=== PATIENT | female | born 1990 | race Caucasian/White ===

== ENCOUNTER → 2019-06-01 13:25 | Outpatient (BNVA) | payer MEDICAID, SELFPAY | PROVIDERS: Family Provider Internal Medicine; PCP Internal Medicine; Referring Provider Social Worker; Visit Provider Social Worker | DX: F20.9 Schizophrenia, unspecified (principal); F63.81 Intermittent explosive disorder; R41.83 Borderline intellectual functioning | CPT/HCPCS: 90791 ==

== ENCOUNTER → 2019-07-27 12:44 | Outpatient (BNVA) | payer MEDICAID, SELFPAY | PROVIDERS: Family Provider Internal Medicine; PCP Internal Medicine; Visit Provider Social Worker | DX: F20.9 Schizophrenia, unspecified (principal); F63.81 Intermittent explosive disorder; R41.83 Borderline intellectual functioning | CPT/HCPCS: 90834 ==

== ENCOUNTER → 2019-08-24 13:29 | Outpatient (BNVA) | payer MEDICAID, SELFPAY | PROVIDERS: Family Provider Internal Medicine; PCP Internal Medicine; Visit Provider Social Worker | DX: F20.9 Schizophrenia, unspecified (principal); F63.81 Intermittent explosive disorder; R41.83 Borderline intellectual functioning | CPT/HCPCS: 90832 ==

== ENCOUNTER → 2019-09-12 08:27 | Outpatient (BNVA) | payer MEDICAID, SELFPAY | PROVIDERS: Family Provider Internal Medicine; PCP Internal Medicine; Visit Provider Social Worker | DX: F20.9 Schizophrenia, unspecified (principal); F63.81 Intermittent explosive disorder; R41.83 Borderline intellectual functioning | CPT/HCPCS: 90832 ==

== ENCOUNTER → 2020-06-20 08:47 | Outpatient (BNVA) | payer MEDICAID, SELFPAY | PROVIDERS: Family Provider Internal Medicine; PCP Internal Medicine; Visit Provider Counselor Professional | DX: F79 Unspecified intellectual disabilities (principal); Z71.9 Counseling, unspecified | CPT/HCPCS: 90834 ==

== ENCOUNTER → 2020-07-04 07:48 | Outpatient (BNVA) | payer MEDICAID, SELFPAY | PROVIDERS: Family Provider Internal Medicine; PCP Internal Medicine; Visit Provider Counselor Professional | DX: F79 Unspecified intellectual disabilities (principal); Z71.9 Counseling, unspecified | CPT/HCPCS: 90832 ==

== ENCOUNTER → 2020-07-18 07:45 | Outpatient (BNVA) | payer MEDICAID, SELFPAY | PROVIDERS: Family Provider Internal Medicine; PCP Internal Medicine; Visit Provider Counselor Professional | DX: F79 Unspecified intellectual disabilities (principal); Z71.9 Counseling, unspecified | CPT/HCPCS: 90834 ==

== ENCOUNTER 2020-12-03 18:09 | Emergency (ER) | payer MEDICAID, SELFPAY ==
[2020-12-03 19:09] VITALS: BP 106/78; PULSE 100; RESP 20; TEMP 36.6; O2SAT 98
--- NOTE | 2020-12-03 19:30 | ED_ITS ---
HPI - Weakness General: Chief complaint: Weakness Stated complaint: body aches Time Seen by Provider: 12/03/20 19:29 History of Present Illness: HPI Narrative: 30-year-old female that is a resident at a independent living center comes in today for feeling of malaise and chills for the last 2 to 3 days. Patient is alert and oriented. Patient appears no acute distress. Associated symptoms: Reports chills Review of Systems General: Reports: 10 or more systems reviewed and unremarkable except in HPI and below Const: Reports: chills, body aches and malaise PFS ED PFSH: Medical History (Updated 12/03/20 @ 20:22 by EVELYN Egan) ADHD Bipolar disorder Borderline personality disorder Callus of foot Cephalgia GERD (gastroesophageal reflux disease) Hammer toe of left foot Obsessive-compulsive behavior Schizophrenia Family History Denies family history of Diabetes CAD (coronary artery disease) Clotting disorder Dementia Hyperlipidemia Psychiatric illness Chronic kidney disease (CKD) Suicide Anesthesia complication Bleeding disorder Family history of premature coronary artery disease Lung disease Cancer Hypertension Stroke Social History Smoking and tobacco status: never smoked Alcohol intake: never Current gender identity: Female Physical Exam Const: COMMON NORMALS: no acute distress and patient oriented x3 GENERAL APPEARANCE: cooperative HENMT: COMMON NORMALS: normocephalic, TM's normal bilaterally and Normal external nose present HEAD & SCALP: normal to inspection and normocephalic NOSE: Normal external nose present TYMPANIC MEMBRANE: TM's normal bilaterally MOUTH: Normal oral and palatal mucosa present THROAT: posterior oropharynx normal Eye: GENERAL EYE: appearance normal, both eyes and all related structures Neck/C-Spine: COMMON NORMALS: full ROM Lymph: LYMPHATIC: no lymphadenopathy noted Chest: COMMONS NORMALS: normal inspection of the chest Resp: COMMON NORMALS: normal respiratory effort EFFORT & INSPECTION: Yes able to speak in complete sentences Cardio: COMMON NORMALS: regular rate and regular rhythm RATE: regular rate RHYTHM: regular rhythm GI: COMMON NORMALS: non-tender : COMMON NORMALS: Yes no CVA tenderness BLADDER/KIDNEY EXAM: Yes no CVA tenderness Back/Pelvis: COMMON NORMALS: no CVA tenderness and thoracic and lumbar spine normal to inspection Extremity: COMMON NORMALS: normal to inspection Neuro: COMMON NORMALS: patient oriented x3 and moves all extremities Psych: COMMON NORMALS: mental status grossly normal and cooperative Skin: COMMON NORMALS: no rashes or lesions noted GENERAL SKIN EXAM: no rashes or lesions noted Course Vital Signs: Vital signs: Vital Signs Temperature 97.8 F 12/03/20 19:09 Pulse Rate 100 12/03/20 19:09 Respiratory Rate 20 H 12/03/20 19:09 Blood Pressure 106/78 12/03/20 19:09 Pulse Oximetry 98 12/03/20 19:09 MDM - Weakness MDM Narrative: Medical decision making narrative: Patient comes in today for complaints of chills, malaise, and body aches. On exam respirations are even lungs are clear to auscultation. Skin is warm and dry. Abdomen soft nontender. Differential diagnosis includes upper respiratory infection, viral syndrome, COVID-19. COVID-19 test was positive. Patient was instructed for supportive care. This was reviewed with her caregiver. With recommendations for follow-up or return to the ER. Lab Data: Labs: Lab Results 12/03/20 Range/Units 19:38 SARS-CoV-2 Ag (Rap id) Positive H (Negative) Discharge Plan Discharge Patient Disposition: Home Clinical Impression: COVID-19 Condition: Stable Prescriptions: No Action loratadine 10 mg capsule 10 mg PO DAILY RF: 0 fluticasone furoate 50 mcg/actuation blister with device INHALATION RF: 0 montelukast [Singulair] 10 mg tablet 10 mg PO DAILY RF: 0 [id number]-pramoxine TOPICAL RF: 0 acetaminophen [Tylenol Extra Strength] 500 mg tablet 500 mg PO QID PRNRF: 0 calcium carbonate 500 mg calcium (1,250 mg) tablet,chewable 500 mg PO DAILY RF: 0 clindamycin-benzoyl peroxide [Benzaclin] 1-5 % gel 1 applic TOPICAL DAILY RF: 0 Protonix [address] for susp in packet 40 mg PO DAILY RF: 0 medroxyprogesterone [Depo-Provera] 150 mg/mL syringe IM RF: 0 divalproex [Depakote] 500 mg tablet,delayed release (DR/EC) 500 mg PO BID RF: 0 risperidone [Risperdal] 4 mg tablet 4 mg PO BID RF: 0 carbamide peroxide [Debrox] 6.5 % drops 5 drop EAR-BOTH DAILY RF: 0 polyethylene glycol 3350 [Miralax] 17 gram/dose powder 17 gm PO DAILY RF: 0 benztropine 1 mg tablet 1 mg PO BID RF: 0 trazodone 100 mg tablet 100 mg PO .hs RF: 0 lithium carbonate 300 mg capsule 300 mg PO TID RF: 0 propranolol 10 mg tablet 10 mg PO BID RF: 0 ondansetron 4 mg tablet,disintegrating 4 mg PO Q8H RF: 0 paliperidone palmitate IM RF: 0 triamcinolone acetonide 0.1 % cream 1 applic topical DAILY Qty: 80 RF: 0 fluorouracil 5 % cream See Rx Instructions .ROUTE .COMPLEX Qty: 40 RF: 1 Discharge Orders: Discharge ED (Routine); Ordered 12/03/20 Ordered By: Richard Rios Referrals: Robert Collins DO [Primary Care Provider] - Discharge Diet: Usual diet Discharge Activity: Increase activity as tolerated Patient Instructions: Viral Syndrome (ED), Opioid Safety Activity Restrictions/Additional Instructions: Encourage plenty of fluids. Use acetaminophen or ibuprofen as needed for pain and fever. Activity as tolerated. Patient should wear a mask around other individuals. Patient should be isolated to avoid spreading the infection. Follow-up with primary care for further instruction. Return to the emergency department for new concerns. Coding Level of Care Code ED Licensed Physical Therapist Assistant for Julito Whitmore
[2020-12-03 20:13] LABS: SARS Covid-2 Antigen Positive (Negative)
[2020-12-03 20:41] VITALS: BP 124/80; PULSE 89; RESP 20; TEMP 36.6; O2SAT 98
== END 2020-12-03 20:42 | disposition home or self-care (01) ==
PROVIDERS: Emergency Provider Nurse Practitioner Family; Family Provider Internal Medicine; PCP Internal Medicine
DX: U07.1 COVID-19 (principal); E11.22 Type 2 diabetes mellitus with diabetic chronic kidney disease; I25.10 Atherosclerotic heart disease of native coronary artery without angina pectoris; F03.90 Unspecified dementia, unspecified severity, without behavioral disturbance, psychotic disturbance, mood disturbance, and anxiety; E78.5 Hyperlipidemia, unspecified; I12.9 Hypertensive chronic kidney disease with stage 1 through stage 4 chronic kidney disease, or unspecified chronic kidney disease; N18.9 Chronic kidney disease, unspecified; Z86.73 Personal history of transient ischemic attack (TIA), and cerebral infarction without residual deficits
CPT/HCPCS: 87426; 99282

== ENCOUNTER 2021-05-28 11:58 | Emergency (ER) | payer MEDICAID, SELFPAY ==
[2021-05-28 13:05] VITALS: BP 103/71; PULSE 85; RESP 24; TEMP 36.3; O2SAT 94; BMI 26.9
--- NOTE | 2021-05-28 13:12 | XRR_ITS ---
PROCEDURE INFORMATION: Exam: XR Chest Exam date and time: 05/28/2021 1:12 PM Age: 30 years old Clinical indication: Shortness of breath; Additional info: SOB TECHNIQUE: Imaging protocol: XR of the chest. Views: 1 view. COMPARISON: CR Chest 1 view [id number] 09/19/2018 1:44 PM FINDINGS: Lungs: There is increased lung markings and hazy bilateral airspace opacities, involving mainly the left lower lung. Pleural spaces: Unremarkable. No pleural effusion. No pneumothorax. Heart/Mediastinum: Stable cardiomediastinal silhouette. Bones/joints: Unremarkable. XR/XR chest 1V portable [id number] IMPRESSION: Imaging findings of multifocal pneumonia.
[2021-05-28 15:07] VITALS: BP 117/73; PULSE 99; RESP 24; TEMP 36.9; O2SAT 90
[2021-05-28 15:11] LABS: Adenovirus Not Detected (NOT DETECT); Chlamydia Pneumoniae Not Detected (NOT DETECT); Coronavirus 229E,HKU1,NL63,OC4 Not Detected (NOT DETECT); Human Metapneumovirus Detected (NOT DETECT); Human Rhinovirus/Enterovirus Not Detected (NOT DETECT); Influenza A Not Detected (NOT DETECT); Influenza A H1 Not Detected (NOT DETECT); Influenza A H1-2009 Not Detected (NOT DETECT); Influenza A H3 Not Detected (NOT DETECT); Influenza B Not Detected (NOT DETECT); Mycoplasma Pneumoniae Not Detected (NOT DETECT); Parainfluenza Virus Type 1 Not Detected (NOT DETECT); Parainfluenza Virus Type 2 Not Detected (NOT DETECT); Parainfluenza Virus Type 3 Not Detected (NOT DETECT); Parainfluenza Virus Type 4 Not Detected (NOT DETECT); Respiratory Syncytial Virus A Not Detected (NOT DETECT); Respiratory Syncytial Virus B Not Detected (NOT DETECT); SARS-COV-2 Detected (NOT DETECT)
[2021-05-28 15:13] LABS: Human Metapneumovirus Detected (NOT DETECT); Human Rhinovirus/Enterovirus Not Detected (NOT DETECT); Results from Genmark
[2021-05-28 15:26] LABS: Basophils % 0.2 %; Hematocrit 38.2 % (37.0-47.0); Lymphocytes # 1.4 10^3/uL (0.8-4.8); Mean Corpuscular HGB Conc 31.4 g/dL (30.0-36.0); Mean Corpuscular Hemoglobin 27.6 pg (28.0-34.0); Mean Corpuscular Volume 87.8 fl (81-99); Mean Platelet Volume 8.8 fL (7.4-10.4); Monocytes # 0.6 10^3/uL (0.2-0.9); Monocytes % 5.5 %; Neutrophils # 9.17 10^3/uL (1.8-7.7); Neutrophils % 81.7 %; Nucleated Red Blood Cells % 0 %; Platelet Count 229 10^3/cmm (130-400); Red Blood Count 4.35 10^6/uL (4.1-5.3); Red Cell Distribution Width 12.7 % (12.1-15.1); White Blood Count 11.2 10^3/uL (4.0-10.0)
--- NOTE | 2021-05-28 15:30 | W.ED.COVID ---
Documented by User: EVELYN Guardado 05/28/21 15:57 HPI - COVID General: Chief Complaint: COVID symptoms Stated Complaint: COVID COUGHING N/V Time Seen by Provider: 05/28/21 15:23 Triage information: Has fever, cough or shortness of breath. No known COVID + exposure last 14 days History of Present Illness: HPI Narrative: Patient is an unvaccinated individual who presents from [facility] with COVID symptoms. They said sats were 87% there and sent here for evaluation. Patient's been sick since Wednesday with COVID symptoms this would be her second round with this. Patient has cough, shortness of breath with exertion, chills and has had fever. MD complaint: has COVID symptoms Prior covid testing: yes, results known Prior testing date: 11/28/20 COVID 19 common symptoms: positive fever(s), chills, cough, dyspnea, fatigue, body aches, nasal congestion and nausea; negative headache(s) or vomiting COVID 19 other sytmptoms: negative chest pain Severity: moderate Treatment prior to arrival: none COVID Results: SARS-CoV-2 Antigen (Rapid) Positive (Negative) H 12/03/20 19:38 12/03/20 SARS-CoV-2 (PCR) Detected (NOT DETECT) A 05/28/21 13:12 05/28/21 Coronavirus Type 229E (PCR) Not detected (NOT DETECT) 05/28/21 13:12 05/28/21 Review of Systems Narrative: Mother is the guardian, patient is here with her caregiver. Const: Reports: fever(s), chills, body aches and fatigue Eyes: Denies: change in vision or blurry vision ENMT: Reports: nasal congestion Card: Denies: chest pain or dyspnea on exertion Resp: Reports: dyspnea GI: Reports: nausea; Denies: abdominal pain or vomiting Musc: Denies: extremity pain Skin/Breast: Denies: rash Neuro: Denies: headache(s) Psych: Denies: anxiety or depression Parish/Lymph: Denies: easy bruising PFS ED PFSH: Medical History (Updated 05/28/21 @ 15:49 by EVELYN Guardado) ADHD Bipolar disorder Borderline personality disorder Callus of foot Cephalgia GERD (gastroesophageal reflux disease) Hammer toe of left foot Obsessive-compulsive behavior Schizophrenia Family History Denies family history of Diabetes CAD (coronary artery disease) Clotting disorder Dementia Hyperlipidemia Psychiatric illness Chronic kidney disease (CKD) Suicide Anesthesia complication Bleeding disorder Family history of premature coronary artery disease Lung disease Cancer Hypertension Stroke Social History Smoking and tobacco status: never smoked Alcohol intake: never Current gender identity: Female Physical Exam Const: COMMON NORMALS: no acute distress, average body habitus and patient oriented x3 HENMT: COMMON NORMALS: normocephalic HEAD & SCALP: normal to inspection and normocephalic FACE & SINUS: normal facial exam Eye: COMMON NORMALS: conjunctivae normal GENERAL EYE: appearance normal, both eyes and all related structures CONJUNCTIVA: Yes conjunctivae normal Neck/C-Spine: COMMON NORMALS: no JVD Chest: COMMONS NORMALS: normal inspection of the chest Resp: EFFORT & INSPECTION: Yes able to speak in complete sentences, Yes symmetric chest movement, Yes tachypneic, No respiratory distress and Yes Actively coughing Cardio: COMMON NORMALS: no JVD, regular rate and regular rhythm RATE: regular rate RHYTHM: regular rhythm GI: INSPECTION: Yes normal to inspection Extremity: COMMON NORMALS: normal to inspection and full ROM Neuro: COMMON NORMALS: patient oriented x3 Psych: COMMON NORMALS: mental status grossly normal Course Vital Signs: Vital signs: Vital Signs Temperature 98.4 F 05/28/21 15:07 Pulse Rate 102 H 05/28/21 17:37 Respiratory Rate 20 H 05/28/21 17:37 Blood Pressure 110/81 05/28/21 17:37 Pulse Oximetry 94 05/28/21 17:37 MDM - COVID MDM Narrative: Medical decision making narrative: After home O2 evaluation patient was brought back to the ER to be evaluated further. Report was given to Dr. Adams Lab Data: Labs: Lab Results 05/28/21 05/28/21 05/28/21 13:12 15:10 15:12 WBC 11.2 10^3/uL H 10 ^3/uL (4.0-10.0) RBC 4.35 10^6/uL 10^6 /uL (4.1-5.3) Hgb 12.0 g/dL g/dL (11.5-15.3) Hct 38.2 % % (37.0-47.0) MCV 87.8 fl fl (81-99) MCH 27.6 pg L pg (28.0-34.0) MCHC 31.4 g/dL g/dL (30.0-36.0) RDW 12.7 % % (12.1-15.1) Plt Count 229 10^3/cmm 10^3 /cmm (130-400) MPV 8.8 fL fL (7.4-10.4) Neut % (Auto) 81.7 % % Lymph % (Auto) 12.0 % % [place] % (Auto) 5.5 % % Eos % (Auto) 0.0 % % Baso % (Auto) 0.2 % % Neut # (Auto) 9.17 10^3/uL H 10 ^3/uL (1.8-7.7) Lymph # (Auto) 1.4 10^3/uL 10^3/ uL (0.8-4.8) [place] # (Auto) 0.6 10^3/uL 10^3/ uL (0.2-0.9) Eos # (Auto) 0.0 10^3/uL 10^3/ uL (0.0-0.8) Baso # (Auto) 0.0 10^3/uL 10^3/ uL (0.0-0.1) Nucleated RBC % (a uto) 0 % % Nucleated RBCs # 0.0 /100WBC /100W BC Coronavirus 229E ( PCR) Not detected (NOT DETECT) Human Metapneumovi r PCR Detected A (NOT DETECT) Entero/Rhino (PCR) Not detected (NOT DETECT) SARS-CoV-2 (PCR) Detected A (NOT DETECT) COVID Results: SARS-CoV-2 Antigen (Rapid) Positive (Negative) H 12/03/20 19:38 12/03/20 SARS-CoV-2 (PCR) Detected (NOT DETECT) A 05/28/21 13:12 05/28/21 Coronavirus Type 229E (PCR) Not detected (NOT DETECT) 05/28/21 13:12 05/28/21 Discharge Plan Discharge Patient Disposition: Home Clinical Impression: COVID-19 Condition: Stable Prescriptions: No Action loratadine 10 mg capsule 10 mg PO DAILY RF: 0 fluticasone furoate 50 mcg/actuation blister with device INHALATION RF: 0 montelukast [Singulair] 10 mg tablet 10 mg PO DAILY RF: 0 [id number]-pramoxine TOPICAL RF: 0 acetaminophen [Tylenol Extra Strength] 500 mg tablet 500 mg PO QID PRNRF: 0 calcium carbonate 500 mg calcium (1,250 mg) tablet,chewable 500 mg PO DAILY RF: 0 clindamycin-benzoyl peroxide [Benzaclin] 1-5 % gel 1 applic TOPICAL DAILY RF: 0 Protonix [address] for susp in packet 40 mg PO DAILY RF: 0 medroxyprogesterone [Depo-Provera] 150 mg/mL syringe IM RF: 0 divalproex [Depakote] 500 mg tablet,delayed release (DR/EC) 500 mg PO BID RF: 0 risperidone [Risperdal] 4 mg tablet 4 mg PO BID RF: 0 carbamide peroxide [Debrox] 6.5 % drops 5 drop EAR-BOTH DAILY RF: 0 polyethylene glycol 3350 [Miralax] 17 gram/dose powder 17 gm PO DAILY RF: 0 benztropine 1 mg tablet 1 mg PO BID RF: 0 trazodone 100 mg tablet 100 mg PO .hs RF: 0 lithium carbonate 300 mg capsule 300 mg PO TID RF: 0 propranolol 10 mg tablet 10 mg PO BID RF: 0 ondansetron 4 mg tablet,disintegrating 4 mg PO Q8H RF: 0 paliperidone palmitate IM RF: 0 triamcinolone acetonide 0.1 % cream See Rx Instructions .ROUTE .COMPLEX Qty: 80 RF: 3 fluorouracil 5 % cream See Rx Instructions .ROUTE .COMPLEX Qty: 40 RF: 1 Discharge Orders: Discharge ED (Routine); Ordered 05/28/21 Ordered By: Pelon Adams Other Ambulatory Orders: DME: Oxygen (Order) Location: None Selected Ordered By: Pelon Adams Referrals: Robert Collins DO [Primary Care Provider] - Discharge Diet: Usual diet Discharge Activity: Limit activity as instructed Activity Restrictions/Additional Instructions: Continue home oxygen set up a follow-up with Ally Franklin tomorrow via telehealth. If you have any worsening or change symptoms return to the emergency room. Sign Out Sign Out Data: Patient Sign Out occurred on 05/28/21 at 16:04. Patient's care was discussed, and care was transferred from to Pelon Adams DO. Coding Level of Care Code ED Assistant Center Director for Chg Fwd Exam Comprehensive Documented by User: Pelon Adams DO 05/31/21 17:16 HPI - COVID General: Chief Complaint: COVID symptoms Stated Complaint: COVID COUGHING N/V Time Seen by Provider: 05/28/21 15:23 COVID Results: SARS-CoV-2 Antigen (Rapid) Positive (Negative) H 12/03/20 19:38 12/03/20 SARS-CoV-2 (PCR) Detected (NOT DETECT) A 05/28/21 13:12 05/28/21 Coronavirus Type 229E (PCR) Not detected (NOT DETECT) 05/28/21 13:12 05/28/21 [facility] ED PFSH: Medical History (Updated 05/28/21 @ 15:49 by EVELYN Guardado) ADHD Bipolar disorder Borderline personality disorder Callus of foot Cephalgia GERD (gastroesophageal reflux disease) Hammer toe of left foot Obsessive-compulsive behavior Schizophrenia Family History Denies family history of Diabetes CAD (coronary artery disease) Clotting disorder Dementia Hyperlipidemia Psychiatric illness Chronic kidney disease (CKD) Suicide Anesthesia complication Bleeding disorder Family history of premature coronary artery disease Lung disease Cancer Hypertension Stroke Social History Smoking and tobacco status: never smoked Alcohol intake: never Current gender identity: Female Course Vital Signs: Vital signs: Vital Signs Temperature 98.4 F 05/28/21 15:07 Pulse Rate 102 H 05/28/21 17:37 Respiratory Rate 20 H 05/28/21 17:37 Blood Pressure 110/81 05/28/21 17:37 Pulse Oximetry 94 05/28/21 17:37 MDM - COVID MDM Narrative: Medical decision making narrative: Patient has recurrent COVID. She tested positive in November and she is now testing positive on a PCR test here. She is otherwise stable all of her other labs vitals are reviewed she can be discharged home. Patient was tested for home oxygen and did meet requirements. On 2 L she is 94%. Follow-up with Allyev Franklin tomorrow via telehealth. Lab Data: Labs: Lab Results 05/28/21 05/28/21 05/28/21 13:12 15:10 15:12 WBC 11.2 10^3/uL H 10 ^3/uL (4.0-10.0) RBC 4.35 10^6/uL 10^6 /uL (4.1-5.3) Hgb 12.0 g/dL g/dL (11.5-15.3) Hct 38.2 % % (37.0-47.0) MCV 87.8 fl fl (81-99) MCH 27.6 pg L pg (28.0-34.0) MCHC 31.4 g/dL g/dL (30.0-36.0) RDW 12.7 % % (12.1-15.1) Plt Count 229 10^3/cmm 10^3 /cmm (130-400) MPV 8.8 fL fL (7.4-10.4) Neut % (Auto) 81.7 % % Lymph % (Auto) 12.0 % % [place] % (Auto) 5.5 % % Eos % (Auto) 0.0 % % Baso % (Auto) 0.2 % % Neut # (Auto) 9.17 10^3/uL H 10 ^3/uL (1.8-7.7) Lymph # (Auto) 1.4 10^3/uL 10^3/ uL (0.8-4.8) [place] # (Auto) 0.6 10^3/uL 10^3/ uL (0.2-0.9) Eos # (Auto) 0.0 10^3/uL 10^3/ uL (0.0-0.8) Baso # (Auto) 0.0 10^3/uL 10^3/ uL (0.0-0.1) Nucleated RBC % (a uto) 0 % % Nucleated RBCs # 0.0 /100WBC /100W BC Coronavirus 229E ( PCR) Not detected (NOT DETECT) Human Metapneumovi r PCR Detected A (NOT DETECT) Entero/Rhino (PCR) Not detected (NOT DETECT) SARS-CoV-2 (PCR) Detected A (NOT DETECT) COVID Results: SARS-CoV-2 Antigen (Rapid) Positive (Negative) H 12/03/20 19:38 12/03/20 SARS-CoV-2 (PCR) Detected (NOT DETECT) A 05/28/21 13:12 05/28/21 Coronavirus Type 229E (PCR) Not detected (NOT DETECT) 05/28/21 13:12 05/28/21 Discharge Plan Discharge Patient Disposition: Home Clinical Impression: COVID-19 Condition: Stable Prescriptions: No Action loratadine 10 mg capsule 10 mg PO DAILY RF: 0 fluticasone furoate 50 mcg/actuation blister with device INHALATION RF: 0 montelukast [Singulair] 10 mg tablet 10 mg PO DAILY RF: 0 [id number]-[id number]-qgjafog-pramoxine TOPICAL RF: 0 acetaminophen [Tylenol Extra Strength] 500 mg tablet 500 mg PO QID PRNRF: 0 calcium carbonate 500 mg calcium (1,250 mg) tablet,chewable 500 mg PO DAILY RF: 0 clindamycin-benzoyl peroxide [Benzaclin] 1-5 % gel 1 applic TOPICAL DAILY RF: 0 Protonix [address] for susp in packet 40 mg PO DAILY RF: 0 medroxyprogesterone [Depo-Provera] 150 mg/mL syringe IM RF: 0 divalproex [Depakote] 500 mg tablet,delayed release (DR/EC) 500 mg PO BID RF: 0 risperidone [Risperdal] 4 mg tablet 4 mg PO BID RF: 0 carbamide peroxide [Debrox] 6.5 % drops 5 drop EAR-BOTH DAILY RF: 0 polyethylene glycol 3350 [Miralax] 17 gram/dose powder 17 gm PO DAILY RF: 0 benztropine 1 mg tablet 1 mg PO BID RF: 0 trazodone 100 mg tablet 100 mg PO .hs RF: 0 lithium carbonate 300 mg capsule 300 mg PO TID RF: 0 propranolol 10 mg tablet 10 mg PO BID RF: 0 ondansetron 4 mg tablet,disintegrating 4 mg PO Q8H RF: 0 paliperidone palmitate IM RF: 0 triamcinolone acetonide 0.1 % cream See Rx Instructions .ROUTE .COMPLEX Qty: 80 RF: 3 fluorouracil 5 % cream See Rx Instructions .ROUTE .COMPLEX Qty: 40 RF: 1 Discharge Orders: Discharge ED (Routine); Ordered 05/28/21 Ordered By: Pelon Adams Other Ambulatory Orders: DME: Oxygen (Order) Location: None Selected Ordered By: Pelon Adams Referrals: Robert Collins DO [Primary Care Provider] - Discharge Diet: Usual diet Discharge Activity: Limit activity as instructed Activity Restrictions/Additional Instructions: Continue home oxygen set up a follow-up with Ally Franklin tomorrow via telehealth. If you have any worsening or change symptoms return to the emergency room. Sign Out Sign Out Data: Patient Sign Out occurred on 05/28/21 at 16:04. Patient's care was discussed, and care was transferred from to Pelon Adams DO. Coding Level of Care Code ED Assistant Center Director for Julito Fwd Exam Comprehensive
[2021-05-28 15:55] VITALS: O2SAT 87; O2SAT 90; O2SAT 92
[2021-05-28] MEDS: acetaminophen 500 mg Tablet 1000 MG PO (16:31)
[2021-05-28 16:55] VITALS: O2SAT 97
[2021-05-28 16:57] VITALS: PULSE 107; RESP 19; O2SAT 93
[2021-05-28 17:37] VITALS: BP 110/81; PULSE 102; RESP 20; O2SAT 94
--- NOTE | 2021-05-29 12:29 | PC.NURSE ---
Pt notified of COVID (+) results
== END 2021-05-28 17:39 | disposition home or self-care (01) ==
PROVIDERS: Nurse Practitioner Family; Emergency Provider Family Medicine; PCP Internal Medicine
DX: U07.1 COVID-19 (principal)
CPT/HCPCS: 71045; 85025; 87635; 87801; 99283

== ENCOUNTER → 2021-11-13 15:20 | Outpatient (BNVA) | payer MEDICAID, SELFPAY | PROVIDERS: PCP Internal Medicine; Visit Provider Podiatrist Foot & Ankle Surgery | DX: L84 Corns and callosities (principal); M20.42 Other hammer toe(s) (acquired), left foot; B07.0 Plantar wart; L30.9 Dermatitis, unspecified | CPT/HCPCS: 17110 ==

== ENCOUNTER 2021-11-16 21:34 | Inpatient (IN) | payer MEDICAID, SELFPAY ==
[2021-11-16 21:38] VITALS: PULSE 72; RESP 16; TEMP 36.3; O2SAT 96
[2021-11-16 21:41] VITALS: BP 104/66
--- NOTE | 2021-11-16 21:52 | ED.C_ITS ---
HPI - Psych General: Chief Complaint: Psychiatric Symptoms Stated Complaint: SI Time Seen by Provider: 11/16/21 21:39 Source: patient Mode of arrival: ambulatory Limitations: no limitations History of Present Illness: 30-year-old female who is here from [facility]. She states she got angry with her roommate sara and she has been having increased depression as well. She states that sara she had made comments to the worker that she is having thoughts of harming herself. She does tell me that she has had increased depression and scared if she is by herself in her room that she may attempt to harm herself. She has no specific plans and has not tried any attempts she has been admitted to a psych pfeiffer in the past its been years ago she states. She denies any worsening improving factors at this time. Associated symptoms: Reports depression Review of Systems Const: Denies: fever(s), chills, body aches or change in appetite Eyes: Denies: blurry vision or eye discomfort ENMT: Denies: throat pain or dental pain Card: Denies: chest pain Resp: Denies: dyspnea GI: Denies: abdominal pain, nausea, vomiting or diarrhea : Denies: dysuria Musc: Denies: neck pain or back pain Skin/Breast: Denies: rash Neuro: Denies: headache(s) Psych: Reports: depression Parish/Lymph: Denies: easy bruising All/Imm: Denies: urticaria PFSH ED PFSH: Medical History ADHD Bipolar disorder Borderline personality disorder Callus of foot Cephalgia GERD (gastroesophageal reflux disease) Hammer toe of left foot Obsessive-compulsive behavior Schizophrenia Family History Denies family history of Diabetes CAD (coronary artery disease) Clotting disorder Dementia Hyperlipidemia Psychiatric illness Chronic kidney disease (CKD) Suicide Anesthesia complication Bleeding disorder Family history of premature coronary artery disease Lung disease Cancer Hypertension Stroke Social History Smoking and tobacco status: never smoked Alcohol intake: never Current gender identity: Female Physical Exam Const: COMMON NORMALS: no acute distress, patient oriented x3 and healthy appearing HENMT: COMMON NORMALS: normocephalic and atraumatic HEAD & SCALP: normocephalic and atraumatic Eye: COMMON NORMALS: Equal, round and reactive pupils present and EOMs intact bilaterally PUPIL: Yes Equal, round and reactive pupils present Neck/C-Spine: COMMON NORMALS: full ROM and supple Chest: COMMONS NORMALS: normal inspection of the chest and normal palpation of entire chest wall Resp: COMMON NORMALS: normal respiratory effort, No retractions, No use of acc essory muscles and clear to auscultation bilaterally AUSCULTATION: clear to auscultation bilaterally Cardio: COMMON NORMALS: regular rate, regular rhythm and No murmurs present (Cardio) RATE: regular rate RHYTHM: regular rhythm GI: COMMON NORMALS: Normal to inspection, nondistended, normoactive bowel sounds present, Soft to palpation, non-tender and no masses PALPATION: Yes Soft to palpation Extremity: COMMON NORMALS: normal to inspection and full ROM Neuro: COMMON NORMALS: patient oriented x3, moves all extremities and no focal motor deficits Psych: COMMON NORMALS: mental status grossly normal and cooperative MOOD & AFFECT: Yes depressed mood THOUGHT CONTENT: Yes Suicidality present Skin: COMMON NORMALS: no rashes or lesions noted and no wounds GENERAL SKIN EXAM: no rashes or lesions noted Course Vital Signs: Vital signs: Vital Signs Temperature 97.4 F L 11/16/21 21:38 Pulse Rate 72 11/16/21 21:38 Respiratory Rate 16 11/16/21 21:38 Blood Pressure 104/66 11/16/21 21:41 Pulse Oximetry 96 11/16/21 21:38 [facility] - Psych Medical Decision Making Patient presents here with suicidal ideation patient is voluntary she is medically cleared I did speak to psychiatrist and will admit at this time. She has been stable and cooperative while in the ER. Lab Data : 11/16/21 22:04 11/16/21 22:04 Laboratory Results WBC 8.8 10^3/uL (4.0-10.0) 11/16/21 22:04 RBC 4.25 10^6/uL (4.1-5.3) 11/16/21 22:04 Hgb 11.8 g/dL (11.5-15.3) 11/16/21 22:04 Hct 35.6 % (37.0-47.0) L 11/16/21 22:04 MCV 83.8 fl (81-99) 11/16/21 22:04 MCH 27.8 pg (28.0-34.0) L 11/16/21 22:04 MCHC 33.1 g/dL (30.0-36.0) 11/16/21 22:04 RDW 12.8 % (12.1-15.1) 11/16/21 22:04 Plt Count 260 10^3/cmm (130-400) 11/16/21 22:04 MPV 8.5 fL (7.4-10.4) 11/16/21 22:04 Neut % (Auto) 77.5 % 11/16/21 22:04 Lymph % (Auto) 13.1 % 11/16/21 22:04 [place] % (Auto) 8.8 % 11/16/21 22:04 Eos % (Auto) 0.0 % 11/16/21 22:04 Baso % (Auto) 0.1 % 11/16/21 22:04 Neut # (Auto) 6.84 10^3/uL (1.8-7.7) 11/16/21 22:04 Lymph # (Auto) 1.2 10^3/uL (0.8-4.8) 11/16/21 22:04 [place] # (Auto) 0.8 10^3/uL (0.2-0.9) 11/16/21 22:04 Eos # (Auto) 0.0 10^3/uL (0.0-0.8) 11/16/21 22:04 Baso # (Auto) 0.0 10^3/uL (0.0-0.1) 11/16/21 22:04 Nucleated RBC % (auto) 0 % 11/16/21 22: Nucleated RBCs # 0.0 /100WBC 11/16/21 22:04 Sodium 140 mmol/L (136-145) 11/16/21 22:04 Potassium 3.7 mmol/L (3.5-5.1) 11/16/21 22:04 Chloride 105 mmol/L (98-107) 11/16/21 22:04 Carbon Dioxide 25 mmol/L (22-29) 11/16/21 22:04 Anion Gap 13.7 (5-19) 11/16/21 22:04 BUN 11 mg/dL (6-20) 11/16/21 22:04 Creatinine 0.9 mg/dL (0.5-0.9) 11/16/21 22:04 GFR Calculation 73.5 mL/min (90-130) L 11/16/21 22:04 Glucose 92 mg/dL (65-115) 11/16/21 22:04 Calculated Osmolality 289 mOsm/kg (285-295) 11/16/21 22:04 Calcium 10.1 mg/dL (8.5-10.5) 11/16/21 22:04 Total Bilirubin 0.3 mg/dL (0.15-1.2) 11/16/21 22:04 AST 15 U/L (0-32) 11/16/21 22:04 ALT 13 U/L (0-33) 11/16/21 22:04 Alkaline Phosphatase 92 IU/L (35-105) 11/16/21 22:04 Total Protein 7.6 g/dL (6.6-8.7) 11/16/21 22:04 Albumin 4.7 g/dL (3.5-5.2) 11/16/21 22:04 Globulin 2.9 g/dL (1.3-4.6) 11/16/21 22:04 Salicylates < 0.3 mg/dL (3-10) L 11/16/21 22:04 Urine Opiates Screen Negative ng/mL (Negative) 11/16/21 22:09 Acetaminophen < 5.0 ug/mL (10-30) L 11/16/21 22:04 Ur Barbiturates Screen Negative ng/mL (Negative) 11/16/21 22:09 Ur Phencyclidine Scrn Negative ng/mL (Negative) 11/16/21 22:09 Ur Amphetamines Screen Negative ng/mL (Negative) 11/16/21 22:09 U Benzodiazepines Scrn Negative ng/mL (Negative) 11/16/21 22:09 Urine Cocaine Screen Negative ng/mL (Negative) 11/16/21 22:09 U Marijuana (THC) Screen Negative ng/mL (Negative) 11/16/21 22:09 Ethyl Alcohol < 10 mg/dL (0-10) 11/16/21 22:04 Discharge Plan Discharge Condition: Stable Prescriptions: No Action loratadine 10 mg capsule 10 mg PO DAILY 0RF fluticasone furoate 50 mcg/actuation blister with device INHALATION 0RF montelukast [Singulair] 10 mg tablet 10 mg PO DAILY 0RF npohq-qxxdk-afsvjap-pramoxine TOPICAL 0RF acetaminophen [Tylenol Extra Strength] 500 mg tablet 500 mg PO QID PRN0RF calcium carbonate 500 mg calcium (1,250 mg) tablet,chewable 500 mg PO DAILY 0RF clindamycin-benzoyl peroxide [Benzaclin] 1-5 % gel 1 applic TOPICAL DAILY 0RF Protonix [address] for susp in packet 40 mg PO DAILY 0RF medroxyprogesterone [Depo-Provera] 150 mg/mL syringe IM 0RF divalproex [Depakote] 500 mg tablet,delayed release (DR/EC) 500 mg PO BID 0RF risperidone [Risperdal] 4 mg tablet 4 mg PO BID 0RF carbamide peroxide [Debrox] 6.5 % drops 5 drop EAR-BOTH DAILY 0RF polyethylene glycol 3350 [Miralax] 17 gram/dose powder 17 gm PO DAILY 0RF benztropine 1 mg tablet 1 mg PO BID 0RF trazodone 100 mg tablet 100 mg PO .hs 0RF lithium carbonate 300 mg capsule 300 mg PO TID 0RF propranolol 10 mg tablet 10 mg PO BID 0RF ondansetron 4 mg tablet,disintegrating 4 mg PO Q8H 0RF paliperidone palmitate IM 0RF triamcinolone acetonide 0.1 % cream See Rx Instructions .ROUTE .COMPLEX Qty: 80 3RF Dose Instruction: USE ONE APPLICATION TOPICALLY DAILY Rx Instructions: USE ONE APPLICATION TOPICALLY DAILY fluorouracil 5 % cream See Rx Instructions .ROUTE .COMPLEX Qty: 40 1RF Dose Instruction: APPLY TWICE DAILY FOR CALLUS ON SECOND TOE; APPLY SUFFICIENT AMOUNT TO COVER ALL LESIONS Rx Instructions: APPLY TWICE DAILY FOR CALLUS ON SECOND TOE; APPLY SUFFICIENT AMOUNT TO COVER ALL LESIONS Referrals: Robert Collins DO [Primary Care Provider] - Coding Level of Care Code ED Senior Network Security Engineer for g Fwd Exam Comprehensive
[2021-11-16 22:09] LABS: Basophils % 0.1 %; Hematocrit 35.6 % (37.0-47.0); Hemoglobin 11.8 g/dL (11.5-15.3); Lymphocytes # 1.2 10^3/uL (0.8-4.8); Lymphocytes % 13.1 %; Mean Corpuscular HGB Conc 33.1 g/dL (30.0-36.0); Mean Corpuscular Hemoglobin 27.8 pg (28.0-34.0); Mean Corpuscular Volume 83.8 fl (81-99); Mean Platelet Volume 8.5 fL (7.4-10.4); Monocytes # 0.8 10^3/uL (0.2-0.9); Monocytes % 8.8 %; Neutrophils # 6.84 10^3/uL (1.8-7.7); Neutrophils % 77.5 %; Nucleated Red Blood Cells % 0 %; Platelet Count 260 10^3/cmm (130-400); Red Blood Count 4.25 10^6/uL (4.1-5.3); Red Cell Distribution Width 12.8 % (12.1-15.1); White Blood Count 8.8 10^3/uL (4.0-10.0)
[2021-11-16 22:30] LABS: Amphetamines Screen Urine Negative (Negative); Barbiturates Screen Urine Negative (Negative); Benzodiazepines Screen Urine Negative (Negative); Cocaine Screen Urine Negative (Negative); Opiate Screen Urine Negative (Negative); PCP Screen Urine Negative (Negative); THC Screen Urine Negative (Negative)
[2021-11-16 22:31] LABS: Alanine Aminotransferase 13 U/L (0-33); Albumin Level 4.7 g/dL (3.5-5.2); Alkaline Phosphatase 92 IU/L (35-105); Anion Gap 13.7 (5-19); Aspartate Amino Transferase 15 U/L (0-32); Blood Urea Nitrogen 11 mg/dL (6-20); Calcium 10.1 mg/dL (8.5-10.5); Carbon Dioxide 25 mmol/L (22-29); Chloride 105 mmol/L (98-107); Globulin 2.9 g/dL (1.3-4.6); Glomerular Filtration Rate 73.5 mL/min (90-130); Glucose 92 mg/dL (65-115); Osmolality Calculated 289 mOsm/kg (285-295); Potassium 3.7 mmol/L (3.5-5.1); Sodium 140 mmol/L (136-145); Total Bilirubin 0.3 mg/dL (0.15-1.2); Total Protein 7.6 g/dL (6.6-8.7)
[2021-11-16 22:35] LABS: Acetaminophen < 5.0 ug/mL (10-30); Alcohol Level < 10 mg/dL (0-10); Salicylate < 0.3 mg/dL (3-10)
[2021-11-16] MEDS: LORazepam 1 mg Tablet PO (22:57)
[2021-11-16 23:04] LABS: Lithium 1.8 mmol/L (0.6-1.2)
[2021-11-16 23:40] LABS: HCG Qualitative Urine. Negative (Negative)
[2021-11-17 00:55] VITALS: BP 101/68; PULSE 78; RESP 18; TEMP 36.4; O2SAT 95
[2021-11-17 00:59] VITALS: BP 101/68; PULSE 78; RESP 18; TEMP 36.4; O2SAT 95
[2021-11-17 06:00] VITALS: RESP 16
[2021-11-17] MEDS: acetaminophen 325 mg Tablet 650 MG PO (06:11)
[2021-11-17] MEDS: OLANZapine 5 mg ODT PO (09:35)
[2021-11-17] MEDS: hyDROXYzine 25 mg Capsule 50 MG PO (10:43)
--- NOTE | 2021-11-17 11:55 | PC.NURSE ---
PRN MEDS PT GIVEN 5MG ZYDIS AND 50MG VISTARIL, FOR VOICES & ANXIETY, WILL CONTINUE TO MONITOR.
--- NOTE | 2021-11-17 13:01 | PC.PHAR ---
[facility] Authorization obtained: [facility]# [id number] for 11/17/21 k[place]oe
--- NOTE | 2021-11-17 13:06 | PC.NURSE ---
NEW ORDERS RN SPOKE WITH [facility] AND RECEIVED CURRENT MED LIST. SPOKE WITH DR. CAMACHO AND HE GAVE VERBAL ORDERS TO START CLOZAPINE, RISPERIDOL, PROTONIX, COLACE, CETRIZINE, BUSPAR AND COGENTIN. ALL ORDERS PLACED IN [facility]. UPDATED PT WE WERE STARTING HOME MEDS.
[2021-11-17] MEDS: lithium carbonate 300 mg Capsule PO ×3 (13:29→20:57)
[2021-11-17] MEDS: cloZAPine 25 mg Tablet PO ×3 (13:30→20:57)
[2021-11-17 14:00] VITALS: BP 111/73; PULSE 87; RESP 18; TEMP 36.7; O2SAT 94
--- NOTE | 2021-11-17 14:55 | P.NPUHP_ITS ---
Providers/Chief Complaint Admitting Physician: Steve Moore MD Primary Care Provider: Robert Collins DO Chief Complaint: I got angry housemate at the [facility]. HPI NPU History of Present Illness Iza Ordonez is a 30 year old female with a history of mild cognitive impairment and impulse control disorder not otherwise specified who has been living in a adult living facility at the [facility] for several years. She reports that she was tired of doing all of the chores in her house that she shares with another man. She had endorsed wanting to cut herself with a knife. She had reported that she became very angry and had thoughts about hurting the other person in the living facility. Iza reports that she has been living in [facility] with her anger. She reports being upset and states that she does not wish to have to move to [facility] as she reports that she loves it there. Patient reports vague thoughts of wanting to hurt herself but reported that she could keep it under control. She reports not hearing voices currently. She reports that she has become stressed out having to do all the chores in the house. Inpatient history. Patient has a history of multiple inpatient hospitalizations and was hospitalized in 2020. She has received outpatient treatment under Dr. Dick THRASHER in [place] medications include lithium 300 mg 4 times a day BuSpar 5 mg 3 times a day Clozapine 50 mg 3 times a day Cogentin 1 mg 3 times a day pantoprazole 40 mg a day trazodone 225 mg a day Risperdal 4 mg twice a day medical history is significant for GERD and constipation. Allergies none Social hx: reported per patient social history patient is unmarried no children she was born [place] she reports having received a special diploma in school she had grown up living with her mother and stepfather she is the only product of mother and father but has multiple 1/2 siblings on each side of the family. She does not report any past history of sexual physical or emotional abuse. She has reported having been incarcerated for physical assault and battery 3 times in the past. She did report learning problems while she was growing up. She has reported residing at the [facility] for about 5 years. Her mother is the legal guardian. FAM hX: UNKNOWN, S Meds NPU Home Medications Medication Instructions Recorded Confirmed Last Taken Type acetaminophen 500 mg tablet 500 mg PO QID PRN 06/20/19 11/16/21 Unknown History (Tylenol Extra Strength) benztropine 1 mg tablet 1 mg PO BID 06/20/19 11/17/21 Unknown History calcium carbonate 500 mg calcium 500 mg PO DAILY PRN 06/20/19 11/17/21 Unknown History (1,250 mg) chewable tablet divalproex 500 mg tablet,delayed 500 mg PO BID 06/20/19 11/13/21 Unknown History release (Depakote) fluticasone furoate 50 INHALATION 06/20/19 11/13/21 Unknown History mcg/actuation blister powder for inhalation lithium carbonate 300 mg capsule 300 mg PO TID cap 06/20/19 11/13/21 Unknown History loratadine 10 mg capsule 10 mg PO DAILY 06/20/19 11/13/21 Unknown History medroxyprogesterone 150 mg/mL IM 06/20/19 11/13/21 Unknown History intramuscular syringe (Depo-Provera) montelukast 10 mg tablet 10 mg PO DAILY 06/20/19 11/13/21 Unknown History (Singulair) pgdng-sgktk-mtjscbc-pramoxine TOPICAL 06/20/19 11/13/21 Unknown History [Triple Antibiotic Plus] ondansetron 4 mg disintegrating 4 mg PO Q8H 06/20/19 11/13/21 Unknown History tablet paliperidone palmitate [Invega IM 06/20/19 11/13/21 Unknown History Sustenna] pantoprazole 40 mg granules 40 mg PO DAILY 06/20/19 11/13/21 Unknown History delayed-release for susp in packet (Protonix) polyethylene glycol 3350 17 17 gm PO DAILY 06/20/19 11/13/21 Unknown History gram/dose oral powder (Miralax) propranolol 10 mg tablet 10 mg PO BID 06/20/19 11/13/21 Unknown History risperidone 4 mg tablet (Risperdal) 4 mg PO BID 06/20/19 11/13/21 Unknown History trazodone 100 mg tablet 100 mg PO .hs tab 06/20/19 11/13/21 Unknown History triamcinolone acetonide 0.1 % See Rx Instructions .ROUTE 07/29/21 11/13/21 Unknown Rx topical cream .COMPLEX #80 g fluorouracil 5 % topical cream See Rx Instructions .ROUTE 08/26/21 11/13/21 Unknown Rx .COMPLEX #40 g Allergies Allergy/AdvReac Type Severity Reaction Status Date / Time No Known Allergies Allergy Verified 11/16/21 23:54 PFSH NPU PFSH: Medical History (Updated 11/17/21 @ 21:18 by Steve Moore MD) ADHD Bipolar disorder Borderline personality disorder Callus of foot Cephalgia GERD (gastroesophageal reflux disease) Hammer toe of left foot Obsessive-compulsive behavior Schizophrenia Family History Denies family history of Diabetes CAD (coronary artery disease) Clotting disorder Dementia Hyperlipidemia Psychiatric illness Chronic kidney disease (CKD) Suicide Anesthesia complication Bleeding disorder Family history of premature coronary artery disease Lung disease Cancer Hypertension Stroke Social History Smoking and tobacco status: never smoked Alcohol intake: never Current gender identity: Female Mental Status Exam MSE Comments: She is a casually dressed white female slightly overweight who appeared somewhat immature and appeared in some distress she was friendly on interview and endorsed having having thoughts of wanting to hurt the other person in the [facility]. She was alert and oriented to person place time. She reported being unable to read. Her gait was within normal limits her mood was described as down her affect was mood congruent and restricted in range her thought process linear but superficial. Her thought content showed evidence of homicidal ideation with no suicidal ideation. Her attention concentration appeared appear distracted her insight was limited her judgment was poor. Vitals/I&O/Wt Last Vital Signs Temp 98.1 F 11/17/21 14:00 Pulse 87 11/17/21 14:00 Resp 18 11/17/21 14:00 BP 111/73 11/17/21 14:00 Pulse Ox 94 11/17/21 14:00 Weight last 48 hrs Weight 70.76 kg Data NPU : 11/16/21 22:04 11/16/21 22:04 A&P Assessment and plan (1) Intermittent explosive disorder: Status: Acute (2) Depression, unspecified: Status: Acute (3) Mild intellectual disability: Status: Acute Plan The patient is a 30-year-old white female history of mild intellectual disability aggression irritability and poor impulse control depression currently on multiple occasions to require acute with possible reassessment of her multiple medications which include Clozaril Risperdal and lithium at this time. I will attempt to contact Dr. Jennings, the patient's psychiatrist tommorow as the patient has been seeing him for many years. Involuntary Hold Information 96 Hour Hold: 96 Hour Involuntary Admission: No Attestations NPU Medical Necessity Statement*: The patient will require acute inpatient hospitalization for at least 2 midnights with likely stay any 4 to 6 days. Coding Level of Care Code New Pt Acute News Library Director for Chg Fwd Patient Type New History Problem Focused Exam Problem Focused Medical Decision Making Straight Forward Diagnoses Intermittent explosive disorder F63.81 Depression, unspecified F32.A Mild intellectual disability F70
[2021-11-17] MEDS: BuSPIRONE 10 mg Tablet 5 MG PO ×2 (15:02→20:56)
[2021-11-17] MEDS: benztropine 1 mg Tablet PO ×2 (15:03→20:57)
[2021-11-17] MEDS: propranolol 20 mg Tablet PO (17:03)
[2021-11-17] MEDS: risperiDONE 2 mg Tablet PO (17:03)
[2021-11-17] MEDS: trazodone 100 mg Tablet PO (20:57)
[2021-11-17 22:00] VITALS: BP 98/64; PULSE 85; RESP 18; TEMP 36.7; O2SAT 94
[2021-11-18 06:00] VITALS: BP 92/58; PULSE 65; RESP 16; O2SAT 93
[2021-11-18] MEDS: propranolol 20 mg Tablet PO ×2 (08:32→16:50)
[2021-11-18] MEDS: cloZAPine 25 mg Tablet PO ×3 (08:32→20:16)
[2021-11-18] MEDS: cetirizine 10 mg Tablet PO (08:32)
[2021-11-18] MEDS: lithium carbonate 300 mg Capsule PO ×4 (08:32→20:16)
[2021-11-18] MEDS: benztropine 1 mg Tablet PO ×3 (08:32→20:17)
[2021-11-18] MEDS: risperiDONE 2 mg Tablet PO (08:33)
[2021-11-18] MEDS: pantoprazole DR 40 mg Tablet PO (08:33)
[2021-11-18] MEDS: BuSPIRONE 10 mg Tablet 5 MG PO ×3 (08:33→20:17)
[2021-11-18] MEDS: OLANZapine 5 mg ODT PO (08:33)
--- NOTE | 2021-11-18 08:52 | PC.NURSE ---
PT DENIES PAIN. DENIES HI AND VH. PT DOES ENDORSE INTERMITTEN SUICIDAL THOUGHTS AND AH TELLING HER TO HARM HERSELF. PT HAS SOME INTELLECTUAL DELAY AND MUMBLED SPEECH. PT IS EASY TO REDIRECT. MED NURSE NOTIFIED TO GIVE ANXIETY MEDICATIONS WITH AM MEDS. SUPPORT VOICED.
--- NOTE | 2021-11-18 11:20 | W.PM.NPUPNS ---
Subjective NPU Subjective: Iza is a 30-year-old single white female with mild cognitive impairment currently residing in the [facility] with another peer who was admitted after she had made homicidal threats towards him. She will be continued to report auditory hallucinations saying that she has auditory hallucinations all the time . She does report that these voices have a tendency to disappear but reports that even when her mood is not low she still hears voices. She endorses a history of depressed mood as well. She reports feeling more sad lately. She did not have any episodes of aggression on the unit and has been compliant with the mill you. We had contacted the [facility] and had further corroboration of her medications from her mother and legal guardian. The patient has been redirectable and was able to sleep. She reports being scared that she will lose her placement at the [facility] which she considers her home. Mental Status Exam MSE Comments: She is a casually dressed white female slightly overweight who appeared somewhat immature and appeared in some distress. She was friendly on interview and endorsed homicidal ideation toward her housemate. She was alert and oriented to person place time.? She reported being unable to read.? Her gait was within normal limits. Her mood was described depressed. Her affect was mood congruent and restricted in range. Her thought process was concrete and superficial.? Her thought content showed evidence of homicidal ideation with no suicidal ideation.? Her attention concentration appeared appear distracted. Her insight was limited. Her judgment was poor.? Vitals/I&O/Wt Last Vital Signs Temp 98 F 11/18/21 14:00 Pulse 100 11/18/21 14:00 Resp 17 11/18/21 14:00 BP 165/105 11/18/21 14:00 Pulse Ox 98 11/18/21 14:00 Weight last 48 hrs Weight 70.76 kg Data NPU : 11/16/21 22:04 11/16/21 22:04 A&P Assessment and plan (1) Mild intellectual disability: Status: Acute (2) Depression, unspecified: Status: Acute (3) Intermittent explosive disorder: Status: Acute Plan 1. attempted to contact Dr. Jennings regarding polypharmacy issues at this time. Risperidal was changed back to dose of 4mg twice a day, and clozaril at 25mg three times a day. I am holding buspirone at this time. She will continue lithium treatment as prescribed for aggression or mood instability. Involuntary Hold Information 96 Hour Hold: 96 Hour Involuntary Admission: No Attestations NPU Medical Necessity Statement*: The patient will require acute inpatient hospitalization for at least 2 midnights with likely stay any 4 to 6 days. Coding Level of Care Code Established Pt Acute Barytes Grinder for Julito Fwmatias Patient Type Established History Problem Focused Exam Problem Focused Medical Decision Making Straight Forward Diagnoses Mild intellectual disability F70 Depression, unspecified F32.A Intermittent explosive disorder F63.81
[2021-11-18 14:00] VITALS: BP 165/105; PULSE 100; RESP 17; TEMP 36.6; O2SAT 98
--- NOTE | 2021-11-18 14:01 | PC.NURSE ---
MEDICATIONS SPOKE WITH QI FROM [facility] REGARDING MEDICATION CLARIFICATION. VERIFIED THAT RISPERADOL IS ORDERED 2 MG 2 TABS BID. CLOZARIL IS 25 MG 1 TAB TID. QI CONFIRMED THAT CLOZARIL WAS AT 2 TABS BUT WAS RECENTLY DECREASED TO THE ONE TAB TID. WILL NOTIFY DR. CAMACHO WHEN AVAILABLE AND SEE IF RISPERADOL IS NEEDING CHANGED ABOVE.
--- NOTE | 2021-11-18 14:51 | PC.NURSE ---
NEW ORDERS DR. CAMACHO GAVE VERBAL ORDERS TO INCREASE RISPERADOL TO 4 MG PO BID. ORDERS PLACED IN [facility]. INFORMED PT.
[2021-11-18] MEDS: risperiDONE 2 mg Tablet 4 MG PO (16:50)
[2021-11-18 19:53] VITALS: BP 104/68; PULSE 86; RESP 16; TEMP 36.4; O2SAT 93
[2021-11-18] MEDS: docusate sodium 100 mg Capsule PO (20:16)
[2021-11-18] MEDS: trazodone 100 mg Tablet PO (20:16)
[2021-11-18] MEDS: acetaminophen 325 mg Tablet 650 MG PO (21:37)
[2021-11-19 06:00] VITALS: BP 102/66; PULSE 74; RESP 17; TEMP 36.4; O2SAT 93
[2021-11-19] MEDS: lithium carbonate 300 mg Capsule PO ×4 (08:26→20:15)
[2021-11-19] MEDS: risperiDONE 2 mg Tablet 4 MG PO ×2 (08:26→20:15)
[2021-11-19] MEDS: cetirizine 10 mg Tablet PO (08:26)
[2021-11-19] MEDS: cloZAPine 25 mg Tablet PO ×3 (08:26→20:15)
[2021-11-19] MEDS: pantoprazole DR 40 mg Tablet PO (08:26)
[2021-11-19] MEDS: BuSPIRONE 10 mg Tablet 5 MG PO ×2 (08:26→13:49)
[2021-11-19] MEDS: benztropine 1 mg Tablet PO ×3 (08:26→20:15)
[2021-11-19] MEDS: propranolol 20 mg Tablet PO ×2 (08:26→20:15)
[2021-11-19] MEDS: hyDROXYzine 25 mg Capsule 50 MG PO ×2 (09:01→22:46)
--- NOTE | 2021-11-19 09:02 | PC.NURSE ---
PRN VISTARIL 50 MG GIVEN PO PER PT C/O STATED ANXIETY
--- NOTE | 2021-11-19 12:50 | PC.NURSE ---
NEW ORDERS PTS DOCTOR THAT ORDERS CLOZARIL WAS CONTACTED TO SEE WHEN LAST CBC WAS COLLECTED. THE REPORTED THAT PTS LAST CBS WAS 10/20/21 AND SHE IS DUE FOR A CBC TO MONITOR THE CLOZARIL. NEW ORDERS RECEIVED TO COLLECT A CBC WITH DIFF. ORDERS PLACED IN [employer]. PT NOTIFIED.
[2021-11-19 13:22] LABS: Hematocrit 38.1 % (37.0-47.0); Hemoglobin 12.9 g/dL (11.5-15.3); Mean Corpuscular HGB Conc 33.9 g/dL (30.0-36.0); Mean Corpuscular Hemoglobin 28.2 pg (28.0-34.0); Mean Corpuscular Volume 83.2 fl (81-99); Mean Platelet Volume 8.5 fL (7.4-10.4); Platelet Count 261 10^3/cmm (130-400); Red Blood Count 4.58 10^6/uL (4.1-5.3); Red Cell Distribution Width 12.9 % (12.1-15.1); White Blood Count 7.8 10^3/uL (4.0-10.0)
[2021-11-19 14:00] VITALS: BP 119/78; PULSE 81; RESP 16; TEMP 36.4; O2SAT 99
[2021-11-19 14:11] LABS: Absolute Neutrophil 5.9 10^3/cmm (1.4-6.5); Absolute Segmented Neutrophil 5.9 10/cmm (1.6-7.1); Eosinophils 0 %; Lymphocytes 19 %; Lymphocytes Absolute 1.8 10^3/cmm (1.2-3.4); Monocytes Absolute 0.1 10^3/cmm (0.1-0.6); Platelet Estimate Normal (Normal); Segmented Neutrophils 76 %; Total Cells Counted 100 (0-100)
[2021-11-19] MEDS: acetaminophen 325 mg Tablet 650 MG PO (15:17)
[2021-11-19] MEDS: fixodent 39 gm Tube 1 APPLIC DENTAL (16:33)
--- NOTE | 2021-11-19 18:16 | P.NPUPN_ITS ---
Subjective NPU Subjective: Iza is a 30-year-old single white female with mild cognitive impairment hal shahid residing in the? [facility]house with another peer who was admitted after she had made homicidal threats towards him.? She will be continued to report auditory hallucinations and reports at times having thoughts of killing herself. Patient reports concern about not being able to return home. She does report that she does not want to return to the [facility] if that other worker is there. She has been compliant but has been at times verbally aggressive to staff. Mental Status Exam MSE Comments: She is a casually dressed overweight white female who appeared somewhat immature her gait was slow and steady. Her hygiene was appropriate there is no evidence of any abnormal involuntary motor movements or tics. She did have significant amount of sialorrhea, and complained of dry mouth. Her mood was described as okay her affect appeared somewhat flat and mood incongruent. Her thought process was concrete thought content showed evidence of homicidal thoughts but no evidence of active suicidal thoughts. She endorsed auditory hallucinations but did not appear to be responding to internal stimuli impulse control remained poor. Her insight was limited her judgment was poor. Vitals/I&O/Wt Last Vital Signs Temp 97.5 F L 11/19/21 14:00 Pulse 81 11/19/21 14:00 Resp 16 11/19/21 14:00 BP 119/78 11/19/21 14:00 Pulse Ox 99 11/19/21 14:00 Data NPU : 11/19/21 13:04 11/16/21 22:04 A&P Assessment and plan (1) Intermittent explosive disorder: Status: Acute (2) Depression, unspecified: Status: Acute (3) Mild intellectual disability: Status: Acute Plan Plan 1.? had unsuccessfully attempted to contact Dr. Jennings regarding polypharmacy?again. 2. Riisperidal at 4mg twice a day, and clozaril at 25mg three times a day.? Stop Buspar. 3. She will continue lithium treatment as prescribed for aggression or mood instability. Will check lithium level in 2 days. 4. Monitor for aggression and irritabillity. ? ? Involuntary Hold Information 96 Hour Hold: 96 Hour Involuntary Admission: No Attestations NPU Medical Necessity Statement*: Medical Necessity Statement* The patient will require acute inpatient hospitalization for at least 2 midnights with likely stay any 4 to 6 days. Coding Level of Care Code Established Pt Acute Hand Box Coverer for Chg Fwd Patient Type Established History Problem Focused Exam Problem Focused Medical Decision Making Straight Forward Diagnoses Intermittent explosive disorder F63.81 Depression, unspecified F32.A Mild intellectual disability F70
[2021-11-19 19:44] VITALS: BP 102/66; PULSE 80; RESP 18; TEMP 36.6; O2SAT 99
[2021-11-19] MEDS: trazodone 100 mg Tablet PO (20:15)
[2021-11-19 20:39] LABS: Add Urine Culture? No; Bacteria Urine TRACE /hpf; Bilirubin Urine Neg (Negative); Blood Urine Neg (Negative); Glucose Urine UA Norm (Normal); Ketones Urine Negative (Negative); Leukocyte Esterase Urine Negative (Negative); Nitrate Urine Negative (Negative); Protein Urine Neg (Negative); RBC Urine 0-4 /hpf (0-2); Specific Gravity, Urine 1.005 (1.005-1.030); Squamous Epithelial Cell Urine 0-4 /hpf (0-5); Urine Appearance Clear (CLEAR); Urine Color Yellow (Yellow); Urobilinogen Urine Norm (Negative); WBC Urine 0-4 /hpf (0-5); pH Urine 7 (5-7)
[2021-11-19] MEDS: magnesium hydroxide 30 mL UDC PO (21:09)
[2021-11-20 06:00] VITALS: BP 102/67; PULSE 70; RESP 18; TEMP 37.1; O2SAT 95
[2021-11-20] MEDS: benztropine 1 mg Tablet PO ×3 (08:18→20:28)
[2021-11-20] MEDS: lithium carbonate 300 mg Capsule PO ×4 (08:18→20:28)
[2021-11-20] MEDS: cloZAPine 25 mg Tablet PO ×3 (08:18→20:28)
[2021-11-20] MEDS: propranolol 20 mg Tablet PO ×2 (08:18→20:28)
[2021-11-20] MEDS: risperiDONE 2 mg Tablet 4 MG PO ×2 (08:18→20:28)
[2021-11-20] MEDS: pantoprazole DR 40 mg Tablet PO (08:19)
[2021-11-20] MEDS: cetirizine 10 mg Tablet PO (08:19)
--- NOTE | 2021-11-20 10:43 | W.PM.NPUPNS ---
Subjective NPU Subjective: Iza is a 30-year-old single white female with mild cognitive impairment currently residing in the? [facility]house with another peer who was admitted after she had made homicidal threats towards him.? She will be continued to report auditory hallucinations and reports at times having thoughts of killing herself.? Patient reported that she wished to return back to the [facility] but did not want the other person that was residing in that house to be there when she arrived there. She reports that she wishes to stay here. Patient was compliant on the milieu. She did complain of some pelvic pain and burning upon urination. The patient reported no side effects from her medication except for dry mouth. Mental Status Exam MSE Comments: The patient is an obese white female who appeared immature with intermittent eye contact normal gait no evidence of any cogwheel rigidity tics or tremors appreciated. Her mood was described as okay her affect appeared tearful upon learning that she may have to go back to her home and need with staff members and her roommate. Her attention appeared variable. her intelligence appeared commensurate with mild cognitive impairment. She was alert and oriented to person place and time along with situation. She endorsed hearing voices but did not appear to be responding to internal stimuli. her impulse control remained poor. her judgment appeared limited. Vitals/I&O/Wt Last Vital Signs Temp 98.6 F 11/20/21 14:00 Pulse 88 11/20/21 14:00 Resp 18 11/20/21 14:00 BP 106/76 11/20/21 14:00 Pulse Ox 94 11/20/21 14:00 Data NPU : 11/19/21 13:04 11/16/21 22:04 A&P Assessment and plan (1) Intermittent explosive disorder: Status: Acute (2) Depression, unspecified: Status: Acute (3) Mild intellectual disability: Status: Acute (4) COVID-19: Status: Acute (5) Dermatitis: Status: Acute (6) Plantar wart of left foot: Status: Acute (7) Hammertoe of second toe of left foot: Status: Acute Plan Plan 1.? Spoke to Dr. Jennings, clarified medications and discussed follow up as the patient moving toward stability. 2. Riisperidal at 4mg twice a day, and clozaril at 25mg three times a day.? 3.? She will continue lithium treatment as prescribed for aggression or mood instability.? Will check lithium level in 2 days.? 4.? Monitor for aggression and irritabillity.? ? ? Involuntary Hold Information 96 Hour Hold: 96 Hour Involuntary Admission: No Attestations NPU Medical Necessity Statement*: The patient will require acute inpatient hospitalization for at least 2 midnights with likely stay any 2-3 days. Coding Level of Care Code Established Pt Acute Technicians And Trades Workers for Chg Fwd Patient Type Established History Problem Focused Exam Problem Focused Medical Decision Making Straight Forward Diagnoses Intermittent explosive disorder F63.81 Depression, unspecified F32.A Mild intellectual disability F70 COVID-19 U07.1 Dermatitis L30.9 Plantar wart of left foot B07.0 Hammertoe of second toe of left foot M20.42
[2021-11-20 14:00] VITALS: BP 106/76; PULSE 88; RESP 18; TEMP 37; O2SAT 94
[2021-11-20 20:22] VITALS: BP 118/81; PULSE 108; RESP 22; TEMP 36.2; O2SAT 95
[2021-11-20] MEDS: hyDROXYzine 25 mg Capsule 50 MG PO (20:28)
[2021-11-20] MEDS: trazodone 100 mg Tablet PO (20:28)
[2021-11-20] MEDS: magnesium hydroxide 30 mL UDC PO (20:29)
[2021-11-20] MEDS: efferdent effervescent 1 EACH DENTAL (21:16)
[2021-11-20] MEDS: ibuprofen 600 mg Tablet PO (21:33)
[2021-11-20 21:36] VITALS: BP 118/81; PULSE 108; RESP 22; TEMP 36.2; O2SAT 95
--- NOTE | 2021-11-21 00:52 | PC.NURSE ---
PRN PT WAS GIVEN VISTERIL, MILK OF MAGNESIA, AND IBUPROFEN FOR A HEADACHE THIS EVENING. PT WAS UP TO NURSES STATION ON MULTIPLE OCCASIONS WITH MULTIPLE COMPLAINTS. PT IS CURRENTLY RESTING IN BED.
[2021-11-21 06:00] VITALS: BP 100/66; PULSE 74; RESP 17; TEMP 36.6; O2SAT 93
[2021-11-21] MEDS: risperiDONE 2 mg Tablet 4 MG PO ×2 (09:15→20:36)
[2021-11-21] MEDS: cloZAPine 25 mg Tablet PO ×3 (09:15→20:36)
[2021-11-21] MEDS: cetirizine 10 mg Tablet PO (09:15)
[2021-11-21] MEDS: lithium carbonate 300 mg Capsule PO ×4 (09:15→20:39)
[2021-11-21] MEDS: benztropine 1 mg Tablet PO ×3 (09:15→20:35)
[2021-11-21] MEDS: propranolol 20 mg Tablet PO ×2 (09:15→20:35)
[2021-11-21] MEDS: pantoprazole DR 40 mg Tablet PO (09:15)
[2021-11-21] MEDS: magnesium hydroxide 30 mL UDC PO (13:25)
[2021-11-21 13:27] VITALS: BP 101/71; PULSE 88; RESP 17; TEMP 36.6; O2SAT 93
--- NOTE | 2021-11-21 13:52 | P.NPUPN_ITS ---
Subjective NPU Subjective: Iza is a 30-year-old single white female with mild cognitive impairment [facility] after she had made homicidal threats towards him. The patient reported that she was excited about going back to the [facility] as she states that she may end up living at a different place. She reports that she had spoken to her mother. She reports that she is trying to do better. She had reported reported some burning on urination and reported no side effects from the antibiotics initiated. She reported that the voices were calmer and reported no thoughts of hurting herself at this time. Mental Status Exam MSE Comments: The patient is an obese white female who appeared immature with intermittent eye contact. She had normal gait. There was no evidence of any cogwheel rigidity tics or tremors appreciated.? Her mood was described as better. Her affect appeared brighter. ? Her attention appeared variable. Her intelligence appeared commensurate with? mild cognitive impairment.? S he has been advised that I I told I told thewas alert and oriented to person place and time along with situation.? She endorsed hearing voices but did not appear to be responding to internal stimuli. Vitals/I&O/Wt Last Vital Signs Temp 98 F 11/21/21 13:27 Pulse 88 11/21/21 13:27 Resp 17 11/21/21 13:27 BP 101/71 11/21/21 13:27 Pulse Ox 93 11/21/21 13:27 Data NPU : 11/19/21 13:04 11/16/21 22:04 A&P Assessment and plan (1) Intermittent explosive disorder: Status: Acute (2) Depression, unspecified: Status: Acute (3) Mild intellectual disability: Status: Acute (4) COVID-19: Status: Acute (5) Dermatitis: Status: Acute (6) Plantar wart of left foot: Status: Acute (7) Urinary tract infection: Status: Acute Plan 1.? Began tx of UTI today, 2. Risperidal at 4mg twice a day, and clozaril at 25mg three times a day.? 3.? She will continue lithium treatment as prescribed for aggression or mood instability.? Will check lithium level in 2 days.? 4.? Monitor for aggression and irritabillity.? 5. Plan for direct discharge tommorow. ? Involuntary Hold Information 96 Hour Hold: 96 Hour Involuntary Admission: No Attestations NPU Medical Necessity Statement*: The patient will require acute inpatient hospitalization for at least 2 midnights with likely stay any 1-2 days. 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
[2021-11-21] MEDS: sulfamethoxazole-trimeth DS 160-800 mg Tablet 1 TAB PO (18:03)
[2021-11-21 19:35] VITALS: BP 106/71; PULSE 100; RESP 22; TEMP 36.6; O2SAT 92
[2021-11-21] MEDS: hyDROXYzine 25 mg Capsule 50 MG PO (20:35)
[2021-11-21] MEDS: docusate sodium 100 mg Capsule PO (20:35)
[2021-11-21] MEDS: trazodone 100 mg Tablet PO (20:36)
[2021-11-22 05:58] VITALS: BP 92/58; PULSE 75; RESP 17; TEMP 36.6; O2SAT 92
[2021-11-22 07:24] LABS: Basophils % 0.1 %; Hematocrit 36.4 % (37.0-47.0); Lymphocytes # 1.1 10^3/uL (0.8-4.8); Mean Corpuscular Hemoglobin 27.8 pg (28.0-34.0); Mean Corpuscular Volume 84.3 fl (81-99); Mean Platelet Volume 8.3 fL (7.4-10.4); Monocytes # 0.7 10^3/uL (0.2-0.9); Neutrophils % 73.6 %; Nucleated Red Blood Cells % 0 %; Platelet Count 231 10^3/cmm (130-400); Red Blood Count 4.32 10^6/uL (4.1-5.3); Red Cell Distribution Width 12.6 % (12.1-15.1); White Blood Count 6.9 10^3/uL (4.0-10.0)
[2021-11-22 07:43] LABS: Anion Gap 14.1 (5-19); Blood Urea Nitrogen 12 mg/dL (6-20); Calcium 10.4 mg/dL (8.5-10.5); Carbon Dioxide 27 mmol/L (22-29); Chloride 101 mmol/L (98-107); Glomerular Filtration Rate 73.5 mL/min (90-130); Glucose 93 mg/dL (65-115); Osmolality Calculated 285 mOsm/kg (285-295); Potassium 4.1 mmol/L (3.5-5.1); Sodium 138 mmol/L (136-145)
[2021-11-22 07:53] LABS: Lithium 1.4 mmol/L (0.6-1.2)
[2021-11-22 08:02] VITALS: BP 92/58; PULSE 75; RESP 17; TEMP 36.6; O2SAT 92
[2021-11-22] MEDS: pantoprazole DR 40 mg Tablet PO (09:12)
[2021-11-22] MEDS: sulfamethoxazole-trimeth DS 160-800 mg Tablet 1 TAB PO ×2 (09:12→17:17)
[2021-11-22] MEDS: cetirizine 10 mg Tablet PO (09:12)
[2021-11-22] MEDS: benztropine 1 mg Tablet PO ×3 (09:12→21:31)
[2021-11-22] MEDS: propranolol 20 mg Tablet PO ×2 (09:12→21:32)
[2021-11-22] MEDS: risperiDONE 2 mg Tablet 4 MG PO ×2 (09:12→21:32)
[2021-11-22] MEDS: cloZAPine 25 mg Tablet PO ×3 (09:13→21:31)
[2021-11-22 09:57] LABS: Lithium 1.3 mmol/L (0.6-1.2)
--- NOTE | 2021-11-22 10:47 | PC.NURSE ---
LITHIUM PER ORDER , HOLDING LITHIUM 300MG DOSE AT 0900, 1300, 17OO, DUE TO HIGH LITHIUM LEVEL. 1.8 - 1.3, WILL CONTINUE TO MONITOR.
--- NOTE | 2021-11-22 11:04 | PC.NURSE ---
PT LITHIUM LEVEL HIGH, LITHIUM HELD PER DR CAMACHO ORDER, REDRAW FOR TROUGH 11/23/21 AT 9AM. PT WILL RECEIVE 2100 DOSE TONIGHT 11/22/21. PT WILL NOT D/C TODAY, PT AND DIAMOND CUTTER QI SKINNER AT [facility] AWARE, TRANSPORTATION WILL BE SET UP TOMORROW AT D/C.
--- NOTE | 2021-11-22 12:38 | P.NPUPN_ITS ---
Subjective NPU Subjective: Iza is a 30-year-old single white female with mild cognitive impairment currently residing in the? [facility] with another peer who was admitted to NPU after she had made homicidal threats towards him.? The patient was agreeable to return to [facility] today and had a Dieterich Level completed this morning at approximately 10 hours after last lithium and 12 hours after last lithium dose which were elevated at 1.4 (10hrs) and 1.3 (12 hours) time with some evidence of dizziness, headaches and excess fatigue reported by the patient. Discharge was postponed until tommorow and patient has been resting in her bedroom for much of the day. She reports feeling less angry and reports no thoughts or hurting herself or others. She reports intermittent auditory hallucinations that are about the same. She reports no thoughts of hurting herself at this time. Mental Status Exam MSE Comments: The patient is an obese white female who appeared immature with intermittent eye contact.? She had normal gait. There was? no evidence of any cogwheel rigidity but signficant billateral hand tremor appreciated with patient struggling to maintain her balance without leaning to ones side. Her mood was described as okay. ? Her affect appeared flat. ? ? Her attention appeared variable. Her intelligence appeared commensurate with? mild cognitive impairment.?? She endorsed hearing voices but did not appear to be responding to internal stimuli. ?Her impulse control appeared limited. Vitals/I&O/Wt Last Vital Signs Temp 98 F 11/22/21 13:41 Pulse 80 11/22/21 13:41 Resp 17 11/22/21 13:41 BP 93/60 11/22/21 13:41 Pulse Ox 92 11/22/21 13:41 Data NPU : 11/22/21 07:14 11/22/21 07:14 A&P Assessment and plan (1) Dieterich toxicity: 1.?Continue Bactrim DS for urinary tract infection 2. Risperidal at 4mg twice a day, and clozaril at 25mg three times a day.? 3.? She will continue lithium treatment with reduced dose due to toxicity. Switch lithium to 900mg day with plan to hold first 3 doses today. Will check lithium tommorow. 4.? Monitor for aggression and irritabillity.? 5.? Plan for direct discharge tommorow with staff to [facility] once stabilized. .? ? Status: Acute (2) Urinary tract infection: Status: Acute (3) Intermittent explosive disorder: Status: Acute (4) Depression, unspecified: Status: Acute (5) Mild intellectual disability: Status: Acute Involuntary Hold Information 96 Hour Hold: 96 Hour Involuntary Admission: No Attestations NPU Medical Necessity Statement*: The patient will require acute inpatient hospitalization with plan for discharge tommorow after lithium level back to adult living situation. Coding Level of Care Code Established Pt Acute Contracting Executive for Samg Fwd Patient Type Established History Problem Focused Exam Problem Focused Medical Decision Making Straight Forward Diagnoses Dieterich toxicity T56.891A Urinary tract infection N39.0 Intermittent explosive disorder F63.81 Depression, unspecified F32.A Mild intellectual disability F70
[2021-11-22] MEDS: acetaminophen 325 mg Tablet 650 MG PO ×2 (12:48→21:35)
[2021-11-22 12:57] LABS: Clozapine Result 284 mcg/L; Norclozapine Results 93 mcg/L (25-400)
[2021-11-22 13:41] VITALS: BP 93/60; PULSE 80; RESP 17; TEMP 36.6; O2SAT 92
[2021-11-22 19:59] VITALS: BP 116/79; PULSE 92; RESP 18; TEMP 36.6; O2SAT 96
[2021-11-22] MEDS: lithium carbonate 300 mg Capsule PO (21:31)
[2021-11-22] MEDS: trazodone 100 mg Tablet PO (21:32)
[2021-11-22] MEDS: docusate sodium 100 mg Capsule PO (21:32)
[2021-11-22] MEDS: hyDROXYzine 25 mg Capsule 50 MG PO (21:33)
--- NOTE | 2021-11-22 22:30 | PC.NURSE ---
Vistaril 50mg PO given for anxiety at 21:32 with good results. 100mg Docusate PO given for bowel regulation.
[2021-11-23 06:00] VITALS: BP 94/63; PULSE 72; RESP 18; TEMP 36.2; O2SAT 95
--- NOTE | 2021-11-23 08:33 | PC.NURSE ---
UP IN HALLWAY. CONTINUES ANTIBIOTIC THERAPY FOR UTI WITH NO ADVERSE DRUG REACTIONS. DENIES DYURIA AND FREQUENCY. REPORTS URINARY ISSUES ARE RESOLVING SINCE STARTING ANTIBIOTIC. PT ANTICIPATES DC TODAY. DENIES PAIN. DENIES SI/HI AND AVH AT THIS TIME. PT IS DISHEVELED AND APPEARANCE IS POOR. ENCOURAGED TO SHOWER AFTER BREAKFAST AND BEFORE DC TODAY. PT STATES SHE IS HAVING NO ANXIETY AND IS FEELING BETTER. LITHIUM HELD THIS AM SO LITHIUM LEVEL COULD BE REDRAWN DUE TO INCREASED LITHIUM LEVEL YESTERDAY. ALL QUESTIONS ANSWERED AND SUPPORT VOICED.
[2021-11-23] MEDS: benztropine 1 mg Tablet PO (09:07)
[2021-11-23] MEDS: pantoprazole DR 40 mg Tablet PO (09:08)
[2021-11-23] MEDS: risperiDONE 2 mg Tablet 4 MG PO (09:08)
[2021-11-23] MEDS: sulfamethoxazole-trimeth DS 160-800 mg Tablet 1 TAB PO (09:08)
[2021-11-23] MEDS: lithium carbonate 300 mg Capsule PO (09:08)
[2021-11-23] MEDS: propranolol 20 mg Tablet PO (09:08)
[2021-11-23] MEDS: cetirizine 10 mg Tablet PO (09:08)
[2021-11-23] MEDS: cloZAPine 25 mg Tablet PO (09:08)
--- NOTE | 2021-11-23 10:50 | PC.NURSE ---
DISCHARGE SUMMARY DISCHARGE SUMMARY FAXED TO [facility] REQUESTED WITH ALL ORDERS AND CBC WITH DIFF FOR PTS PSYCHIATRIST FOR CLOZARIL. THIS RN CALLED QI FROM [facility] AND REVIEWED ALL NEW ORDERS. ALL QUESTIONS WERE ANSWERED AND SUPPORT VOICED. [facility] IN [facility] PLACED PREFERRED PHARMACY SO CAN PLACE MEDICATIONS TO BE FILLED.
--- NOTE | 2021-11-23 12:12 | P.NPUDS_ITS ---
Diagnoses at Discharge Discharge Diagnosis (1) Intermittent explosive disorder: Status: Acute (2) Depression, unspecified: Status: Acute (3) Mild intellectual disability: Status: Acute Reason for Visit Reason for Visit: I got angry housemate at the [facility]. Brief History: Iza Ordonez is a 30 year old female with a history of mild cognitive impairment and impulse control disorder not otherwise specified who has been living in a adult living facility at the [facility] for several years.? She reports that she was tired of doing all of the chores in her house that she shares with another man.? She had endorsed wanting to cut herself with a knife.? She had reported that she became very angry and had thoughts about hurting the other person in the living facility.? Iza reports that she has been living in [facility] with her anger.? She reports being upset and states that she does not wish to have to move to [facility] as she reports that she loves it there.? Patient reports vague thoughts of wanting to hurt herself but reported that she could keep it under control.? She reports not hearing voices currently.? She reports that she has become stressed out having to do all the chores in the house.? Inpatient history.? Patient has a history of multiple inpatient hospitalizations and was hospitalized? in 2020.? She has received outpatient treatment under Dr. Dick THRASHER in [place] medications include lithium 300 mg 4 times a day BuSpar 5 mg 3 times a day Clozapine 50 mg 3 times a day Cogentin 1 mg 3 times a day pantoprazole 40 mg a day trazodone 225 mg a day Risperdal 4 mg twice a day medical history is significant for GERD and constipation.? Allergies none Social hx: reported per patient social history patient is unmarried no children she was born [place] she reports having received a special diploma in school she had grown up living with her mother and stepfather she is the only product of mother and father but has multiple 1/2? siblings on each side of the family.? She does not report any past history of sexual physical or emotional abuse.? She has reported having been incarcerated for physical assault and battery 3 times in the past.? She did report learning problems while she was growing up.? She has reported residing at the [facility] for about 5 years. Her mother is the legal guardian.? FAM hX: UNKNOWN, S Hospital Course Hospital Course During specialization patient had routine labs laboratory studies which were within normal limits except for a few outliers. She did have evidence of elevated lithium level of 1.4 on 11/21/2021 and [place] was held and reduced overall to 900mg/day instead of 1200mg per day to prevent toxicity. On discharge the lithium level was 1.0. He also developed urinary tract infection for which she received antibiotic that would be continued on discharge back to this with [facility]. Overall there was a general medical evaluation which was found to be within normal limits and revealed no other acute processes other than what was stated above. At the time of discharge lethality was denied and psychosis appeared to be resolving. Mood and anxiety were well managed. The patient endorsed a plan to avoid any drugs of abuse and follow-up with the aftercare recommendations of the treatment team. Patient was evaluated and deemed to be absent of credible lethality and had achieved a maximal benefit from an inpatient hospitalization. Thereby she was discharged. Involuntary Hold Information 96 Hour Hold: 96 Hour Involuntary Admission: No Mental Status Exam MSE Comments: The patient is an obese white female who appeared immature with poor eye contact.? She had normal gait. NO tremor noted. ? Her mood was described as bettter. ? ? Her affect appeared brighter ? ? Her attention appeared adequate. Her intelligence appeared commensurate with? mild cognitive impairment.?? She endorsed hearing voices but did not appear to be responding to internal stimuli. ?Her impulse control appeared improved. ? Discharge Data Studies Completed and Pending: Pending at discharge Category Date Time Status Clozapine Routine Lab 11/17/21 09:58 Received Laboratory Results WBC 8.8 10^3/uL (4.0- 10.0) 11/16/21 22:04 RBC 4.25 10^6/uL (4.1 -5.3) 11/16/21 22:04 Hgb 11.8 g/dL (11.5-1 5.3) 11/16/21 22:04 Hct 35.6 % (37.0-47.0 ) L 11/16/21 22:04 MCV 83.8 fl (81-99) 11/16/21 22: MCH 27.8 pg (28.0-34. 0) L 11/16/21 22:04 MCHC 33.1 g/dL (30.0-3 6.0) 11/16/21 22:04 RDW 12.8 % (12.1-15.1 ) 11/16/21 22:04 Plt Count 260 10^3/cmm (130 -400) 11/16/21 22:04 MPV 8.5 fL (7.4-10.4) 11/16/21 22:04 Neut % (Auto) 77.5 % 11/16/21 22:04 Lymph % (Auto) 13.1 % 11/16/21 22:04 Hayes % (Auto) 8.8 % 11/16/21 22:04 Eos % (Auto) 0.0 % 11/16/21 22:04 Baso % (Auto) 0.1 % 11/16/21 22:04 Neut # (Auto) 6.84 10^3/uL (1.8 -7.7) 11/16/21 22:04 Lymph # (Auto) 1.2 10^3/uL (0.8- 4.8) 11/16/21 22:04 Hayes # (Auto) 0.8 10^3/uL (0.2- 0.9) 11/16/21 22:04 Eos # (Auto) 0.0 10^3/uL (0.0- 0.8) 11/16/21 22:04 Baso # (Auto) 0.0 10^3/uL (0.0- 0.1) 11/16/21 22:04 Nucleated RBC % (a uto) 0 % 11/16/21 22: Nucleated RBCs # 0.0 /100WBC 11/16/21 22:04 Sodium 140 mmol/L (136-1 45) 11/16/21 22:04 Potassium 3.7 mmol/L (3.5-5 .1) 11/16/21 22:04 Chloride 105 mmol/L (98-10 7) 11/16/21 22:04 Carbon Dioxide 25 mmol/L (22-29) 11/16/21 22:04 Anion Gap 13.7 (5-19) 11/16/21 22:04 BUN 11 mg/dL (6-20) 11/16/21 22:04 Creatinine 0.9 mg/dL (0.5-0. 9) 11/16/21 22:04 GFR Calculation 73.5 mL/min (90-1 30) L 11/16/21 22:04 Glucose 92 mg/dL (65-115) 11/16/21 22:04 Calculated Osmolal ity 289 mOsm/kg (285- 295) 11/16/21 22:04 Calcium 10.1 mg/dL (8.5-1 0.5) 11/16/21 22:04 Total Bilirubin 0.3 mg/dL (0.15-1 .2) 11/16/21 22:04 AST 15 U/L (0-32) 11/16/21 22:04 ALT 13 U/L (0-33) 11/16/21 22:04 Alkaline Phosphata se 92 IU/L (35-105) 11/16/21 22:04 Total Protein 7.6 g/dL (6.6-8.7 ) 11/16/21 22:04 Albumin 4.7 g/dL (3.5-5.2 ) 11/16/21 22:04 Globulin 2.9 g/dL (1.3-4.6 ) 11/16/21 22:04 HCG, Qual Negative (Negati ve) 11/16/21 22:09 Salicylates < 0.3 mg/dL (3-10 ) L 11/16/21 22:04 Urine Opiates Scre en Negative ng/mL (N egative) 11/16/21 22:09 Acetaminophen < 5.0 ug/mL (10-3 0) L 11/16/21 22:04 Ur Barbiturates Sc reen Negative ng/mL (N egative) 11/16/21 22:09 Ur Phencyclidine S crn Negative ng/mL (N egative) 11/16/21 22:09 Ur Amphetamines Sc reen Negative ng/mL (N egative) 11/16/21 22:09 U Benzodiazepines Scrn Negative ng/mL (N egative) 11/16/21 22:09 [place] 1.8 mmol/L (0.6-1 .2) H 11/16/21 22:04 Urine Cocaine Scre en Negative ng/mL (N egative) 11/16/21 22:09 U Marijuana (THC) Screen Negative ng/mL (N egative) 11/16/21 22:09 Ethyl Alcohol < 10 mg/dL (0-10) 11/16/21 22:04 Vitals: Last Vital Signs Temp 98.0 F 11/17/21 22:00 Pulse 65 11/18/21 06:00 Resp 16 11/18/21 06:00 BP 92/58 11/18/21 06:00 Pulse Ox 93 11/18/21 06:00 Discharge Plan Discharge Patient Disposition: Home Condition: Stable Prescriptions: New benztropine 1 mg Tablet 1 mg PO TID Qty: 90 1RF clozapine 25 mg Tablet 25 mg PO TID Qty: 30 0RF sulfamethoxazole-trimethoprim 800-160 mg Tablet 1 tab PO BID 12 Days Qty: 24 0RF lithium carbonate 300 mg Capsule 300 mg PO TID 30 Days Qty: 90 0RF propranolol 20 mg Tablet 20 mg PO 0900,2100 Qty: 60 1RF Continued montelukast [Singulair] 10 mg tablet 10 mg PO DAILY 0RF esxpv-vrrve-nzzyulp-pramoxine TOPICAL 0RF acetaminophen [Tylenol Extra Strength] 500 mg tablet 500 mg PO TID PRN (Reason: Fever Or Pain) 0RF calcium carbonate 500 mg calcium (1,250 mg) tablet,chewable 750 mg PO BID PRN (Reason: Acid Reflux) 0RF polyethylene glycol 3350 [Miralax] 17 gram/dose powder 17 gm PO DAILY 0RF triamcinolone acetonide 0.1 % cream See Rx Instructions .ROUTE .COMPLEX Qty: 80 3RF Dose Instruction: USE ONE APPLICATION TOPICALLY DAILY Rx Instructions: USE ONE APPLICATION TOPICALLY DAILY Efudex 5 % cream 1 applic topical BID 0RF Rx Instructions: apply sufficient amount fluticasone furoate 27.5 mcg/actuation [place],Suspension 1 spray INTRANASAL DAILY 0RF Rx Instructions: into each nostril cetirizine 10 mg Tablet 10 mg PO DAILY 0RF loperamide 2 mg Tablet 2 mg PO QID PRN (Reason: Diarrhea) 0RF lidocaine-benzalkonium 2-0.13 % Cream 1 applic TOPICAL DAILY PRN (Reason: Skin Irritation) 0RF Protonix 40 mg Tablet,Delayed Release (Dr/Ec) 40 mg PO DAILY 0RF melatonin 3 mg Tablet 3 mg PO BEDTIME 0RF ibuprofen 400 mg Tablet 400 mg PO TID PRN (Reason: Pain) 0RF Colace 100 mg Capsule 100 mg PO DAILY 0RF dextromethorphan HBr 10 mg/5 mL Syrup 10 mg PO Q4H PRN (Reason: Cough) 0RF Risperdal 4 mg tablet 4 mg PO BID Qty: 30 1RF benztropine 1 mg tablet 1 mg PO TID 30 Days Qty: 90 1RF trazodone 100 mg tablet 150 mg PO .hs 30 Days Qty: 45 0RF Discontinued medroxyprogesterone [Depo-Provera] 150 mg/mL syringe See Rx Instructions .ROUTE .COMPLEX 0RF Rx Instructions: 150 mg intramuscularly every 90 days lithium carbonate 300 mg capsule 300 mg PO QID 0RF propranolol 10 mg tablet 10 mg PO BID 0RF ondansetron 4 mg tablet,disintegrating 4 mg PO Q8H PRN (Reason: Nausea And Vomiting) 0RF paliperidone palmitate IM 0RF clozapine [Clozaril] 50 mg Tablet 50 mg PO TID 0RF buspirone [BuSpar] 5 mg Tablet 5 mg PO TID 0RF Discharge Orders: Discharge Order (Routine); Ordered 11/21/21 Ordered By: Steve Moore [facility] Keny Jennings [Other] - 11/27/21 10:45 am Robert Collins DO [Primary Care Provider] - 11/24/21 4:15 pm (Appointment with Dimple Pantoja NP. ) Discharge Diet: Advance as tolerated Discharge Activity: Resume usual activity Patient Instructions: Sulfamethoxazole/Trimethoprim (By mouth) (Bactrim, Bactrim DS,..., [place] (By mouth) (Lith-Luz, Lithate, Lithobid), Clozapine (By mouth) (Clozaril, FazaClo, Versacloz), Benztropine Mesylate (By mouth), Risperidone (By mouth) (Risperdal, Risperdal M-Tab, Risperidon M-Tab), Urinary Tract Infection in Women (DC), Depression (DC), Opioid Safety Discharge Attestations NPU Time Spent in Discharge Care*: less than 30 min Coding Level of Care Code Established Pt Acute Chg FW DC note Patient Type Established History Problem Focused Exam Problem Focused Medical Decision Making Straight Forward Diagnoses Intermittent explosive disorder F63.81 Depression, unspecified F32.A Mild intellectual disability F70
== END 2021-11-23 13:12 | disposition home or self-care (01) | DRG 883 ==
LOC: ER 22:56 → NP 11-17 00:10
PROVIDERS: Admitting Provider Psychiatry & Neurology Psychiatry; Emergency Provider Emergency Medicine; PCP Internal Medicine; Visit Provider Psychiatry & Neurology Psychiatry
DX: F63.81 Intermittent explosive disorder (principal); R45.851 Suicidal ideations; N39.0 Urinary tract infection, site not specified; F25.1 Schizoaffective disorder, depressive type; R45.850 Homicidal ideations; F90.9 Attention-deficit hyperactivity disorder, unspecified type; F60.3 Borderline personality disorder; K21.9 Gastro-esophageal reflux disease without esophagitis; F42.9 Obsessive-compulsive disorder, unspecified; K59.00 Constipation, unspecified; F70 Mild intellectual disabilities; Z79.891 Long term (current) use of opiate analgesic; Z86.16 Personal history of COVID-19
CPT/HCPCS: 36415; 80048; 80053; 80159; 80178; 80306; 80307; 81001; 81025; 85007; 85025; 85027; 97150; 97165; 99285

== ENCOUNTER 2021-12-03 15:45 | Emergency (ER) | payer MEDICAID, SELFPAY ==
[2021-12-03 16:16] VITALS: BP 110/71; PULSE 91; RESP 16; TEMP 36.6; O2SAT 95; BMI 26.1
[2021-12-03 18:26] VITALS: O2SAT 100
[2021-12-03 18:27] LABS: Hematocrit 38.8 % (37.0-47.0); Hemoglobin 12.1 g/dL (11.5-15.3); Lymphocytes % 13.2 %; Mean Corpuscular HGB Conc 31.2 g/dL (30.0-36.0); Mean Corpuscular Hemoglobin 27.8 pg (28.0-34.0); Mean Platelet Volume 8.4 fL (7.4-10.4); Monocytes # 0.6 10^3/uL (0.2-0.9); Monocytes % 8.3 %; Neutrophils # 5.88 10^3/uL (1.8-7.7); Neutrophils % 78.2 %; Nucleated Red Blood Cells % 0 %; Platelet Count 240 10^3/cmm (130-400); Red Blood Count 4.36 10^6/uL (4.1-5.3); Red Cell Distribution Width 12.9 % (12.1-15.1); White Blood Count 7.5 10^3/uL (4.0-10.0)
[2021-12-03 19:12] LABS: HCG, Serum Qual Negative (Negative)
[2021-12-03 19:18] LABS: Alanine Aminotransferase 14 U/L (0-33); Alkaline Phosphatase 86 IU/L (35-105); Anion Gap 14.7 (5-19); Aspartate Amino Transferase 17 U/L (0-32); Blood Urea Nitrogen 12 mg/dL (6-20); Calcium 10.2 mg/dL (8.5-10.5); Carbon Dioxide 27 mmol/L (22-29); Chloride 100 mmol/L (98-107); Globulin 2.9 g/dL (1.3-4.6); Glucose 85 mg/dL (65-115); Lipase 31 U/L (13-60); Osmolality Calculated 285 mOsm/kg (285-295); Potassium 3.7 mmol/L (3.5-5.1); Sodium 138 mmol/L (136-145); Total Bilirubin 0.4 mg/dL (0.15-1.2); Total Protein 7.9 g/dL (6.6-8.7)
--- NOTE | 2021-12-03 20:21 | CTR_ITS ---
PROCEDURE INFORMATION: Exam: CT Abdomen And Pelvis With Contrast Exam date and time: 12/03/2021 8:42 PM Age: 31 years old Clinical indication: Abdominal pain; Generalized; Patient HX: C/O diffuse abd pain with constipation. TECHNIQUE: Imaging protocol: Computed tomography of the abdomen and pelvis with contrast. Radiation optimization: All CT scans at this facility use at least one of these dose optimization techniques: automated exposure control; mA and/or kV adjustment per patient size (includes targeted exams where dose is matched to clinical indication); or iterative reconstruction. Contrast material: OMNI 350; Contrast volume: 90 ml; Contrast route: INTRAVENOUS (IV); COMPARISON: CT Chest/Abdomen/Pelvis w IV* 10/28/2015 2:37 PM RADIATION DOSE METRICS: Total DLP (mGy-cm): 1040.83 FINDINGS: Lungs: Innumerable bilateral subcentimeter lung nodules are noted. Bibasilar atelectasis is also seen. Pleural spaces: Multiple small pleural based nodules are seen bilaterally. No pleural effusion. Liver: Numerous new subcentimeter hypodense lesions are present in the liver, which are too small to characterize. Gallbladder and bile ducts: Normal. No calcified stones. No ductal dilation. Pancreas: Normal. No ductal dilation. Spleen: Several new round hypodense lesions are seen in the spleen. The largest lesion measures approximately 2 cm. Adrenal glands: Normal. No mass. Kidneys and ureters: Normal. No hydronephrosis. Stomach and bowel: No intestinal obstruction. A large amount of stool is present in the colon. Appendix: No evidence of appendicitis. Intraperitoneal space: Unremarkable. No free air. No significant fluid collection. Vasculature: Unremarkable. No abdominal aortic aneurysm. Lymph nodes: Right hilar and subcarinal lymphadenopathy is appreciated. Urinary bladder: Unremarkable as visualized. Reproductive: Unremarkable as visualized. Bones/joints: A tiny 5 mm sclerotic lesion is present in the L3 vertebral body. No acute fracture. Soft tissues: Unremarkable. CT/CT abdomen pelvis w con* [id number] IMPRESSION: 1. No acute abnormality is seen in the abdomen or pelvis. Constipation. 2. Multiple new hypodense lesions in the liver and spleen, which may be metastases. 3. Innumerable bibasilar subcentimeter pulmonary nodules and bilateral pleural based nodules, which may be metastases. 4. Indeterminate small L3 sclerotic lesion. Nuclear medicine bone scan may allow further assessment. 5. Right hilar and subcarinal lymphadenopathy.
[2021-12-03] MEDS: iohexol 350 mg/mL 100 mL Btl IV (20:49)
--- NOTE | 2021-12-03 20:49 | ED_ITS ---
HPI - General Adult General: Chief complaint: Abdominal Pain Stated complaint: abdomen pain Time Seen by Provider: 12/03/21 20:20 History of Present Illness: Patient is a 31-year-old female with history of chronic constipation presenting to the emergency room with complaints of lower abdominal pain x1 week. Patient tells me that for the last 2 weeks, she only has been able to pass small amount of hard stool. Last time she stool was 3 days ago. Patient since this earlier this week has been having lower intermittent crampy abdominal pain. Patient denies any fever/chills, cough, runny nose sore throat, fever nausea/vomiting, diarrhea melena or hematochezia. Patient denies any complaints or new vaginal discharge. Onset:1 week ago of lower abd pain Duration:ongoing Location:home Severity:moderate Associated symptoms: Deny chest pain, dyspnea, nausea, rash, palpitations or vomiting Review of Systems Const: Denies: fever(s) or chills Eyes: Denies: change in vision ENMT: Denies: mouth pain Card: Denies: chest pain or palpitations Resp: Denies: dyspnea or non-productive cough GI: Reports: abdominal pain (+lower abd pain) and constipation; Denies: nausea, vomiting or diarrhea : Denies: dysuria Musc: Denies: extremity pain Skin/Breast: Denies: rash or new lesions Neuro: Denies: weakness in extremities Psych: Reports: other (Normal mood) Parish/Lymph: Denies: easy bruising PFS ED PFSH: Medical History (Updated 12/03/21 @ 21:42 by Lisbet Beaulieu MD) ADHD Bipolar disorder Borderline personality disorder Callus of foot Cephalgia Dermatitis GERD (gastroesophageal reflux disease) Hammer toe of left foot Hammertoe of second toe of left foot Obsessive-compulsive behavior Plantar wart of left foot Schizophrenia Family History Denies family history of Diabetes CAD (coronary artery disease) Clotting disorder Dementia Hyperlipidemia Psychiatric illness Chronic kidney disease (CKD) Suicide Anesthesia complication Bleeding disorder Family history of premature coronary artery disease Lung disease Cancer Hypertension Stroke Social History Smoking and tobacco status: never smoked Alcohol intake: never Current gender identity: Female Female Reproductive History: Date of last menstrual period: 10/19/21 Physical Exam Const: COMMON NORMALS: alert HENMT: COMMON NORMALS: atraumatic HEAD & SCALP: atraumatic MOUTH: moist mucous membranes not abnormal Eye: COMMON NORMALS: EOMs intact bilaterally and conjunctivae normal CONJUNCTIVA: Yes conjunctivae normal Neck/C-Spine: COMMON NORMALS: full ROM and supple Resp: COMMON NORMALS: normal respiratory effort and clear to auscultation bilaterally AUSCULTATION: clear to auscultation bilaterally Cardio: COMMON NORMALS: regular rate RATE: regular rate GI: COMMON NORMALS: Soft to palpation PALPATION: Yes Soft to palpation OTHER: + mild b/l lower abd TTP. NO guarding rebound, guarding, rigidity. No CVA tenderness to percussion. Neg Merrill/Neg McBurney's point tenderness, no suprab upic tenderness to palpation. Extremity: COMMON NORMALS: full ROM Neuro: SENSORIUM/ORIENTATION: Yes alert MOTOR EXAM: No Abnormal motor strength present and Other motor observations present (no focal motor deficits) Psych: COMMON NORMALS: speech normal SPEECH: Yes normal speech MOOD & AFFECT: Yes euthymic mood Course Vital Signs: Vital signs: Vital Signs Temperature 97.9 F 12/03/21 16:16 Pulse Rate 91 12/03/21 16:16 Respiratory Rate 16 12/03/21 16:16 Blood Pressure 110/71 12/03/21 16:16 Pulse Oximetry 95 12/03/21 16:16 MDM - General Adult Medical Decision Making 1-year-old female with a history of psychiatric issues presenting to the emergency room with concerns for constipation. Patient has had decreased st ooling and complaints of lower abdominal pain for the last week. On physical exam, patient has bilateral lower pelvis tenderness palpation. Patient is afebrile, hemodynamically stable. No guarding or rebound tenderness. White count 7.[address] abdomen showed constipation. Patient is found to have multiple pulmonary nodules, L3 sclerotic lesion, heterogeneous liver and spleen lesions. These are consistent with possible metastatic cancer. I discussed these findings extensively with patient and have included CT report on the discharge summary. I have given patient follow up with our rn field case manager to be seen by our outpatient Oncology. Patient aware of a call from our rn field case manager to schedule for appointment(s) and verbalizes understanding of the importance of following up. Rx: Tylenol as needed pain, MiraLAX/senna/docusate for constipation Disposition: Discharge. Patient counseled regarding diagnostic impression, treatment plan. Patient given ED strict return precautions to return for continuation, worsening, or development of new symptoms. Instructed to f/u w/ PCP regarding symptoms today. Patient verbalized understanding. Lab Data : 12/03/21 17:58 12/03/21 17:58 Radiology Impressions Abdomen/Pelvis CT 12/03/21 20:21 IMPRESSION: 1. No acute abnormality is seen in the abdomen or pelvis. Constipation. 2. Multiple new hypodense lesions in the liver and spleen, which may be metastases. 3. Innumerable bibasilar subcentimeter pulmonary nodules and bilateral pleural based nodules, which may be metastases. 4. Indeterminate small L3 sclerotic lesion. Nuclear medicine bone scan may allow further assessment. 5. Right hilar and subcarinal lymphadenopathy. Laboratory Results WBC 7.5 10^3/uL (4.0-10.0) 12/03/21 17:58 RBC 4.36 10^6/uL (4.1-5.3) 12/03/21 17:58 Hgb 12.1 g/dL (11.5-15.3) 12/03/21 17:58 Hct 38.8 % (37.0-47.0) 12/03/21 17:58 MCV 89.0 fl (81-99) 12/03/21 17:58 MCH 27.8 pg (28.0-34.0) L 12/03/21 17:58 MCHC 31.2 g/dL (30.0-36.0) 12/03/21 17:58 RDW 12.9 % (12.1-15.1) 12/03/21 17:58 Plt Count 240 10^3/cmm (130-400) 12/03/21 17:58 MPV 8.4 fL (7.4-10.4) 12/03/21 17:58 Neut % (Auto) 78.2 % 12/03/21 17:58 Lymph % (Auto) 13.2 % 12/03/21 17:58 [place] % (Auto) 8.3 % 12/03/21 17:58 Eos % (Auto) 0.0 % 12/03/21 17:58 Baso % (Auto) 0.0 % 12/03/21 17:58 Neut # (Auto) 5.88 10^3/uL (1.8-7.7) 12/03/21 17:58 Lymph # (Auto) 1.0 10^3/uL (0.8-4.8) 12/03/21 17:58 [place] # (Auto) 0.6 10^3/uL (0.2-0.9) 12/03/21 17:58 Eos # (Auto) 0.0 10^3/uL (0.0-0.8) 12/03/21 17:58 Baso # (Auto) 0.0 10^3/uL (0.0-0.1) 12/03/21 17:58 Nucleated RBC % (auto) 0 % 12/03/21 17:58 Nucleated RBCs # 0.0 /100WBC 12/03/21 17:58 Sodium 138 mmol/L (136-145) 12/03/21 17:58 Potassium 3.7 mmol/L (3.5-5.1) 12/03/21 17:58 Chloride 100 mmol/L (98-107) 12/03/21 17:58 Carbon Dioxide 27 mmol/L (22-29) 12/03/21 17:58 Anion Gap 14.7 (5-19) 12/03/21 17:58 BUN 12 mg/dL (6-20) 12/03/21 17:58 Creatinine 0.9 mg/dL (0.5-0.9) 12/03/21 17:58 GFR Calculation 73.0 mL/min (90-130) L 12/03/21 17:58 Glucose 85 mg/dL (65-115) 12/03/21 17:58 Calculated Osmolality 285 mOsm/kg (285-295) 12/03/21 17:58 Calcium 10.2 mg/dL (8.5-10.5) 12/03/21 17:58 Total Bilirubin 0.4 mg/dL (0.15-1.2) 12/03/21 17:58 AST 17 U/L (0-32) 12/03/21 17:58 ALT 14 U/L (0-33) 12/03/21 17:58 Alkaline Phosphatase 86 IU/L (35-105) 12/03/21 17:58 Total Protein 7.9 g/dL (6.6-8.7) 12/03/21 17:58 Albumin 5.0 g/dL (3.5-5.2) 12/03/21 17:58 Globulin 2.9 g/dL (1.3-4.6) 12/03/21 17:58 Lipase 31 U/L (13-60) 12/03/21 17:58 HCG, Qual Negative (Negative) 12/03/21 17:58 Urine Color Colorless (Yellow) 12/03/21 21:01 Urine Appearance Clear (CLEAR) 12/03/21 21:01 Urine pH 7 (5-7) 12/03/21 21:01 Ur Specific [place] 1.005 (1.005-1.030) 12/03/21 21:01 Urine Protein Neg (Negative) 12/03/21 21:01 Urine Glucose (UA) Norm (Normal) 12/03/21 21:01 Urine Ketones Negative (Negative) 12/03/21 21:01 Urine Blood Neg (Negative) 12/03/21 21:01 Urine Nitrate Negative (Negative) 12/03/21 21:01 Urine Bilirubin Neg (Negative) 12/03/21 21:01 Urine Urobilinogen Norm mg/dL (Negative) 12/03/21 21:01 Ur Leukocyte Esterase Trace (Negative) H 12/03/21 21:01 Urine RBC 0-4 /hpf (0-2) H 12/03/21 21:01 Urine WBC 0-4 /hpf (0-5) H 12/03/21 21:01 Ur Squamous Epith Cells 10-15 /hpf (0-5) H 12/03/21 21:01 Amorphous Sediment 1+ /hpf 12/03/21 21:01 Urine Bacteria 1+ /hpf (NONE) H 12/03/21 21:01 Imaging Data Other Imaging: Radiologist's impression: [address] [address] [address] Scan Report Signed Patient: Iza Ordonez Unit #: [id number] : 1990 Age/Sex: 31 / F ADM Date: 12/03/21 Loc: ER Room/Bed: Attending Dr: Ordering Provider/Ordering MD: Lisbet Beaulieu MD Date of Service: 12/03/21 Procedure(s): CT abdomen pelvis w con* [id number] Accession Number(s): [id number] Report Number: [id number] PROCEDURE INFORMATION: Exam: CT Abdomen And Pelvis With Contrast Exam date and time: 12/03/2021 8:42 PM Age: 31 years old Clinical indication: Abdominal pain; Generalized; Patient HX: C/O diffuse abd pain with constipation. TECHNIQUE: Imaging protocol: Computed tomography of the abdomen and pelvis with contrast. Radiation optimization: All CT scans at this facility use at least one of these dose optimization techniques: automated exposure control; mA and/or kV adjustment per patient size (includes targeted exams where dose is matched to clinical indication); or iterative reconstruction. Contrast material: OMNI 350; Contrast volume: 90 ml; Contrast route: INTRAVENOUS (IV);? COMPARISON: CT Chest/Abdomen/Pelvis w IV* 10/28/2015 2:37 PM RADIATION DOSE METRICS: Total DLP (mGy-cm): 1040.83 FINDINGS: Lungs: Innumerable bilateral subcentimeter lung nodules are noted. Bibasilar atelectasis is also seen. Pleural spaces: Multiple small pleural based nodules are seen bilaterally. No pleural effusion. Liver: Numerous new subcentimeter hypodense lesions are present in the liver, which are too small to characterize. Gallbladder and bile ducts: Normal. No calcified stones. No ductal dilation. Pancreas: Normal. No ductal dilation. Spleen: Several new round hypodense lesions are seen in the spleen. The largest lesion measures approximately 2 cm. Adrenal glands: Normal. No mass. Kidneys and ureters: Normal. No hydronephrosis. Stomach and bowel: No intestinal obstruction. A large amount of stool is present in the colon. Appendix: No evidence of appendicitis. Intraperitoneal space: Unremarkable. No free air. No significant fluid collection. Vasculature: Unremarkable. No abdominal aortic aneurysm. Lymph nodes: Right hilar and subcarinal lymphadenopathy is appreciated. Urinary bladder: Unremarkable as visualized. Reproductive: Unremarkable as visualized. Bones/joints: A tiny 5 mm sclerotic lesion is present in the L3 vertebral body. No acute fracture. Soft tissues: Unremarkable. CT/CT abdomen pelvis w con* [id number] IMPRESSION: 1. No acute abnormality is seen in the abdomen or pelvis. Constipation. 2. Multiple new hypodense lesions in the liver and spleen, which may be metastases. 3. Innumerable bibasilar subcentimeter pulmonary nodules and bilateral pleural based nodules, which may be metastases. 4. Indeterminate small L3 sclerotic lesion. Nuclear medicine bone scan may allow further assessment. 5. Right hilar and subcarinal lymphadenopathy. ? Dictated By: Roberto Cuevas MD Signed By: Roberto Cuevas MD Signed Date/Time: 12/03/212118 DD/ 41 Discharge Plan Discharge Patient Disposition: Home Clinical Impression: Constipation, Abdominal pain, Lesion of liver, Lesion of spleen, Bone lesion, Lung nodule Condition: Stable Prescriptions: New senna 8.6 mg capsule 8.6 mg PO DAILY PRN (Reason: constipation) 30 Days Qty: 30 0RF senna 8.6 mg capsule 8.6 mg PO DAILY PRN (Reason: constipation) Qty: 30 0RF docusate sodium 100 mg capsule 100 mg PO DAILY PRN (Reason: constipation) Qty: 30 0RF No Action acetaminophen [Tylenol Extra Strength] 500 mg tablet 500 mg PO TID PRN (Reason: Fever Or Pain) 0RF calcium carbonate 500 mg calcium (1,250 mg) tablet,chewable 750 mg PO BID PRN (Reason: Acid Reflux) 0RF polyethylene glycol 3350 [Miralax] 17 gram/dose powder 17 gm PO DAILY 0RF fluorouracil [Efudex] 5 % cream 1 applic topical BID 0RF Rx Instructions: apply sufficient amount cetirizine 10 mg Tablet 10 mg PO DAILY 0RF loperamide 2 mg Tablet 2 mg PO QID PRN (Reason: Diarrhea) 0RF pantoprazole [Protonix] 40 mg Tablet,Delayed Release (Dr/Ec) 40 mg PO DAILY 0RF melatonin 3 mg Tablet 3 mg PO BEDTIME 0RF ibuprofen 400 mg Tablet 400 mg PO TID PRN (Reason: Pain) 0RF docusate sodium [Colace] 100 mg Capsule 100 mg PO DAILY 0RF dextromethorphan HBr 10 mg/5 mL Syrup 10 mg PO Q4H PRN (Reason: Cough) 0RF clozapine 25 mg Tablet 25 mg PO TID Qty: 30 0RF lithium carbonate 300 mg Capsule 300 mg PO TID 30 Days Qty: 90 0RF risperidone [Risperdal] 4 mg tablet 4 mg PO BID Qty: 30 1RF benztropine 1 mg tablet 1 mg PO TID 30 Days Qty: 90 1RF propranolol 20 mg Tablet 20 mg PO 0900,2100 Qty: 60 1RF Flonase 50 mcg/actuation [place],Suspension 2 spray INTRANASAL DAILY 0RF Rx Instructions: administer into each nostril sulfamethoxazole-trimethoprim 800-160 mg tablet 1 tab PO BID 0RF trazodone 100 mg tablet 150 mg PO BEDTIME 0RF Discharge Orders: Discharge ED (Routine); Ordered 12/03/21 Ordered By: Lisbet Beaulieu Referrals: Robert Collins DO [Primary Care Provider] - Discharge Diet: Advance as tolerated Discharge Activity: Increase activity as tolerated Patient Instructions: Constipation (ED), Abdominal Pain (ED) Activity Restrictions/Additional Instructions: Please take your medication for constipation. Please consider the followin. Whole grains, such as whole wheat bread and pasta, oatmeal, and bran flake cereals 2. Legumes, such as lentils, black beans, kidney beans, soybeans, and chickpeas 3. Fruits, such as berries, apples with the skin on, oranges, and pears 4. Vegetables, such as carrots, broccoli, green peas, and ranjith greens 5. Nuts, such as almonds, peanuts, and pecans Please ensure that your child is drinking plenty of water. Please avoid: 1. Chips 2. Fast food 3. Meat 4. Prepared foods, such as some frozen meals and snack foods 5. Processed foods, such as hot dogs or some microwavable dinners Our rn field case manager will have you follow-up with Oncology (cancer doctor) in the next few days. You would be expected to have a phone call with our rn field case manager who will put you on the schedule. You can expect a call from us in the next 2-3 days. If you don't hear from us, call us back in the emergency room at [phone]. Here's a copy of your CT report: [facility] [address] [address] [address] Scan Report Signed Patient: Iza Ordonez Unit #: [id number] : 1990 Age/Sex: 31 / F ADM Date: 12/03/21 Loc: ER Room/Bed: Attending Dr: Ordering Provider/Ordering MD: Lisbet Beaulieu MD Date of Service: 12/03/21 Procedure(s): CT abdomen pelvis w con* [id number] Accession Number(s): [id number] Report Number: [id number] PROCEDURE INFORMATION: Exam: CT Abdomen And Pelvis With Contrast Exam date and time: 12/03/2021 8:42 PM Age: 31 years old Clinical indication: Abdominal pain; Generalized; Patient HX: C/O diffuse abd pain with constipation. TECHNIQUE: Imaging protocol: Computed tomography of the abdomen and pelvis with contrast. Radiation optimization: All CT scans at this facility use at least one of these dose optimization techniques: automated exposure control; mA and/or kV adjustment per patient size (includes targeted exams where dose is matched to clinical indication); or iterative reconstruction. Contrast material: OMNI 350; Contrast volume: 90 ml; Contrast route: INTRAVENOUS (IV);? COMPARISON: CT Chest/Abdomen/Pelvis w IV* 10/28/2015 2:37 PM RADIATION DOSE METRICS: Total DLP (mGy-cm): 1040.83 FINDINGS: Lungs: Innumerable bilateral subcentimeter lung nodules are noted. Bibasilar atelectasis is also seen. Pleural spaces: Multiple small pleural based nodules are seen bilaterally. No pleural effusion. Liver: Numerous new subcentimeter hypodense lesions are present in the liver, which are too small to characterize. Gallbladder and bile ducts: Normal. No calcified stones. No ductal dilation. Pancreas: Normal. No ductal dilation. Spleen: Several new round hypodense lesions are seen in the spleen. The largest lesion measures approximately 2 cm. Adrenal glands: Normal. No mass. Kidneys and ureters: Normal. No hydronephrosis. Stomach and bowel: No intestinal obstruction. A large amount of stool is present in the colon. Appendix: No evidence of appendicitis. Intraperitoneal space: Unremarkable. No free air. No significant fluid collection. Vasculature: Unremarkable. No abdominal aortic aneurysm. Lymph nodes: Right hilar and subcarinal lymphadenopathy is appreciated. Urinary bladder: Unremarkable as visualized. Reproductive: Unremarkable as visualized. Bones/joints: A tiny 5 mm sclerotic lesion is present in the L3 vertebral body. No acute fracture. Soft tissues: Unremarkable. CT/CT abdomen pelvis w con* [id number] IMPRESSION: 1. No acute abnormality is seen in the abdomen or pelvis. Constipation. 2. Multiple new hypodense lesions in the liver and spleen, which may be metastases. 3. Innumerable bibasilar subcentimeter pulmonary nodules and bilateral pleural based nodules, which may be metastases. 4. Indeterminate small L3 sclerotic lesion. Nuclear medicine bone scan may allow further assessment. 5. Right hilar and subcarinal lymphadenopathy. ? Dictated By: Roberto Cuevas MD Signed By: Roberto Cuevas MD Signed Date/Time: 12/03/212118 DD/ 41 Stand Alone Forms: Work/School Release Coding Level of Care Code ED Numerical [employer] Group Manager for Chg Fwd Exam Comprehensive
[2021-12-03 21:34] LABS: Add Urine Culture? No; Add Urine Microscopic? YES; Amorphous Sediment Urine 1+ /hpf; Bacteria Urine 1+ /hpf; Bilirubin Urine Neg (Negative); Blood Urine Neg (Negative); Glucose Urine UA Norm (Normal); Ketones Urine Negative (Negative); Leukocyte Esterase Urine Trace (Negative); Nitrate Urine Negative (Negative); Protein Urine Neg (Negative); RBC Urine 0-4 /hpf (0-2); Specific Gravity, Urine 1.005 (1.005-1.030); Urine Appearance Clear (CLEAR); Urine Color Colorless (Yellow); Urobilinogen Urine Norm (Negative); WBC Urine 0-4 /hpf (0-5); pH Urine 7 (5-7)
[2021-12-03 22:01] VITALS: BP 120/80; PULSE 70; RESP 18; TEMP 36.7; O2SAT 100
--- NOTE | 2021-12-04 08:33 | DCPLANNER ---
Addendum entered by Preeti Kamara 12/18/21 10:13: Patient had a follow up appointment scheduled with oncology - patient did attend appointment. Original Note: gift manager had message to refer patient to see Dr. Duenas in oncology. gift manager [facility] to the clinic. Patients information was printed and reviewed, appointment scheduled for Sunday December 05, 2021 at 9:[address] Duenas. Clinic will call patient with appointment information.
== END 2021-12-03 22:04 | disposition home or self-care (01) ==
PROVIDERS: Emergency Provider Emergency Medicine; PCP Internal Medicine
DX: K59.00 Constipation, unspecified (principal); R10.9 Unspecified abdominal pain; K76.9 Liver disease, unspecified; D73.9 Disease of spleen, unspecified; M89.9 Disorder of bone, unspecified; R91.1 Solitary pulmonary nodule
CPT/HCPCS: 74177; 80053; 81001; 83690; 84703; 85025; 99284; Q9967

== ENCOUNTER 2021-12-05 09:47 | Oncology outpatient (recurring) (ONCR) | payer MEDICAID, SELFPAY | END 2021-12-05 23:59 | disposition home or self-care (01) | PROVIDERS: PCP Internal Medicine; Visit Provider Internal Medicine Medical Oncology | DX: R91.8 Other nonspecific abnormal finding of lung field (principal) | CPT/HCPCS: 99204 ==

== ENCOUNTER 2021-12-17 20:48 | Emergency (ER) | payer MEDICAID, SELFPAY ==
[2021-12-17 21:04] VITALS: BMI 25.9
[2021-12-17 21:11] VITALS: BP 93/58; PULSE 83; RESP 15; TEMP 36.4; O2SAT 96
--- NOTE | 2021-12-17 21:20 | CTR_ITS ---
PROCEDURE INFORMATION: Exam: CT Head Without Contrast Exam date and time: 12/17/2021 10:29 PM Age: 31 years old Clinical indication: Injury or trauma; Fall; Blunt trauma (contusions or hematomas); Patient HX: Patient fell in the shower and hit head. C/O headache with nausea. ; Additional info: Fell hit head in shower-headache, nausea. Denies loc TECHNIQUE: Imaging protocol: Computed tomography of the head without contrast. Radiation optimization: All CT scans at this facility use at least one of these dose optimization techniques: automated exposure control; mA and/or kV adjustment per patient size (includes targeted exams where dose is matched to clinical indication); or iterative reconstruction. COMPARISON: CT head wo con* [id number] 10/28/2015 2:22 PM RADIATION DOSE METRICS: Total DLP (mGy-cm): 1034.68 FINDINGS: Brain: Normal. No hemorrhage. Unremarkable white matter. No mass effect. Cerebral ventricles: No ventriculomegaly. Paranasal sinuses: Visualized sinuses are unremarkable. No fluid levels. Mastoid air cells: Visualized mastoid air cells are well aerated. Bones/joints: Unremarkable. No acute fracture. Soft tissues: Unremarkable. CT/CT head wo con* [id number] IMPRESSION: Unremarkable
--- NOTE | 2021-12-17 21:22 | ED_ITS ---
HPI - Fall General: Chief Complaint: Fall Stated Complaint: Fall hit head Time Seen by Provider: 12/17/21 21:13 History of Present Illness: Patient is a 31-year-old female comes to the ED after a fall hitting her head. Past medical history of mild intellectual disability and lives in a alf. Patient's senior clinical research associate is present. Patient said that she was in the shower tonight and she was bending over washing her feet when she lost her balance and left side of her head hit the tub. She denies any loss of consciousness and was able to get up and for the shower. After fall she said she started developing a headache and some nausea. She has not taken anything for pain before coming to the ED but did take her nighttime medications of melatonin and blood pressure med. Freezer Operator says she appears to be at baseline but states that she was complaining of having a headache and nausea immediately after she got out of the shower. Associated symptoms-after fall: Reports headache(s); Denies abdominal pain, chest pain, hematuria or neck pain Review of Systems Const: Denies: fever(s), chills or fatigue Eyes: Denies: change in vision or eye discomfort ENMT: Denies: throat pain, odynophagia, nasal discharge or nasal congestion Card: Denies: chest pain, palpitations, edema, swelling of feet/ankles, dyspnea on exertion or orthopnea Resp: Denies: dyspnea, productive cough or non-productive cough GI: Reports: nausea; Denies: abdominal pain, vomiting, diarrhea, constipation or hematochezia : Denies: flank pain, dysuria or hematuria Musc: Denies: neck pain, back pain or extremity swelling Skin/Breast: Denies: rash or new lesions Neuro: Reports: headache(s); Denies: numbness in extremities or weakness in extremities PFSH ED PFSH: Medical History ADHD Allergic rhinitis Bipolar disorder Borderline personality disorder Callus of foot Cephalgia Dermatitis GERD (gastroesophageal reflux disease) Hammer toe of left foot Hammertoe of second toe of left foot History of 2018 novel coronavirus disease (COVID-19) History of COVID-19 virus infection in November 2020 and in May 2021 Obsessive-compulsive behavior Plantar wart of left foot Schizophrenia Family History Denies family history of Diabetes CAD (coronary artery disease) Clotting disorder Dementia Hyperlipidemia Psychiatric illness Chronic kidney disease (CKD) Suicide Anesthesia complication Bleeding disorder Family history of premature coronary artery disease Lung disease Cancer Hypertension Stroke Social History Smoking and tobacco status: never smoked Alcohol intake: never Current gender identity: Female Female Reproductive History: Date of last menstrual period: 10/19/21 Physical Exam Const: COMMON NORMALS: no acute distress, patient oriented x3, healthy appearing and alert GENERAL APPEARANCE: cooperative and comfortable HENMT: COMMON NORMALS: normocephalic HEAD & SCALP: normocephalic MOUTH: Normal oral and palatal mucosa present THROAT: posterior oropharynx normal and uvula midline Eye: COMMON NORMALS: Equal, round and reactive pupils present and EOMs intact bilaterally GENERAL EYE: appearance normal, both eyes and all related structures PUPIL: Yes Equal, round and reactive pupils present Neck/C-Spine: COMMON NORMALS: supple GENERAL: Yes normal visual inspection Lymph: LYMPHATIC: no lymphadenopathy noted Resp: COMMON NORMALS: normal respiratory effort, No retractions, No use of accessory muscles and clear to auscultation bilaterally AUSCULTATION: clear to auscultation bilaterally Cardio: COMMON NORMALS: regular rate, regular rhythm, S1 normal heart sound present, S2 normal heart sound present, No gallops present (Cardio), No clicks present (Cardio), No murmurs present (Cardio) and Peripheral pulses 2+ throughout RATE: regular rate RHYTHM: regular rhythm HEART SOUNDS: S1 normal heart sound present and S2 normal heart sound present PERIPHERAL PULSES: Peripheral pulses 2+ throughout GI: COMMON NORMALS: Normal to inspection, nondistended, normoactive bowel sounds present, Soft to palpation, non-tender and no masses PALPATION: Yes Soft to palpation : COMMON NORMALS: Yes no CVA tenderness BLADDER/KIDNEY EXAM: Yes no CVA tenderness Back/Pelvis: COMMON NORMALS: no CVA tenderness Extremity: GENERAL: Yes normal exam except as noted Neuro: COMMON NORMALS: patient oriented x3, CN's II-XII intact bilaterally, moves all extremities, no focal motor deficits and no sensory deficits noted SENSORIUM/ORIENTATION: Yes alert COORDINATION/BALANCE: [id number] test normal SPEECH: speech normal SENSORY EXAM: Yes extremities (intact) MOTOR EXAM: 5/5 motor strength present throughout COORDINATION: [id number] test normal Skin: COMMON NORMALS: no rashes or lesions noted GENERAL SKIN EXAM: no rashes or lesions noted and dry skin Course Vital Signs: Vital signs: Vital Signs Temperature 97.5 F L 12/17/21 21:11 Pulse Rate 83 12/17/21 21:11 Respiratory Rate 16 12/17/21 23:29 Blood Pressure 93/58 12/17/21 21:11 Pulse Oximetry 97 12/17/21 23:29 Oxygen Delivery Me thod 12/17/21 21:11 MDM - Fall Medical Decision Making Patient is a 31-year-old female comes to the ED after a fall hitting her head. Past medical history of mild intellectual disability and lives in a alf. Patient's senior clinical research associate is present. Patient said that she was in the shower tonight and she was bending over washing her feet when she lost her balance and left side of her head hit the tub. She denies any loss of consciousness and was able to get up and for the shower. After fall she said she started developing a headache and some nausea. Vitals are stable. Neuro exam is benign. Rest of exam is benign. CT of head shows no acute findings. Patient diagnosed minor head injury without loss of consciousness and was stable for discharge home. Told to follow-up with PCP in the next week for reevaluation. Return to ED precautions given. Patient and patient's senior clinical research associate understood and agreed with plan. Lab Data Radiology Impressions Head CT 12/17/21 21:20 IMPRESSION: Unremarkable Discharge Plan Discharge Patient Disposition: Home Clinical Impression: Minor head injury without loss of consciousness Qualifiers: Encounter type: initial encounter Qualified Code(s): S09.90XA - Unspecified injury of head, initial encounter Condition: Stable Prescriptions: No Action acetaminophen [Tylenol Extra Strength] 500 mg tablet 500 mg PO TID PRN (Reason: Fever Or Pain) calcium carbonate 500 mg calcium (1,250 mg) tablet,chewable 750 mg PO BID PRN (Reason: Acid Reflux) polyethylene glycol 3350 [Miralax] 17 gram/dose powder 17 gm PO DAILY risperidone [Risperdal] 4 mg tablet 2 mg PO BID white petrolatum Ointment 1 applic topical DAILY PRN fluorouracil [Efudex] 5 % cream 1 applic topical BID Rx Instructions: apply sufficient amount cetirizine 10 mg Tablet 10 mg PO DAILY pantoprazole [Protonix] 40 mg Tablet,Delayed Release (Dr/Ec) 40 mg PO DAILY melatonin 3 mg Tablet 3 mg PO BEDTIME ibuprofen 400 mg Tablet 400 mg PO TID PRN (Reason: Pain) docusate sodium [Colace] 100 mg Capsule 100 mg PO DAILY dextromethorphan HBr 10 mg/5 mL Syrup 10 mg PO Q4H PRN (Reason: Cough) clozapine 25 mg Tablet 25 mg PO TID Qty: 30 0RF lithium carbonate 300 mg Capsule 300 mg PO TID 30 Days Qty: 90 0RF benztropine 1 mg tablet 1 mg PO TID 30 Days Qty: 90 1RF propranolol 20 mg Tablet 20 mg PO 0900,2100 Qty: 60 1RF Flonase 50 mcg/actuation [place],Suspension 2 spray INTRANASAL DAILY Rx Instructions: administer into each nostril sulfamethoxazole-trimethoprim 800-160 mg tablet 1 tab PO BID senna 8.6 mg capsule 8.6 mg PO DAILY PRN (Reason: constipation) 30 Days Qty: 30 0RF docusate sodium 100 mg capsule 100 mg PO DAILY PRN (Reason: constipation) Qty: 30 0RF trazodone 100 mg tablet 100 mg PO BEDTIME Discharge Orders: Discharge ED (Routine); Ordered 12/17/21 Ordered By: Servando Barroso Referrals: Robert Collins DO [Primary Care Provider] - Discharge Diet: Regular Discharge Activity: Increase activity as tolerated Patient Instructions: Head Injury (ED) Activity Restrictions/Additional Instructions: Follow-up with medical provider as directed in the next 7 to 10 days for reevaluation. Continue taking at home medications as previously prescribed. You can take [id number] Tylenol per bottle instruction as needed for any headaches. Return to the ER or your medical provider if condition worsens. Please read and understand discharge instructions. Thank you for choosing [facility] for your healthcare needs today. Gina lanier realize this is an emergency room and that we are providing you with a medical screening exam and this may not be complete and all inclusive of all the testing and or work up that you may need to determine your ailment or severity of your illness. It is very important that you follow up as instructed or that you return to the Emergency Department should you have concerns or if your condition changes or worsens in any way. Coding Level of Care Code ED Director Marketing Communications for Chg Fwd Exam Comprehensive
[2021-12-17] MEDS: acetaminophen 500 mg Tablet 1000 MG PO (21:29)
[2021-12-17 23:29] VITALS: RESP 16; O2SAT 97
== END 2021-12-17 23:30 | disposition home or self-care (01) ==
PROVIDERS: Emergency Provider Physician Assistant; PCP Internal Medicine
DX: S09.8XXA Other specified injuries of head, initial encounter (principal); W18.2XXA Fall in (into) shower or empty bathtub, initial encounter
CPT/HCPCS: 70450; 99284

== ENCOUNTER 2021-12-31 06:00 | Outpatient (CLI) | payer MEDICAID, SELFPAY | END 2021-12-31 23:00 | disposition home or self-care (01) | LOC: RAD 03-17 01:01 | PROVIDERS: PCP Nurse Practitioner Family; Visit Provider Internal Medicine Critical Care Medicine | DX: D86.0 Sarcoidosis of lung (principal) | CPT/HCPCS: 36415; 82164; 82306; 82310; 82652; 83970 ==

== ENCOUNTER → 2021-12-31 10:04 | Outpatient (BNVA) | payer MEDICAID, SELFPAY | PROVIDERS: PCP Nurse Practitioner Family; Referring Provider Internal Medicine Medical Oncology; Visit Provider Internal Medicine Critical Care Medicine | DX: R91.8 Other nonspecific abnormal finding of lung field (principal); R59.0 Localized enlarged lymph nodes | CPT/HCPCS: 99204 ==

== ENCOUNTER 2022-01-02 11:41 | Outpatient (CLI) | payer MEDICAID, SELFPAY ==
[2022-01-02 14:04] LABS: Total Volume Urine 1950 ml
[2022-01-02 14:05] LABS: Calcium 24 Hour Urine 187 mg/24hr (100-300); Urine Calcium Result 9.6 mg/dL
== END 2022-01-02 11:42 | disposition home or self-care (01) ==
LOC: LAB 11:42
PROVIDERS: PCP Nurse Practitioner Family; Visit Provider Internal Medicine Critical Care Medicine
DX: D86.0 Sarcoidosis of lung (principal)
CPT/HCPCS: 82340

== ENCOUNTER 2022-01-26 13:17 | Emergency (ER) | payer MEDICAID, SELFPAY ==
[2022-01-26] VITALS (8 sets, daily range): BP systolic 121–128; BP diastolic 82–85; PULSE 84–100; RESP 17–18; TEMP 36.4; O2SAT 95–96; BMI 26.2
--- NOTE | 2022-01-26 13:32 | ECG_ITS ---
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 Measurements Intervals [place] Rate: 102 P: 46 SD: 145 QRS: 56 QRSD: 85 T: 66 QT: 315 QTc: 412 Interpretive Statements SINUS TACHYCARDIA NONSPECIFIC T-WAVE ABNORMALITY Compared to ECG 09/19/2018 13:52:10 Sinus rhythm no longer present T-wave abnormality still present Electronically Signed On 01-26-2022 18:08:13 CDT by Alec Chowdhury M.D. [id number]
--- NOTE | 2022-01-26 13:34 | XR_ITS ---
WS: [id number] PORTABLE CHEST HISTORY: Chest pain COMPARISON: 10/02/2021 Lung volumes are low. Mild elevation of the LEFT hemidiaphragm. Numerous small pulmonary nodules and reticulations have been previously described. These numerous nodules were also described at the lung bases from a CT of 12/03/2021. No pleural effusion or pneumothorax. Cardiac size: Normal. Mediastinum/Aorta: Normal mediastinum. No osseous abnormality seen. XR/XR chest 1V portable [id number] IMPRESSION: 1. Numerous pulmonary nodules and reticulations have been previously described . Nodules were also identified at the lung bases on the CT of 12/03/2021. Differ ential includes metastatic disease, fungal and granulomatous diseases. Compared to the most recent radiograph no obvious progression. 2. No mediastinal widening.
[2022-01-26 14:13] LABS: Basophils % 0.1 %; Hematocrit 37.9 % (37.0-47.0); Hemoglobin 12.3 g/dL (11.5-15.3); Lymphocytes % 14.2 %; Mean Corpuscular HGB Conc 32.5 g/dL (30.0-36.0); Mean Corpuscular Volume 86.3 fl (81-99); Mean Platelet Volume 8.2 fL (7.4-10.4); Monocytes # 0.6 10^3/uL (0.2-0.9); Monocytes % 8.5 %; Neutrophils # 5.24 10^3/uL (1.8-7.7); Neutrophils % 77.1 %; Nucleated Red Blood Cells % 0 %; Platelet Count 218 10^3/cmm (130-400); Red Blood Count 4.39 10^6/uL (4.1-5.3); Red Cell Distribution Width 12.6 % (12.1-15.1); White Blood Count 6.8 10^3/uL (4.0-10.0)
[2022-01-26 14:33] LABS: Troponin(5th) Baseline 10 ng/L (0-10)
[2022-01-26 14:36] LABS: Alanine Aminotransferase 21 U/L (0-33); Albumin Level 4.3 g/dL (3.5-5.2); Alkaline Phosphatase 87 U/L (35-105); Anion Gap 14.5 (5-19); Aspartate Amino Transferase 17 U/L (0-32); Blood Urea Nitrogen 15 mg/dL (6-20); Calcium 10.1 mg/dL (8.5-10.5); Carbon Dioxide 25 mmol/L (22-29); Chloride 103 mmol/L (98-107); Globulin 3.4 g/dL (1.3-4.6); Glomerular Filtration Rate 97.6 mL/min (90-130); Glucose 128 mg/dL (65-115); Osmolality Calculated 290 mOsm/kg (285-295); Potassium 3.5 mmol/L (3.5-5.1); Sodium 139 mmol/L (136-145); Total Bilirubin 0.5 mg/dL (0.15-1.2); Total Protein 7.7 g/dL (6.6-8.7)
--- NOTE | 2022-01-26 14:40 | ED_ITS ---
HPI - Chest Pain General: Chief Complaint: Chest Pain Stated Complaint: chest pain, numb arm Time Seen by Provider: 01/26/22 14:31 Source: patient Mode of arrival: ambulatory History of Present Illness: 31-year-old female presents emergency room complaining of what she describes as all allover pain. She particularly isolate isolates pain to her chest intermittently worse when she takes a deep breath. She has chronic lung changes since having COVID there initially thought to be metastatic but work-up by oncology was negative she was referred back to pulmonology for possible sarcoidosis movements finger. In the emergency room patient has worse chest pain with deep breath. She has any fever sweats or chills. MD complaint: chest pain Onset (ago): minute(s) Timing of current episode: episodic Prior episodes: Yes Onset: during rest Pain radiation: none Severity: mild Quality: sharp Exacerbating factors: inspiration Associated symptoms: Deny abdominal pain, diaphoresis, dyspnea, fever(s), leg edema, nausea, palpitations, sense of impending doom, syncope or vomiting Review of Systems Const: Denies: fever(s), chills, fatigue, malaise or diaphoresis ENMT: Denies: throat pain, ear or mastoid pain, nasal discharge or nasal congestion Card: Reports: chest pain; Denies: palpitations, irregular heart rhythm, edema or syncope Resp: Denies: dyspnea, productive cough, non-productive cough or wheezing GI: Denies: abdominal pain, nausea or vomiting : Denies: flank pain, difficulty voiding, dysuria, urinary frequency or urinary urgency Skin/Breast: Denies: rash or pruritus PFS ED PFSH: Medical History ADHD Allergic rhinitis Bipolar disorder Borderline personality disorder Callus of foot Cephalgia Dermatitis GERD (gastroesophageal reflux disease) Hammer toe of left foot Hammertoe of second toe of left foot History of 2019 novel coronavirus disease (COVID-19) History of COVID-19 virus infection in November 2020 and in May 2021 Obsessive-compulsive behavior Plantar wart of left foot Schizophrenia Family History Denies family history of Diabetes CAD (coronary artery disease) Clotting disorder Dementia Hyperlipidemia Psychiatric illness Chronic kidney disease (CKD) Suicide Anesthesia complication Bleeding disorder Family history of premature coronary artery disease Lung disease Cancer Hypertension Stroke Social History Smoking and tobacco status: never smoked Alcohol intake: never Current gender identity: Female Female Reproductive History: Date of last menstrual period: 10/19/21 Physical Exam Const: COMMON NORMALS: no acute distress GENERAL APPEARANCE: cooperative and comfortable ORIENTATION/CONSCIOUSNESS: Yes awake, Yes oriented to person, Yes oriented to place and Yes oriented to time HENMT: COMMON NORMALS: normocephalic, atraumatic and hearing grossly normal bilaterally HEAD & SCALP: normocephalic and atraumatic Resp: COMMON NORMALS: normal respiratory effort, No retractions, No use of accessory muscles and clear to auscultation bilaterally AUSCULTATION: clear to auscultation bilaterally Cardio: COMMON NORMALS: regular rate, regular rhythm and No murmurs present (Cardio) RATE: regular rate RHYTHM: regular rhythm GI: COMMON NORMALS: Soft to palpation and No hepatosplenomegaly present AUSCULTATION: Yes normoactive bowel sounds PALPATION: Yes Soft to palpation, No Tenderness to palpation present (GI), No Guarding due to palpation present (GI) and Yes No hepatosplenomegaly present Extremity: COMMON NORMALS: normal to inspection, capillary refill normal, no clubbing, cyanosis or edema, no calf tenderness and no pedal edema Neuro: SENSORIUM/ORIENTATION: Yes oriented to person, Yes oriented to place and Yes oriented to time Skin: COMMON NORMALS: no rashes or lesions noted GENERAL SKIN EXAM: no rashes or lesions noted Course Vital Signs: Vital signs: Vital Signs Temperature 97.6 F 01/26/22 13:20 Pulse Rate 87 01/26/22 15:49 Respiratory Rate 17 01/26/22 15:49 Blood Pressure 128/85 01/26/22 15:49 Pulse Oximetry 96 01/26/22 15:49 Oxygen Delivery Me thod 01/26/22 13:20 MDM - Chest Pain Medical Decision Making Chest pain reproducible inspiration EKG unremarkable history of chronic lung changes since COVID.Troponin and EKG are unremarkable patient discharged home follow-up with pulmonology Medical Records I reviewed the patient's medical records. Lab Data I reviewed the patient's lab results. : 01/26/22 13:55 01/26/22 13:55 Radiology Impressions Chest X-Ray 01/26/22 13:34 IMPRESSION: 1. Numerous pulmonary nodules and reticulations have been previously described. Nodules were also identified at the lung bases on the CT of 12/03/2021. Differential includes metastatic disease, fungal and granulomatous diseases. Compared to the most recent radiograph no obvious progression. 2. No mediastinal widening. Laboratory Results WBC 6.8 10^3/uL (4.0-10.0) 01/26/22 13:55 RBC 4.39 10^6/uL (4.1-5.3) 01/26/22 13:55 Hgb 12.3 g/dL (11.5-15.3) 01/26/22 13:55 Hct 37.9 % (37.0-47.0) 01/26/22 13:55 MCV 86.3 fl (81-99) 01/26/22 13:55 MCH 28.0 pg (28.0-34.0) 01/26/22 13:55 MCHC 32.5 g/dL (30.0-36.0) 01/26/22 13:55 RDW 12.6 % (12.1-15.1) 01/26/22 13:55 Plt Count 218 10^3/cmm (130-400) 01/26/22 13:55 MPV 8.2 fL (7.4-10.4) 01/26/22 13:55 Neut % (Auto) 77.1 % 01/26/22 13:55 Lymph % (Auto) 14.2 % 01/26/22 13:55 Dundy % (Auto) 8.5 % 01/26/22 13:55 Eos % (Auto) 0.0 % 01/26/22 13:55 Baso % (Auto) 0.1 % 01/26/22 13:55 Neut # (Auto) 5.24 10^3/uL (1.8-7.7) 01/26/22 13:55 Lymph # (Auto) 1.0 10^3/uL (0.8-4.8) 01/26/22 13:55 Dundy # (Auto) 0.6 10^3/uL (0.2-0.9) 01/26/22 13:55 Eos # (Auto) 0.0 10^3/uL (0.0-0.8) 01/26/22 13:55 Baso # (Auto) 0.0 10^3/uL (0.0-0.1) 01/26/22 13:55 Nucleated RBC % (auto) 0 % 01/26/22 13:55 Nucleated RBCs # 0.0 /100WBC 01/26/22 13:55 Sodium 139 mmol/L (136-145) 01/26/22 13:55 Potassium 3.5 mmol/L (3.5-5.1) 01/26/22 13:55 Chloride 103 mmol/L (98-107) 01/26/22 13:55 Carbon Dioxide 25 mmol/L (22-29) 01/26/22 13:55 Anion Gap 14.5 (5-19) 01/26/22 13:55 BUN 15 mg/dL (6-20) 01/26/22 13:55 Creatinine 0.7 mg/dL (0.5-0.9) 01/26/22 13:55 GFR Calculation 97.6 mL/min (90-130) 01/26/22 13:55 Glucose 128 mg/dL (65-115) H 01/26/22 13:55 Calculated Osmolality 290 mOsm/kg (285-295) 01/26/22 13:55 Calcium 10.1 mg/dL (8.5-10.5) 01/26/22 13:55 Total Bilirubin 0.5 mg/dL (0.15-1.2) 01/26/22 13:55 AST 17 U/L (0-32) 01/26/22 13:55 ALT 21 U/L (0-33) 01/26/22 13:55 Alkaline Phosphatase 87 U/L (35-105) 01/26/22 13:55 Troponin T Baseline 10 ng/L (0-10) 01/26/22 13:55 Total Protein 7.7 g/dL (6.6-8.7) 01/26/22 13:55 Albumin 4.3 g/dL (3.5-5.2) 01/26/22 13:55 Globulin 3.4 g/dL (1.3-4.6) 01/26/22 13:55 Discharge Plan Discharge Patient Disposition: Home Clinical Impression: Pulmonary sarcoidosis, Chest pain, pleuritic Condition: Stable Prescriptions: No Action acetaminophen [Tylenol Extra Strength] 500 mg tablet 500 mg PO TID PRN (Reason: Fever Or Pain) calcium carbonate 500 mg calcium (1,250 mg) tablet,chewable 750 mg PO BID PRN (Reason: Acid Reflux) polyethylene glycol 3350 [Miralax] 17 gram/dose powder 17 gm PO DAILY risperidone [Risperdal] 4 mg tablet 2 mg PO BID white petrolatum Ointment 1 applic topical DAILY PRN (Reason: barrier) lithium carbonate 300 mg capsule 300 mg PO TID fluorouracil [Efudex] 5 % cream 1 applic topical BID Rx Instructions: apply sufficient amount cetirizine 10 mg Tablet 10 mg PO DAILY pantoprazole [Protonix] 40 mg Tablet,Delayed Release (Dr/Ec) 40 mg PO DAILY melatonin 3 mg Tablet 3 mg PO BEDTIME ibuprofen 400 mg Tablet 400 mg PO TID PRN (Reason: Pain) docusate sodium [Colace] 100 mg Capsule 100 mg PO DAILY dextromethorphan HBr 10 mg/5 mL Syrup 10 mg PO Q4H PRN (Reason: Cough) clozapine 25 mg Tablet 25 mg PO TID Qty: 30 0RF benztropine 1 mg tablet 1 mg PO TID 30 Days Qty: 90 1RF propranolol 20 mg Tablet 20 mg PO 0900,2100 Qty: 60 1RF fluticasone propionate [Flonase] 50 mcg/actuation [place],Suspension 2 spray INTRANASAL DAILY Rx Instructions: administer into each nostril docusate sodium 100 mg capsule 100 mg PO DAILY PRN (Reason: constipation) Qty: 30 0RF trazodone 100 mg tablet 100 mg PO BEDTIME Discharge Orders: Discharge ED (Routine); Ordered 01/26/22 Ordered By: Pelon Adams Referrals: Ally Franklin FNP [Primary Care Provider] - Discharge Diet: Usual diet Discharge Activity: Resume usual activity Patient Instructions: Opioid Safety Activity Restrictions/Additional Instructions: Follow-up with pulmonology. Coding Level of Care Code ED College [employer] Faculty Member for Julito Whitmore
--- NOTE | 2022-01-26 14:54 | PC.NURSE ---
Patient is on continuous CM and SP02 monitor. Lung sounds are clear and bilateral equal chest rise. Pt is awake and alert in bed with [facility] staff at bedside. Pt skin is warm, dry, and pink. Call light given to patient and no needs at this time.
[2022-01-26] MEDS: lidocaine 2% viscous 15 ML, aluminum-mag hydrox-simethicon 30 ML, sucralfate oral liq 1 GM PO (14:59)
--- NOTE | 2022-01-26 15:34 | ECG_ITS ---
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 Measurements Intervals [place] Rate: 86 P: 36 RI: 149 QRS: 65 QRSD: 90 T: 36 QT: 346 QTc: 415 Interpretive Statements SINUS RHYTHM NONSPECIFIC T-WAVE ABNORMALITY Compared to ECG 01/26/2022 13:32:18 Sinus tachycardia no longer present T-wave abnormality still present Electronically Signed On 01-26-2022 18:12:26 CDT by Alec Chowdhury M.D. [id number]
== END 2022-01-26 15:51 | disposition home or self-care (01) ==
PROVIDERS: Emergency Provider Family Medicine; PCP Nurse Practitioner Family
DX: D86.0 Sarcoidosis of lung (principal); R07.89 Other chest pain
CPT/HCPCS: 71045; 80053; 84484; 85025; 93005; 99285

== ENCOUNTER 2022-02-10 15:57 | Outpatient (CLI) | payer MEDICAID, SELFPAY ==
--- NOTE | 2022-02-10 16:12 | CT_ITS ---
WS: [id number] CT CHEST WITHOUT INTRAVENOUS CONTRAST HISTORY: PULMONARY SARCOIDOSIS TECHNIQUE: Contiguous 5 mm axial imaging performed on the thorax. Coronal and sagittal reformats are submitted. All CT scans at [facility] use at least one of these dose optimization techniques: automated exposure control; mA and/or kV adjustment per patient size (includes targeted exams where dose is matched to clinical indication); or iterative reconstruction. CONTRAST: None DLP: 763.40 mGy.cm COMPARISON: 10/28/2015 Lungs and central airway: Normal lung volumes. Innumerable bilateral pulmonary nodules are identified throughout all lobes. These nodules ranging in size from 2 to 10 mm. There is a predilection along t he pleural surfaces bilaterally and also in a perilymphatic distribution. No dense areas of consolida tion. Some of these nodules contain partial calcification. Pleura: Numerous pleural nodules along the surface. No effusion. Heart and pericardium: Normal size heart. Mediastinum and lianna: Mediastinal and hilar lymph nodes. Numerous lymph nodes with the largest measur ing 1.7 cm in the RIGHT paratracheal region. Periaortic and likely hilar lymph nodes. The hilar lymph nodes are very difficult to visualize as separate structures without IV contrast. Hilar regions do a ppear full. There is a lymph node in the subcarina with a maximum diameter of 1.9 cm. Vessels: Normal size aortic and pulmonary artery. No coronary artery calcifications. Chest wall and lower neck: No soft tissue masses. Upper abdomen: Previously described hypodensities within the liver and spleen are not identified on t his unenhanced exam. No adrenal mass. Osseous structures: No destructive process. CT/CT chest wo con [id number] IMPRESSION: 1. Innumerable pulmonary nodules throughout both lungs in a pleural and bronch ovascular distribution. These findings can be seen with sarcoidosis. 2. Mediastinal and hilar lymphadenopathy as described above. This lymphadenopa thy could also be associated with sarcoidosis. Hilar lymph nodes cannot be accu rately measured without IV contrast.
== END 2022-02-10 15:58 | disposition home or self-care (01) ==
PROVIDERS: PCP Nurse Practitioner Family; Visit Provider Internal Medicine Critical Care Medicine
DX: R91.8 Other nonspecific abnormal finding of lung field; R59.0 Localized enlarged lymph nodes; R62.50 Unspecified lack of expected normal physiological development in childhood
CPT/HCPCS: 71250; 99214

== ENCOUNTER 2022-02-17 07:01 | Day surgery (SDC) | payer MEDICAID, SELFPAY ==
[2022-02-13 13:44] VITALS: BMI 25.7
[2022-02-17] VITALS (12 sets, daily range): BP systolic 89–109; BP diastolic 56–75; PULSE 71–114; RESP 16–18; TEMP 36.2–36.3; O2SAT 91–98
[2022-02-17] MEDS: sodium chloride 0.9% 1,000 ML 30 ML IV (07:26)
--- NOTE | 2022-02-17 08:16 | ANES.PREANE2 ---
Pre-Anesthetic Assessment Height/Weight: Height 1.63 m Weight 68.039 kg Temp Pulse Resp BP Pulse Ox O2 Del Method 97.4 F L 114 H 18 103/64 96 02/17/22 07:17 02/17/22 07:17 02/17/22 07:17 02/17/22 07:17 02/17/22 07:17 02/17/22 07:17 Preop Diagnosis: Lung nodule Operation Date: 02/17/22 08:25 Proposed Procedures p Bronch/EBUS 16822, 50065, 70608, 66293,R91.8(Not Applicable) - Kassie Yanes MD s Ebus(Not Applicable) - Kassie Yanes MD Was Beta Abena taken within 24 hours: Yes Last intake: Intake Last Liquid Date 02/16/22 Last Liquid Time 19:00 Last Solid Date 02/16/22 Last Solid Time 18:45 Social No alcohol and No tobacco Exam alert, oriented x 3, clear to auscultation bilaterally and regular rate & rhythm Airway Submandibular: within normal limits Cervical ROM: within normal limits Mallampati: Class I Comments: Comments: upper and lower denture History/ROS No significant history except as noted Pulmonary Asthma lung noduel, possible sarcoidosis CV/HEM None reported None reported Hepatic None reported GI Gastroesophageal Reflux Disease no symptoms today, controlled with meds Metabolic None reported Musc/skel None reported Neuropsych Anxiety and Bipolar developmental delay Anesthetic Plan ASA status: 3 Anesthesia: Anesthesia Evaluation and General Risk of > 500 ml blood loss (7ml/kg in children): Yes, adequate IV access and fluids planned Medications/Allergies Home Medications Medication Instructions Recorded Confirmed Last Taken Type acetaminophen 500 mg tablet 500 mg PO TID PRN Fever Or Pain 06/20/19 02/13/22 Unknown History (Tylenol Extra Strength) calcium carbonate 500 mg calcium 750 mg PO BID PRN Acid Reflux 06/20/19 02/13/22 Unknown History (1,250 mg) chewable tablet polyethylene glycol 3350 17 17 gm PO DIRECTED 06/20/19 02/13/22 01/26/22 History gram/dose oral powder (Miralax) cetirizine 10 mg tablet 10 mg PO DAILY 11/18/21 02/13/22 02/16/22 History dextromethorphan HBr 10 mg/5 mL 10 mg PO Q4H PRN Cough 11/18/21 02/13/22 Unknown History oral syrup docusate sodium 100 mg capsule 100 mg PO DAILY 11/18/21 02/13/22 02/16/22 History (Colace) fluorouracil 5 % topical cream 1 applic topical BID 11/18/21 02/13/22 01/26/22 History (Efudex) ibuprofen 400 mg tablet 400 mg PO TID PRN Pain 11/18/21 02/13/22 Unknown History melatonin 3 mg tablet 3 mg PO BEDTIME 11/18/21 02/13/22 02/16/22 History pantoprazole 40 mg tablet,delayed 40 mg PO DAILY 11/18/21 02/13/22 02/16/22 History release (Protonix) clozapine 25 mg tablet 25 mg PO TID #30 tabs 11/21/21 02/13/22 02/17/22 Rx benztropine 1 mg tablet 1 mg PO TID 30 days #90 tabs 11/23/21 02/13/22 02/16/22 Rx propranolol 20 mg tablet 20 mg PO 0900,2100 #60 tabs 11/23/21 02/13/22 02/17/22 Rx fluticasone propionate 50 2 spray intranasal DAILY 12/03/21 02/13/22 02/16/22 History mcg/actuation nasal spray,suspension risperidone 4 mg tablet (Risperdal) 2 mg PO BID 12/05/21 02/13/22 02/16/22 History trazodone 100 mg tablet 150 mg PO BEDTIME 12/05/21 02/13/22 02/16/22 History lithium carbonate 300 mg capsule 300 mg PO TID 12/31/21 02/13/22 02/16/22 History Allergies Allergy/AdvReac Type Severity Reaction Status Date / Time No Known Allergies Allergy Verified 02/10/22 15:15 Current Medications Generic Name Dose Route Start Last Admin Trade Name Freq PRN Reason Stop Dose Admin Sodium Chloride 1,000 mls @ 30 mls/hr 02/17/22 07:15 02/17/22 07:26 Sodium Chloride 0.9% IV 02/18/22 07:14 30 mls/hr .Q24H TEDDY Administration PFSH Anesthesia Medical History ADHD Allergic rhinitis Bipolar disorder Borderline personality disorder Callus of foot Cephalgia Dermatitis GERD (gastroesophageal reflux disease) Hammer toe of left foot Hammertoe of second toe of left foot History of 2019 novel coronavirus disease (COVID-19) History of COVID-19 virus infection in November 2020 and in May 2021 Obsessive-compulsive behavior Plantar wart of left foot Schizophrenia Family History Denies family history of Diabetes CAD (coronary artery disease) Clotting disorder Dementia Hyperlipidemia Psychiatric illness Chronic kidney disease (CKD) Suicide Anesthesia complication Bleeding disorder Family history of premature coronary artery disease Lung disease Cancer Hypertension Stroke Social History Smoking and tobacco status: never smoked Alcohol intake: never Current gender identity: Female Female Reproductive History Date of last menstrual period: 10/19/21 Data Anesthesia Cardiac Studies: No Data to Display
--- NOTE | 2022-02-17 08:32 | W.PM.OPSUD ---
Surgery/Procedure H&P Update DATE OF PROCEDURE: February 17, 2022 DATE H&P PERFORMED: 02/10/22 CHANGES TO PREVIOUS DOCUMENTATION: None PREOP DIAGNOSIS: Lung nodule PRIMARY INDICATION FOR PROCEDURE: Pulmonary nodule with mediastinal hilar lymphadenopathy PLANNED PROCEDURE: Bronchoscopy with inspection of the airway, possible endobronchial biopsy, bronchoalveolar lavage, endobronchial ultrasound-guided transbronchial needle aspiration of lymph nodes and control of bleeding. Operation Date: 02/17/22 08:25 Proposed Procedures p Bronch/EBUS 27275, 29331, 11723, 50069,R91.8(Not Applicable) - Kassie Yanes MD s Ebus(Not Applicable) - Kassie Yanes MD
[2022-02-17] MEDS: lidocaine 1% INJ 20 mL XX (09:15)
--- NOTE | 2022-02-17 09:31 | PM.OP ---
Operative Report Date of procedure: February 17, 2022 Pre-op diagnosis: Preop Diagnosis Lung nodule Post-op diagnosis: Sarcoidosis Brief History: This is a 31-year-old lady with numerous pulmonary nodule in perilymphatic distribution as well as hepatic nodules, mediastinal hilar lymphadenopathy coming for bronchoscopic evaluation. Procedure: Name of the procedure: Bronchoscopy with inspection of the airway, bronchoalveolar lavage, endobronchial ultrasound-guided transbronchial needle aspiration of lymph nodes and control of bleeding. Indication: Pulmonary nodule in perilymphatic distribution and hilar and mediastinal lymphadenopathy. Anesthesia: General anesthesia. Local anesthesia: The nubia in the right and left mainstem bronchi were anesthetized with 1% lidocaine, 3 mL. Description of the procedure: The procedure was explained to the patient and the consent was obtained. The patient was brought to the OR. The patient underwent endotracheal intubation for general anesthesia. Following induction of general anesthesia, the bronchoscope was advanced through the ET tube. The lower trachea appeared to be normal. The nubia was splayed. The nubia, the right and left mainstem bronchi are anesthetized with 1% lidocaine. In a systematic manner bilateral bronchial tree was then examined. The bronchoscope was advanced into the left mainstem bronchus. The left upper lobe, lingula and left lower lobe bronchi were examined up to the third subsegmental level and no abnormalities were identified. The bronchoscope was then introduced into the right mainstem bronchus. The right upper lobe, right middle lobe and right lower lobe bronchi were examined up to the third subsegmental level and no abnormalities were identified. Bronchoalveolar lavage was performed from the medial segment of the right middle lobe. 60 mL of saline was instilled, fluid return was 30 mL. The fluid was cloudy. The endobronchial ultrasound was introduced through the ET tube. Mediastinal and hilar lymphadenopathy was identified with the ultrasound. Transbronchial needle aspiration was performed from station 7. Samples: 1. Bronchoalveolar lavage specimen was sent for cell count and differential, CD4 CD8 ratio, Gram stain and culture. 2. The transbronchial needle aspiration of the subcarinal lymph node was not sent for histopathology. Complications: There was no immediate complications.
--- NOTE | 2022-02-17 11:14 | SUR.PHASEII ---
Pt was given 0.2 of Romazicon as a Versed reversal by Vivian at 1045. The pt needs to be observed in recovery for [address] Schwarz.
[2022-02-17 12:33] LABS: Apprearance, Bronch Wash Hazy (CLEAR); Color, Bronc Wash Colorless; Total Cells Counted Bronch 300
--- NOTE | 2022-02-17 14:24 | ANE.PACU2 ---
Inpatient post-anesthesia follow up: Airway intact: Yes Vital signs: Temperature 97.1 F Pulse Rate 71 Respiratory Rate 16 Blood Pressure 104/70 Pulse Oximetry 91 Oxygen Delivery Me thod Room Air Oxygen Flow Rate 3 Fraction of Inspir ed Oxygen Hydration adequate: Yes Nausea and vomiting: No Pain level: 2 Mental status: Baseline Additional Comments: Had to reverse midazolam, patient very somnolent prior to reversal.
[2022-02-18 08:06] LABS: OR HCG Qualitative Urine Negative (Negative)
[2022-02-18 14:42] LABS: Leukemia Profile (BBPL) See Report; Lymphoma Profile (BBPL) See Report
== END 2022-02-17 11:21 | disposition home or self-care (01) ==
PROVIDERS: Anesthesiology; PCP Nurse Practitioner Family; Visit Provider Internal Medicine Critical Care Medicine
PROC: 0BJ08ZZ Inspection of Tracheobronchial Tree, Via Natural or Artificial Opening Endoscopic (ICD-10-PCS; CPT 31622; principal; 2022-02-17 08:15)
PROC: BB4BZZZ Ultrasonography of Pleura (ICD-10-PCS; 2022-02-17 08:15)
DX: R91.8 Other nonspecific abnormal finding of lung field (principal); K21.9 Gastro-esophageal reflux disease without esophagitis; F31.9 Bipolar disorder, unspecified
CPT/HCPCS: 31624; 31652; 80503; 84703; 87070; 87205; 88184; 88185; 88305; 88312; 89050; J0330; J1100; J2250; J2405; J2704; J3010; J3490; J7030

== ENCOUNTER 2022-03-22 20:07 | Emergency (ER) | payer MEDICAID, SELFPAY ==
[2022-03-22 20:13] VITALS: BP 124/64; PULSE 114; RESP 18; TEMP 36.7; O2SAT 95; BMI 26.7
--- NOTE | 2022-03-22 20:20 | ED_ITS ---
HPI - Fall General: Chief Complaint: Fall Stated Complaint: fall -hit head Time Seen by Provider: 03/22/22 20:19 History of Present Illness: 31-year-old female comes in today for complaints of injuries sustained during a fall. Patient lives in independent living facility. Patient had slipped and fell while in the shower. Caregiver reports it took patient a while to respond to the door knocking. No witnessed fall, but suspected for loss of consciousness. Patient has a swelling to the right forehead from the fall, and complaints of right anterior rib pain. Associated symptoms-after fall: Denies chest pain or headache(s) Review of Systems General: Reports: 10 or more systems reviewed and unremarkable except in HPI and below Const: Denies: fever(s) Eyes: Denies: change in vision ENMT: Denies: throat pain Card: Denies: chest pain Resp: Denies: dyspnea GI: Denies: nausea or vomiting Musc: Reports: other (Right rib pain) Skin/Breast: Denies: erythema Neuro: Denies: headache(s) PFSH ED PFSH: Medical History ADHD Allergic rhinitis Bipolar disorder Borderline personality disorder Callus of foot Cephalgia Dermatitis GERD (gastroesophageal reflux disease) Hammer toe of left foot Hammertoe of second toe of left foot History of 2019 novel coronavirus disease (COVID-19) History of COVID-19 virus infection in November 2020 and in May 2021 Obsessive-compulsive behavior Plantar wart of left foot Schizophrenia Family History Denies family history of Diabetes CAD (coronary artery disease) Clotting disorder Dementia Hyperlipidemia Psychiatric illness Chronic kidney disease (CKD) Suicide Anesthesia complication Bleeding disorder Family history of premature coronary artery disease Lung disease Cancer Hypertension Stroke Social History Smoking and tobacco status: never smoked Alcohol intake: never Current gender identity: Female Female Reproductive History: Date of last menstrual period: 10/19/21 Physical Exam Const: COMMON NORMALS: alert HENMT: COMMON NORMALS: TM's normal bilaterally HEAD & SCALP: other (Small area of swelling and tenderness to the right forehead) FACE & SINUS: no Facial tenderness on exam of face and sinuses NOSE: Nasal discharge present TYMPANIC MEMBRANE: TM's normal bilaterally THROAT: posterior oropharynx normal Eye: COMMON NORMALS: EOMs intact bilaterally Chest: CHEST: Yes tenderness (Right lateral ribs) Resp: COMMON NORMALS: normal respiratory effort and clear to auscultation bilaterally AUSCULTATION: clear to auscultation bilaterally Cardio: COMMON NORMALS: regular rate and regular rhythm RATE: regular rate RHYTHM: regular rhythm Extremity: COMMON NORMALS: normal to inspection Neuro: SENSORIUM/ORIENTATION: Yes alert Skin: COMMON NORMALS: turgor normal GENERAL SKIN EXAM: turgor normal Course Vital Signs: Vital signs: Vital Signs Temperature 98.1 F 03/22/22 20:25 Pulse Rate 99 03/22/22 21:22 Respiratory Rate 16 03/22/22 21:22 Blood Pressure 124/64 03/22/22 20:25 Pulse Oximetry 99 03/22/22 21:22 Oxygen Delivery Me thod 03/22/22 20:25 MDM - Fall Medical Decision Making Patient comes in for evaluation of injury sustained during a fall in the shower. On exam patient has a small hematoma to the right forehead. Patient also has tenderness on palpation of the right lateral ribs. Lungs are clear to auscultation. Patient moves all extremities well. Differential diagnosis includes fracture, contusion, intracranial bleeding. CT of the head and x-rays of the ribs noted no acute fracture or intracranial bleeding. Reviewed exam with patient with recommendations for treatment and follow-up. Patient and caregiver both reported understanding. Lab Data Radiology Impressions Head CT 03/22/22 20:29 IMPRESSION: No acute intracranial abnormality. Ribs X-Ray 03/22/22 20:29 IMPRESSION: No acute findings. Discharge Plan Discharge Patient Disposition: Home Clinical Impression: Fall in (into) shower or empty bathtub, initial encounter Contusion of rib on right side Qualifiers: Encounter type: initial encounter Qualified Code(s): S20.211A - Contusion of right front wall of thorax, initial encounter Head injury Qualifiers: Encounter type: initial encounter Qualified Code(s): S09.90XA - Unspecified injury of head, initial encounter Condition: Stable Prescriptions: No Action acetaminophen [Tylenol Extra Strength] 500 mg tablet 500 mg PO TID PRN (Reason: Fever Or Pain) calcium carbonate 500 mg calcium (1,250 mg) tablet,chewable 750 mg PO BID PRN (Reason: Acid Reflux) polyethylene glycol 3350 [Miralax] 17 gram/dose powder 17 gm PO DIRECTED Rx Instructions: take wednesday and wednesday risperidone [Risperdal] 4 mg tablet 2 mg PO BID lithium carbonate 300 mg capsule 300 mg PO TID fluorouracil [Efudex] 5 % cream 1 applic topical BID Rx Instructions: apply sufficient amount cetirizine 10 mg Tablet 10 mg PO DAILY pantoprazole [Protonix] 40 mg Tablet,Delayed Release (Dr/Ec) 40 mg PO DAILY melatonin 3 mg Tablet 3 mg PO BEDTIME ibuprofen 400 mg Tablet 400 mg PO TID PRN (Reason: Pain) docusate sodium [Colace] 100 mg Capsule 100 mg PO DAILY dextromethorphan HBr 10 mg/5 mL Syrup 10 mg PO Q4H PRN (Reason: Cough) clozapine 25 mg Tablet 25 mg PO TID Qty: 30 0RF benztropine 1 mg tablet 1 mg PO TID 30 Days Qty: 90 1RF propranolol 20 mg Tablet 20 mg PO 0900,2100 Qty: 60 1RF fluticasone propionate 50 mcg/actuation [place],Suspension 2 spray INTRANASAL DAILY Rx Instructions: administer into each nostril trazodone 100 mg tablet 150 mg PO BEDTIME Discharge Orders: Discharge ED (Routine); Ordered 03/22/22 Ordered By: Richard Rios Referrals: Ally Franklin FNP [Primary Care Provider] - Discharge Diet: Usual diet Discharge Activity: Resume usual activity Patient Instructions: Musculoskeletal Pain (ED) Activity Restrictions/Additional Instructions: Use acetaminophen or ibuprofen as needed for pain. Use ice packs for further pain relief. Activity as tolerated. Follow-up with primary care in 2 to 3 days for recheck. Return to ED for worsening symptoms such as fever greater than 100.4, increased shortness of breath, or new concerns. Coding Level of Care Code ED Inspector Soldering for Samg Fwd Exam Comprehensive
[2022-03-22 20:25] VITALS: BP 124/64; PULSE 114; RESP 18; TEMP 36.7; O2SAT 95
--- NOTE | 2022-03-22 20:29 | XRR_ITS ---
PROCEDURE INFORMATION: Exam: XR Right Ribs with PA Chest Exam date and time: 03/22/2022 8:41 PM Age: 31 years old Clinical indication: Injury or trauma; Fall; Rib area; Blunt trauma (contusions or hematomas); Additional info: Fall injury TECHNIQUE: Imaging protocol: Radiologic exam of the Right ribs with PA chest. Views: 3 views COMPARISON: CT chest con [id number] 02/10/2022 4:15 PM FINDINGS: Lungs: Unremarkable. No consolidation. Pleural spaces: Unremarkable. No pleural effusion. No pneumothorax. Heart/Mediastinum: Unremarkable. No cardiomegaly. Bones/joints: Unremarkable. XR/XR ribs RT mn 3V w CXR1V [id number] IMPRESSION: No acute findings.
--- NOTE | 2022-03-22 20:29 | CTR_ITS ---
PROCEDURE INFORMATION: Exam: CT Head Without Contrast Exam date and time: 03/22/2022 9:36 PM Age: 31 years old Clinical indication: Injury or trauma; Fall; Blunt trauma (contusions or hematomas); Additional info: Fall injury TECHNIQUE: Imaging protocol: Computed tomography of the head without contrast. Radiation optimization: All CT scans at this facility use at least one of these dose optimization techniques: automated exposure control; mA and/or kV adjustment per patient size (includes targeted exams where dose is matched to clinical indication); or iterative reconstruction. COMPARISON: CT head wo con* [id number] 12/17/2021 10:29 PM RADIATION DOSE METRICS: Total DLP (mGy-cm): 1189.45 FINDINGS: Brain: Normal. No hemorrhage. Unremarkable white matter. No mass effect. Cerebral ventricles: No ventriculomegaly. Paranasal sinuses: Visualized sinuses are unremarkable. No fluid levels. Mastoid air cells: Visualized mastoid air cells are well aerated. Bones/joints: Unremarkable. No acute fracture. Soft tissues: Unremarkable. CT/CT head wo con* [id number] IMPRESSION: No acute intracranial abnormality.
[2022-03-22 21:22] VITALS: PULSE 99; RESP 16; O2SAT 99
== END 2022-03-22 21:16 | disposition home or self-care (01) ==
PROVIDERS: Emergency Provider Nurse Practitioner Family; PCP Nurse Practitioner Family
DX: S00.83XA Contusion of other part of head, initial encounter (principal); S20.211A Contusion of right front wall of thorax, initial encounter; S09.90XA Unspecified injury of head, initial encounter; W18.2XXA Fall in (into) shower or empty bathtub, initial encounter; Y93.E1 Activity, personal bathing and showering
CPT/HCPCS: 70450; 71101; 99284

== ENCOUNTER 2022-05-30 18:23 | Emergency (ER) | payer MEDICAID, SELFPAY ==
[2022-05-30 18:36] VITALS: BP 106/74; PULSE 96; RESP 16; TEMP 37.1; O2SAT 96
[2022-05-30 19:24] LABS: Basophils % 0.2 %; Hematocrit 38.2 % (37.0-47.0); Hemoglobin 12.1 g/dL (11.5-15.3); Lymphocytes % 15.5 %; Mean Corpuscular HGB Conc 31.7 g/dL (30.0-36.0); Mean Corpuscular Hemoglobin 27.8 pg (28.0-34.0); Mean Corpuscular Volume 87.6 fl (81-99); Monocytes # 0.7 10^3/uL (0.2-0.9); Monocytes % 10.7 %; Neutrophils # 4.89 10^3/uL (1.8-7.7); Neutrophils % 73.3 %; Nucleated Red Blood Cells % 0 %; Platelet Count 235 10^3/cmm (130-400); Red Blood Count 4.36 10^6/uL (4.1-5.3); Red Cell Distribution Width 12.3 % (12.1-15.1); White Blood Count 6.7 10^3/uL (4.0-10.0)
[2022-05-30 19:41] LABS: Alanine Aminotransferase 16 U/L (0-33); Albumin Level 4.6 g/dL (3.5-5.2); Alkaline Phosphatase 96 U/L (35-105); Anion Gap 13.9 (5-19); Aspartate Amino Transferase 19 U/L (0-32); Blood Urea Nitrogen 13 mg/dL (6-20); Calcium 10.9 mg/dL (8.5-10.5); Carbon Dioxide 27 mmol/L (22-29); Chloride 100 mmol/L (98-107); Globulin 3.3 g/dL (1.3-4.6); Glomerular Filtration Rate 52.4 mL/min (90-130); Glucose 97 mg/dL (65-115); Lipase 42 U/L (13-60); Osmolality Calculated 284 mOsm/kg (285-295); Potassium 3.9 mmol/L (3.5-5.1); Sodium 137 mmol/L (136-145); Total Bilirubin 0.4 mg/dL (0.15-1.2); Total Protein 7.9 g/dL (6.6-8.7)
[2022-05-30 20:30] LABS: HCG, Serum Qual Negative (Negative)
--- NOTE | 2022-05-30 21:26 | W.ED.ABDPA2 ---
HPI - Abdominal Pain General: Chief Complaint: Abdominal Pain Stated Complaint: abd pain Time Seen by Provider: 05/30/22 21:22 Source: patient and other (caregiver from care home) Mode of arrival: ambulatory Limitations: no limitations History of Present Illness: See nursing assessment. Patient with complaints of increased abdominal pain today. Patient has known gallstones and has been rescheduled couple times for cholecystectomy. Patient is supposed to see Dr. Pitts general surgeon later this month for rescheduling of cholecystectomy. Patient states she has not been following her prescribed low-fat diet. She denies any nausea vomiting or fever. She denies any change in her bowel habits. She is complaining of right upper quadrant abdominal pain that radiates into her back. She denies any trauma. Associated Symptoms: Denies chills, dysuria, fever(s), hematuria, nausea and vomiting Related Data: Date of Last Menstrual Period: 10/19/21 Review of Systems Const: Denies: fever(s) or chills Eyes: Denies: change in vision ENMT: Denies: throat pain Card: Denies: chest pain or palpitations Resp: Denies: dyspnea or wheezing GI: Reports: abdominal pain (Right upper quadrant); Denies: nausea or vomiting : Reports: flank pain; Denies: difficulty voiding, dysuria or hematuria Musc: Reports: back pain; Denies: neck pain Skin/Breast: Denies: rash or pruritus Neuro: Denies: headache(s) or numbness in extremities Psych: Denies: anxiety Parish/Lymph: Denies: enlarged lymph nodes PFSH ED PFSH: Medical History ADHD Allergic rhinitis Bipolar disorder Borderline personality disorder Callus of foot Cephalgia Dermatitis GERD (gastroesophageal reflux disease) Hammer toe of left foot Hammertoe of second toe of left foot History of 2019 novel coronavirus disease (COVID-19) History of COVID-19 virus infection in November 2020 and in May 2021 Obsessive-compulsive behavior Plantar wart of left foot Schizophrenia Family History Denies family history of Diabetes CAD (coronary artery disease) Clotting disorder Dementia Hyperlipidemia Psychiatric illness Chronic kidney disease (CKD) Suicide Anesthesia complication Bleeding disorder Family history of premature coronary artery disease Lung disease Cancer Hypertension Stroke Social History Smoking and tobacco status: never smoked Alcohol intake: never Current gender identity: Female Female Reproductive History: Date of last menstrual period: 10/19/21 Physical Exam Const: COMMON NORMALS: patient oriented x3, no limitations and well nourished GENERAL APPEARANCE: cooperative HENMT: COMMON NORMALS: normocephalic and atraumatic HEAD & SCALP: normocephalic and atraumatic FACE & SINUS: normal facial exam Eye: COMMON NORMALS: EOMs intact bilaterally Neck/C-Spine: COMMON NORMALS: full ROM, no lymphadenopathy, supple and no meningeal signs GENERAL: Yes normal visual inspection Lymph: LYMPHATIC: no lymphadenopathy noted Chest: COMMONS NORMALS: normal inspection of the chest and normal palpation of entire chest wall CHEST: No Ecchymosis present and No rash Resp: COMMON NORMALS: normal respiratory effort, No retractions and clear to auscultation bilaterally EFFORT & INSPECTION: No respiratory distress AUSCULTATION: clear to auscultation bilaterally Cardio: COMMON NORMALS: regular rate, regular rhythm and Peripheral pulses 2+ throughout JUGULAR VENOUS DISTENTION: no JVD RATE: regular rate RHYTHM: regular rhythm PERIPHERAL PULSES: Peripheral pulses 2+ throughout GI: OTHER: Normoactive bowel sounds. No guarding or rebound. Patient has moderate right upper quadrant abdominal pain. No masses palpated no bruits. : COMMON NORMALS: Yes no CVA tenderness BLADDER/KIDNEY EXAM: Yes no CVA tenderness Back/Pelvis: COMMON NORMALS: no CVA tenderness Extremity: COMMON NORMALS: normal to inspection, full ROM and capillary refill normal Neuro: COMMON NORMALS: patient oriented x3, CN's II-XII intact bilaterally, no focal motor deficits and no sensory deficits noted MENINGEAL SIGNS: Yes no meningeal signs Psych: COMMON NORMALS: mental status grossly normal and Normal thought process present THOUGHT PROCESS: Normal thought process present OTHER: Patient is anxious. Skin: COMMON NORMALS: no rashes or lesions noted and no wounds GENERAL SKIN EXAM: no rashes or lesions noted Course Vital Signs: Vital signs: Vital Signs Temperature 98.7 F 05/30/22 18:36 Pulse Rate 89 05/30/22 21:40 Respiratory Rate 16 05/30/22 21:40 Blood Pressure 119/80 05/30/22 21:40 Pulse Oximetry 94 05/30/22 21:40 Oxygen Delivery Me thod 05/30/22 21:40 MDM - Abdominal Pain Medical Decision Making Right upper quadrant abdominal pain likely due to biliary colic. Patient has documented gallstones by ultrasound in March of last year. Patient is already following up with general surgeon Dr. Pitts. Medical Records Ordering Provider/Ordering MD: Dimple Pantoja Date of Service: 03/31/22 Procedure(s): US gall bladder 09658 Accession Number(s): [id number] Report Number: [id number] WS: [id number] RIGHT UPPER QUADRANT ULTRASOUND HISTORY: RUQ PAIN COMPARISON: None available. Liver: 15.7 cm in length. Normal size liver. Mild coarse echotexture. No mass identified. Portal Vein: Not imaged. Gallbladder: Numerous stones in the gallbladder fossa with shadowing. No wall thickening identified or pericholecystic fluid. CBD: 0.3 cm Pancreas: Normal size and echogenicity. Right kidney: 11.5 cm in length. Normal size and echogenicity. No hydronephrosis or mass. Aorta and IVC: Unremarkable abdominal aorta and IVC. No ascites. US/US gall bladder [id number] IMPRESSION: ? 1.? Cholelithiasis. Numerous stones within the gallbladder. No bile duct dilatation. 2.? Mild hepatic steatosis. ? Dictated By: Amanda Marcelino DO Signed By: Amanda Marcelino DO Signed Date/Time: 04/01/22 1529 Lab Data 05/30/22 19:19 05/30/22 19:19 Labs/Radiology: Laboratory Results WBC 6.7 10^3/uL (4.0-10.0) 05/30/22 19:19 RBC 4.36 10^6/uL (4.1-5.3) 05/30/22 19:19 Hgb 12.1 g/dL (11.5-15.3) 05/30/22 19:19 Hct 38.2 % (37.0-47.0) 05/30/22 19:19 MCV 87.6 fl (81-99) 05/30/22 19:19 MCH 27.8 pg (28.0-34.0) L 05/30/22 19:19 MCHC 31.7 g/dL (30.0-36.0) 05/30/22 19:19 RDW 12.3 % (12.1-15.1) 05/30/22 19:19 Plt Count 235 10^3/cmm (130-400) 05/30/22 19:19 MPV 8.0 fL (7.4-10.4) 05/30/22 19:19 Neut % (Auto) 73.3 % 05/30/22 19:19 Lymph % (Auto) 15.5 % 05/30/22 19:19 [place] % (Auto) 10.7 % 05/30/22 19:19 Eos % (Auto) 0.0 % 05/30/22 19:19 Baso % (Auto) 0.2 % 05/30/22 19:19 Neut # (Auto) 4.89 10^3/uL (1.8-7.7) 05/30/22 19:19 Lymph # (Auto) 1.0 10^3/uL (0.8-4.8) 05/30/22 19:19 [place] # (Auto) 0.7 10^3/uL (0.2-0.9) 05/30/22 19:19 Eos # (Auto) 0.0 10^3/uL (0.0-0.8) 05/30/22 19:19 Baso # (Auto) 0.0 10^3/uL (0.0-0.1) 05/30/22 19:19 Nucleated RBC % (auto) 0 % 05/30/22 19:19 Nucleated RBCs # 0.0 /100WBC 05/30/22 19:19 Sodium 137 mmol/L (136-145) 05/30/22 19:19 Potassium 3.9 mmol/L (3.5-5.1) 05/30/22 19:19 Chloride 100 mmol/L (98-107) 05/30/22 19:19 Carbon Dioxide 27 mmol/L (22-29) 05/30/22 19:19 Anion Gap 13.9 (5-19) 05/30/22 19:19 BUN 13 mg/dL (6-20) 05/30/22 19:19 Creatinine 1.2 mg/dL (0.5-0.9) H 05/30/22 19:19 GFR Calculation 52.4 mL/min (90-130) L 05/30/22 19:19 Glucose 97 mg/dL (65-115) 05/30/22 19:19 Calculated Osmolality 284 mOsm/kg (285-295) L 05/30/22 19:19 Calcium 10.9 mg/dL (8.5-10.5) H 05/30/22 19:19 Total Bilirubin 0.4 mg/dL (0.15-1.2) 05/30/22 19:19 AST 19 U/L (0-32) 05/30/22 19:19 ALT 16 U/L (0-33) 05/30/22 19:19 Alkaline Phosphatase 96 U/L (35-105) 05/30/22 19:19 Total Protein 7.9 g/dL (6.6-8.7) 05/30/22 19:19 Albumin 4.6 g/dL (3.5-5.2) 05/30/22 19:19 Globulin 3.3 g/dL (1.3-4.6) 05/30/22 19:19 Lipase 42 U/L (13-60) 05/30/22 19:19 HCG, Qual Negative (Negative) 05/30/22 19:19 Urine Color Yellow (Yellow) 05/30/22 21:30 Urine Appearance Sl hazy (CLEAR) A 05/30/22 21:30 Urine pH 6.5 (5-7) 05/30/22 21:30 Ur Specific [place] 1.015 (1.005-1.030) 05/30/22 21:30 Urine Protein Neg (Negative) 05/30/22 21:30 Urine Glucose (UA) Norm (Normal) 05/30/22 21:30 Urine Ketones Negative (Negative) 05/30/22 21:30 Urine Blood Neg (Negative) 05/30/22 21:30 Urine Nitrate Negative (Negative) 05/30/22 21:30 Urine Bilirubin Neg (Negative) 05/30/22 21:30 Urine Urobilinogen 1 mg/dL (Negative) H 05/30/22 21:30 Ur Leukocyte Esterase 2+ (Negative) H 05/30/22 21:30 Urine RBC None /hpf (0-2) 05/30/22 21:30 Urine WBC 0-4 /hpf (0-5) H 05/30/22 21:30 Ur Squamous Epith Cells 0-4 /hpf (0-5) H 05/30/22 21:30 Amorphous Sediment Not Reportable 05/30/22 21:30 Urine Bacteria Trace /hpf (NONE) 05/30/22 21:30 Urine Mucus Trace /hpf 05/30/22 21:30 Discharge Plan Discharge Patient Disposition: Home Clinical Impression: Biliary colic Abdominal pain Qualifiers: Abdominal location: right upper quadrant Qualified Code(s): R10.11 - Right upper quadrant pain Condition: Stable Prescriptions: New hydrocodone-acetaminophen 5-325 mg tablet 1 tab PO Q6H PRN (Reason: pain) Qty: 8 0RF No Action acetaminophen [Tylenol Extra Strength] 500 mg tablet 500 mg PO TID PRN (Reason: Fever Or Pain) calcium carbonate 500 mg calcium (1,250 mg) tablet,chewable 750 mg PO BID PRN (Reason: Acid Reflux) polyethylene glycol 3350 [Miralax] 17 gram/dose powder 17 gm PO DIRECTED Rx Instructions: take wednesday and wednesday risperidone [Risperdal] 4 mg tablet 2 mg PO BID lithium carbonate 300 mg capsule 300 mg PO TID fluorouracil [Efudex] 5 % cream 1 applic topical BID Rx Instructions: apply sufficient amount cetirizine 10 mg Tablet 10 mg PO DAILY pantoprazole [Protonix] 40 mg Tablet,Delayed Release (Dr/Ec) 40 mg PO DAILY melatonin 3 mg Tablet 3 mg PO BEDTIME ibuprofen 400 mg Tablet 400 mg PO TID PRN (Reason: Pain) docusate sodium [Colace] 100 mg Capsule 100 mg PO DAILY dextromethorphan HBr 10 mg/5 mL Syrup 10 mg PO Q4H PRN (Reason: Cough) clozapine 25 mg Tablet 25 mg PO TID Qty: 30 0RF benztropine 1 mg tablet 1 mg PO TID 30 Days Qty: 90 1RF propranolol 20 mg Tablet 20 mg PO 0900,2100 Qty: 60 1RF fluticasone propionate 50 mcg/actuation [place],Suspension 2 spray INTRANASAL DAILY Rx Instructions: administer into each nostril trazodone 100 mg tablet 150 mg PO BEDTIME Discharge Orders: Discharge ED (Routine); Ordered 05/30/22 Ordered By: Noman Kirk Referrals: Ally Franklin FNP [Primary Care Provider] - Roscoe Pitts MD [Physician] - 4-7 days Discharge Diet: Low Fat Discharge Activity: Increase activity as tolerated Patient Instructions: Biliary Colic (ED), Gallstones (ED), Abdominal Pain (ED), Opioid Safety, Pain Management Activity Restrictions/Additional Instructions: Avoid fatty foods. Drink plenty fluids. May need to continue stool softener while on pain medication. May take hydrocodone every 6-8 hours as needed for pain. Do not add any Tylenol to hydrocodone since hydrocodone already has Tylenol in it. Return if problems. Coding Level of Care Code ED Supervisor [employer] Processing for Chg Fwd History Comprehensive Exam Comprehensive Medical Decision Making Moderate Complexity
[2022-05-30 21:38] LABS: Add Urine Microscopic? YES; Bilirubin Urine Neg (Negative); Blood Urine Neg (Negative); Glucose Urine UA Norm (Normal); Ketones Urine Negative (Negative); Leukocyte Esterase Urine 2+ (Negative); Nitrate Urine Negative (Negative); Protein Urine Neg (Negative); Specific Gravity, Urine 1.015 (1.005-1.030); Urine Appearance SL Hazy (CLEAR); Urine Color Yellow (Yellow); Urobilinogen Urine 1 mg/dL (Negative); pH Urine 6.5 (5-7)
[2022-05-30 21:40] VITALS: BP 119/80; PULSE 89; RESP 16; O2SAT 94
[2022-05-30 21:40] LABS: Add Urine Culture? No; Bacteria Urine TRACE /hpf; Mucus Urine TRACE /hpf; Squamous Epithelial Cell Urine 0-4 /hpf (0-5); WBC Urine 0-4 /hpf (0-5)
[2022-05-30] MEDS: HYDROcodone-acetaminophen 5-325 mg Tablet 1 TAB PO (21:54)
[2022-05-30 22:18] VITALS: PULSE 86; RESP 16; O2SAT 95
== END 2022-05-30 22:19 | disposition home or self-care (01) ==
PROVIDERS: Emergency Medicine; Emergency Provider Family Medicine; PCP Nurse Practitioner Family
DX: K80.20 Calculus of gallbladder without cholecystitis without obstruction (principal)
CPT/HCPCS: 36415; 80053; 81001; 83690; 84703; 85025; 99283

== ENCOUNTER 2022-07-11 14:10 | Emergency (ER) | payer MEDICAID, SELFPAY ==
[2022-07-11 14:24] VITALS: BP 106/72; PULSE 92; TEMP 36.5; O2SAT 95; BMI 27.4
--- NOTE | 2022-07-11 16:58 | W.ED.FALL ---
HPI - Fall General: Chief Complaint: Fall Stated Complaint: fall, head pain Time Seen by Provider: 07/11/22 16:50 Source: patient and other (healthcare associate ) Mode of arrival: ambulatory Limitations: no limitations History of Present Illness: 31 yo f slipped in her bathroom and struck her left forehead and face on the drywall. She did not have LOC. She did not break the drywall. Pt is not anticoagulated. She reports pain on left side of face and forehead. No vomiting. No change in mental status. Associated symptoms-after fall: Denies abdominal pain, chest pain, difficulty walking or neck pain Review of Systems General: Reports: 10 or more systems reviewed and unremarkable except in HPI and below Eyes: Denies: change in vision ENMT: Denies: throat pain Card: Denies: chest pain, edema or syncope GI: Denies: abdominal pain, nausea or vomiting : Denies: flank pain, dysuria or urinary frequency Musc: Denies: neck pain, back pain, extremity pain or extremity swelling Skin/Breast: Denies: rash or erythema Neuro: Denies: numbness in extremities, weakness in extremities, lack of coordination or difficulty walking [facility] ED PFSH: Medical History ADHD Allergic rhinitis Bipolar disorder Borderline personality disorder Callus of foot Cephalgia Dermatitis GERD (gastroesophageal reflux disease) Hammer toe of left foot Hammertoe of second toe of left foot History of 2019 novel coronavirus disease (COVID-19) History of COVID-19 virus infection in November 2020 and in May 2021 Obsessive-compulsive behavior Plantar wart of left foot Schizophrenia Family History Denies family history of Diabetes CAD (coronary artery disease) Clotting disorder Dementia Hyperlipidemia Psychiatric illness Chronic kidney disease (CKD) Suicide Anesthesia complication Bleeding disorder Family history of premature coronary artery disease Lung disease Cancer Hypertension Stroke Social History Smoking and tobacco status: never smoked Alcohol intake: never Current gender identity: Female Physical Exam Const: COMMON NORMALS: no limitations, alert and well nourished EXAM LIMITATIONS: no altered mental status HENMT: COMMON NORMALS: normocephalic, atraumatic, external ears normal, TM's normal bilaterally and Normal external nose present HEAD & SCALP: normal to inspection, normocephalic and atraumatic; no abrasion, no Mckenzie's sign, no contusion, no hematoma, no laceration, no palpable skull fracture, no raccoon eyes, no scalp lesion and no scalp tenderness FACE & SINUS: sinuses nontender and face symmetric; no abrasion, no crepitus, no ecchymosis, no erythema, no edema, no laceration, no maxillary instability, no Facial tenderness on exam of face and sinuses and no TMJ findings NOSE: Normal external nose present and Other nasal findings present (rhinorrhea) EXTERNAL EAR: Yes external ears normal TYMPANIC MEMBRANE: TM's normal bilaterally MOUTH: no muffled voice and no TMJ findings Eye: COMMON NORMALS: Equal, round and reactive pupils present, EOMs intact bilaterally, conjunctivae normal and no scleral icterus CONJUNCTIVA: Yes conjunctivae normal PUPIL: Yes Equal, round and reactive pupils present Neck/C-Spine: COMMON NORMALS: no JVD GENERAL: Yes normal visual inspection and Yes trachea midline CERVICAL SPINE: Yes cervical ROM normal, No pain with cervical ROM and No Cervical spine tenderness Chest: CHEST: Yes Symmetrical chest wall rise, No crepitus, No Sternal flail present and No tenderness Resp: COMMON NORMALS: normal respiratory effort, No use of accessory muscles and clear to auscultation bilaterally AUSCULTATION: clear to auscultation bilaterally Cardio: COMMON NORMALS: no JVD, regular rate and regular rhythm RATE: regular rate RHYTHM: regular rhythm GI: COMMON NORMALS: Soft to palpation and non-tender PALPATION: Yes Soft to palpation and No Guarding due to palpation present (GI) Extremity: COMMON NORMALS: normal to inspection Neuro: COMMON NORMALS: moves all extremities, no focal motor deficits and no sensory deficits noted SENSORIUM/ORIENTATION: Yes alert Psych: COMMON NORMALS: mental status grossly normal, cooperative and normal affect Skin: COMMON NORMALS: no rashes or lesions noted, turgor normal and no jaundice GENERAL SKIN EXAM: no rashes or lesions noted and turgor normal Course Vital Signs: Vital signs: Vital Signs Temperature 97.7 F 07/11/22 14:24 Pulse Rate 92 07/11/22 14:24 Blood Pressure 106/72 07/11/22 14:24 Pulse Oximetry 95 07/11/22 14:24 Oxygen Delivery Me thod 07/11/22 14:24 MDM - Fall Medical Decision Making 31 yo f with minor head injury and facial injury. She's still sore and per protocol at the facility she lives in they required medical exam. Patient has no high risk features. I find no objective evidence of injury, suggesting it was minor. PERRL, EOMI, no FB sensation, no proptosis, no orbital ecchymosis No LOC. I have ordered tylenol and ibuprofen for her soreness. No facial or scalp tenderness. TMs clear. Dental alignment normal. CT head rules applied. I feel patient can be monitored rather than undergo CT head today. Discharge Plan Discharge Patient Disposition: Home Clinical Impression: Closed head injury without loss of consciousness, Facial injury Condition: Stable Prescriptions: No Action acetaminophen [Tylenol Extra Strength] 500 mg tablet 500 mg PO TID PRN (Reason: Fever Or Pain) calcium carbonate 500 mg calcium (1,250 mg) tablet,chewable 750 mg PO BID PRN (Reason: Acid Reflux) polyethylene glycol 3350 [Miralax] 17 gram/dose powder 17 gm PO DIRECTED Rx Instructions: take wednesday and wednesday risperidone [Risperdal] 4 mg tablet 2 mg PO BID lithium carbonate 300 mg capsule 300 mg PO TID hydrocodone-acetaminophen 5-325 mg tablet 1 tab PO Q6H PRN (Reason: pain) Qty: 8 0RF fluorouracil [Efudex] 5 % cream 1 applic topical BID Rx Instructions: apply sufficient amount cetirizine 10 mg Tablet 10 mg PO DAILY pantoprazole [Protonix] 40 mg Tablet,Delayed Release (Dr/Ec) 40 mg PO DAILY melatonin 3 mg Tablet 3 mg PO BEDTIME ibuprofen 400 mg Tablet 400 mg PO TID PRN (Reason: Pain) docusate sodium [Colace] 100 mg Capsule 100 mg PO DAILY dextromethorphan HBr 10 mg/5 mL Syrup 10 mg PO Q4H PRN (Reason: Cough) clozapine 25 mg Tablet 25 mg PO TID Qty: 30 0RF benztropine 1 mg tablet 1 mg PO TID 30 Days Qty: 90 1RF propranolol 20 mg Tablet 20 mg PO 0900,2100 Qty: 60 1RF fluticasone propionate 50 mcg/actuation [place],Suspension 2 spray INTRANASAL DAILY Rx Instructions: administer into each nostril trazodone 100 mg tablet 150 mg PO BEDTIME Discharge Orders: Discharge ED (Routine); Ordered 07/11/22 Ordered By: Kervin Baldwin Referrals: Ally Franklin FNP [Primary Care Provider] - Discharge Diet: Usual diet Discharge Activity: Increase activity as tolerated Patient Instructions: Head Injury (ED), Facial Contusion (ED), Pain Management Activity Restrictions/Additional Instructions: The probability of facial fracture, skull fracture, or intracranial bleeding was deemed low. Therefore, imaging was not performed. Please monitor for vomiting, confusion, seizure, abnormal coordination, severe headache. If any of these occur, return to ER. Otherwise, you may treat with ibuprofen, tylenol, ice, and rest. Coding Level of Care Code ED Guardian Family Member for Julito Whitmore
[2022-07-11] MEDS: ibuprofen 600 mg Tablet PO (17:06)
[2022-07-11] MEDS: acetaminophen 500 mg Tablet 1000 MG PO (17:06)
[2022-07-11 17:39] VITALS: BP 116/76; PULSE 87; RESP 16; TEMP 36.7; O2SAT 96
== END 2022-07-11 17:28 | disposition home or self-care (01) ==
PROVIDERS: Emergency Provider Emergency Medicine; PCP Nurse Practitioner Family
DX: S09.8XXA Other specified injuries of head, initial encounter (principal); S09.93XA Unspecified injury of face, initial encounter; W01.198A Fall on same level from slipping, tripping and stumbling with subsequent striking against other object, initial encounter
CPT/HCPCS: 99283

== ENCOUNTER 2022-09-13 19:38 | Inpatient (IN) | payer MEDICAID, SELFPAY ==
[2022-09-13 19:42] VITALS: BP 119/64; PULSE 95; RESP 18; TEMP 36.7; O2SAT 93; BMI 25.7
--- NOTE | 2022-09-13 19:52 | ECG_ITS ---
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 Measurements Intervals [place] Rate: 94 P: 32 AR: 158 QRS: 67 QRSD: 92 T: 125 QT: 343 QTc: 429 Interpretive Statements SINUS RHYTHM NONSPECIFIC ST & T-WAVE ABNORMALITY WARNING: DATA QUALITY MAY AFFECT INTERPRETATION Compared to ECG 01/26/2022 15:23:12 No significant changes Electronically Signed On 09-15-2022 7:02:39 CDT by Wilder Ruggiero M.D. [email or web address]
[2022-09-13 20:16] LABS: Hemoglobin 10.7 g/dL (11.5-15.3); Lymphocytes # 1.2 10^3/uL (0.8-4.8); Lymphocytes % 17.9 %; Mean Corpuscular HGB Conc 32.4 g/dL (30.0-36.0); Mean Corpuscular Hemoglobin 27.9 pg (28.0-34.0); Mean Corpuscular Volume 85.9 fl (81-99); Mean Platelet Volume 8.4 fL (7.4-10.4); Monocytes # 0.8 10^3/uL (0.2-0.9); Monocytes % 12.4 %; Neutrophils # 4.65 10^3/uL (1.8-7.7); Neutrophils % 69.4 %; Nucleated Red Blood Cells % 0 %; Platelet Count 189 10^3/cmm (130-400); Red Blood Count 3.84 10^6/uL (4.1-5.3); White Blood Count 6.7 10^3/uL (4.0-10.0)
[2022-09-13 20:24] LABS: Alanine Aminotransferase 10 U/L (0-33); Albumin Level 3.8 g/dL (3.5-5.2); Alkaline Phosphatase 80 U/L (35-105); Aspartate Amino Transferase 15 U/L (0-32); Blood Urea Nitrogen 8 mg/dL (6-20); Calcium 9.4 mg/dL (8.5-10.5); Carbon Dioxide 25 mmol/L (22-29); Chloride 102 mmol/L (98-107); Globulin 2.4 g/dL (1.3-4.6); Glomerular Filtration Rate 83.7 mL/min (90-130); Glucose 92 mg/dL (65-115); Osmolality Calculated 282 mOsm/kg (285-295); Salicylate 0.7 mg/dL (3-10); Sodium 137 mmol/L (136-145); Total Bilirubin 0.3 mg/dL (0.15-1.2); Total Protein 6.2 g/dL (6.6-8.7)
[2022-09-13 20:27] LABS: Lithium 1.1 mmol/L (0.6-1.2)
[2022-09-13 20:28] LABS: Acetaminophen < 5.0 ug/mL (10-30); Alcohol Level < 10 mg/dL (0-10)
[2022-09-13 20:29] LABS: Anion Gap 13.3 (5-19); Potassium 3.3 mmol/L (3.5-5.1)
[2022-09-13 20:37] LABS: HCG Qualitative Urine. Negative (Negative)
[2022-09-13 20:42] LABS: Amphetamines Screen Urine Negative (Negative); Barbiturates Screen Urine Negative (Negative); Benzodiazepines Screen Urine Negative (Negative); Cocaine Screen Urine Negative (Negative); Opiate Screen Urine Negative (Negative); PCP Screen Urine Negative (Negative); THC Screen Urine Negative (Negative)
[2022-09-13 20:44] LABS: Add Urine Microscopic? YES; Bilirubin Urine Neg (Negative); Blood Urine Neg (Negative); Glucose Urine UA Norm (Normal); Ketones Urine Negative (Negative); Leukocyte Esterase Urine Trace (Negative); Nitrate Urine Negative (Negative); Protein Urine Neg (Negative); Squamous Epithelial Cell Urine 0-4 /hpf (0-5); Urine Appearance Clear (CLEAR); Urine Color Light yellow (Yellow); Urobilinogen Urine Norm (Negative); WBC Urine 0-4 /hpf (0-5); pH Urine 7 (5-7)
[2022-09-13 20:45] LABS: Add Urine Culture? No; Amorphous Sediment Urine TRACE /hpf; Bacteria Urine TRACE /hpf
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
[2022-09-13] MEDS: OLANZapine 10 mg ODT 15 MG PO (20:53)
[2022-09-13 22:37] VITALS: BP 113/71; PULSE 95; RESP 18; TEMP 36.2; O2SAT 93
[2022-09-13 22:47] VITALS: RESP 16
[2022-09-14 06:00] VITALS: RESP 18
[2022-09-14] MEDS: cetirizine 10 mg Tablet PO (09:38)
[2022-09-14] MEDS: pantoprazole DR 40 mg Tablet PO (09:39)
[2022-09-14] MEDS: cloZAPine 25 mg Tablet PO ×3 (09:39→20:15)
[2022-09-14] MEDS: risperiDONE 2 mg Tablet PO ×2 (09:39→20:15)
[2022-09-14] MEDS: docusate sodium 100 mg Capsule PO (09:39)
[2022-09-14] MEDS: lithium carbonate 300 mg Capsule PO ×3 (09:39→20:15)
[2022-09-14] MEDS: benztropine 1 mg Tablet PO ×3 (09:39→20:15)
[2022-09-14] MEDS: fluticasone nasal spray 16gm Btl 2 SPRAY INTRANASAL (09:41)
[2022-09-14] MEDS: propranolol 20 mg Tablet PO ×2 (11:22→20:16)
[2022-09-14] MEDS: ibuprofen 200 mg Tablet 400 MG PO (12:55)
[2022-09-14 13:57] VITALS: BP 111/76; PULSE 99; RESP 16; TEMP 36.8; O2SAT 95
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
[2022-09-14] MEDS: trazodone 100 mg Tablet 150 MG PO (20:14)
[2022-09-14] MEDS: acetaminophen 500 mg Tablet PO (20:15)
[2022-09-14 20:42] VITALS: BP 112/79; PULSE 110; RESP 17; TEMP 36.6; O2SAT 96
[2022-09-15 06:00] VITALS: RESP 16
[2022-09-15] MEDS: risperiDONE 2 mg Tablet PO ×2 (08:38→20:21)
[2022-09-15] MEDS: cloZAPine 25 mg Tablet PO ×3 (08:39→20:21)
[2022-09-15] MEDS: sennosides-docusate Tablet 1 TAB PO (08:39)
[2022-09-15] MEDS: lithium carbonate 300 mg Capsule PO ×3 (08:39→20:21)
[2022-09-15] MEDS: benztropine 1 mg Tablet PO ×3 (08:39→20:21)
[2022-09-15] MEDS: docusate sodium 100 mg Capsule PO (08:39)
[2022-09-15] MEDS: pantoprazole DR 40 mg Tablet PO (08:39)
[2022-09-15] MEDS: fluticasone nasal spray 16gm Btl 2 SPRAY INTRANASAL (08:42)
[2022-09-15] MEDS: cetirizine 10 mg Tablet PO (08:42)
--- NOTE | 2022-09-15 10:15 | PC.NURSE ---
This nurse did not give scheduled propranolo due to a BP of 96/58. pt is asymptomatic. This Rn will continue to monitor.
[2022-09-15] MEDS: hyDROXYzine 25 mg Capsule 50 MG PO (11:41)
[2022-09-15 14:00] VITALS: BP 116/78; PULSE 107; RESP 17; TEMP 36.8; O2SAT 97
[2022-09-15] MEDS: polyethylene glycol 3350 Pkt 17 gm PO (16:36)
[2022-09-15] MEDS: ibuprofen 200 mg Tablet 400 MG PO (17:34)
--- NOTE | 2022-09-15 18:27 | P.NPUPN_ITS ---
Subjective NPU Subjective: Patient presented today reporting that she was feeling fine. She continued to report that she was doing a little better from an anxiety standpoint and denied any problems with the BuSpar. Treatment team spoke with mom/guardian and we identified that her impulse control given her diagnoses is likely not going to change much. We discussed the plan for discharge tomorrow. Mental Status Exam MSE Comments: This is an overweight white female in hospital scrubs with limited grooming and eye contact. Some hypersalivation. No abnormal movements except for psychomotor retardation. Mostly cooperative with exam in mild distress. Speech was decreased rate and volume with limited prosody and childlike. Mood described as a little better, affect slightly subdued. Thought process linear. Thought content: Patient denied suicidal or homicidal ideations, there were no delusions reported or noted, she denied any auditory or visual hallucinations. Attention and concentration appeared intact and memory appeared limited but none were formally tested. She is alert and oriented x3. Insight and judgment are limited and impulse control is limited versus impaired. Intellectual ability is impaired. Vitals/I&O/Wt Last Vital Signs Temp 98.7 F 09/15/22 20:02 Pulse 73 09/15/22 20:02 Resp 17 09/15/22 20:02 BP 110/74 09/15/22 20:02 Pulse Ox 97 09/15/22 14:00 O2 Del Method Room Air 09/15/22 20:02 Data NPU 09/13/22 19:40 09/13/22 19:40 A&P Assessment and plan (1) Intermittent explosive disorder: (2) Depression, unspecified: (3) Mild intellectual disability: Plan The patient is a 31-year-old white female history of mild intellectual disability, aggression, irritability and poor impulse control with reported de pression presenting for the second time in almost a year after a conflict with her roommate. 1. Continue current medication. Started BuSpar 10 mg p.o. twice daily. 2. Continue every 15 minute checks for safety. 3. Encourage individual, group and milieu therapies. Involuntary Hold Information 96 Hour Hold: 96 Hour Involuntary Admission: No Attestations NPU Medical Necessity Statement*: Inpatient hospitalization is medically necessary and the clinically appropriate intervention at this time. We will monitor medications and make changes as indicated. Likely length of stay 1-2 days. Coding Level of Care Code Acute Code for Chg Fwd Diagnoses Intermittent explosive disorder F63.81 Depression, unspecified F32.A Mild intellectual disability F70
[2022-09-15 20:02] VITALS: BP 110/74; PULSE 73; RESP 17; TEMP 37.1
[2022-09-15] MEDS: trazodone 100 mg Tablet 150 MG PO (20:21)
[2022-09-15] MEDS: BuSPIRONE 10 mg Tablet PO (20:21)
[2022-09-15] MEDS: propranolol 20 mg Tablet PO (20:21)
[2022-09-16 06:00] VITALS: BP 97/67; PULSE 97; RESP 18; TEMP 36.8; O2SAT 95
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
[2022-09-16 09:12] VITALS: BP 97/67; PULSE 97; RESP 18; TEMP 36.8; O2SAT 95
[2022-09-16] MEDS: lithium carbonate 300 mg Capsule PO ×2 (09:15→14:26)
[2022-09-16] MEDS: docusate sodium 100 mg Capsule PO (09:16)
[2022-09-16] MEDS: cetirizine 10 mg Tablet PO (09:16)
[2022-09-16] MEDS: risperiDONE 2 mg Tablet PO (09:16)
[2022-09-16] MEDS: BuSPIRONE 10 mg Tablet PO (09:16)
[2022-09-16] MEDS: propranolol 20 mg Tablet PO (09:16)
[2022-09-16] MEDS: acetaminophen 325 mg Tablet 650 MG PO (09:16)
[2022-09-16] MEDS: pantoprazole DR 40 mg Tablet PO (09:16)
[2022-09-16] MEDS: sennosides-docusate Tablet 1 TAB PO (09:17)
[2022-09-16] MEDS: cloZAPine 25 mg Tablet PO ×2 (09:17→14:26)
[2022-09-16] MEDS: benztropine 1 mg Tablet PO (09:17)
[2022-09-16] MEDS: fluticasone nasal spray 16gm Btl 2 SPRAY INTRANASAL (09:17)
[2022-09-16] MEDS: fixodent 39 gm Tube 1 APPLIC DENTAL (09:28)
[2022-09-16 14:00] VITALS: BP 95/65; PULSE 95; RESP 17; TEMP 36.8; O2SAT 96
== END 2022-09-16 14:58 | disposition home or self-care (01) | DRG 883 ==
LOC: ER 20:48 → NP 22:10
PROVIDERS: Admitting Provider Psychiatry & Neurology Psychiatry; Emergency Provider Emergency Medicine; PCP Nurse Practitioner Family; Visit Provider Psychiatry & Neurology Psychiatry
DX: F63.81 Intermittent explosive disorder (principal); R45.851 Suicidal ideations; F32.A Depression, unspecified; F70 Mild intellectual disabilities; R45.850 Homicidal ideations; Z79.899 Other long term (current) drug therapy
CPT/HCPCS: 80053; 80178; 80306; 80307; 81001; 81025; 85025; 93005; 97150; 97165; 99285

== ENCOUNTER 2022-09-20 20:06 | Emergency (ER) | payer MEDICAID, SELFPAY ==
[2022-09-20 20:07] VITALS: BP 146/88; PULSE 104; RESP 22; TEMP 37; O2SAT 94; BMI 25.5
--- NOTE | 2022-09-20 20:46 | XRR_ITS ---
PROCEDURE INFORMATION: Exam: XR Chest Exam date and time: 09/20/2022 8:50 PM Age: 31 years old Clinical indication: Patient HX: Seizure activity. History of pulmonary sarcoidosis. ; Additional info: Reported seizure TECHNIQUE: Imaging protocol: Radiologic exam of the chest. Views: 1 view. COMPARISON: CR XR ribs RT mn 3V w CXR1V [id number] 03/22/2022 8:41 PM FINDINGS: Lungs: Stable bilateral reticulonodular pulmonary opacities consistent with history of sarcoidosis. Pleural spaces: Unremarkable. No pleural effusion. No pneumothorax. Heart/Mediastinum: Unremarkable. No cardiomegaly. Diaphragm: Stable elevation of the left hemidiaphragm consistent with eventration. Bones/joints: Unremarkable. XR/XR chest 1V portable [id number] IMPRESSION: 1. Stable elevation of the left hemidiaphragm consistent with eventration. 2. Stable bilateral reticulonodular pulmonary opacities consistent with history of sarcoidosis.
--- NOTE | 2022-09-20 20:46 | CTR_ITS ---
PROCEDURE INFORMATION: Exam: CT Head Without Contrast Exam date and time: 09/20/2022 9:18 PM Age: 31 years old Clinical indication: Condition or disease; Convulsions or seizures; Patient HX: Seizure activity TECHNIQUE: Imaging protocol: Computed tomography of the head without contrast. Radiation optimization: All CT scans at this facility use at least one of these dose optimization techniques: automated exposure control; mA and/or kV adjustment per patient size (includes targeted exams where dose is matched to clinical indication); or iterative reconstruction. REPORTING DATA: Count of CT and Cardiac NM exams in prior 12 months: This patient has received 4 known CTs and 0 known cardiac nuclear medicine studies in the 12 months prior to the current study. COMPARISON: CT head wo con* [id number] 03/22/2022 9:36 PM RADIATION DOSE METRICS: Total DLP (mGy-cm): 1194.15 FINDINGS: Brain: Normal. No hemorrhage. Unremarkable white matter. No mass effect. Cerebral ventricles: No ventriculomegaly. Paranasal sinuses: Visualized sinuses are unremarkable. No fluid levels. Mastoid air cells: Visualized mastoid air cells are well aerated. Bones/joints: Unremarkable. No acute fracture. Soft tissues: Unremarkable. CT/CT head wo con* [id number] IMPRESSION: No acute intracranial abnormality.
--- NOTE | 2022-09-20 20:46 | ECG_ITS ---
[facility] Test Date: 2022-09-20 Pat Name: Iza Ordonez Department: Room: Gender: Female Integrity Engineer: : 1990 Requested By: Ramiro James Order Number: [id number] Miguelito MD: Obi Schaefer M.D. Measurements Intervals Dexter Rate: 101 P: 62 SD: 141 QRS: 91 QRSD: 94 T: 79 QT: 316 QTc: 410 Interpretive Statements SINUS TACHYCARDIA BORDERLINE RIGHT AXIS DEVIATION [QRS AXIS > 90] NONSPECIFIC T-WAVE ABNORMALITY ABNORMAL RHYTHM ECG Compared to ECG 09/13/2022 19:52:32 Sinus rhythm no longer present T-wave abnormality still present Electronically Signed On 09-21-2022 17:07:36 CDT by Obi Schaefer M.D. [id number]
[2022-09-20 20:54] LABS: Basophils % 0.2 %; Hematocrit 33.5 % (37.0-47.0); Hemoglobin 10.5 g/dL (11.5-15.3); Lymphocytes % 15.5 %; Mean Corpuscular HGB Conc 31.3 g/dL (30.0-36.0); Mean Corpuscular Hemoglobin 27.1 pg (28.0-34.0); Mean Corpuscular Volume 86.6 fl (81-99); Mean Platelet Volume 8.3 fL (7.4-10.4); Monocytes # 0.7 10^3/uL (0.2-0.9); Monocytes % 11.5 %; Neutrophils # 4.53 10^3/uL (1.8-7.7); Neutrophils % 72.5 %; Nucleated Red Blood Cells % 0 %; Platelet Count 233 10^3/cmm (130-400); Red Blood Count 3.87 10^6/uL (4.1-5.3); Red Cell Distribution Width 12.9 % (12.1-15.1); White Blood Count 6.3 10^3/uL (4.0-10.0)
--- NOTE | 2022-09-20 20:54 | W.ED.AMS ---
HPI - Altered Mental Status General: Chief Complaint: Altered Mental Status Stated Complaint: possible seizure Time Seen by Provider: 09/20/22 20:17 History of Present Illness: 31-year-old female presents from home in which her chief complaint is that her caregiver witnessed that the patient presented to have an episode of syncope in which he passed out having some seizure-like activity which patient woke up afterwards patient was acting appropriate.. The patient reports she been sick and under the weather as somewhat of a cough and nausea vomiting however patient has no prior history of any obvious seizures in the past she does appear to be a poor historian. Patient reports generalized aches and pains and hurting all over at this time she does not recall striking her head she is unclear whether or not she had any loss of consciousness. Associated symptoms: Deny depression Review of Systems General: Reports: 10 or more systems reviewed and unremarkable except in HPI and below Const: Denies: fever(s), chills, fatigue or malaise Eyes: Denies: change in vision or blurry vision Card: Denies: chest pain or palpitations Resp: Denies: dyspnea or productive cough GI: Denies: abdominal pain, nausea or vomiting : Denies: flank pain Musc: Denies: extremity pain or extremity swelling Skin/Breast: Denies: rash or pruritus Neuro: Reports: confusion and seizure-like activity Psych: Denies: anxiety or depression Parish/Lymph: Denies: easy bleeding All/Imm: Denies: urticaria, throat swelling or facial swelling PFSH ED PFSH: Medical History ADHD Allergic rhinitis Bipolar disorder Borderline personality disorder Callus of foot Cephalgia Dermatitis GERD (gastroesophageal reflux disease) Hammer toe of left foot Hammertoe of second toe of left foot History of 2019 novel coronavirus disease (COVID-19) History of COVID-19 virus infection in November 2020 and in May 2021 Obsessive-compulsive behavior Plantar wart of left foot Schizophrenia Family History Denies family history of Diabetes CAD (coronary artery disease) Clotting disorder Dementia Hyperlipidemia Psychiatric illness Chronic kidney disease (CKD) Suicide Anesthesia complication Bleeding disorder Family history of premature coronary artery disease Lung disease Cancer Hypertension Stroke Social History Smoking and tobacco status: never smoked Alcohol intake: never Substance/Drug Use: never Current gender identity: Female Physical Exam Narrative: Patient appears nontoxic appears somewhat confused GCS of 15 NIH of 0 no focal neurodeficits appreciated extraocular muscle intact bilaterally pupils are equal and responsive to light equal breath sounds appreciate bilaterally no obvious murmurs bruits noted lungs are clear to auscultation bilaterally no obvious wheezing crackles rales or rhonchi noted abdomen soft nontender nondistended back is nontender neck is nontender patient does have a little bit of blood on her face from what appears to be a bloody nose and a bloody upper lip no obvious loose teeth patient has no focal neurodeficits GCS of 15 NIH is 0 no observable trauma or injury noted to the extremities Course Vital Signs: Vital signs: Vital Signs Temperature 98.6 F 09/20/22 20:07 Pulse Rate 104 H 09/20/22 20:07 Respiratory Rate 22 H 09/20/22 20:07 Blood Pressure 146/88 09/20/22 20:07 Pulse Oximetry 94 09/20/22 20:07 Oxygen Delivery Me thod Room Air 09/20/22 20:07 MDM - Altered Mental Status Medical Decision Making Due to patient's symptoms and condition IV was established basic lab work imaging including CAT scan imaging of the head was obtained we will continue to follow patient is lab work and imaging came back reassuring patient did request ibuprofen for her headache. It was noted by the patient's staff that the patient was resistant on hydroxyzine that could have been contributed to her current syncopal episode. Patient was observed in ER for over 2 hours which she had no additional seizure-like activity or syncopal activity in which was able to tolerate p.o. intake patient be subcu discharged home advised to further follow-up with primary care doctor in 3 to 5 days she was advised increase her p.o. intake of oral fluids as she was found be mildly dehydrated which patient was advised to return the interim if any of her symptoms persist or worse. Lab Data 09/20/22 20:22 09/20/22 20:22 Radiology Impressions Chest X-Ray 09/20/22 20:46 IMPRESSION: 1. Stable elevation of the left hemidiaphragm consistent with eventration. 2. Stable bilateral reticulonodular pulmonary opacities consistent with history of sarcoidosis. Head CT 09/20/22 20:46 IMPRESSION: No acute intracranial abnormality. Laboratory Results WBC 6.3 10^3/uL (4.0-10.0) 09/20/22 20: RBC 3.87 10^6/uL (4.1-5.3) L 09/20/22 20: Hgb 10.5 g/dL (11.5-15.3) L 09/20/22 20: Hct 33.5 % (37.0-47.0) L 09/20/22 20: MCV 86.6 fl (81-99) 09/20/22 20: MCH 27.1 pg (28.0-34.0) L 09/20/22 20: MCHC 31.3 g/dL (30.0-36.0) 09/20/22: RDW 12.9 % (12.1-15.1) 09/20/22 20: Plt Count 233 10^3/cmm (130-400) 09/20/22 20: MPV 8.3 fL (7.4-10.4) 09/20/22 20: Neut % (Auto) 72.5 % 09/20/22 20: Lymph % (Auto) 15.5 % 09/20/22 20:22 [place] % (Auto) 11.5 % 09/20/22 20: Eos % (Auto) 0.0 % 09/20/22: Baso % (Auto) 0.2 % 09/20/22: Neut # (Auto) 4.53 10^3/uL (1.8-7.7) 09/20/22: Lymph # (Auto) 1.0 10^3/uL (0.8-4.8) 09/20/22 20: Boyle # (Auto) 0.7 10^3/uL (0.2-0.9) 09/20/22 20: Eos # (Auto) 0.0 10^3/uL (0.0-0.8) 09/20/22 20: Baso # (Auto) 0.0 10^3/uL (0.0-0.1) 09/20/22 20: Nucleated RBC % (auto) 0 % 09/20/22 20:22 Nucleated RBCs # 0.0 /100WBC 09/20/22 20:22 PT 12.60 SECONDS (12.1-14.9) 09/20/22 20:22 INR 0.92 (0.8-1.2) 09/20/22 20:22 APTT 28.7 SECONDS (23.9-36.7) 09/20/22 20:22 Sodium 141 mmol/L (136-145) 09/20/22 20:22 Potassium 3.4 mmol/L (3.5-5.1) L 09/20/22 20:22 Chloride 106 mmol/L (98-107) 09/20/22 20:22 Carbon Dioxide 24 mmol/L (22-29) 09/20/22 20:22 Anion Gap 14.4 (5-19) 09/20/22 20:22 BUN 5 mg/dL (6-20) L 09/20/22 20:22 Creatinine 0.8 mg/dL (0.5-0.9) 09/20/22 20:22 GFR Calculation 83.7 mL/min (90-130) L 09/20/22 20:22 Glucose 103 mg/dL (65-115) 09/20/22 20:22 POC Glucose 116 mg/dL (70-110) H 09/20/22 21:05 Calculated Osmolality 290 mOsm/kg (285-295) 09/20/22 20:22 Lactate 2.4 mmol/L (0.5-2.2) H 09/20/22 20:22 Calcium 9.3 mg/dL (8.5-10.5) 09/20/22 20:22 Total Bilirubin 0.2 mg/dL (0.15-1.2) 09/20/22 20:22 AST 12 U/L (0-32) 09/20/22 20:22 ALT 13 U/L (0-33) 09/20/22 20:22 Alkaline Phosphatase 81 U/L (35-105) 09/20/22 20:22 Creatine Kinase 28 U/L (26-192) 09/20/22 20:22 C-Reactive Protein 4.5 mg/L (0.0-4.9) 09/20/22 20:22 Total Protein 5.8 g/dL (6.6-8.7) L 09/20/22 20:22 Albumin 3.8 g/dL (3.5-5.2) 09/20/22 20:22 Globulin 2.0 g/dL (1.3-4.6) 09/20/22 20:22 Lipase 31 U/L (13-60) 09/20/22 20:22 Urine Color Yellow (Yellow) 09/20/22 21:18 Urine Appearance Clear (CLEAR) 09/20/22 21:18 Urine pH 6 (5-7) 09/20/22 21:18 Ur Specific [place] 1.005 (1.005-1.030) 09/20/22 21:18 Urine Protein Neg (Negative) 09/20/22 21:18 Urine Glucose (UA) Norm (Normal) 09/20/22 21:18 Urine Ketones Negative (Negative) 09/20/22 21:18 Urine Blood Neg (Negative) 09/20/22 21:18 Urine Nitrate Negative (Negative) 09/20/22 21:18 Urine Bilirubin Neg (Negative) 09/20/22 21:18 Urine Urobilinogen Norm mg/dL (Negative) 09/20/22 21:18 Ur Leukocyte Esterase Trace (Negative) H 09/20/22 21:18 Urine RBC 0-4 /hpf (0-2) H 09/20/22 21:18 Urine WBC 5-10 /hpf (0-5) H 09/20/22 21:18 Ur Squamous Epith Cells 5-10 /hpf (0-5) H 09/20/22 21:18 Amorphous Sediment Not Reportable 09/20/22 21:18 Urine Bacteria 1+ /hpf (NONE) H 09/20/22 21:18 Ethyl Alcohol < 10 mg/dL (0-10) 09/20/22 20:22 Discharge Plan Discharge Patient Disposition: Home Clinical Impression: Syncope and collapse, Dehydration Condition: Stable Prescriptions: No Action acetaminophen [Tylenol Extra Strength] 500 mg tablet 500 mg PO TID PRN (Reason: Fever Or Pain) calcium carbonate 500 mg calcium (1,250 mg) tablet,chewable 750 mg PO BID PRN (Reason: Acid Reflux) polyethylene glycol 3350 [Miralax] 17 gram/dose powder 17 gm PO DIRECTED Rx Instructions: take wednesday and wednesday risperidone [Risperdal] 4 mg tablet 4 mg PO BID lithium carbonate 300 mg capsule 300 mg PO TID hydrocodone-acetaminophen 5-325 mg tablet 1 tab PO Q6H PRN (Reason: pain) Qty: 8 0RF fluorouracil [Efudex] 5 % cream 1 applic topical BID Rx Instructions: apply sufficient amount cetirizine 10 mg Tablet 10 mg PO DAILY pantoprazole [Protonix] 40 mg Tablet,Delayed Release (Dr/Ec) 40 mg PO DAILY ibuprofen 400 mg Tablet 400 mg PO TID PRN (Reason: Pain) docusate sodium [Colace] 100 mg Capsule 100 mg PO DAILY dextromethorphan HBr 10 mg/5 mL Syrup 10 mg PO Q4H PRN (Reason: Cough) clozapine 25 mg Tablet 25 mg PO TID Qty: 30 0RF benztropine 1 mg tablet 1 mg PO TID 30 Days Qty: 90 1RF propranolol 20 mg Tablet 20 mg PO 00,2099 Qty: 60 1RF trazodone 100 mg tablet 150 mg PO BEDTIME buspirone 10 mg Tablet 10 mg PO BID@0900,2100 30 Days Qty: 60 1RF hydroxyzine pamoate 25 mg Capsule 50 mg PO Q6H PRN (Reason: Anxiety) 30 Days Qty: 120 1RF Senna-S 8.6-50 mg Tablet 1 tab-cap PO DAILY PRN (Reason: constipation) Qty: 30 0RF melatonin 3 mg Tablet 9 mg PO BEDTIME Qty: 30 0RF fluticasone propionate 50 mcg/actuation [place],Suspension 1 spray INTRANASAL DAILY Qty: 30 0RF Rx Instructions: administer into each nostril Discharge Orders: Discharge ED (Routine); Ordered 09/20/22 Ordered By: Ramiro James Referrals: Ally Franklin FNP [Primary Care Provider] - 1-3 days Discharge Diet: Advance as tolerated Discharge Activity: Increase activity as tolerated Patient Instructions: Dehydration - Adult, Syncope (ED) Activity Restrictions/Additional Instructions: Please further follow-up with your primary care doctor in 2 to 3 days please increase your water consumption as well as you were found be mildly dehydrated that could be contributing to your episodes of passing out the new medication for your anxiety that you are started on any of the hydroxyzine can also contribute to these symptoms that you demonstrated it is advised you to further follow-up with your doctor in regards to further discussions of possibly reducing this amount of this medication. 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
[2022-09-20 21:06] LABS: Lactate (Lactic Acid level) 2.4 mmol/L (0.5-2.2)
[2022-09-20 21:07] LABS: Alanine Aminotransferase 13 U/L (0-33); Albumin Level 3.8 g/dL (3.5-5.2); Alkaline Phosphatase 81 U/L (35-105); Anion Gap 14.4 (5-19); Aspartate Amino Transferase 12 U/L (0-32); Blood Urea Nitrogen 5 mg/dL (6-20); C Reactive Protein 4.5 mg/L (0.0-4.9); Calcium 9.3 mg/dL (8.5-10.5); Carbon Dioxide 24 mmol/L (22-29); Chloride 106 mmol/L (98-107); Creatine Phosphokinase 28 U/L (26-192); Glomerular Filtration Rate 83.7 mL/min (90-130); Glucose 103 mg/dL (65-115); Lipase 31 U/L (13-60); Osmolality Calculated 290 mOsm/kg (285-295); Potassium 3.4 mmol/L (3.5-5.1); Sodium 141 mmol/L (136-145); Total Bilirubin 0.2 mg/dL (0.15-1.2); Total Protein 5.8 g/dL (6.6-8.7)
[2022-09-20 21:08] LABS: Glucose Point of Care 116 mg/dL (70-110)
[2022-09-20] MEDS: sodium chloride 0.9% 1,000 ML 999 ML IV (21:11)
[2022-09-20 21:13] LABS: INR 0.92 (0.8-1.2); Partial Thromboplastin Time 28.7 SECONDS (23.9-36.7)
[2022-09-20 21:14] LABS: Alcohol Level < 10 mg/dL (0-10)
[2022-09-20 21:18] VITALS: BP 137/83; PULSE 104; RESP 18; O2SAT 97
[2022-09-20 21:37] LABS: Specific Gravity, Urine 1.005 (1.005-1.030); Urine Appearance Clear (CLEAR); Urine Color Yellow (Yellow); pH Urine 6 (5-7)
[2022-09-20 21:38] LABS: Add Urine Microscopic? YES; Bilirubin Urine Neg (Negative); Blood Urine Neg (Negative); Glucose Urine UA Norm (Normal); Ketones Urine Negative (Negative); Leukocyte Esterase Urine Trace (Negative); Nitrate Urine Negative (Negative); Protein Urine Neg (Negative); Urobilinogen Urine Norm (Negative)
[2022-09-20 21:39] LABS: Bacteria Urine 1+ /hpf; RBC Urine 0-4 /hpf (0-2)
[2022-09-20] MEDS: ibuprofen 600 mg Tablet PO (22:11)
[2022-09-20 22:30] VITALS: BP 119/72; PULSE 104; RESP 16; O2SAT 97
[2022-09-20 23:21] VITALS: BP 116/80; PULSE 99; RESP 22; O2SAT 100
== END 2022-09-20 23:22 | disposition home or self-care (01) ==
PROVIDERS: Emergency Provider Emergency Medicine; PCP Nurse Practitioner Family
DX: R55 Syncope and collapse (principal); E86.0 Dehydration
CPT/HCPCS: 36416; 70450; 71045; 80053; 80307; 81001; 82550; 82962; 83605; 83690; 85025; 85610; 85730; 86140; 93005; 96360; 99285; J7030

== ENCOUNTER 2022-10-24 17:50 | Emergency (ER) | payer MEDICAID, SELFPAY ==
[2022-10-24 18:05] VITALS: BP 100/70; PULSE 94; RESP 14; TEMP 36.4; O2SAT 94
--- NOTE | 2022-10-24 18:12 | ED_ITS ---
HPI - Fall General: Chief Complaint: Fall Stated Complaint: fall, nose and neck pain Time Seen by Provider: 10/24/22 18:12 History of Present Illness: Patient is a 31-year-old female who comes to the ED after fall. Patient's caretakers are present. Patient states she was in the shower and she was leaning forward and slipped and fell face first. She says her nose hit the tub. She had a nosebleed that she was able to control and resolved before coming to the ED. She denies any loss of consciousness headache. She rates her pain an 8 out of 10 and its located in her nose. She also endorses some right-sided neck pain as well. Denies any neurological deficits. Associated symptoms-after fall: Reports neck pain; Denies abdominal pain, chest pain, headache(s) or hematuria Review of Systems Const: Denies: fever(s), chills or fatigue Eyes: Denies: change in vision or eye discomfort ENMT: Reports: epistaxis and other (Nasal injury and pain); Denies: throat pain, odynophagia, nasal discharge or nasal congestion Card: Denies: chest pain, palpitations, edema, swelling of feet/ankles, dyspnea on exertion or orthopnea Resp: Denies: dyspnea, productive cough or non-productive cough GI: Denies: abdominal pain, nausea, vomiting, diarrhea, constipation or hematochezia : Denies: flank pain, dysuria or hematuria Musc: Reports: neck pain; Denies: back pain or extremity swelling Skin/Breast: Denies: rash or new lesions Neuro: Denies: headache(s), numbness in extremities or weakness in extremities [facility] ED PFSH: Medical History ADHD Allergic rhinitis Bipolar disorder Borderline personality disorder Callus of foot Cephalgia Dermatitis GERD (gastroesophageal reflux disease) Hammer toe of left foot Hammertoe of second toe of left foot History of 2019 novel coronavirus disease (COVID-19) History of COVID-19 virus infection in November 2020 and in May 2021 Obsessive-compulsive behavior Plantar wart of left foot Schizophrenia Family History Denies family history of Diabetes CAD (coronary artery disease) Clotting disorder Dementia Hyperlipidemia Psychiatric illness Chronic kidney disease (CKD) Suicide Anesthesia complication Bleeding disorder Family history of premature coronary artery disease Lung disease Cancer Hypertension Stroke Social History Smoking and tobacco status: never smoked Alcohol intake: never Substance/Drug Use: never Current gender identity: Female Physical Exam Const: COMMON NORMALS: no acute distress, patient oriented x3 and alert GEN ERAL APPEARANCE: cooperative and comfortable HENMT: COMMON NORMALS: normocephalic HEAD & SCALP: normocephalic NOSE: Normal septum present, Abnormal external nose present nasal tenderness; no nasal deviation, no nasal ecchymosis and no nasal swelling and Epistaxis present on the right anterior source and dried blood present; no active bleeding MOUTH: Normal oral and palatal mucosa present THROAT: posterior oropharynx normal and uvula midline Eye: COMMON NORMALS: Equal, round and reactive pupils present, EOMs intact bilaterally and conjunctivae normal CONJUNCTIVA: Yes conjunctivae normal PUPIL: Yes Equal, round and reactive pupils present Neck/C-Spine: COMMON NORMALS: supple GENERAL: Yes normal visual inspection CERVICAL SPINE: Yes cervical ROM normal, No Cervical spine tenderness, Yes Paracervical muscle tenderness right and Yes Trapezius muscle tenderness right Resp: COMMON NORMALS: normal respiratory effort, No retractions, No use of accessory muscles and clear to auscultation bilaterally AUSCULTATION: clear to auscultation bilaterally Cardio: COMMON NORMALS: regular rate, regular rhythm, S1 normal heart sound present, S2 normal heart sound present, No gallops present (Cardio), No clicks present (Cardio), No murmurs present (Cardio) and Peripheral pulses 2+ throughout RATE: regular rate RHYTHM: regular rhythm HEART SOUNDS: S1 normal heart sound present and S2 normal heart sound present PERIPHERAL PULSES: Peripheral pulses 2+ throughout GI: COMMON NORMALS: Normal to inspection, nondistended, normoactive bowel sounds present, Soft to palpation, non-tender and no masses PALPATION: Yes Soft to palpation : COMMON NORMALS: Yes no CVA tenderness BLADDER/KIDNEY EXAM: Yes no CVA tenderness Back/Pelvis: COMMON NORMALS: no CVA tenderness Extremity: COMMON NORMALS: normal to inspection Neuro: COMMON NORMALS: patient oriented x3, CN's II-XII intact bilaterally, moves all extremities, no focal motor deficits, no sensory deficits noted and gait normal SENSORIUM/ORIENTATION: Yes alert COORDINATION/BALANCE: [id number] test normal SPEECH: speech normal GAIT: Yes Normal gait present COORDINATION: [id number] test normal Skin: GENERAL SKIN EXAM: dry skin Course Vital Signs: Vital signs: Vital Signs Temperature 97.6 F 10/24/22 18:05 Pulse Rate 94 10/24/22 18:05 Respiratory Rate 20 H 10/24/22 20:04 Blood Pressure 100/70 10/24/22 18:05 Pulse Oximetry 99 10/24/22 20:04 Oxygen Delivery Me thod Room Air 10/24/22 18:05 MDM - Fall Medical Decision Making Patient is a 31-year-old female who comes to the ED after fall. Patient's caretakers are present. Patient states she was in the shower and she was leaning forward and slipped and fell face first. She says her nose hit the tub. She had a nosebleed that she was able to control and resolved before coming to the ED. She denies any loss of consciousness headache. She rates her pain an 8 out of 10 and its located in her nose. She also endorses some right-sided neck pain as well. Denies any neurological deficits. Vital stable. Exam of patient shows a 31-year-old female sitting comfortably on exam chair and in no acute distress or pain. She does have some dried blood visible in her right nare. Nasal septum is normal and there is no visible active bleeding in nose and she does have some nasal tenderness but no swelling or ecchymosis noted. No cervical spine tenderness but she does have some right paracervical muscle tenderness and right trapezius muscle tenderness. Neuro exam shows no deficits. X-ray of nasal bones showed no acute fractures or findings. She was given a dose of ibuprofen here in the ED to help with pain. Patient was stable for discharge home and diagnosed with epistaxis due to trauma and neck pain. She was sent home with a nasal clamp to help for any reoccurring nosebleeds. Return to ED precautions given. Take [id number] ibuprofen or Tylenol for pain. Follow-up with PCP in a week for reevaluation. Patient and patient's caretakers understood and agreed with plan. Lab Data Radiology Impressions Nasal Bones X-Ray 10/24/22 18:21 IMPRESSION: Unremarkable. Discharge Plan Discharge Patient Disposition: Home Clinical Impression: Epistaxis due to trauma, Neck pain Condition: Stable Prescriptions: No Action acetaminophen [Tylenol Extra Strength] 500 mg tablet 500 mg PO TID PRN (Reason: Fever Or Pain) calcium carbonate 500 mg calcium (1,250 mg) tablet,chewable 750 mg PO BID PRN (Reason: Acid Reflux) polyethylene glycol 3350 [Miralax] 17 gram/dose powder 17 gm PO DIRECTED Rx Instructions: take wednesday and wednesday risperidone [Risperdal] 4 mg tablet 4 mg PO BID lithium carbonate 300 mg capsule 300 mg PO TID hydrocodone-acetaminophen 5-325 mg tablet 1 tab PO Q6H PRN (Reason: pain) Qty: 8 0RF fluorouracil [Efudex] 5 % cream 1 applic topical BID Rx Instructions: apply sufficient amount cetirizine 10 mg Tablet 10 mg PO DAILY pantoprazole [Protonix] 40 mg Tablet,Delayed Release (Dr/Ec) 40 mg PO DAILY ibuprofen 400 mg Tablet 400 mg PO TID PRN (Reason: Pain) docusate sodium [Colace] 100 mg Capsule 100 mg PO DAILY dextromethorphan HBr 10 mg/5 mL Syrup 10 mg PO Q4H PRN (Reason: Cough) clozapine 25 mg Tablet 25 mg PO TID Qty: 30 0RF benztropine 1 mg tablet 1 mg PO TID 30 Days Qty: 90 1RF propranolol 20 mg Tablet 20 mg PO 0900,2100 Qty: 60 1RF trazodone 100 mg tablet 150 mg PO BEDTIME buspirone 10 mg Tablet 10 mg PO BID@0900,2100 30 Days Qty: 60 1RF hydroxyzine pamoate 25 mg Capsule 50 mg PO Q6H PRN (Reason: Anxiety) 30 Days Qty: 120 1RF Senna-S 8.6-50 mg Tablet 1 tab-cap PO DAILY PRN (Reason: constipation) Qty: 30 0RF melatonin 3 mg Tablet 9 mg PO BEDTIME Qty: 30 0RF fluticasone propionate 50 mcg/actuation [place],Suspension 1 spray INTRANASAL DAILY Qty: 30 0RF Rx Instructions: administer into each nostril Discharge Orders: Discharge ED (Routine); Ordered 10/24/22 Ordered By: Servando Barroso Referrals: Ally Franklin FNP [Primary Care Provider] - Discharge Diet: Regular Discharge Activity: Increase activity as tolerated Patient Instructions: Neck Pain (ED), Epistaxis - Adult Activity Restrictions/Additional Instructions: Follow-up with medical provider as directed in 5 to 7 days. [id number] Tylenol or Motrin for any pain. Apply nasal clamp for 15 minutes at a time if you are having any reoccurring nosebleeds. Return to the ER or your medical provider if condition worsens. Please read and understand discharge instructions. Thank you for choosing [facility] for your healthcare needs today. Please realize this is an emergency room and that we are providing you with a medical screening exam and this may not be complete and all inclusive of all the testing and or work up that you may need to determine your ailment or severity of your illness. It is very important that you follow up as instructed or that you return to the Emergency Department should you have concerns or if your condition changes or worsens in any way. 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
--- NOTE | 2022-10-24 18:21 | XRR_ITS ---
PROCEDURE INFORMATION: Exam: XR Nasal Bones Exam date and time: 10/24/2022 6:37 PM Age: 31 years old Clinical indication: Injury or trauma; Fall; Blunt trauma (contusions or hematomas); Nose; Additional info: Fall injury-nasal pain and epistaxis TECHNIQUE: Imaging protocol: XR of the nasal bones. Views: Minimum of 3 views COMPARISON: CT head wo con* [id number] 09/20/2022 9:18 PM FINDINGS: Sinuses: Well aerated. No opacification. Bones/joints: No fracture. Soft tissues: Unremarkable. XR/XR nasal bones min 3V [id number] IMPRESSION: Unremarkable.
[2022-10-24] MEDS: ibuprofen 600 mg Tablet PO (18:28)
[2022-10-24 20:04] VITALS: RESP 20; O2SAT 99
== END 2022-10-24 20:06 | disposition home or self-care (01) ==
PROVIDERS: Emergency Provider Physician Assistant; PCP Nurse Practitioner Family
DX: R04.0 Epistaxis (principal); M54.2 Cervicalgia; W18.2XXA Fall in (into) shower or empty bathtub, initial encounter
CPT/HCPCS: 70160; 99283

== ENCOUNTER 2022-11-29 20:01 | Emergency (ER) | payer MEDICAID, SELFPAY ==
[2022-11-29 20:21] VITALS: BP 101/68; PULSE 87; RESP 18; TEMP 36.6; O2SAT 91
[2022-11-29 20:55] LABS: Basophils % 0.2 %; Hematocrit 32.3 % (37.0-47.0); Hemoglobin 10.4 g/dL (11.5-15.3); Lymphocytes # 0.8 10^3/uL (0.8-4.8); Lymphocytes % 12.4 %; Mean Corpuscular HGB Conc 32.2 g/dL (30.0-36.0); Mean Corpuscular Hemoglobin 27.7 pg (28.0-34.0); Mean Corpuscular Volume 86.1 fl (81-99); Mean Platelet Volume 8.6 fL (7.4-10.4); Monocytes # 0.8 10^3/uL (0.2-0.9); Monocytes % 11.6 %; Neutrophils # 4.87 10^3/uL (1.8-7.7); Neutrophils % 75.3 %; Nucleated Red Blood Cells % 0 %; Platelet Count 197 10^3/cmm (130-400); Red Blood Count 3.75 10^6/uL (4.1-5.3); White Blood Count 6.5 10^3/uL (4.0-10.0)
[2022-11-29 21:17] LABS: Alanine Aminotransferase 9 U/L (0-33); Albumin Level 3.9 g/dL (3.5-5.2); Alkaline Phosphatase 76 U/L (35-105); Anion Gap 14.8 (5-19); Aspartate Amino Transferase 12 U/L (0-32); Blood Urea Nitrogen 11 mg/dL (6-20); Carbon Dioxide 25 mmol/L (22-29); Chloride 105 mmol/L (98-107); Globulin 2.5 g/dL (1.3-4.6); Glomerular Filtration Rate 72.6 mL/min (90-130); Glucose 97 mg/dL (65-115); Osmolality Calculated 291 mOsm/kg (285-295); Potassium 3.8 mmol/L (3.5-5.1); Salicylate 2.1 mg/dL (3-10); Sodium 141 mmol/L (136-145); Total Bilirubin 0.3 mg/dL (0.15-1.2); Total Protein 6.4 g/dL (6.6-8.7)
[2022-11-29 21:26] LABS: Acetaminophen < 5.0 ug/mL (10-30); Alcohol Level < 10 mg/dL (0-10)
[2022-11-29 21:32] LABS: Add Urine Microscopic? NO; Charge for UA Resulting for Rev
[2022-11-29 21:38] LABS: Bilirubin Urine Neg (Negative); Blood Urine Neg (Negative); Glucose Urine UA Norm (Normal); Ketones Urine Negative (Negative); Leukocyte Esterase Urine Negative (Negative); Nitrate Urine Negative (Negative); Protein Urine Neg (Negative); Urine Appearance Clear (CLEAR); Urine Color Yellow (Yellow); Urobilinogen Urine Norm (Negative); pH Urine 6.5 (5-7)
[2022-11-29 22:02] LABS: Amphetamines Screen Urine Negative (Negative); Barbiturates Screen Urine Negative (Negative); Benzodiazepines Screen Urine Negative (Negative); Cocaine Screen Urine Negative (Negative); Opiate Screen Urine Negative (Negative); PCP Screen Urine Negative (Negative); THC Screen Urine Negative (Negative)
--- NOTE | 2022-11-29 23:17 | ED.C_ITS ---
HPI - Psych General: Chief Complaint: Psychiatric Symptoms Stated Complaint: HI Time Seen by Provider: 11/29/22 20:24 History of Present Illness: 32-year-old female from a local [facility] emergency room with homicidal ideation patient further reveals that she has some altercation with the [facility] staff and threatening to kill them all. Patient does not have any specific plan. Has any hallucination, suicidal ideation, or chills Associated symptoms: Reports homicidal ideation; Deny auditory hallucinations, visual hallucinations or suicidal ideation Review of Systems General: Reports: 10 or more systems reviewed and unremarkable except in HPI and below Psych: Reports: homicidal ideation; Denies: sleeping more, hopelessness, irritability, memory loss, difficulty concentrating, visual hallucinations, auditory hallucinations or suicidal ideation PFSH ED PFSH: Medical History ADHD Allergic rhinitis Bipolar disorder Borderline personality disorder Callus of foot Cephalgia Dermatitis GERD (gastroesophageal reflux disease) Hammer toe of left foot Hammertoe of second toe of left foot History of 2019 novel coronavirus disease (COVID-19) History of COVID-19 virus infection in November 2020 and in May 2021 Obsessive-compulsive behavior Plantar wart of left foot Schizophrenia Family History Denies family history of Diabetes CAD (coronary artery disease) Clotting disorder Dementia Hyperlipidemia Psychiatric illness Chronic kidney disease (CKD) Suicide Anesthesia complication Bleeding disorder Family history of premature coronary artery disease Lung disease Cancer Hypertension Stroke Social History Smoking and tobacco status: never smoked Alcohol intake: never Substance/Drug Use: never Current gender identity: Female Physical Exam Const: COMMON NORMALS: no acute distress, average body habitus, patient o riented x3, no limitations, healthy appearing, alert and well nourished Eye: COMMON NORMALS: Equal, round and reactive pupils present, EOMs intact bilaterally, conjunctivae normal, no scleral icterus, no papilledema, normal visual hester by confrontation and fundi normal bilaterally CONJUNCTIVA: Yes conjunctivae normal PUPIL: Yes Equal, round and reactive pupils present DIRECT OPHTHALMOSCOPY: Yes no papilledema and Yes fundi normal bilaterally Resp: COMMON NORMALS: normal respiratory effort, No retractions, No use of accessory muscles, clear to auscultation bilaterally and percussion normal AUSCULTATION: clear to auscultation bilaterally PERCUSSION: percussion normal Extremity: COMMON NORMALS: normal to inspection, full ROM, capillary refill normal, no joint enlargement, no clubbing, cyanosis or edema, no calf tenderness and no pedal edema Neuro: COMMON NORMALS: patient oriented x3 SENSORIUM/ORIENTATION: Yes alert Psych: ATTITUDE: Yes calm, No paranoid, No uncooperative, No Guarded attititude/behavior present, No Belligerent attititude/behavior present, No agitated, No aggressive and No hostile MOOD & AFFECT: No tearful, Yes Flat affect present, No hostile affect, No expansive affect, No constricted affect and No Blunted affect present THOUGHT PROCESS: No confused, not confabulating, no flight of ideas, logical, not impoverished, normal association and not perseverating Course Reevaluation(s): Reevaluation #1: Upon assessment patient was resting comfortably without any acute distress. Sleeping with stable vitals. Consultations: Consultation #1: I consulted Dr. Tran and plan was to review the chart and return my call. Consultation #2: I spoke with Dr. Tran again and he wants to talk to the patient. To be conducted via the iPad Consultation #3: Spoke with Dr. Tran again after he interviewed the patient via iPad commended disposition at this time. No inpatient admission recommended. Vital Signs: Vital signs: Vital Signs Temperature 97.8 F 11/29/22 20:21 Pulse Rate 87 11/29/22 20:21 Respiratory Rate 18 11/29/22 20:21 Blood Pressure 101/68 11/29/22 20:21 Pulse Oximetry 91 11/29/22 20:21 Oxygen Delivery Me thod Room Air 11/29/22 20:21 MDM - Psych Medical Decision Making Patient was made comfortable emergency room labs were done for medical clearance. Discussed lab finding with the patient and plan for admission for further evaluation and treatment. Patient with Dr. Tran. Differential Diagnosis Likely acute psychosis, chronic schizophrenia, suicidal ideation, bipolar disorder, depression, drug-induced psychotic disorder and acute anxiety Lab Data 11/29/22 20:46 11/29/22 20:46 Laboratory Results WBC 6.5 10^3/uL (4.0-10.0) 11/29/22 20:46 RBC 3.75 10^6/uL (4.1-5.3) L 11/29/22 20:46 Hgb 10.4 g/dL (11.5-15.3) L 11/29/22 20:46 Hct 32.3 % (37.0-47.0) L 11/29/22 20:46 MCV 86.1 fl (81-99) 11/29/22 20:46 MCH 27.7 pg (28.0-34.0) L 11/29/22 20:46 MCHC 32.2 g/dL (30.0-36.0) 11/29/22 20:46 RDW 13.0 % (12.1-15.1) 11/29/22 20:46 Plt Count 197 10^3/cmm (130-400) 11/29/22 20:46 MPV 8.6 fL (7.4-10.4) 11/29/22 20:46 Neut % (Auto) 75.3 % 11/29/22 20:46 Lymph % (Auto) 12.4 % 11/29/22 20:46 [place] % (Auto) 11.6 % 11/29/22 20:46 Eos % (Auto) 0.0 % 11/29/22 20:46 Baso % (Auto) 0.2 % 11/29/22 20:46 Neut # (Auto) 4.87 10^3/uL (1.8-7.7) 11/29/22 20:46 Lymph # (Auto) 0.8 10^3/uL (0.8-4.8) 11/29/22 20:46 [place] # (Auto) 0.8 10^3/uL (0.2-0.9) 11/29/22 20:46 Eos # (Auto) 0.0 10^3/uL (0.0-0.8) 11/29/22 20:46 Baso # (Auto) 0.0 10^3/uL (0.0-0.1) 11/29/22 20:46 Nucleated RBC % (auto) 0 % 11/29/22 20:46 Nucleated RBCs # 0.0 /100WBC 11/29/22 20:46 Sodium 141 mmol/L (136-145) 11/29/22 20:46 Potassium 3.8 mmol/L (3.5-5.1) 11/29/22 20:46 Chloride 105 mmol/L (98-107) 11/29/22 20:46 Carbon Dioxide 25 mmol/L (22-29) 11/29/22 20:46 Anion Gap 14.8 (5-19) 11/29/22 20:46 BUN 11 mg/dL (6-20) 11/29/22 20:46 Creatinine 0.9 mg/dL (0.5-0.9) 11/29/22 20:46 GFR Calculation 72.6 mL/min (90-130) L 11/29/22 20:46 Glucose 97 mg/dL (65-115) 11/29/22 20:46 Calculated Osmolality 291 mOsm/kg (285-295) 11/29/22 20:46 Calcium 10.0 mg/dL (8.5-10.5) 11/29/22 20:46 Total Bilirubin 0.3 mg/dL (0.15-1.2) 11/29/22 20:46 AST 12 U/L (0-32) 11/29/22 20:46 ALT 9 U/L (0-33) 11/29/22 20:46 Alkaline Phosphatase 76 U/L (35-105) 11/29/22 20:46 Total Protein 6.4 g/dL (6.6-8.7) L 11/29/22 20:46 Albumin 3.9 g/dL (3.5-5.2) 11/29/22 20:46 Globulin 2.5 g/dL (1.3-4.6) 11/29/22 20:46 Urine Color Yellow (Yellow) 11/29/22 21:04 Urine Appearance Clear (CLEAR) 11/29/22 21:04 Urine pH 6.5 (5-7) 11/29/22 21:04 Ur Specific [place] 1.010 (1.005-1.030) 11/29/22 21:04 Urine Protein Neg (Negative) 11/29/22 21:04 Urine Glucose (UA) Norm (Normal) 11/29/22 21:04 Urine Ketones Negative (Negative) 11/29/22 21:04 Urine Blood Neg (Negative) 11/29/22 21:04 Urine Nitrate Negative (Negative) 11/29/22 21:04 Urine Bilirubin Neg (Negative) 11/29/22 21:04 Urine Urobilinogen Norm mg/dL (Negative) 11/29/22 21:04 Ur Leukocyte Esterase Negative (Negative) 11/29/22 21:04 Salicylates 2.1 mg/dL (3-10) L 11/29/22 20:46 Urine Opiates Screen Negative ng/mL (Negative) 11/29/22 21:04 Acetaminophen < 5.0 ug/mL (10-30) L 11/29/22 20:46 Ur Barbiturates Screen Negative ng/mL (Negative) 11/29/22 21:04 Ur Phencyclidine Scrn Negative ng/mL (Negative) 11/29/22 21:04 Ur Amphetamines Screen Negative ng/mL (Negative) 11/29/22 21:04 U Benzodiazepines Scrn Negative ng/mL (Negative) 11/29/22 21:04 Urine Cocaine Screen Negative ng/mL (Negative) 11/29/22 21:04 U Marijuana (THC) Screen Negative ng/mL (Negative) 11/29/22 21:04 Ethyl Alcohol < 10 mg/dL (0-10) 11/29/22 20:46 Discharge Plan Discharge Patient Disposition: Home Clinical Impression: Mood disorder, Homicidal ideation Condition: Stable Prescriptions: No Action acetaminophen [Tylenol Extra Strength] 500 mg tablet 500 mg PO TID PRN (Reason: Fever Or Pain) calcium carbonate 500 mg calcium (1,250 mg) tablet,chewable 750 mg PO BID PRN (Reason: Acid Reflux) polyethylene glycol 3350 [Miralax] 17 gram/dose powder 17 gm PO DIRECTED Rx Instructions: take wednesday and wednesday risperidone [Risperdal] 4 mg tablet 4 mg PO BID lithium carbonate 300 mg capsule 300 mg PO TID hydrocodone-acetaminophen 5-325 mg tablet 1 tab PO Q6H PRN (Reason: pain) Qty: 8 0RF fluorouracil [Efudex] 5 % cream 1 applic topical BID Rx Instructions: apply sufficient amount cetirizine 10 mg Tablet 10 mg PO DAILY pantoprazole [Protonix] 40 mg Tablet,Delayed Release (Dr/Ec) 40 mg PO DAILY ibuprofen 400 mg Tablet 400 mg PO TID PRN (Reason: Pain) docusate sodium [Colace] 100 mg Capsule 100 mg PO DAILY dextromethorphan HBr 10 mg/5 mL Syrup 10 mg PO Q4H PRN (Reason: Cough) clozapine 25 mg Tablet 25 mg PO TID Qty: 30 0RF benztropine 1 mg tablet 1 mg PO TID 30 Days Qty: 90 1RF propranolol 20 mg Tablet 20 mg PO 0900,2100 Qty: 60 1RF trazodone 100 mg tablet 150 mg PO BEDTIME buspirone 10 mg Tablet 10 mg PO BID@0900,2100 30 Days Qty: 60 1RF hydroxyzine pamoate 25 mg Capsule 50 mg PO Q6H PRN (Reason: Anxiety) 30 Days Qty: 120 1RF Senna-S 8.6-50 mg Tablet 1 tab-cap PO DAILY PRN (Reason: constipation) Qty: 30 0RF melatonin 3 mg Tablet 9 mg PO BEDTIME Qty: 30 0RF fluticasone propionate 50 mcg/actuation [facility],Suspension 1 spray INTRANASAL DAILY Qty: 30 0RF Rx Instructions: administer into each nostril Discharge Orders: Discharge ED (Routine); Ordered 11/30/22 Ordered By: Maria Luisa Saleh Referrals: Ally Franklin FNP [Primary Care Provider] - Patient Instructions: Opioid Safety, Pain Management Coding Level of Care Code ED Supervisor Cold Rolling for Julito Whitmore
== END 2022-11-30 00:39 | disposition home or self-care (01) ==
PROVIDERS: Emergency Provider Family Medicine; PCP Nurse Practitioner Family
DX: R45.850 Homicidal ideations (principal); F39 Unspecified mood [affective] disorder
CPT/HCPCS: 80053; 80306; 80307; 81003; 85025; 99283

== ENCOUNTER → 2022-11-30 09:05 | Outpatient (BNVA) | payer MEDICAID, SELFPAY | PROVIDERS: PCP Nurse Practitioner Family; Referring Provider Nurse Practitioner Family; Visit Provider Psychiatry & Neurology Neurology | DX: R55 Syncope and collapse (principal); G25.3 Myoclonus; F20.9 Schizophrenia, unspecified; F31.9 Bipolar disorder, unspecified; F70 Mild intellectual disabilities; F63.81 Intermittent explosive disorder | CPT/HCPCS: 99203 ==

== ENCOUNTER → 2022-11-30 09:05 | Outpatient (BNVA) | payer MEDICAID, SELFPAY | PROVIDERS: PCP Nurse Practitioner Family; Referring Provider Nurse Practitioner Family; Visit Provider Psychiatry & Neurology Neurology | DX: R29.90 Unspecified symptoms and signs involving the nervous system (principal); R55 Syncope and collapse; Z79.899 Other long term (current) drug therapy | CPT/HCPCS: 36415; 82140; 82607; 83735; 83921; 84207; 84439; 84443; 84481 ==

== ENCOUNTER → 2022-12-14 08:24 | Outpatient (BNVA) | payer MEDICAID, SELFPAY | PROVIDERS: PCP Nurse Practitioner Family; Visit Provider Internal Medicine Pulmonary Disease | DX: D86.0 Sarcoidosis of lung (principal); R59.0 Localized enlarged lymph nodes | CPT/HCPCS: 99214 ==

== ENCOUNTER → 2022-12-15 10:44 | Outpatient (BNVA) | payer MEDICAID, SELFPAY | PROVIDERS: PCP Nurse Practitioner Family; Referring Provider Psychiatry & Neurology Neurology; Visit Provider Psychiatry & Neurology Neurology | DX: R55 Syncope and collapse (principal) | CPT/HCPCS: 95812; 95816 ==

== ENCOUNTER → 2022-12-29 08:00 | Outpatient (BNVA) | payer MEDICAID, SELFPAY | PROVIDERS: PCP Nurse Practitioner Family; Referring Provider Psychiatry & Neurology Neurology; Visit Provider Psychiatry & Neurology Neurology | DX: R94.01 Abnormal electroencephalogram [EEG]; G92.8 Other toxic encephalopathy; T43.595S Adverse effect of other antipsychotics and neuroleptics, sequela | CPT/HCPCS: 95812; 95816 ==

== ENCOUNTER 2022-12-30 11:23 | Outpatient (CLI) | payer MEDICAID, SELFPAY ==
--- NOTE | 2022-12-30 11:45 | MR_ITS ---
WS: [id number] MRI HEAD WITHOUT CONTRAST TECHNIQUE: Sagittal T1, T2 axial, T2 axial FLAIR, axial and coronal T1 images, axial susceptibility w eighted imaging, axial diffusion weighted images, and coronal T2 images were obtained. CLINICAL INFORMATION: R55 - Syncope and collapse COMPARISON: CT head 09/20/2022 FINDINGS: Susceptibly artifact degrades some images. No evidence of restricted diffusion to suggest acute ischemia. Ventricular system and basilar cistern s are patent. Mild periventricular white matter changes nonspecific in a patient this age but can be seen with hypertension, diabetes, and migraine headaches. No significant parenchymal volume loss. Nor mal posterior fossa. Normal vascular flow voids at the skull base. No extra-axial fluid collections. No evidence of mass or mass effect. 1. Paranasal sinuses are well aerated. Mucosal thickening right mastoid air cells. Normal optic brenda sm and pituitary infundibulum. Cavernous sinuses and Meckel's cave normal in appearance. Normal poste rior nasopharynx. Temporal lobes and hippocampal formations are normal in appearance. IMPRESSION: 2. No evidence of restricted diffusion to suggest acute ischemia. 3. Normal optic chiasm and pituitary infundibulum. 4. Mild periventricular white matter changes nonspecific in a patient this age but can be seen with hypertension, diabetes, and migraine headaches. No significant parenchymal volume loss. 5. No hemosiderin on susceptibility weighted images. 6. Temporal lobes and hippocampal formations are normal in appearance. 7. No other suspicious findings.
== END 2022-12-30 11:24 | disposition home or self-care (01) ==
PROVIDERS: PCP Nurse Practitioner Family; Visit Provider Specialist
DX: R55 Syncope and collapse (principal)
CPT/HCPCS: 70551

== ENCOUNTER → 2023-01-26 13:36 | Outpatient (BNVA) | payer MEDICAID, SELFPAY | PROVIDERS: PCP Nurse Practitioner Family; Visit Provider Psychiatry & Neurology Neurology | DX: R29.90 Unspecified symptoms and signs involving the nervous system (principal); R55 Syncope and collapse; G25.3 Myoclonus; R51.9 Headache, unspecified | CPT/HCPCS: 99212 ==

== ENCOUNTER 2023-02-12 10:28 | Outpatient (CLI) | payer MEDICAID, SELFPAY ==
--- NOTE | 2023-02-12 11:00 | CT_ITS ---
WS: [id number] CT chest wo con [id number] HISTORY: annual CT chest TECHNIQUE: Axial imaging performed through the thorax. Coronal and sagittal reformats are submitted. All CT scans at [facility] use at least one of these dose optimization techniques: automated exposure control; mA and/or kV adjustment per patient size (includes targeted exams where dose is mat ched to clinical indication); or iterative reconstruction. CONTRAST: None DLP: 297.03 mGy.cm COMPARISON: 02/10/2022 Lungs and central airway: Lung volumes are decreased. Extensive bilateral bronchovascular pulmonary n odules. Innumerable nodules throughout both lungs. There is mild hazy attenuation and groundglass att enuation. The groundglass attenuation may improve with better inspiration. There has been no improvem ent and possible progression of the pulmonary nodules. Some of these nodules are also pleural and sub pleural based. Pleura: Normal. No pleural effusion. Heart and pericardium: Normal size heart with no pericardial effusion. Mediastinum and lianna: Mediastinal and hilar lymphadenopathy has actually improved moderately since . There is been an improvement overall in the size and number of the lymph nodes. The largest lymph node is RIGHT paratracheal measuring 1.2 cm. Prior diameter of 1.7 cm. Hilar adenopathy is more difficult to evaluate without IV contrast but the hilar regions appear less full. Vessels: Normal size aortic and pulmonary artery. No coronary artery calcifications. Chest wall and lower neck: No soft tissue masses. Upper abdomen: Limited evaluation without IV contrast. There is mild variable density within the sple en. This could be better identified with IV contrast if thought necessary clinically. Osseous structures: No destructive process. IMPRESSION: 1. Continued innumerable pulmonary nodules throughout both lungs in a bronchovascular distribution co nsistent with sarcoidosis. Due to the extensive number of the nodules is difficult to determine wheth er there is been a significant improvement or progression. 2. Moderate improvement in the mediastinal and hilar lymphadenopathy.
== END 2023-02-12 10:29 | disposition home or self-care (01) ==
PROVIDERS: PCP Nurse Practitioner Family; Visit Provider Internal Medicine Pulmonary Disease
DX: R55 Syncope and collapse (principal); D86.0 Sarcoidosis of lung
CPT/HCPCS: 71250; 95812; 95816

== ENCOUNTER → 2023-04-19 11:42 | Outpatient (BNVA) | payer MEDICAID, SELFPAY | PROVIDERS: PCP Nurse Practitioner Family; Visit Provider Internal Medicine Pulmonary Disease | DX: J22 Unspecified acute lower respiratory infection (principal); D86.0 Sarcoidosis of lung; R91.8 Other nonspecific abnormal finding of lung field; Z79.52 Long term (current) use of systemic steroids | CPT/HCPCS: 71046; 99214 ==

== ENCOUNTER → 2023-04-26 14:41 | Outpatient (BNVA) | payer MEDICAID, SELFPAY | PROVIDERS: PCP Nurse Practitioner Family; Visit Provider Podiatrist Foot & Ankle Surgery | DX: B07.0 Plantar wart (principal); M79.672 Pain in left foot | CPT/HCPCS: 17110 ==

== ENCOUNTER 2023-05-14 14:03 | Outpatient (CLI) | payer MEDICAID, SELFPAY ==
--- NOTE | 2023-05-14 14:30 | CTR_ITS ---
PROCEDURE INFORMATION: Exam: CT Chest Without Contrast; Diagnostic Exam date and time: 05/14/2023 2:32 PM Age: 32 years old Clinical indication: Condition or disease; Lung condition and disease; Other: Sarcoidosis; Prior surgery; Surgery date: 6+ months; Surgery type: Gb; Additional info: Post steroid therapy TECHNIQUE: Imaging protocol: Diagnostic computed tomography of the chest without contrast. Radiation optimization: All CT scans at this facility use at least one of these dose optimization techniques: automated exposure control; mA and/or kV adjustment per patient size (includes targeted exams where dose is matched to clinical indication); or iterative reconstruction. Axial sagittal and coronal 5 mm slice reconstruction. REPORTING DATA: Count of CT and Cardiac NM exams in prior 12 months: This patient has received 2 known CTs and 0 known cardiac nuclear medicine studies in the 12 months prior to the current study. COMPARISON: CT chest wo con [id number] 02/12/2023 10:49 AM RADIATION DOSE METRICS: Total DLP (mGy-cm): 390.03 FINDINGS: Limitations: Motion artifact. Trachea: Imaged portions of the distal trachea, as well as right and left mainstem bronchi, are patent. Lungs: There are numerous nodules identified throughout both lungs. One of the larger nodules is present in the right lower lobe, series 4, image 35 measuring 7 mm diameter, unchanged. There are numerous subpleural nodular densities bilaterally, some of which appear to have progressed in the upper left lung (series 4, image 19 and other images). Areas of suspected ground-glass opacity at both lung bases are noted, but can not be fully assessed given motion artifact and slice thickness. Pleural spaces: No pleural effusion. Heart: Heart size is stable and there is no pericardial effusion demonstrated. Coronary arteries: No definite coronary artery calcification, within the limits of the examination. Lymph nodes: Enlarged mediastinal nodes appear stable. The lianna are grossly stable within the limits of noncontrast technique and motion artifact. No axillary adenopathy. Vasculature: Thoracic aorta is not enlarged. Diaphragm: Mild elevation of the left hemidiaphragm is similar to previous. Gallbladder and bile ducts: The patient is status post cholecystectomy, the extrahepatic bile duct is not significantly dilated for the cholecystectomy state. Spleen: Within the upper abdomen, spleen size is prominent and stable. Spleen is mildly heterogeneous as before. Bones/joints: No acute osseous abnormality evident. Soft tissues: No acute abnormality identified in the subcutaneous tissues. CT/CT chest wo con [id number] IMPRESSION: 1. Numerous pulmonary nodules that are largely similar to previous although there appears to have been an interval increase in the subpleural nodules mainly in the upper left lung. Findings may reflect sarcoid but should be correlated clinically. 2. Stable intrathoracic adenopathy. 3. Stable mild elevation of the left hemidiaphragm. 4. Stable mild splenomegaly. Spleen appears mildly heterogeneous but not definitively characterized on noncontrast study. If indicated, consider contrast CT of the abdomen.
== END 2023-05-14 14:04 | disposition home or self-care (01) ==
LOC: RAD 14:04
PROVIDERS: PCP Nurse Practitioner Family; Visit Provider Internal Medicine Pulmonary Disease
DX: J22 Unspecified acute lower respiratory infection (principal); D86.0 Sarcoidosis of lung; R91.8 Other nonspecific abnormal finding of lung field
CPT/HCPCS: 71250

== ENCOUNTER 2023-05-16 19:12 | Inpatient (IN) | payer MEDICAID, SELFPAY ==
[2023-05-16 19:12] VITALS: BP 124/69; PULSE 98; RESP 18; TEMP 36.9; O2SAT 95; BMI 26.4
[2023-05-16 19:30] LABS: Basophils % 0.1 %; Hematocrit 39.1 % (36-47); Lymphocytes # 1.5 10^3/uL (0.8-4.8); Mean Corpuscular Hemoglobin 27.6 pg (27-33); Mean Corpuscular Volume 83.5 fl (85-98); Mean Platelet Volume 8.3 fL (7.4-10.4); Monocytes # 0.6 10^3/uL (0.2-0.9); Monocytes % 8.1 %; Neutrophils # 5.64 10^3/uL (1.8-7.7); Neutrophils % 72.4 %; Nucleated Red Blood Cells % 0 %; Platelet Count 234 10^3/cmm (157-399); Red Blood Count 4.68 10^6/uL (3.85-5.65); Red Cell Distribution Width 12.9 % (12.1-15.1); White Blood Count 7.79 10^3/uL (3.29-11.43)
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
[2023-05-16 19:50] LABS: Alanine Aminotransferase 16 U/L (0-33); Albumin Level 4.3 g/dL (3.5-5.2); Alkaline Phosphatase 90 U/L (35-105); Anion Gap 16.6 (5-19); Aspartate Amino Transferase 13 U/L (0-32); Blood Urea Nitrogen 8 mg/dL (6-20); Calcium 9.8 mg/dL (8.5-10.5); Carbon Dioxide 23 mmol/L (22-29); Chloride 103 mmol/L (98-107); Globulin 3.1 g/dL (1.3-4.6); Glomerular Filtration Rate 72.6 mL/min (90-130); Glucose 107 mg/dL (65-115); Osmolality Calculated 287 mOsm/kg (285-295); Potassium 3.6 mmol/L (3.5-5.1); Sodium 139 mmol/L (136-145); Total Bilirubin 0.3 mg/dL (0.15-1.2); Total Protein 7.4 g/dL (6.6-8.7)
[2023-05-16 19:51] LABS: Acetaminophen < 5.0 ug/mL (10-30); Alcohol Level < 10 mg/dL (0-10); Salicylate < 0.3 mg/dL (3-10)
[2023-05-16 20:24] LABS: Lithium 0.6 mmol/L (0.6-1.2)
[2023-05-16 20:55] LABS: Add Urine Microscopic? NO; Charge for UA Resulting for Rev
[2023-05-16 21:01] LABS: Bilirubin Urine Neg (Negative); Blood Urine Neg (Negative); Glucose Urine UA Norm (Normal); HCG Qualitative Urine. Negative (Negative); Ketones Urine Negative (Negative); Leukocyte Esterase Urine Negative (Negative); Nitrate Urine Negative (Negative); Protein Urine Neg (Negative); Urine Appearance Clear (CLEAR); Urine Color Colorless (Yellow); Urobilinogen Urine Norm (Negative); pH Urine 7 (5-7)
[2023-05-16 21:05] LABS: Amphetamines Screen Urine Negative (Negative); Barbiturates Screen Urine Negative (Negative); Benzodiazepines Screen Urine Positive (Negative); Cocaine Screen Urine Negative (Negative); Opiate Screen Urine Negative (Negative); PCP Screen Urine Negative (Negative); THC Screen Urine Negative (Negative)
[2023-05-16 21:36] VITALS: RESP 16
[2023-05-16 22:00] VITALS: BP 117/80; PULSE 107; RESP 18; TEMP 36.5; O2SAT 96
[2023-05-16] MEDS: hyDROXYzine 25 mg Capsule 50 MG PO (22:41)
[2023-05-16] MEDS: trazodone 50 mg Tablet PO (22:42)
[2023-05-17] MEDS: benztropine 1 mg Tablet PO ×4 (00:12→20:00)
[2023-05-17] MEDS: cloZAPine 25 mg Tablet PO ×4 (00:12→20:00)
[2023-05-17] MEDS: lithium carbonate 300 mg Capsule PO ×3 (00:12→17:23)
[2023-05-17] MEDS: risperiDONE 2 mg Tablet 4 MG PO ×3 (00:12→17:24)
[2023-05-17] MEDS: temazepam 15 mg Capsule 30 MG PO ×2 (00:13→20:00)
[2023-05-17 06:00] VITALS: RESP 16
--- NOTE | 2023-05-17 08:14 | PC.NURSE ---
Patient approached nurses' station several times this morning, but could not say why the last time. She endorses si with a plan to harm herself with a pen, but says she will not act on it here. Contracted with this RN that she would tell staff if thoughts worsened. She also endorses hi that is not directed at anyone in particular. She says she just feels that way towards anybody that pisses me off. Patient denies avh. She does say she did not sleep well last night and laid down to take a nap this morning.
[2023-05-17] MEDS: cetirizine 10 mg Tablet PO (08:26)
[2023-05-17] MEDS: BuSPIRONE 10 mg Tablet PO (08:26)
[2023-05-17] MEDS: pantoprazole DR 40 mg Tablet PO (08:26)
[2023-05-17] MEDS: docusate sodium 100 mg Capsule PO (08:26)
[2023-05-17] MEDS: propranolol 20 mg Tablet PO ×2 (08:26→20:00)
[2023-05-17] MEDS: fluticasone nasal spray 16gm Btl 1 SPRAY INTRANASAL (08:27)
[2023-05-17] MEDS: ibuprofen 600 mg Tablet PO ×2 (09:24→20:00)
[2023-05-17] MEDS: OLANZapine 5 mg ODT PO ×3 (09:37→17:24)
[2023-05-17] MEDS: predniSONE 5 mg Tablet PO (09:37)
--- NOTE | 2023-05-17 10:40 | PC.NURSE ---
Attempted to contact [facility] to have them bring in patient's prescriptions for efudex cream, imiquimod cream, and dextromethorphan syrup but was not able to reach anyone. This RN then called patient's mother, Kerrie Villagomez, and she stated she would get ahold of [facility]ARC[facility] Collins's team cdl driver to bring in the medications for the patient.
--- NOTE | 2023-05-17 10:49 | PC.NURSE ---
Patient's archives director at [facility] called and stated she will be bringing her medications. She also stated that Miss Ordonez is no longer utilizing the efudex cream, as it has been discontinued by her doctor.
[2023-05-17] MEDS: haloperidol 5 mg Tablet PO ×2 (11:32→15:22)
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
[2023-05-17 13:17] VITALS: BP 104/55; PULSE 104; RESP 17; TEMP 36.4; O2SAT 96
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
[2023-05-17] MEDS: guaiFENesin 100 mg/5 mL UDC 10 mL 200 MG PO (14:24)
[2023-05-17] MEDS: sertraline 50 mg Tablet 25 MG PO (16:13)
--- NOTE | 2023-05-17 16:34 | PC.NURSE ---
This nurse was on the north side beginning to do a round. Patient and this nurse were having a pleasant, superficial conversation, when patient began punching herself in the head and pulling her hair. This nurse encouraged patient to quit. Patient went to her room and slammed the door. This nurse followed quickly behind. Patient started digging into her arms. Sat with patient for twenty minutes along with PRECISION ASSEMBLER. had good conversations. Patient randomly started banging the back of her head into the wall. Had to put hand between her head and wall. Talked to Dr. Moore who said to start patient on a 1 to 1
--- NOTE | 2023-05-17 16:39 | PC.NURSE ---
Staff repeatedly having to flannery to patient's side to prevent her from harming herself. Patient attempting to harm herself with a patient pen she found, despite staff refusing to give her a pen when she asked earlier. Nurse and INFORMATION TECHNOLOGY PROGRAM MANAGER with patient in her room when she started to bang her head against the wall and scratch at her arm. She stated this is because voices were telling her to harm herself and other people. Patient was given haldol 5mg po. Patient became calm for a few minutes and then after asking for a sandwich impulsively began punching herself in the face again. Patient again said it was due to the voices. Dr. Moore was informed and he requested this RN give her zyprexa. However, the patient refused. She then approached this nurse again and stated, I want to put stuff in my ears. This RN asked what she was wanting to put in her ears and she replied, rocks and paper. Items were removed from the dayroom. Patient was again offered zyprexa, but refused. Doctor requested a 1:1 sitter and warehouse supervisor 3rd shift, Milli, was called. cooperage shop supervisor unable to find a sitter at this time.
--- NOTE | 2023-05-17 17:25 | PC.NURSE ---
OTILIO Mishra, utilized as 1:1 sitter. Patient also agreed to take zyprexa as dr requested.
[2023-05-17 19:31] VITALS: RESP 16
[2023-05-17] MEDS: trazodone 100 mg Tablet PO (20:00)
[2023-05-18 06:00] VITALS: RESP 16
[2023-05-18] MEDS: docusate sodium 100 mg Capsule PO (08:19)
[2023-05-18] MEDS: risperiDONE 2 mg Tablet 4 MG PO ×2 (08:19→19:50)
[2023-05-18] MEDS: cetirizine 10 mg Tablet PO (08:19)
[2023-05-18] MEDS: propranolol 20 mg Tablet PO ×2 (08:19→19:51)
[2023-05-18] MEDS: cloZAPine 25 mg Tablet PO ×2 (08:19→16:05)
[2023-05-18] MEDS: pantoprazole DR 40 mg Tablet PO (08:19)
[2023-05-18] MEDS: lithium carbonate 300 mg Capsule PO ×2 (08:19→19:55)
[2023-05-18] MEDS: fluticasone nasal spray 16gm Btl 1 SPRAY INTRANASAL (08:20)
[2023-05-18] MEDS: benztropine 1 mg Tablet PO ×2 (08:20→19:51)
[2023-05-18] MEDS: predniSONE 5 mg Tablet PO (08:20)
[2023-05-18] MEDS: sertraline 50 mg Tablet 25 MG PO (08:20)
[2023-05-18] MEDS: acetaminophen 325 mg Tablet 650 MG PO (11:45)
[2023-05-18 14:00] VITALS: BP 115/81; PULSE 109; RESP 15; TEMP 36.4; O2SAT 95
--- NOTE | 2023-05-18 14:26 | P.NPUPN_ITS ---
Subjective NPU 2 Subjective: Patient presented today reporting that she is doing fine. She suggested that she was still having negative thoughts and we discussed the importance of her managing herself while on the unit. She endorsed still having thoughts to hurt herself/kill himself and described banging her head and wanting to bang her head. We discussed continuing the one-to-one for today but wanting to discontinue it tomorrow. She then started talking about how she was getting this summer. She denied any problems with the medications endorsed eating and sleeping well. Mental Status Exam 2 MSE Comments: This is an overweight white female in hospital scrubs with poor grooming and limited eye contact. Some hypersalivation. No abnormal movements except for psychomotor retardation. Mostly cooperative with exam in mild to moderate distress. Speech was decreased rate and volume with limited prosody and childlike. Mood described as depressed. Her affect is flat. Thought process was linear. Thought content: Patient endorsed suicidal but denied homicidal ideation, there were no delusions reported or noted, she denied any auditory or visual hallucinations. Attention and concentration appeared intact and memory appeared limited but none were formally tested. She is alert and oriented x3. Insight and judgment are limited and impulse control is limited versus impaired. Intellectual ability is commensurate with mild to moderate cognitive impairment. Vitals/I&O/Wt Last Vital Signs Temp 97.5 F L 05/17/23 13:17 Pulse 104 H 05/17/23 13:17 Resp 16 05/18/23 06:00 BP 104/55 05/17/23 13:17 Pulse Ox 96 05/17/23 13:17 O2 Del Method Room Air 05/16/23 22:29 Weight last 48 hrs Weight 63.503 kg Data NPU 05/16/23 19:26 05/16/23 19:26 A&P Assessment and plan (1) Depression, unspecified: (2) Intermittent explosive disorder: (3) Mild intellectual disability: (4) Sarcoidosis: Plan The patient is a 32-year-old white female history of mild intellectual disability, aggression, irritability and poor impulse control with reported depression and suicidal ideation. 1. Restart previous medications, discussed with guardian, discontinued Buspar and started zoloft 25mg. Increase to 50 mg in the morning. 2. Continue one-to-one with plan to consider every 15 minute checks tomorrow. 3. Encourage individual, group and milieu therapies. 4. Work with facility on discharge planning. Involuntary Hold Information 2 96 Hour Hold: 96 Hour Involuntary Admission: No Attestations NPU 2 Medical Necessity Statement*: Inpatient hospitalization is medically necessary and the clinically appropriate intervention at this time. We will monitor medications and make changes as indicated. Her likely length of stay is 1-3 days. Coding Level of Care Code Acute Code for [facility] Fwd Diagnoses Depression, unspecified F32.A Intermittent explosive disorder F63.81 Mild intellectual disability F70 Sarcoidosis D86.9
[2023-05-18] MEDS: acetaminophen 500 mg Tablet PO (18:07)
[2023-05-18] MEDS: BuSPIRONE 10 mg Tablet PO (19:50)
[2023-05-18] MEDS: trazodone 100 mg Tablet PO (19:50)
[2023-05-18] MEDS: hyDROXYzine 25 mg Capsule PO (19:51)
[2023-05-18] MEDS: cloZAPine 25 mg Tablet 50 MG PO (19:51)
[2023-05-18] MEDS: temazepam 15 mg Capsule 30 MG PO (19:51)
[2023-05-18 19:54] VITALS: BP 109/71; PULSE 112; RESP 18; TEMP 36.3; O2SAT 95
[2023-05-19 06:00] VITALS: RESP 17
[2023-05-19] MEDS: BuSPIRONE 10 mg Tablet PO ×3 (08:14→19:48)
[2023-05-19] MEDS: cetirizine 10 mg Tablet PO (08:14)
[2023-05-19] MEDS: docusate sodium 100 mg Capsule PO (08:14)
[2023-05-19] MEDS: calcium carbonate 500 mg Chew Tablet 1000 MG PO (08:15)
[2023-05-19] MEDS: predniSONE 5 mg Tablet PO (08:15)
[2023-05-19] MEDS: hyDROXYzine 25 mg Capsule PO ×3 (08:15→19:48)
[2023-05-19] MEDS: sertraline 50 mg Tablet 25 MG PO ×2 (08:15→10:22)
[2023-05-19] MEDS: pantoprazole DR 40 mg Tablet PO (08:15)
[2023-05-19] MEDS: propranolol 20 mg Tablet PO ×2 (08:15→19:48)
[2023-05-19] MEDS: cloZAPine 25 mg Tablet PO ×3 (08:15→15:57)
[2023-05-19] MEDS: benztropine 1 mg Tablet PO ×3 (08:15→19:48)
[2023-05-19] MEDS: NON-FORMULARY MEDICATION (Imiquimod 5 % cream in packet) 1 EACH TOPICAL (08:16)
[2023-05-19] MEDS: fluticasone nasal spray 16gm Btl 1 SPRAY INTRANASAL (08:17)
[2023-05-19] MEDS: lithium carbonate 300 mg Capsule PO ×2 (08:21→19:48)
[2023-05-19] MEDS: risperiDONE 2 mg Tablet 4 MG PO ×2 (08:24→19:48)
--- NOTE | 2023-05-19 10:35 | PC.NURSE ---
THIS NURSE ASKED HOW PT WAS FEELING PT RESPONDED NOT WELL, I WANT TO KILL MYSELF. THIS NURSE ASKED IF PT HAD A PLAN AND PT STATED NO . PT CONTRACTED FOR SAFETY STATING THAT SHE WOULD LET THIS NURSE KNOW IF SHE GOT WORSE OR IF IT CHANGED IN ANYWAY.
[2023-05-19] MEDS: ondansetron 4 MG Tablet PO (12:03)
[2023-05-19] MEDS: acetaminophen 500 mg Tablet PO (12:03)
--- NOTE | 2023-05-19 12:11 | PC.NURSE ---
PT REQUESTED TYLENOL AND MEDICATION FOR NAUSEA. PT RATED HER HEADACHE A 9-10 ON A SCALE OF 0-10 WHERE 0 IS NONE AND 10 IS THE WORST POSSIBLE. PT RECIEVED 500MG TYLENOL AND 4MG ODANSETRON. PER ORDERS.
--- NOTE | 2023-05-19 13:53 | PC.NURSE ---
FOLLOWED UP WITH PT ABOUT NAUSEA AND PT STATED THAT SHE DOES NOT FEEL NAUSEOUS ANYMORE. THIS NURSE ALSO FOLLOWED UP WITH PT ABOUT HER SUICIDAL THOUGHTS. PT STATED YES, I STILL WANT TO HURT MYSELF. WHY DO YOU GUYS KEEP ASKING THAT? THIS NURSE EXPLAINED THAT SHE WILL NEED TO BE EVALUATED FREQUENTLY TO SEE IF SHE IS GETTING BETTER SO SHE CAN BE TAKEN OFF A 1:1. PT RESPONDED WITH OH, WELL YEAH I FEEL LIKE I WANT TO STAB MYSELF AGAIN. PT STATED THAT SHE WOULD LET STAFF KNOW IF THESE THOUGHTS BECAME WORSE.
[2023-05-19 14:00] VITALS: BP 105/77; PULSE 113; RESP 16; TEMP 37.1; O2SAT 91
[2023-05-19] MEDS: ibuprofen 200 mg Tablet PO (15:56)
--- NOTE | 2023-05-19 17:49 | P.NPUPN_ITS ---
Subjective NPU 2 Subjective: Patient presented today reporting that she was doing okay. She was taken off of one-to-one as we start to move towards discharge. She started being more future oriented and discussing that she works on Fridays and is hopeful to get back to work soon. She denied any issues with the medication changes. Staff reports that she is sleeping fine and eating appropriately. Mental Status Exam 2 MSE Comments: This is an overweight white female in hospital scrubs with poor grooming and limited eye contact. Some hypersalivation. No abnormal movements except for psychomotor retardation. Mostly cooperative with exam in mild to moderate distress. Speech was decreased rate and volume with limited prosody and childlike. Mood described as depressed. Her affect is flat. Thought process was linear. Thought content: Patient denied current suicidal or homicidal ideation, there were no delusions reported or noted, she denied any auditory or visual hallucinations. Attention and concentration appeared intact and memory appeared limited but none were formally tested. She is alert and oriented x3. Insight and judgment are limited and impulse control is limited versus impaired. Intellectual ability is commensurate with mild to moderate cognitive impairment. Vitals/I&O/Wt Last Vital Signs Temp 98.8 F 05/19/23 14:00 Pulse 113 H 05/19/23 14:00 Resp 16 05/19/23 14:00 BP 105/77 05/19/23 14:00 Pulse Ox 91 05/19/23 14:00 O2 Del Method Room Air 05/19/23 14:00 Data NPU 05/16/23 19:26 05/16/23 19:26 A&P Assessment and plan (1) Depression, unspecified: (2) Intermittent explosive disorder: (3) Mild intellectual disability: (4) Sarcoidosis: Plan The patient is a 32-year-old white female history of mild intellectual disability, aggression, irritability and poor impulse control with reported depression and suicidal ideation. 1. Restart previous medications, discussed with guardian, discontinued Buspar and started zoloft 25mg. Increased to 50 mg. 2. Discontinue one-to-one and start every 15 minute checks for safety. And a lead up to a likely discharge tomorrow. 3. Encourage individual, group and milieu therapies. 4. Work with facility on discharge planning. Involuntary Hold Information 2 96 Hour Hold: 96 Hour Involuntary Admission: No Attestations NPU 2 Medical Necessity Statement*: Inpatient hospitalization is medically necessary and the clinically appropriate intervention at this time. We will monitor medications and make changes as indicated. Her likely length of stay is 1-2 days. Coding Level of Care Code Acute Code for Chg Fwd Diagnoses Depression, unspecified F32.A Intermittent explosive disorder F63.81 Mild intellectual disability F70 Sarcoidosis D86.9
[2023-05-19] MEDS: temazepam 15 mg Capsule 30 MG PO (19:47)
[2023-05-19] MEDS: trazodone 100 mg Tablet PO (19:48)
[2023-05-19] MEDS: cloZAPine 25 mg Tablet 50 MG PO (19:48)
[2023-05-19 20:25] VITALS: BP 102/71; PULSE 118; RESP 20; TEMP 36.4; O2SAT 94
[2023-05-20] MEDS: NON-FORMULARY MEDICATION (Imiquimod 5 % cream in packet) 1 EACH TOPICAL (09:16)
[2023-05-20] MEDS: fluticasone nasal spray 16gm Btl 1 SPRAY INTRANASAL (09:16)
[2023-05-20] MEDS: risperiDONE 2 mg Tablet 4 MG PO (09:17)
[2023-05-20] MEDS: lithium carbonate 300 mg Capsule PO (09:17)
[2023-05-20] MEDS: pantoprazole DR 40 mg Tablet PO (09:17)
[2023-05-20] MEDS: propranolol 20 mg Tablet PO (09:17)
[2023-05-20] MEDS: BuSPIRONE 10 mg Tablet PO ×2 (09:17→13:16)
[2023-05-20] MEDS: cetirizine 10 mg Tablet PO (09:17)
[2023-05-20] MEDS: sertraline 50 mg Tablet PO (09:18)
[2023-05-20] MEDS: docusate sodium 100 mg Capsule PO (09:18)
[2023-05-20] MEDS: predniSONE 5 mg Tablet PO (09:18)
[2023-05-20] MEDS: benztropine 1 mg Tablet PO ×2 (09:18→13:16)
[2023-05-20] MEDS: cloZAPine 25 mg Tablet PO ×2 (09:18→13:16)
[2023-05-20] MEDS: hyDROXYzine 25 mg Capsule PO ×2 (09:19→13:16)
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
[2023-05-20 10:52] VITALS: BP 102/71; PULSE 118; RESP 20; TEMP 36.4; O2SAT 94
[2023-05-20] MEDS: acetaminophen 500 mg Tablet PO (10:57)
== END 2023-05-20 14:41 | disposition home or self-care (01) | DRG 881 ==
LOC: ER 19:49 → NP 21:36
PROVIDERS: Admitting Provider Psychiatry & Neurology Psychiatry; Emergency Provider Emergency Medicine; PCP Nurse Practitioner Family; Visit Provider Psychiatry & Neurology Psychiatry
DX: F32.A Depression, unspecified (principal); R45.851 Suicidal ideations; N39.0 Urinary tract infection, site not specified; F42.9 Obsessive-compulsive disorder, unspecified; F90.9 Attention-deficit hyperactivity disorder, unspecified type; F20.9 Schizophrenia, unspecified; Z86.16 Personal history of COVID-19; K21.9 Gastro-esophageal reflux disease without esophagitis; F63.81 Intermittent explosive disorder; K59.00 Constipation, unspecified; D86.9 Sarcoidosis, unspecified; F70 Mild intellectual disabilities; F60.3 Borderline personality disorder
CPT/HCPCS: 36415; 80053; 80178; 80306; 80307; 81003; 81025; 85025; 97150; 97165; 99285; J7512; Q0162

== ENCOUNTER → 2023-06-28 13:23 | Outpatient (BNVA) | payer MEDICAID, SELFPAY | PROVIDERS: PCP Nurse Practitioner Family; Visit Provider Podiatrist Foot & Ankle Surgery | DX: B07.0 Plantar wart (principal); M79.672 Pain in left foot | CPT/HCPCS: 99213 ==

== ENCOUNTER → 2023-07-05 14:58 | Outpatient (BNVA) | payer MEDICAID, SELFPAY | PROVIDERS: PCP Nurse Practitioner Family; Visit Provider Psychiatry & Neurology Neurology | DX: G25.3 Myoclonus (principal) | CPT/HCPCS: 99212 ==

== ENCOUNTER → 2023-08-19 10:12 | Outpatient (BNVA) | payer MEDICAID, SELFPAY | PROVIDERS: PCP Nurse Practitioner Family; Visit Provider Internal Medicine Pulmonary Disease | DX: D86.0 Sarcoidosis of lung (principal); J22 Unspecified acute lower respiratory infection | CPT/HCPCS: 99214 ==

== ENCOUNTER → 2023-10-08 13:48 | Outpatient (BNVA) | payer MEDICAID, SELFPAY | PROVIDERS: PCP Nurse Practitioner Family; Visit Provider Podiatrist Foot & Ankle Surgery | DX: B07.9 Viral wart, unspecified (principal); B07.0 Plantar wart | CPT/HCPCS: 17110 ==

== ENCOUNTER → 2024-01-10 14:05 | Outpatient (BNVA) | payer MEDICAID, SELFPAY | PROVIDERS: PCP Nurse Practitioner Family; Visit Provider Podiatrist Foot & Ankle Surgery | DX: L84 Corns and callosities (principal) | CPT/HCPCS: 99213 ==

== ENCOUNTER 2024-04-17 15:59 | Oncology outpatient (recurring) (ONCR) | payer MEDICAID, SELFPAY | END 2024-05-16 23:59 | disposition home or self-care (01) | PROVIDERS: PCP Nurse Practitioner Family; Visit Provider Internal Medicine Medical Oncology | DX: D50.8 Other iron deficiency anemias (principal); Z53.9 Procedure and treatment not carried out, unspecified reason | CPT/HCPCS: 99204 ==

== ENCOUNTER 2024-06-07 12:34 | Oncology outpatient (recurring) (ONCR) | payer MEDICAID, SELFPAY ==
[2024-06-07 13:08] LABS: Hematocrit 38.2 % (36-47); Lymphocytes # 0.9 10^3/uL (0.8-4.8); Lymphocytes % 13.3 %; Mean Corpuscular HGB Conc 30.9 g/dL (30-55); Mean Corpuscular Hemoglobin 25.3 pg (27-33); Mean Corpuscular Volume 81.8 fl (85-98); Mean Platelet Volume 8.9 fL (7.4-10.4); Monocytes # 0.4 10^3/uL (0.2-0.9); Monocytes % 5.9 %; Neutrophils # 5.55 10^3/uL (1.8-7.7); Neutrophils % 80.5 %; Nucleated Red Blood Cells % 0 %; Platelet Count 202 10^3/cmm (157-399); Red Blood Count 4.67 10^6/uL (3.85-5.65); Red Cell Distribution Width 14.1 % (12.1-15.1)
[2024-06-07 13:46] LABS: Alanine Aminotransferase 13 U/L (0-33); Albumin Level 3.7 g/dL (3.5-5.2); Alkaline Phosphatase 101 U/L (35-105); Blood Urea Nitrogen 7 mg/dL (6-20); Calcium 9.5 mg/dL (8.5-10.5); Carbon Dioxide 19 mmol/L (22-29); Chloride 105 mmol/L (98-107); Creatinine Clr Calc Pharmacy 98.5754; Ferritin 107 ng/mL (15-150); Globulin 3.2 g/dL (1.3-4.6); Glomerular Filtration Rate 96.4 mL/min (90-130); Glucose 144 mg/dL (65-115); Iron 49 ug/dL (37-145); Osmolality Calculated 291 mOsm/kg (285-295); Sodium 140 mmol/L (136-145); Total Bilirubin 0.5 mg/dL (0.15-1.2); Total Protein 6.9 g/dL (6.6-8.7)
[2024-06-07 13:53] LABS: Aspartate Amino Transferase 20 U/L (0-32); Percent Saturation 15.9 % (20-50); Total Iron Binding Capacity 307 mcg/dl; Unsaturated Iron Binding 258 ug/dL (112-347)
[2024-06-07 14:02] LABS: Vitamin B12 470 pg/mL (232-1245)
== END 2024-06-16 23:59 | disposition home or self-care (01) ==
PROVIDERS: PCP Nurse Practitioner Family; Visit Provider Internal Medicine Medical Oncology
DX: D50.8 Other iron deficiency anemias (principal); R91.8 Other nonspecific abnormal finding of lung field; K76.9 Liver disease, unspecified; D73.89 Other diseases of spleen; K59.00 Constipation, unspecified; R59.0 Localized enlarged lymph nodes; Z79.899 Other long term (current) drug therapy
CPT/HCPCS: 80053; 82607; 82728; 83540; 83550; 85025; 99213

== ENCOUNTER 2024-09-11 08:00 | Oncology outpatient (recurring) (ONCR) | payer MEDICAID, SELFPAY ==
[2024-08-23 13:20] LABS: Lymphocytes # 1.2 10^3/uL (0.8-4.8); Lymphocytes % 15.3 %; Mean Corpuscular HGB Conc 31.3 g/dL (30-55); Mean Corpuscular Volume 83.2 fl (85-98); Mean Platelet Volume 8.6 fL (7.4-10.4); Monocytes # 0.5 10^3/uL (0.2-0.9); Monocytes % 6.7 %; Neutrophils # 6.11 10^3/uL (1.8-7.7); Neutrophils % 77.7 %; Nucleated Red Blood Cells % 0 %; Platelet Count 226 10^3/cmm (157-399); Red Blood Count 4.69 10^6/uL (3.85-5.65); Red Cell Distribution Width 13.5 % (12.1-15.1); White Blood Count 7.86 10^3/uL (3.29-11.43)
[2024-08-23 13:48] LABS: Alanine Aminotransferase 13 U/L (0-33); Albumin Level 4.2 g/dL (3.5-5.2); Alkaline Phosphatase 94 U/L (35-105); Anion Gap 18.7 (5-19); Aspartate Amino Transferase 17 U/L (0-32); Blood Urea Nitrogen 10 mg/dL (6-20); Calcium 9.7 mg/dL (8.5-10.5); Carbon Dioxide 23 mmol/L (22-29); Chloride 104 mmol/L (98-107); Ferritin 149 ng/mL (15-150); Globulin 3.6 g/dL (1.3-4.6); Glomerular Filtration Rate 72.1 mL/min (90-130); Glucose 142 mg/dL (65-115); Iron 42 ug/dL (37-145); Osmolality Calculated 295 mOsm/kg (285-295); Percent Saturation 13.9 % (20-50); Potassium 3.7 mmol/L (3.5-5.1); Sodium 142 mmol/L (136-145); Total Bilirubin 0.4 mg/dL (0.15-1.2); Total Iron Binding Capacity 301 mcg/dl; Total Protein 7.8 g/dL (6.6-8.7); Unsaturated Iron Binding 259 ug/dL (112-347)
[2024-09-11] MEDS: diphenhydrAMINE 50 mg/mL SDV 1mL 25 MG IVP (10:06)
[2024-09-11] MEDS: acetaminophen 325 mg Tablet 650 MG PO (10:06)
[2024-09-11] MEDS: sodium chloride 0.9% 500 ML 75 ML IV (10:12)
[2024-09-11] MEDS: iron dextran 25 MG in SYRINGE 1 EACH 30 MG IVP (11:00)
[2024-09-11] MEDS: iron dextran 400 MG in sodium chloride 0.9% 1,000 ML 250.75 MG IV (12:04)
[2024-09-11 16:17] VITALS: BP 102/62; PULSE 97; RESP 16; TEMP 36.9
== END 2024-09-13 23:59 | disposition home or self-care (01) ==
PROVIDERS: Nurse Practitioner Family; PCP Nurse Practitioner Family; Visit Provider Internal Medicine
DX: E61.1 Iron deficiency (principal); Z79.899 Other long term (current) drug therapy
CPT/HCPCS: 36415; 80053; 82728; 83540; 83550; 85025; 96365; 96366; 99214; J1200; J1750; J7030; J7040; J9999

== ENCOUNTER 2024-10-02 10:19 | Oncology outpatient (recurring) (ONCR) | payer MEDICAID, SELFPAY ==
[2024-10-02 11:21] LABS: Hematocrit 38.2 % (36-47); Lymphocytes % 18.9 %; Mean Corpuscular HGB Conc 31.4 g/dL (30-55); Mean Corpuscular Hemoglobin 26.5 pg (27-33); Mean Corpuscular Volume 84.3 fl (85-98); Mean Platelet Volume 8.5 fL (7.4-10.4); Monocytes # 0.5 10^3/uL (0.2-0.9); Monocytes % 9.6 %; Neutrophils # 3.85 10^3/uL (1.8-7.7); Neutrophils % 71.3 %; Nucleated Red Blood Cells % 0 %; Platelet Count 165 10^3/cmm (157-399); Red Blood Count 4.53 10^6/uL (3.85-5.65); Red Cell Distribution Width 13.6 % (12.1-15.1)
[2024-10-02 11:49] LABS: Alanine Aminotransferase 17 U/L (0-33); Alkaline Phosphatase 93 U/L (35-105); Anion Gap 16.9 (5-19); Aspartate Amino Transferase 17 U/L (0-32); Blood Urea Nitrogen 11 mg/dL (6-20); Calcium 9.5 mg/dL (8.5-10.5); Carbon Dioxide 22 mmol/L (22-29); Chloride 106 mmol/L (98-107); Creatinine Clr Calc Pharmacy 85.1968; Ferritin 305 ng/mL (15-150); Globulin 3.2 g/dL (1.3-4.6); Glomerular Filtration Rate 82.6 mL/min (90-130); Glucose 143 mg/dL (65-115); Iron 70 ug/dL (37-145); Osmolality Calculated 294 mOsm/kg (285-295); Percent Saturation 24.8 % (20-50); Potassium 3.9 mmol/L (3.5-5.1); Sodium 141 mmol/L (136-145); Total Bilirubin 0.5 mg/dL (0.15-1.2); Total Iron Binding Capacity 282 mcg/dl; Total Protein 7.2 g/dL (6.6-8.7); Unsaturated Iron Binding 212 ug/dL (112-347)
== END 2024-10-14 23:59 | disposition home or self-care (01) ==
PROVIDERS: Nurse Practitioner Family; PCP Nurse Practitioner Family; Visit Provider Internal Medicine Medical Oncology
DX: R91.8 Other nonspecific abnormal finding of lung field (principal); D50.8 Other iron deficiency anemias
CPT/HCPCS: 36415; 80053; 82728; 83540; 83550; 85025; 99213

== ENCOUNTER 2025-01-02 13:19 | Oncology outpatient (recurring) (ONCR) | payer MEDICAID, SELFPAY ==
[2025-01-02 13:39] LABS: Hematocrit 38.2 % (36-47); Hemoglobin 12.30 g/dL (11.27-16.99); Mean Corpuscular HGB Conc 32.2 g/dL (30-55); Mean Corpuscular Hemoglobin 26.8 pg (27-33); Mean Corpuscular Volume 83.2 fl (85-98); Nucleated Red Blood Cells % 0 %; Platelet Count 181 10^3/cmm (157-399); Red Blood Count 4.59 10^6/uL (3.85-5.65); White Blood Count 5.67 10^3/uL (3.29-11.43)
[2025-01-02 14:00] LABS: Alanine Aminotransferase 19 U/L (0-33); Albumin Level 4.3 g/dL (3.5-5.2); Alkaline Phosphatase 97 U/L (35-105); Anion Gap 15.8 (5-19); Aspartate Amino Transferase 19 U/L (0-32); Blood Urea Nitrogen 17 mg/dL (6-20); Calcium 10.3 mg/dL (8.5-10.5); Carbon Dioxide 24 mmol/L (22-29); Chloride 105 mmol/L (98-107); Creatinine Clr Calc Pharmacy 87.7174; Ferritin 271 ng/mL (15-150); Globulin 3.2 g/dL (1.3-4.6); Glucose 118 mg/dL (65-115); Iron 58 ug/dL (37-145); Osmolality Calculated 295 mOsm/kg (285-295); Potassium 3.8 mmol/L (3.5-5.1); Sodium 141 mmol/L (136-145); Total Iron Binding Capacity 303 mcg/dl; Total Protein 7.5 g/dL (6.6-8.7); Unsaturated Iron Binding 245 ug/dL (112-347)
[2025-01-02 14:16] LABS: Vitamin B12 426 pg/mL (232-1245)
== END 2025-01-14 23:59 | disposition home or self-care (01) ==
PROVIDERS: PCP Nurse Practitioner Family; Visit Provider Internal Medicine Medical Oncology
DX: D50.8 Other iron deficiency anemias (principal); R91.8 Other nonspecific abnormal finding of lung field
CPT/HCPCS: 36415; 80053; 82607; 82728; 82746; 83540; 83550; 85025; 99213

== ENCOUNTER → 2025-02-21 13:55 | Outpatient (BNVA) | payer MEDICAID, SELFPAY | PROVIDERS: PCP Nurse Practitioner Family; Visit Provider Internal Medicine | DX: D86.0 Sarcoidosis of lung (principal); R91.8 Other nonspecific abnormal finding of lung field; R59.0 Localized enlarged lymph nodes; J84.10 Pulmonary fibrosis, unspecified; J84.9 Interstitial pulmonary disease, unspecified | CPT/HCPCS: 36415; 82164; 85651; 99214; Q3014 ==

== ENCOUNTER 2025-04-03 12:18 | Oncology outpatient (recurring) (ONCR) | payer MEDICAID, SELFPAY ==
[2025-04-03 12:45] LABS: Hematocrit 36.0 % (36-47); Hemoglobin 11.80 g/dL (11.27-16.99); Mean Corpuscular HGB Conc 32.8 g/dL (30-55); Mean Corpuscular Hemoglobin 26.9 pg (27-33); Mean Corpuscular Volume 82.2 fl (85-98); Nucleated Red Blood Cells % 0 %; Platelet Count 178 10^3/cmm (157-399); Red Blood Count 4.38 10^6/uL (3.85-5.65); White Blood Count 5.65 10^3/uL (3.29-11.43)
[2025-04-03 13:04] LABS: Alanine Aminotransferase 19 U/L (0-33); Albumin Level 4.3 g/dL (3.5-5.2); Alkaline Phosphatase 89 U/L (35-105); Anion Gap 17.0 (5-19); Aspartate Amino Transferase 18 U/L (0-32); Blood Urea Nitrogen 12 mg/dL (6-20); Calcium 9.6 mg/dL (8.5-10.5); Carbon Dioxide 24 mmol/L (22-29); Chloride 105 mmol/L (98-107); Globulin 2.8 g/dL (1.3-4.6); Glucose 91 mg/dL (65-115); Osmolality Calculated 293 mOsm/kg (285-295); Potassium 4.0 mmol/L (3.5-5.1); Sodium 142 mmol/L (136-145); Total Protein 7.1 g/dL (6.6-8.7)
[2025-04-03 13:56] LABS: Iron 54 ug/dL (37-145); Total Iron Binding Capacity 286 mcg/dl; Unsaturated Iron Binding 232 ug/dL (112-347)
== END 2025-04-15 23:59 | disposition home or self-care (01) ==
PROVIDERS: PCP Nurse Practitioner Family; Visit Provider Internal Medicine Medical Oncology
DX: D86.0 Sarcoidosis of lung (principal); R91.8 Other nonspecific abnormal finding of lung field; D50.8 Other iron deficiency anemias; K76.89 Other specified diseases of liver; D73.89 Other diseases of spleen; R59.0 Localized enlarged lymph nodes
CPT/HCPCS: 36415; 80053; 83540; 83550; 85025; 99213; 99214

== ENCOUNTER 2025-04-23 21:49 | Emergency (ER) | payer MEDICAID, SELFPAY ==
[2025-04-23 21:50] VITALS: BP 87/55; PULSE 88; RESP 17; TEMP 36.6; O2SAT 97; BMI 30.2
--- NOTE | 2025-04-23 21:52 | CTR_ITS ---
PROCEDURE INFORMATION: Exam: CT Maxillofacial Without Contrast Exam date and time: 04/23/2025 10:06 PM Age: 34 years old Clinical indication: Injury or trauma; Fall; Blunt trauma (contusions or hematomas); Other: Face TECHNIQUE: Imaging protocol: Computed tomography of the face without contrast. Radiation optimization: All CT scans at this facility use at least one of these dose optimization techniques: automated exposure control; mA and/or kV adjustment per patient size (includes targeted exams where dose is matched to clinical indication); or iterative reconstruction. COMPARISON: MR head wo con* [id number] 12/30/2022 11:56 AM RADIATION DOSE METRICS: Total DLP (mGy-cm): 594.4 FINDINGS: Paranasal sinuses: The paranasal sinuses are clear. Orbital cavities: No acute orbital fracture. Orbital contents are unremarkable. Nasal cavity: The nasal septum is intact and roughly midline. Teeth: Patient is edentulous. Thyroid: 1.3 cm right thyroid nodule. Bones: The nasal bones are intact. The mandible is intact. Temporomandibular joints are normally aligned. Maxilla is intact. Pterygoid plates are intact. Zygomatic arches are intact. No acute fracture of the visualized cervical spine. Soft tissues: No significant soft tissue swelling or hematoma. CT/CT facial bones wo con* [id number] IMPRESSION: 1. No acute facial fracture. 2. 1.3 cm right thyroid nodule. Recommend nonemergent thyroid ultrasound. COMMENTS: Consistent with the [employer]'s Incidental Findings Committee white paper (J Am Micki Radiol 2015): In patients under 35 years old with an incidental thyroid nodule equal to or greater than [address], MRI or extrathyroidal US, further evaluation with dedicated thyroid US is recommended for patients with normal life expectancy and without comorbidities. For smaller nodules without suspicious features, no further evaluation or follow up is recommended.
--- NOTE | 2025-04-23 21:52 | CTR_ITS ---
PROCEDURE INFORMATION: Exam: CT Head Without Contrast Exam date and time: 04/23/2025 10:06 PM Age: 34 years old Clinical indication: Injury or trauma; Fall; Blunt trauma (contusions or hematomas); Additional info: Fall, head pain TECHNIQUE: Imaging protocol: Computed tomography of the head without contrast. Radiation optimization: All CT scans at this facility use at least one of these dose optimization techniques: automated exposure control; mA and/or kV adjustment per patient size (includes targeted exams where dose is matched to clinical indication); or iterative reconstruction. COMPARISON: MR head wo con* [id number] 12/30/2022 11:56 AM RADIATION DOSE METRICS: Total DLP (mGy-cm): 1100.5 FINDINGS: Brain: No acute hemorrhage, edema, or mass effect. Cerebral ventricles: No hydrocephalus. Paranasal sinuses: Visualized sinuses are unremarkable. No fluid levels. Mastoid air cells: Visualized mastoid air cells are well aerated. Bones: Unremarkable. No acute fracture. Soft tissues: Unremarkable. CT/CT head wo con* [id number] IMPRESSION: No acute hemorrhage, edema, or mass effect.
--- NOTE | 2025-04-23 21:53 | W.ED.FALL ---
HPI - Fall General: Chief Complaint: Fall Stated Complaint: fall- head pain Time Seen by Provider: 04/23/25 21:50 History of Present Illness: 34-year-old female with a history of obsessive-compulsive disorder, borderline personality disorder, schizophrenia, bipolar disorder, ADHD, sarcoidosis, mild intellectual disability who presents to the emergency room after having had a fall in the shower. She presents by ambulance from a snf. She has a guardian. She is one of the personnel from the snf present with her today. No loss of consciousness. No altered mental status. No nausea or vomiting. She has a small knot on the back of her head. Says she fell out of the shower and first hit her face. She then tried to get up and fell again and hit the back of her head. Related Data Home Medications ?Medication ?Instructions ?Recorded ?Confirmed polyethylene glycol 3350 17 17 gm PO DIRECTED 06/20/19 04/03/25 gram/dose oral powder (Miralax) cetirizine 10 mg tablet 10 mg PO DAILY 11/18/21 04/03/25 docusate sodium 100 mg capsule 100 mg PO DAILY 11/18/21 04/03/25 (Colace) pantoprazole 40 mg tablet,delayed 40 mg PO DAILY 11/18/21 04/03/25 release (Protonix) lithium carbonate 300 mg capsule 300 mg PO BID 12/14/22 04/03/25 benztropine 1 mg tablet 1 mg PO TID 05/16/23 04/03/25 acetaminophen 500 mg tablet 500 mg PO Q6H PRN pain 05/20/23 04/03/25 calcium carbonate 250 mg chewable 500 mg PO DAILY 05/20/23 04/03/25 tablet loratadine 10 mg tablet mg PO 04/17/24 04/03/25 naproxen 500 mg tablet 500 mg PO BID 04/17/24 04/03/25 clozapine 25 mg tablet mg PO 01/02/25 04/03/25 fluticasone propionate 50 intranasal 01/02/25 04/03/25 mcg/actuation nasal spray,suspension acetaminophen-pamabrom 500 mg-25 1 tab PO Q6H PRN 02/21/25 04/03/25 mg tablet (Midol) risperidone 3 mg tablet 3 mg PO BID 02/21/25 04/03/25 ondansetron HCl 4 mg tablet 4 mg PO Q6H 04/03/25 04/03/25 Previous Rx's ?Medication ?Instructions ?Recorded propranolol 20 mg tablet 20 mg PO 0900,2100 #60 tabs 11/23/21 guaifenesin 100 mg/5 mL oral 200 mg (10 mL) PO Q12H PRN cough 04/19/23 liquid (Wal-Tussin) #473 mL buspirone 10 mg tablet 10 mg PO 0800,1199,1999 30 days 05/20/23 #90 tabs hydroxyzine pamoate 25 mg capsule 25 mg PO 0800,1200,1999 30 days 05/20/23 #90 caps temazepam 30 mg capsule 30 mg PO .QPM #30 caps 01/17/25 ferrous gluconate 324 mg (38 mg 324 mg PO BID #180 tabs 03/20/25 iron) tablet Allergies Allergy/AdvReac Type Severity Reaction Status Date / Time No Known Allergies Allergy Verified 04/03/25 14:18 Review of Systems Narrative: Constitutional symptoms: Negative except as documented in HPI. Skin symptoms: Negative except as documented in HPI. Eye symptoms: Negative except as documented in HPI. ENMT symptoms: Negative except as documented in HPI. Respiratory symptoms: Negative except as documented in HPI. Cardiovascular symptoms: Negative except as documented in HPI. Gastrointestinal symptoms: Negative except as documented in HPI. Genitourinary symptoms: Negative except as documented in HPI. Musculoskeletal symptoms: Negative except as documented in HPI. Neurologic symptoms: Negative except as documented in HPI. Psychiatric symptoms: Negative except as documented in HPI. Endocrine symptoms: Negative except as documented in HPI. [facility] ED PFSH: Medical History (Updated 04/23/25 @ 22:43 by Liz Ortiz MD) History of 2019 novel coronavirus disease (COVID-19) History of COVID-19 virus infection in November 2020 and in May 2021 Allergic rhinitis Dermatitis Plantar wart of left foot Hammertoe of second toe of left foot GERD (gastroesophageal reflux disease) Borderline personality disorder Obsessive-compulsive behavior Cephalgia Hammer toe of left foot Callus of foot ADHD Bipolar disorder Schizophrenia Family History Denies family history of Diabetes CAD (coronary artery disease) Clotting disorder Dementia Hyperlipidemia Psychiatric illness Chronic kidney disease (CKD) Suicide Anesthesia complication Bleeding disorder Family history of premature coronary artery disease Lung disease Cancer Hypertension Stroke Social History Smoking and tobacco/nicotine status: never used tobacco/nicotine Alcohol intake: never Substance/Drug Use: never Current gender identity: Female Physical Exam Narrative: EXAM NARRATIVE: General: Alert, no acute distress. Skin: Warm, dry. Head: Normocephalic, atraumatic. Neck: Supple, trachea midline. Eye: Extraocular movements are intact. Ears, nose, mouth and throat: mucosa moist. Cardiovascular: Regular, Normal peripheral perfusion. Respiratory: Lungs are clear to auscultation, respirations are non-labored, breath sounds are equal, Symmetrical chest wall expansion. Gastrointestinal: Soft, Nontender, Non distended Musculoskeletal: Normal ROM, no deformity. Neurological: Alert and oriented, No focal neurological deficit observed. Psychiatric: Cooperative, appropriate mood & affect. Course Vital Signs: Vital signs: Vital Signs Temperature 97.9 F 04/23/25 21:50 Pulse Rate 81 04/23/25 22:47 Respiratory Rate 17 04/23/25 21:50 Blood Pressure 100/62 04/23/25 22:47 Pulse Oximetry 96 04/23/25 22:47 Oxygen Delivery Me thod Room Air 04/23/25 21:50 MDM - Fall Medical Decision Making Medical decision making Patient's reason for coming to the emergency room: Fall with a head injury Social determinants: Patient lives in a snf. Has a guardian. I reviewed the patient's medical record. 34-year-old female with a history of obsessive-compulsive disorder, borderline personality disorder, schizophrenia, bipolar disorder, ADHD, sarcoidosis, mild intellectual disability I reviewed the patient's current home meds No anticoagulation Alternate historians: snf personnel Differential diagnosis including but not limited to and based on the above HPI, review of systems and physical exam: patient with fall and head injury. Subdural hematoma, subarachnoid hemorrhage, concussion, skull fracture. Orders placed to evaluate differential diagnosis based on the above differential, HPI and physical exam CT scan of the head was ordered. Also facial CT to rule out any facial fractures. CT head: No acute intracranial process. No intracranial hemorrhage, no evidence of infarct. No evidence of acute fracture. This was reviewed and interpreted by myself the emergency room physician. I also reviewed the radiology report. CT of the facial bones: No fractures. This was reviewed and interpreted by myself the emergency room physician. I also reviewed the radiology report. Lab Review: Laboratory results were reviewed and interpreted by myself the emergency room physician. No lab work indicated today Assessment of risk: Level of risk: Moderate risk patient. Hospitalization considerations: No indication for hospitalization Reexamination: Patient remained stable. No increased work of breathing. No altered mental status. No focal motor deficits. Assessment and plan: Head injury ?Ibuprofen in the emergency room - Discharged home - Discussed plan with patient. Answered any questions. - Evaluation and treatment of this problem were appropriate in the emergency setting. Lab Data Radiology Impressions Face CT 04/23/25 21:52 IMPRESSION: 1. No acute facial fracture. 2. 1.3 cm right thyroid nodule. Recommend nonemergent thyroid ultrasound. COMMENTS: Consistent with the [employer]'s Incidental Findings Committee white paper (J Am Micki Radiol 2015): In patients under 35 years old with an incidental thyroid nodule equal to or greater than [address], MRI or extrathyroidal US, further evaluation with dedicated thyroid US is recommended for patients with normal life expectancy and without comorbidities. For smaller nodules without suspicious features, no further evaluation or follow up is recommended. Head CT 04/23/25 21:52 IMPRESSION: No acute hemorrhage, edema, or mass effect. All radiology interpretation(s) finalized by discharge Discharge Plan Discharge Patient Disposition: Home Clinical Impression: Head injury Condition: Stable Prescriptions: No Action polyethylene glycol 3350 [Miralax] 17 gram/dose powder 17 gm PO DIRECTED Rx Instructions: take wednesday and wednesday clozapine 25 mg tablet PO fluticasone propionate 50 mcg/actuation spray,suspension intranasal risperidone 3 mg tablet 3 mg PO BID Midol 500-25 mg tablet 1 tab PO Q6H PRN lithium carbonate 300 mg capsule 300 mg PO BID naproxen 500 mg tablet 500 mg PO BID loratadine 10 mg tablet PO ondansetron HCl 4 mg tablet 4 mg PO Q6H guaifenesin [Wal-Tussin] 100 mg/5 mL liquid 200 mg PO Q12H PRN (Reason: cough) Qty: 473 3RF temazepam 30 mg capsule 30 mg PO .QPM Qty: 30 3RF Rx Instructions: once at bedtime ferrous gluconate 324 mg (38 mg iron) tablet 324 mg PO BID Qty: 180 0RF benztropine 1 mg Tablet 1 mg PO TID buspirone 10 mg Tablet 10 mg PO 0800,1200,1999 30 Days Qty: 90 1RF hydroxyzine pamoate 25 mg Capsule 25 mg PO 0800,1200,1999 30 Days Qty: 90 1RF calcium carbonate 250 mg Tablet,Chewable 500 mg PO DAILY acetaminophen 500 mg Tablet 500 mg PO Q6H PRN (Reason: pain) cetirizine 10 mg Tablet 10 mg PO DAILY pantoprazole [Protonix] 40 mg Tablet,Delayed Release (Dr/Ec) 40 mg PO DAILY docusate sodium [Colace] 100 mg Capsule 100 mg PO DAILY propranolol 20 mg Tablet 20 mg PO 0900,2100 Qty: 60 1RF Discharge Orders: Discharge ED (Routine); Ordered 04/23/25 Ordered By: Liz Ortiz Referrals: Ally Franklin FNP [Primary Care Provider, Unknown] Discharge Diet: Usual diet Discharge Activity: Increase activity as tolerated Patient Instructions: Head Injury (ED), Opioid Safety, Pain Management, Patient Portal & [place] Instructions Activity Restrictions/Additional Instructions: Thank you for choosing [facility] for your healthcare needs today. You have been screened and evaluated and felt safe for discharge. Health conditions do change or evolve sometimes and as such it is important that you follow up with your Primary Doctor to be re checked, 3-5 days is a general good time frame for follow up. You are always welcome to return to the ED for re assessment if your symptoms are worsening or you have new concerns Print Language: Cambodian Coding Level of Care Code ED [employer] Specialist for Julito Whitmore
--- OUTSIDE RECORDS SUMMARY | 2025-04-23 21:55 | XMS_ITS | Continuity of Care Document ---
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 Not available 03/21/2025 13:49:51 Plan of Treatment Reminders Order Date Submit Date Provider Last Modified By Organization Details Last Modified Time Details Appointments None recorded. Lab None recorded. Referral None recorded. Procedures None recorded. Surgeries None recorded. Imaging None recorded. Medication Orders erythromyci n 5 mg/gram (0.5 %) eye ointment 2024 025 [facility], [address], [place], [address], 16:46:51 Patient TargetsNo targets recorded. Patient Instructions Encounter Date Encounter Id Patient Instructions Last Modified By Organization Details Last Modified Time 03/21/2025 [id number] Call or return for questions or concerns. Not available 03/21/2025 13:49:01 Reason for Referral None Reported. Results Created Date Observation Date Name Description Value Unit Range Abnormal Flag Note LastModifiedBy Organization Detail LastModifiedTime 02/29/20 25 02/28/2025 respi rator y patho gens DNA and RNA panel , PCR, nasop haryn x Covid negati ve Not Available [facility] ([facility]) [address] [place], [address], 02/28/2025 15:48:13 02/29/2002/28/2025 respi rator y patho gens DNA and RNA panel , PCR, nasop haryn x Rhinovirus negati ve Not Available [facility] ([facility]) [address] [place], [address], 02/28/2025 15:48:13 02/29/2002/28/2025 respi rator y patho gens DNA and RNA panel , PCR, nasop haryn x Influenza A negati ve Not Available [facility] ([facility]) [address] [place], [address], 02/28/2025 15:48:13 02/29/2002/28/2025 respi rator y patho gens DNA and RNA panel , PCR, nasop haryn x Influenza B negati ve Not Available [facility] ([facility]) [address] [place], [address], 02/28/2025 15:48:13 02/29/2002/28/2025 respi rator y patho gens DNA and RNA panel , PCR, nasop haryn x RSV negati ve Not Available [facility] ([facility]) [address] [place], [address], 02/28/2025 15:48:13 03/15/2003/15/2025 CBC WBC 5.1 x10 4.0-10 .5 Not Available [facility] [address] [facility] [address], [place], [address], 03/15/2025 12:15:09 03/15/2003/15/2025 CBC RBC 4.83 x10 3.50-5 .50 Not Available [facility] [address] [facility] [address], [place], [address], 03/15/2025 12:15:09 03/15/2003/15/2025 CBC HGB 12.9 g/dL 12.0-1 6.0 Not Available [facility] [address] [facility] [address], [place], [address], 03/15/2025 12:15:09 03/15/2003/15/2025 CBC HCT 40.5 % 37.0-4 7.0 Not Available [facility] [address], [place], [address], 03/15/2025 12:15:09 03/15/2003/15/2025 CBC MCV 83.8 fL 80.0-9 9.9 Not Available [facility] [address] [facility], [place], [address], 03/15/2025 12:15:09 03/15/2003/15/2025 CBC MCH 26.8 pg 27.0-3 2.0 low Not Available [facility] [address] [facility], [place], [address], 03/15/2025 12:15:09 03/15/20 25 03/15/2025 CBC MCHC 32.0 g/dL 32.0-3 6.0 Not Available [facility] [address] [facility], [place], [address], 03/15/2025 12:15:09 03/15/2003/15/2025 CBC RDW 14.2 % 11.5-1 4.5 Not Available [facility] [address] [facility] [address], [place], [address], 03/15/2025 12:15:09 03/15/2003/15/2025 CBC plt 167.3 x10 140.0- 451.0 Not Available [facility] [address] [facility] [address], [place], [address], 03/15/2025 12:15:09 03/15/20 25 03/15/2025 CBC lymphocytes % 14.3 % 20.0-5 0.0 low Not Available [facility] [address] [facility] [address], [place], [address], 03/15/2025 12:15:09 03/15/20 25 03/15/2025 CBC granulcytes % 76.4 % 30.0-7 0.0 high Not Available [facility] [address] [facility] [address], [place], [address], 03/15/2025 12:15:09 03/15/20 25 03/15/2025 CBC monocytes % 8.6 % 2.0-16 .[address] [facility] [address] [facility], [place], [address], 03/15/2025 12:15:09 03/15/20 25 03/15/2025 CBC granulcytes# 3.9 x10 Not Zaina ilable [facility] [address] [facility] [address], [place], [address], 03/15/2025 12:15:09 03/15/20 25 03/15/2025 CBC lymphocytes # 0.7 x10 Not Available [facility] [address] [facility] [address], [place], [address], 03/15/2025 12:15:09 03/15/20 25 03/15/2025 CBC monocytes # 0.4 x10 Not Avai lable [facility] [address] [facility] [address], [place], [address], 03/15/2025 12:15:09 03/15/20 25 03/15/2025 TSH TSH 1.09 uIU/m L 0.49-3 .82 Not Available [facility] [address] [facility], [place], [address], 03/15/2025 13:31:58 03/15/20 25 03/15/2025 CMP (FEMA LE) glucose 102.0 mg/dL 60.0-9 9.0 high Not Available [facility] [address] [facility], [place], [address], 03/15/2025 13:37:40 03/15/20 25 03/15/2025 CMP (FEMA LE) BUN (blood urea nitrogen) 14.0 mg/dL 10.0-2 6.0 Not Available [facility] [address] [facility], [place], [address], 03/15/2025 13:37:40 03/15/20 25 03/15/2025 CMP (FEMA LE) creatinine (serum) 0.9 mg/dL 0.4-1. 5 Not Available [facility] [address] [facility], [place], [address], 03/15/2025 13:37:40 03/15/20 25 03/15/2025 CMP (FEMA LE) BUN/creatini ne ratio 15.56 ratio Not Available [facility] [address] [facility], [place], [address], 03/15/2025 13:37:40 03/15/20 25 03/15/2025 CMP (FEMA LE) eGFR calculated 76.2 Not Available [facility] [address] [facility] [address], [place], [address], 03/15/2025 13:37:40 03/15/20 25 03/15/2025 CMP (FEMA LE) total protein 8.0 g/dL 6.0-8. 5 Not Available [facility] [address] [facility] [address], [place], [address], 03/15/2025 13:37:40 03/15/20 25 03/15/2025 CMP (FEMA LE) total bilirubin 1.0 mg/dL 0.2-1. 3 Not Available [facility] [address] [facility], [place], [address], 03/15/2025 13:37:40 03/15/20 25 03/15/2025 CMP (FEMA LE) albumin 4.5 g/dL 3.5-5. 5 Not Available [facility] [address] [facility] [address], [place], [address], 03/15/2025 13:37:40 03/15/20 25 03/15/2025 CMP (FEMA LE) globulin 3.5 calc Not Available [facility] [address] [facility] [address], [place], [address], 03/15/2025 13:37:40 03/15/20 25 03/15/2025 CMP (FEMA LE) AST (SGOT) 27.0 U/L 0.0-46 .0 Not Available [facility] [address] [facility] [address], [place], [address], 03/15/2025 13:37:40 03/15/20 25 03/15/2025 CMP (FEMA LE) altv (SGPT) 22.0 U/L 13.0-6 9.0 normal Not Available [facility] [address] [facility] [address], [place], [address], 03/15/2025 13:37:40 03/15/20 25 03/15/2025 CMP (FEMA LE) A/G ratio 1.3 ratio Not Available [facility] [address] [facility] [address], [place], [address], 03/15/2025 13:37:40 03/15/20 25 03/15/2025 CMP (FEMA LE) ALP phos 92.0 U/L 30.0-1 40.0 normal Not Available [facility] [address] [facility] [address], [place], [address], 03/15/2025 13:37:40 03/15/20 25 03/15/2025 CMP (FEMA LE) calcium 10.3 mg/dL 8.4-10 .5 Not Available [facility] [address] [facility] [address], [place], [address], 03/15/2025 13:37:40 03/15/2003/15/2025 CMP (FEMA LE) sodium 140.0 mmol/ L 136.0- 145.0 Not Available [facility] [address] [facility] [address], [place], [address], 03/15/2025 13:37:40 03/15/20 25 03/15/2025 CMP (FEMA LE) potassium 3.9 mmol/ L 3.5-5. 1 Not Available [facility] [address] [address], [place], [address], 03/15/2025 13:37:40 03/15/20 25 03/15/2025 CMP (FEMA LE) chloride 103.0 mmol/ L 98.0-1 10.0 normal Not Available [facility] [address] [facility] [address], [place], [address], 03/15/2025 13:37:40 03/15/20 25 03/15/2025 CMP (FEMA LE) C02 25.0 mmol/ L 22.0-3 1.0 Not Available [facility] [address] [address], [place], [address], 03/15/2025 13:37:40 03/15/20 25 03/15/2025 CMP (FEMA LE) anion gap 12.0 calc Not Available [facility] [address] [facility] [address], [place], [address], 03/15/2025 13:37:40 03/15/20 25 03/15/2025 CMP (FEMA LE) osmolality 289.8 calc Not Available [facility] [address] [facility] [address], [place], [address], 03/15/2025 13:37:40 03/15/20 25 03/15/2025 LIPID PROFI LE (FEMA LE) cholesterol 168.0 mg/dL 0.0-20 0.0 Not Available [facility] [address] [facility] [address], [place], [address], 03/15/2025 13:37:46 03/15/20 25 03/15/2025 LIPID PROFI LE (FEMA LE) trig 216.0 mg/dL 0.0-15 0.0 high Not Available [facility] [address] [facility] [address], [place], [address], 03/15/2025 13:37:46 03/15/20 25 03/15/2025 LIPID PROFI LE (FEMA LE) HDL - direct 41.0 mg/dL >40.0 Not Available [facility] [address] [address], [place], [address], 03/15/2025 13:37:46 03/15/20 25 03/15/2025 LIPID PROFI LE (FEMA LE) VLDL - direct 43.2 mg/dL Not Available [facility] [address] [address], [place], [address], 03/15/2025 13:37:46 03/15/20 25 03/15/2025 LIPID PROFI LE (FEMA LE) LDL - direct 83.8 mg/dL 0.0-13 0.0 Not Available [facility] [address] [address], [place], [address], 03/15/2025 13:37:46 03/15/2003/19/2025 QUANT IFERO N(R)- TB GOLD PLUS, 1 TUBE quantiferon( R)-TB gold plus, 1 tube NEGATI VE negati ve normal Negat john test resul t. M. tuber culos is compl ex infec tion unlik liv. Not Available [address], [address], 03/19/2025 13:26:00 03/15/20 25 03/19/2025 QUANT IFERO N(R)- TB GOLD PLUS, 1 TUBE nil 0.09 IU/mL normal Not Available [address], [address], 03/19/2025 13:26:00 03/15/20 25 03/19/2025 QUANT IFERO N(R)- TB GOLD PLUS, 1 TUBE mitogen-nil 8.04 IU/mL normal Not Available [address], [address], 03/19/2025 13:26:00 03/15/20 25 03/19/2025 QUANT IFERO N(R)- TB GOLD PLUS, 1 TUBE TB1-nil 0.01 IU/mL normal Not Available [address], [address], 03/19/2025 13:26:00 03/15/20 25 03/19/2025 QUANT IFERO N(R)- TB GOLD PLUS, 1 TUBE TB2-nil <0.00 IU/mL normal The Nil tube value refle cts the backg round inter feron gamma immun e respo nse of the patie nt's blood sampl e. This value has been subtr acted from the patie nt's displ ayed TB and Mitog en resul ts. Lower than expec mikhail resul ts with the Mitog en tube preve nt false -nega tive Quant ifero n readi ngs by detec ting a patie nt with a poten tial immun e suppr essiv e condi tion and/o r subop timal pre-a nalyt ical speci men handl ing. The TB1 Antig en tube is coate d with the M. marbella sandovalos is-sp ecifi c antig ens desig luz elena to elici t respo nses from TB antig en prime d CD4+ helpe r T-lym phocy brittnee. The TB2 Antig en tube is coate d with the M. marbella sandovalos is-sp ecifi c antig ens desig luz elena to elici t respo nses from TB antig en prime d CD4+ helpe r and CD8+ cytot oxic T-lym phocy brittnee. For addit ional infor tasneem bolton e refer to https ://ed leander on.qu estLearnStreet/f aq/FA Q204 (This link is being provi ded for infor matthew pennington/ educa lillian l purpo ses only. ) Not Available [employer] [facility] [address] [place], [address], 03/19/2025 13:26:00 Result Notes None recorded. Problems Name Problem SNOMED Code Status Onset Date Resolution Date Notes Provider Name and Address Organization Details Recorded Time Allergic rhinitis 76490345 Completed 201908/08/2019 ALLERGIC SINUSITI S - Status is Inactive ; Recorded 08/08/19 10:16AM by Emeli Vega CMT, Mayela on/Adden dum; Promoted ; acuity set as *; Not Available [facility] 03:15:22 Family planning surveill ance Completed 201908/08/2019 DEPO-PRO VERA CONTRACE PTION, ENCOUNTE R FOR INJECTIO N - Status is Inactive ; Recorded 08/08/19 10:16AM by Emeli Vega CMT, Mayela on/Adden dum; Promoted ; acuity set as *; DEPO-MI OVERA CONTRACE PTIVE STATUS - Status is Inactive ; Recorded 08/08/19 10:16AM by Emeli Vega CMT, Mayela on/Adden dum; Promoted ; acuity set as *; Not Available [facility] 3 03:15:25 Depressi ve disorder 92787736 Active 2023 EMELI shepherd, [facility] 4 12:14:25 Mood disorder 94273790 Active 2023 EMELI shepherd, [facility] 4 12:14:36 Anxiety disorder 750477623 Active 2023 EMELI shepherd, [facility] 4 12:15:13 Chronic constipa tion 169105889 Active 2023 EMELI shepherd, [facility] 4 12:15:23 Psychoti c disorder 51152851 Active 2023 EMELI shepherd, [facility] 4 12:15:41 Schizoph nakia 73045885 Active 2023 EMELI shepherd, [facility] 4 12:23:45 [facility] 5949997[facility] Active 2023 [facility] EMELI shepherd, [facility] 4 12:25:49 Obsessiv e-compul sive disorder 236630596 Active 2024 EMELI shepherd, [facility] 5 21:46:25 Bipolar disorder 50219484 Active 2024 EMELI shepherd, [facility] 5 21:46:57 Attentio n deficit hyperact ivity disorder 231478450 Active 2024 EMELI shepherd, [facility] 5 21:47:18 Iron deficien cy anemia 41199752 Active 2024 EMELI shepherd, [facility] 21:48:23 Gastroes ophageal reflux disease without esophagi tis 083949422 Active 2024 EMELI shepherd [facility] 21:48:53 Schizoph renic disorder s 064981722 Active 2024 EMELI shepherd [facility] 21:49:07 Sarcoido sis 03148490 [facility]15 Problem Notes None recorded. Procedures Surgical History Date Name Laterality Status Provider Name and Address Organization Details Recorded Time 08/05/19 25 screening for malignant neoplasm of cervix completed [facility]ELI VEGA [facility] 08/10/2024 11:05:46 cholecystectomy completed [facility]ELI VEGA [facility] 08/03/2024 15:22:35 Imaging Results None recorded. Procedure Notes None recorded. Medical Equipment None Reported. Allergies No known drug allergies Medications Name Sig Start Date Stop Date Status Note LastModified by Organization Details LastModified Time Singulair 10 mg tablet daily 10/21 completed Not Available Not Available Not Available buspirone 5 mg tablet TAKE ONE TABLET BY MOUTH THREE TIMES DAILY 11/29 completed Not Available Not Available Not Available promethaz ine-DM 6.25 mg-15 mg/5 mL oral syrup TAKE ONE TEASPOON FUL (5 ML'S) BY MOUTH EVERY 4 HOURS NEEDED 10/21 completed Not Available Not Available Not Available prednison e 10 mg tablet TAKE ONE TABLET BY MOUTH DAILY - START NOV FIRST 10/21 completed Not Available Not Available Not Available cetirizin e 10 mg tablet TAKE ONE TABLET BY MOUTH DAILY active Not Available Not Available No t Available azithromy amanda 250 mg tablet TAKE 1 TABLET BY MOUTH ONCE DAILY FOR 4 DAYS 11/05 completed Not Available Not Available Not Available hydrocodo ne 5 mg-acetam inophen 325 mg tablet TAKE ONE TABLET BY MOUTH EVERY 6 HOURS NEEDED FOR pain 11/29 completed Not Available Not Available Not Available phenazopy ridine 200 mg tablet TAKE ONE TABLET BY MOUTH THREE TIMES DAILY NEEDED FOR 2 DAYS 11/29 completed Not Available Not Available Not Available prednison e 20 mg tablet TAKE ONE TABLET BY MOUTH DAILY FOR 30 DAYS 10/21 completed Not Available Not Available Not Available fluoroura cil 5 % topical cream APPLY TOPICALL Y TO THE AFFECTED AREA TWICE DAILY FOR FOUR WEEKS 10/21 completed Not Available Not Available Not Available prednison e 5 mg tablet TAKE ONE TABLET BY MOUTH DAILY 10/21 completed Not Available Not Available Not Available Calcium Antacid 300 mg (as calcium carbonate 750 mg) chewable tablet CHEW AND SWALLOW ONE TABLET TWICE DAILY NEEDED FOR HEARTBUR N active Not Available Not Available No t Available hydroxyzi ne pamoate 50 mg capsule TAKE ONE CAPSULE BY MOUTH EVERY 6 HOURS NEEDED 10/21 completed Not Available Not Available Not Available Calcium Antacid 200 mg (as calcium carbonate 500 mg) chewable tablet CHEW ONE TABLET BY MOUTH DAILY FOR ACID REFLUX 10/21 completed Not Available Not Available Not Available melatonin 3 mg tablet TAKE THREE TABLETS BY MOUTH NIGHTLY 10/21 completed Not Available Not Available Not Available sulfameth oxazole 800 mg-trimet hoprim 160 mg tablet TAKE ONE TABLET BY MOUTH TWICE DAILY 02/04 completed Not Available Not Available Not Available acetamino phen 500 mg tablet TAKE TWO TABLETS BY MOUTH EVERY 6 HOURS NEEDED active Not Available Not Available No t Available risperido ne 3 mg tablet TAKE ONE TABLET BY MOUTH IN THE MORNING AND TAKE ONE TABLET IN THE EVENING active Not Available Not Available No t Available guaifenes in 100 mg/5 mL oral liquid TAKE 2 TEASPOON FULS (10 ML'S) BY MOUTH EVERY 12 HOURS NEEDED FOR COUGH 03/21 completed Not Available Not Available Not Available triamcino lone acetonide 0.1 % topical cream daily 10/21 completed 0; Recorded 07/29/19 23 10:06AM by Tarah Holcomb, Office Visit; Not Available Not Available Not Available risperido ne 2 mg tablet TAKE TWO TABLETS BY MOUTH IN THE MORNING AND 2 TABLETS IN THE EVENING 11/05 completed Not Available Not Available Not Available Depo-Prov era 150 mg/mL intramusc ular suspensio n every 3 months 10/21 completed Not Available Not Available Not Available trazodone 100 mg tablet TAKE 1 AND 1/2 TABLETS BY MOUTH AT BEDTIME 10/21 completed Not Available Not Available Not Available temazepam 30 mg capsule TAKE ONE CAPSULE BY MOUTH ONCE AT BEDTIME active Not Available Not Available No t Available imiquimod 5 % topical cream packet USE ONE APPLICAT ION TOPICALL Y DAILY FOR 12 WEEKS 03/21 completed Not Available Not Available Not Available lithium carbonate 300 mg capsule TAKE ONE CAPSULE BY MOUTH IN THE MORNING AND ONE CAPSULE IN THE EVENING active Not Available Not Available No t Available Tylenol 500 mg tablet Take 2 tablets every 6 hours by oral route. 03/15 completed Not Available Not Available Not Available pantopraz ole 40 mg tablet,de layed release TAKE ONE TABLET BY MOUTH DAILY active Not Available Not Available No t Available erythromy amanda 5 mg/gram (0.5 %) eye ointment APPLY 1CM RIBBON INTO THE LOWER CONJUNCT IVAL SAC(s) OF AFFECTED EYE(s) THREE TIMES DAILY FOR FIVE DAYS, THEN DISCONTI NUE active Not Available Not Available No t Available trazodone 150 mg tablet TAKE 1 AND 1/2 TABLETS BY MOUTH AT BEDTIME 11/29 completed Not Available Not Available Not Available buspirone 10 mg tablet TAKE ONE TABLET BY MOUTH IN THE MORNING, TAKE ONE TABLET AT NOON, AND TAKE ONE TABLET IN THE EVENING active Not Available Not Available No t Available ibuprofen 400 mg tablet TAKE ONE TABLET BY MOUTH THREE TIMES DAILY NEEDED 08/23 completed Not Available Not Available Not Available benztropi ne 1 mg tablet TAKE ONE TABLET BY MOUTH IN THE MORNING, TAKE ONE TABLET AT NOON, AND TAKE ONE TABLET IN THE EVENING active Not Available Not Available No t Available ibuprofen 200 mg tablet TAKE ONE TABLET BY MOUTH THREE TIMES DAILY NEEDED FOR PAIN AND CRAMPS 08/23 completed Not Available Not Available Not Available docusate sodium 100 mg capsule TAKE ONE CAPSULE BY MOUTH EVERY DAY active Not Available Not Available No t Available clozapine 25 mg tablet TAKE ONE TABLET BY MOUTH IN THE MORNING AND TAKE ONE TABLET IN THE EVENING active Not Available Not Available No t Available polyethyl ayde glycol 3350 17 gram/dose oral powder MIX AND DRINK ONE CAPFUL (17 GRAMS) IN 8 OUNCES OF WATER TWICE A WEEK ON AND Wednesday active Not Available Not Available Not Avai lable propranol ol 20 mg tablet TAKE ONE TABLET BY MOUTH TWICE DAILY (MORNING AND EVENING) active Not Available Not Available No t Available ondansetr on 4 mg disintegr ating tablet PLACE ONE TABLET ON TOP OF THE TONGUE EVERY 6 HOURS NEEDED FOR NAUSEA AND VOMITING active Not Available Not Available No t Available cefdinir 300 mg capsule TAKE 1 CAPSULE BY MOUTH EVERY 12 HOURS FOR 7 DAYS 11/05 completed Not Available Not Available Not Available lithium carbonate 300 mg tablet Take 1 tablet twice a day by oral route. 11/[address] Jennings Not Available Not Available Not Available fluticaso ne propionat e 50 mcg/actua tion nasal spray,leo pension USE ONE SPRAY IN EACH NOSTRIL DAILY active Not Available Not Available No t Available sertralin e 50 mg tablet TAKE ONE TABLET BY MOUTH DAILY FOR 30 DAYS 10/21 completed Not Available Not Available Not Available doxycycli ne hyclate 100 mg tablet TAKE ONE TABLET BY MOUTH TWICE DAILY 09/27 completed Not Available Not Available Not Available loratadin e 10 mg tablet TAKE ONE TABLET BY MOUTH EVERY DAY active Not Available Not Available No t Available naproxen 500 mg tablet TAKE ONE TABLET BY MOUTH TWICE DAILY NEEDED -30 DAYS active Not Available Not Available No t Available hydroxyzi ne pamoate 25 mg capsule TAKE ONE CAPSULE BY MOUTH IN THE MORNING, ONE CAPSULE AT NOON, AND ONE CAPSULE IN THE EVENING active Not Available Not Available No t Available nitrofura ntoin monohydra te/macroc rystals 100 mg capsule TAKE ONE CAPSULE BY MOUTH EVERY TWELVE HOURS FOR 7 DAYS 11/29 completed Not Available Not Available Not Available loratadin e daily 02/04 completed DOC LB/km; 53446; Recorded 03/20/20 1:14PM by Brooke [place] LPN (Authori dicksond through Blanca Rivera MD), Office Visit; Refill Quantity : 0; Not Available Not Available Not Available Flonase each nare daily 02/04 completed DOC CS/smf; 03060; Recorded 07/06/19 12:21PM by Kandi Dow RN (Authori zed through Robert Collins DO), Refill Request; Refill Quantity : 3; Each; Not Available Not Available Not Available calcium two times daily 02/04 completed 53733; Recorded 03/20/20 1:14PM by Brooke [place] LPN (Authori zed through EVELYN Laws), Office Visit; Refill Quantity : 0; Not Available Not Available Not Available benztropi ne three times daily 02/04 completed farhat; 54369; Recorded 03/20/20 1:14PM by Brooke [place] LPN (Authori zed through EVELYN Laws), Office Visit; Refill Quantity : 0; Not Available Not Available Not Available ibuprofen three times daily, as needed 02/04 completed 55242; Recorded 03/20/20 1:14PM by Brooke [place] LPN (Authori zed through EVELYN Laws), Office Visit; Refill Quantity : 300; Tablet; Not Available Not Available Not Available clozapine three times daily 02/[address] Jennings; 45531; Recorded 03/20/20 1:14PM by Brooke [place] LPN (Authori zed through EVELYN Laws), Office Visit; Refill Quantity : 0; Not Available Not Available Not Available risperido ne two times daily 02/04 completed 42345; Recorded 03/20/20 1:14PM by Brooke [place] LPN (Authori zed through EVELYN Laws), Office Visit; Refill Quantity : 0; Not Available Not Available Not Available Tums two times daily, as needed for heartbur n 02/04 completed 99782; Recorded 03/20/20 1:14PM by Brooke [place] LPN (Authori zed through EVELYN Laws), Office Visit; Refill Quantity : 1; Tablet; Not Available Not Available Not Available Miralax Wed and Sat 02/04 completed [id number]; Recorded 03/20/20 1:14PM by Brooke Miles LPN (Authori zed through EVELYN Laws), Office Visit; Refill Quantity : 24; Each; Not Available Not Available Not Available Trazodone at bedtime 02/04 completed farhat; [id number]; Recorded 03/20/20 1:14PM by Brooke Miles LPN (Authori justin through [facility]ELYN Laws), Office Visit; Refill Quantity : 0; Not Available Not Available Not Available ferrous gluconate 324 mg (38 mg iron) tablet TAKE ONE TABLET BY MOUTH TWICE DAILY active Not Available Not Available No t Available Midol 500 mg-25 mg tablet Take 2 tablets every 6 hours by oral route as needed for 30 days, for period cramps. 03/21 completed Not Available Not Available Not Available Midol Complete 500 mg-60 mg-15 mg tablet TAKE TWO TABLETS BY MOUTH EVERY 6 HOURS NEEDED FOR PERIOD CRAMPS active Not Available Not Available No t Available ferrous gluconate 324 mg (37.5 mg iron) tablet TAKE ONE TABLET BY MOUTH TWICE DAILY 03/15 completed Not Available Not Available Not Available A and D (lanolin- petrolatu m) topical ointment APPLY topicall y TWICE DAILY NEEDED 11/29 completed Not Available Not Available Not Available Janet-braeden 8.6 mg tablet TAKE ONE TABLET BY MOUTH ONCE DAILY NEEDED 04/06 completed Not Available Not Available Not Available Vitals Date Recorded Body height Body mass index (BMI) Body weight Oxygen saturation Heart rate Respiratory rate Systolic And Diastolic Provider Name and Address Organization Details Last Updated DateTime 157.48 cm 28.3 kg/m2 22006.8 2 g 96 % 86 /min 20 /min 88/60 mm[Hg] EMELI VEGA [facility], .L.CJimmy 5 13:13:57 Social History Question Answer Notes LastModified by Organizat ion Details LastModified Time Tobacco Smoking Status Never Smoker Rachel Edmundo [facility] 11/12/2023 14:05:22 What Type Of Diet Are You Following? REGULAR [email or web address] Information not available 12/07/2023 What Was The Date Of Your Most Recent Tobacco Screening? 02/28/2025 [email or web address] Information not available 02/28/2025 Sex: Unknown Functional Status Question Answer Note LastModified by Organizat ion Details LastModified Time Do you use any illicit or recreational drugs? No [email or web address] Information not available 12/07/2023 Do you or have you ever used any other forms of tobacco or nicotine? No [email or web address] Information not available 02/28/2025 What is your level of alcohol consumption? None [email or web address] Information not available 12/07/2023 Are you currently employed? Yes 2 days a week at [employer] [email or web address] Information not available 12/07/2023 Are you able to walk independently without assistance or assistive devices? YESWOREST [email or web address] Information not available 12/07/2023 Do you have difficulty doing errands alone? Yes [email or web address] Information not available 12/07/2023 Are you able to care for yourself independently? No [facility] Resident [email or web address] Information not available 12/07/2023 Do you or have you ever used any nicotine-free cigarettes, vape, or chewing tobacco? No [email or web address] Information not available 11/12/2023 Mental Status Question Answer Note LastModified by Organization D etails LastModified Time Do you have difficulty concentrating, remembering or making decisions? Yes [email or web address] Information no t available 12/07/2023 Family History Relationship Description Onset Age of this Age Resolved Age Notes LastModified by Organization Details LastModified Time Father No current problems or disability Not available 11/14 19:53:05 Mother No current problems or disability Not available 11/14 19:53:05 Medical History Condition Response Depression Y Developmental or Behavioral Disorders Y Defects or Inherited Disease Y Anxiety Disorder Y Mental Illness Y Reflux/GERD Y Autism Spectrum Disorder (ASD) Y Gynecological HistoryNo gynecological history recorded. Obstetrics History GPAL:G 0 P 0 0 0 0 Immunizations Vaccine Type Date Status Note Provider Nam e and Address Organization Details Recorded Time TST-PPD intradermal 0 completed Not Available [facility] 04/06/2023 13:51:54 Influenza, MDCK, quadrivalent, PF 0 completed Not Available [facility] 04/06/2023 13:51:54 Influenza, split virus, trivalent, preservative 8 completed Not Available [facility] 04/06/2023 13:51:54 Influenza, split virus, trivalent, preservative 6 completed Not Available [facility] 04/06/2023 13:51:54 Influenza, MDCK, quadrivalent, PF 3 completed MUMTAZ BRANTLEY, [facility] [address] [place], [address], [facility] 08/08/2024 10:44:40 Hib, unspecified formulation 2 completed MUMTAZ BRANTLEY, [facility] [address] [place], [address], [facility] 12/01/2022 12:56:59 Hib, unspecified formulation 1 [email or web address] BRANTLEY, [facility] [address] [place], [address], [facility] 12/01/2022 12:56:59 Hib, unspecified formulation 1 [email or web address] BRANTLEY, [facility] [address] [place], [address], [facility] 12/01/2022 12:56:59 IPV 1 [email or web address] BRANTLEY, [facility] [address] [place], [address], [facility] 12/01/2022 12:56:59 IPV 6 completed MUMTAZ BRANTLEY, [facility] [address] [place], [address], [facility] 12/01/2022 12:56:59 IPV 1 completed MUMTAZ BRANTLEY, [facility] [address] [place], [address], [facility] 12/01/2022 12:56:59 MMR 7 completed MUMTAZ BRANTLEY, [facility] [address] [place], [address], [facility] 12/01/2022 12:56:59 MMR 6 completed MUMTAZ BRANTLEY, [facility] [address] [place], [address], [facility] 12/01/2022 12:56:59 influenza, unspecified formulation 8 completed MUMTAZ BRANTLEY, [facility] [address] [place], [address], [facility] 12/01/2022 12:56:59 influenza, unspecified formulation 5 completed MUMTAZ BRANTLEY, [facility] [address] [place], [address], [facility] 12/01/2022 12:56:59 influenza, unspecified formulation 9 completed MUMTAZ BRANTLEY, [facility] [address] [place], [address], [facility] 12/01/2022 12:56:59 influenza, unspecified formulation 9 completed MUMTAZ BRANTLEY, [facility] [address] [place], [address], [facility] 12/01/2022 12:56:59 Tdap 5 completed MUMTAZ BRANTLEY, [address], [address], [facility] 12/01/2022 12:56:59 Influenza, split virus, trivalent, 6 completed MUMTAZ BRANTLEY, [address], [address], [facility] 12/01/2022 12:56:59 Td (adult), 2 Lf tetanus toxoid, preservative free, adsorbed 8 completed MUMTAZ BRANTLEY, [address], [address], [facility] 12/01/2022 12:56:59 Hep B, adolescent or pediatric 7 completed MUMTAZ BRANTLEY, [address], [address], [facility] 12/01/2022 12:56:59 Hep B, adolescent or pediatric 7 completed MUMTAZ BRANTLEY, [address], [address], [facility] 12/01/2022 12:56:59 Hep B, adolescent or pediatric 7 completed MUMTAZ BRANTLEY, [address], [address], [facility] 12/01/2022 12:56:59 DTaP 2 completed MUMTAZ BRANTLEY, [address], [address], [facility] 12/01/2022 12:56:59 DTaP 3 completed MUMTAZ BRANTLEY, [address], [address], [facility] 12/01/2022 12:56:59 DTaP 1 completed MUMTAZ BRANTLEY, [facility] [address] [place], [address], [facility] 12/01/2022 12:56:59 DTaP 6 completed MUMTAZ BRANTLEY, [facility] [address] [place], [address], [facility] 12/01/2022 12:56:59 DTaP 1 completed MUMTAZ BRANTLEY, [facility] [place], [address], [facility] 12/01/2022 12:56:59 Influenza, split virus, quadrivalent, PF 1 completed MUMTAZ BRANTLEY, [facility] [address] [place] [address], [address], [facility] 12/01/2022 12:56:59 Influenza, MDCK, trivalent, PF 5 completed MUMTAZ BRANTLEY, [address], [address], [facility] 12/01/2022 12:56:59 Influenza, split virus, trivalent, preservative 4 completed Not Available [facility] 03/21/2025 13:02:05 Tdap 4 completed Not Available [facility] 03/21/2025 13:02:05 Past Encounters Encounter ID Performer Location Encounter Start Date Encounter Closed Date Diagnosis/Indication Diagnosis SNOMED-CT Code Diagnosis ICD10 Code Diagnosis IMO Codes Diagnosis Note [id number] FAWAD CISNEROS PAYMENT SPECIALIST [facility] [address] [place] [address] 02/28/2025 15:21:47 02/28/2025 16:34:42 Acute cough 7827483612 79521004 R05.1 [id number] Nausea 532003328 R11.0 72773 Increase po fluids as tolerated. Use Zofran as prescribed . RTC with any new or worsening symptoms. [id number] EVELYN DRAKE [facility] ([facility]) [address] [place] [address] 03/15/2025 11:10:45 03/15/2025 11:58:16 Annual physical examination for people with mental illness completed 4985963613 Z00.00 F99 [id number] Tuberculos is screening status 196872522 Z11.1 908857 Sore throat 912521291 J0 2.9 74649 Tylenol as needed. Return if not improving. [id number] EVELYN DRAKE [facility] ([facility]) [address] [place] [phone] 03/21/2025 13:01:52 03/21/2025 14:15:01 Hordeolum externum of upper eyelid of left eye 5847934551 72562 H00.731 9698167 History of hypotension 865348767 Z86.79 8774652 Not symptomati c at this time. Health Concerns Section Related Observation LastModified by Organization Detai ls LastModified Time None Recorded Concern Status LastModified by Organization Details LastModified Time None Recorded Payers Encounter Date Sequence Insurance Name Policy Number Policy Blair Covered Member ID Blair Member ID Guarantor Name 03/21/2025 1 [place] Iza Ordonez [id number] [facility] Notes Date Note Type Note Provider Name and Address Organization Details Recorded Time 03/21/2025 text/html General Rash/Ski n LesionReported by PatientHPIFor quality, patient reportsitchy,red, andswollen. For location, patient reportsface(left eye). For severity, patient reportsmild. For duration, patient reportshas noted for <1 week. For onset/timing, patient reportsabrupt onset. For context, patient reportsno new detergents or skin products. For associated symptoms, patient reportsno feverandno cold symptoms. EVELYN DRAKE [address] [place] [address], [phone], [facility] 03/21/2025 13:52:30 OBGyn Episode No OBEpisode recorded.
--- OUTSIDE RECORDS SUMMARY | 2025-04-23 21:55 | XMS_ITS | Continuity of Care Document ---
Author Organization [facility] Maryuri Bagley, [facility] ([facility]) Address [address] [place] [address] Care Team Providers Care Directory Compiler Name Role Phone MUMTAZ BRANTLEY Primary Care Provider Unavailabl e Assessment No assessment recorded. Plan of Treatment Reminders Order Date Submit Date Provider Last Modified By Organization Details Last Modified Time Details Appointments None record ed. Lab CBC 025 01/27/20 [facility], [address], [facility], [place], [address], 13:18:13 Referral None record ed. Procedures None record ed. Surgeries None record ed. Imaging None record ed. Medication Orders None record ed. Patient TargetsNo targets recorded. Patient InstructionsNo instructions recorded. Reason for Referral None Reported. Results Created Date Observation Date Name Description Value Unit Range Abnormal Flag Note LastModifiedBy Organization Detail LastModifiedTime 12/30/1912/29/2024 CBC WBC 5.8 x10 4.0-10 .5 Not Available [facility] [address] [facility], [place], [address], 12/29/2024 13:04:35 12/30/19 25 12/29/2024 CBC RBC 4.76 x10 3.50-5 .50 Not Available [facility] [address] [facility], [place], [address], 12/29/2024 13:04:35 12/30/19 25 12/29/2024 CBC HGB 12.9 g/dL 12.0-1 6.0 Not Available [facility] [address] [facility], [place], [address], 12/29/2024 13:04:35 12/30/1912/29/2024 CBC HCT 40.1 % 37.0-4 7.0 Not Available [facility] [address] [facility], [place], [address], 12/29/2024 13:04:35 12/30/19 25 12/29/2024 CBC MCV 84.2 fL 80.0-9 9.9 Not Available [facility] [address] [facility], [place], [address], 12/29/2024 13:04:35 12/30/19 25 12/29/2024 CBC MCH 27.1 pg 27.0-3 2.0 Not Available [facility] [address] [facility], [place], [address], 12/29/2024 13:04:35 12/30/19 25 12/29/2024 CBC MCHC 32.1 g/dL 32.0-3 6.0 Not Available [facility] [address] [facility] [facility], [place], [address], 12/29/2024 13:04:35 12/30/1912/29/2024 CBC RDW 13.9 % 11.5-1 4.5 Not Available [facility] [address] [facility], [place], [address], 12/29/2024 13:04:35 12/30/1912/29/2024 CBC plt 187.0 x10 140.0- 451.0 Not Available [facility] [address] [facility] [facility], [place], [address], 12/29/2024 13:04:35 12/30/19 25 12/29/2024 CBC lymphocytes % 17.9 % 20.0-5 0.0 low Not Available [facility] [address] [facility], [place], [address], 12/29/2024 13:04:35 12/30/19 25 12/29/2024 CBC granulcytes % 71.5 % 30.0-7 0.0 high Not Available [facility] [address] [facility], [place], [address], 12/29/2024 13:04:35 12/30/19 25 12/29/2024 CBC monocytes % 10.1 % 2.0-16 .0 Not Available [facility] [address] [facility], [place], [address], 12/29/2024 13:04:35 12/30/19 25 12/29/2024 CBC granulcytes# 4.1 x10 Not Zaina ilable [facility] [address] [facility] [place], [address], 12/29/2024 13:04:35 12/30/19 25 12/29/2024 CBC lymphocytes # 1.0 x10 Not Available [facility] [address] [facility], [place], [address], 12/29/2024 13:04:35 12/30/19 25 12/29/2024 CBC monocytes # 0.6 x10 Not Avai lable [facility] [address] [facility], [place], [address], 12/29/2024 13:04:35 01/27/20 25 01/26/2025 CBC WBC 5.6 x10 4.0-10 .5 Not Available [facility] [address] [facility], [place], [address], 01/26/2025 13:18:13 01/27/2001/26/2025 CBC RBC 4.70 x10 3.50-5 .50 Not Available [facility] [address] [facility] 1, [place], [address], 01/26/2025 13:18:13 01/27/2001/26/2025 CBC HGB 12.6 g/dL 12.0-1 6.0 Not Available [facility] [address], [place], [address], 01/26/2025 13:18:13 01/27/2001/26/2025 CBC HCT 39.8 % 37.0-4 7.0 Not Available [facility] [address] [facility] 1, [place], [address], 01/26/2025 13:18:13 01/27/2001/26/2025 CBC MCV 84.7 fL 80.0-9 9.9 Not Available [facility] [address] [facility] 1, [place], [address], 01/26/2025 13:18:13 01/27/2001/26/2025 CBC MCH 26.7 pg 27.0-3 2.0 low Not Available [facility] [address] [facility], [place], [address], 01/26/2025 13:18:13 01/27/2001/26/2025 CBC MCHC 31.6 g/dL 32.0-3 6.0 low Not Available [facility] [address] [facility], [place], [address], 01/26/2025 13:18:13 01/27/2001/26/2025 CBC RDW 14.1 % 11.5-1 4.5 Not Available [facility] [address] [facility] 1, [place], [address], 01/26/2025 13:18:13 01/27/20 25 01/26/2025 CBC plt 182.5 x10 140.0- 451.0 Not Available [facility] [address] [facility], [place], [address], 01/26/2025 13:18:13 01/27/20 25 01/26/2025 CBC lymphocytes % 16.2 % 20.0-5 0.0 low Not Available [facility] [address] [facility], [place], [address], 01/26/2025 13:18:13 01/27/2001/26/2025 CBC granulcytes % 74.3 % 30.0-7 0.0 high Not Available [facility] [address] [facility], [place], [address], 01/26/2025 13:18:13 01/27/20 25 01/26/2025 CBC monocytes % 8.8 % 2.0-16 .0 Not Available [facility] [address] [facility], [place], [address], 01/26/2025 13:18:13 01/27/20 25 01/26/2025 CBC granulcytes# 4.2 x10 Not Zaina ilable [facility] [address] [facility], [place], [address], 01/26/2025 13:18:13 01/27/20 25 01/26/2025 CBC lymphocytes # 0.9 x10 Not Available [facility] [address] [facility], [place], [address], 01/26/2025 13:18:13 01/27/20 25 01/26/2025 CBC monocytes # 0.5 x10 Not Avai lable [facility] [address] [facility], [place], [address], 01/26/2025 13:18:13 Result Notes None recorded. Problems Name Problem SNOMED Code Status Onset Date Resolution Date Notes Provider Name and Address Organization Details Recorded Time Allergic rhinitis 43716367 Completed 201908/08/2019 ALLERGIC SINUSITI S - Status is Inactive ; Recorded 08/08/19 10:16AM by Emeli Vega CMT, Annotati on/Adden dum; Promoted ; acuity set as *; Not Available [facility] 3 03:15:22 Family planning surveill ance Completed 201908/08/2019 DEPO-PRO VERA CONTRACE PTION, ENCOUNTE R FOR INJECTIO N - Status is Inactive ; Recorded 08/08/19 10:16AM by Emeli Vega CMT, Annotati on/Adden dum; Promoted ; acuity set as *; DEPO-MS OVERA CONTRACE PTIVE STATUS - Status is Inactive ; Recorded 08/08/19 10:16AM by Emeli Vega CMT, Annotati on/Adden dum; Promoted ; acuity set as *; Not Available [facility] 3 03:15:25 Depressi ve disorder 08515837 Active 2023 EMELI [facility]pherd [facility] 4 12:14:25 Mood disorder 04990007 Active 2023 EMELI shepherd [facility] 4 12:14:36 Anxiety disorder 558617208 Active 2023 EMELI shepherd [facility] 4 12:15:13 Chronic constipa tion 479232183 Active 2023 EMELI shepherd [facility] 4 12:15:23 Psychoti c disorder 89425553 Active 2023 EMELI [facility]pherd [facility] 4 12:15:41 Schizoph nakia 46924436 Active 2023 EMELI shepherd [facility] 4 12:23:45 Lives in [facility] 523321045 Active 2023 [facility] EMELI shepherd [facility] 4 12:25:49 Obsessiv e-compul sive disorder 772976917 Active 2024 EMELI SILVIA cora [facility] 5 21:46:25 Bipolar disorder 94027681 Active 2024 EMELI [facility]pherd [facility] 21:46:57 Attentio n deficit hyperact ivity disorder 036328709 Active 2024 EMELI shepherd [facility] 21:47:18 Iron deficien cy anemia 61005944 Active 2024 EMELIJESSICA shepherd [facility] 5 21:48:23 Gastroes ophageal reflux disease without esophagi tis 533145405 Active 2024 [facility] 21:48:53 Schizoph renic disorder s 804892226 Active 2024 EMELI shepherd [facility] 21:49:07 Sarcoido sis 98816723 Active 2024 EMELI VEGA [facility] 21:50:15 Problem Notes None recorded. Procedures Surgical History Date Name Laterality Status Provider Name and Address Organization Details Recorded Time 08/05/19 screening for malignant neoplasm of cervix completed EMELI VEGA [facility] 08/10/2024 11:05:46 cholecystectomy [facility] 08/03/2024 15:22:35 Imaging Results None recorded. Procedure [...] ONE TABLET BY MOUTH DAILY - START 10/21 completed Not Available Not Available Not [...] loratadin e daily 02/04 completed DOC LB/km; 06976; Recorded 03/20/20 1:14PM by Brooke Miles LPN (Authori zed through Blanca Rivera MD), Office Visit; Refill Quantity : 0; Not Available Not Available Not Available Flonase each nare daily 02/04 completed DOC CS/smf; 29365; Recorded 07/06/19 12:21PM by Kandi Dow RN (Authori zed through Robert Collins DO), Refill Request; Refill Quantity : 3; Each; Not Available Not Available Not Available calcium two times daily 02/04 completed 27152; Recorded 03/20/20 22 1:14PM by Brooke Miles LPN (Authori zematias through EVELYN Laws), Office Visit; Refill Quantity : 0; Not Available Not Available Not Available benztropi ne three times daily 02/04 completed farhat; 47315; Recorded 03/20/20 22 1:14PM by Brooke Miles LPN (Authori zed through EVELYN Laws), Office Visit; Refill Quantity : 0; Not Available Not Available Not Available ibuprofen three times daily, as needed 02/04 completed 10340; Recorded 03/20/20 22 1:14PM by Brooke Miles LPN (Authori zed through EVELYN Laws), Office Visit; Refill Quantity : 300; Tablet; Not Available Not Available Not Available clozapine three times daily 02/[address] Jennings; 09507; Recorded 03/20/20 1:14PM by Brooke Miles LPN (Authori zed through EVELYN Laws), Office Visit; Refill Quantity : 0; Not Available Not Available Not Available risperido ne two times daily 02/04 completed 49891; Recorded 03/20/20 1:14PM by Brooke Miles LPN (Authori zed through EVELYN Laws), Office Visit; Refill Quantity : 0; Not Available Not Available Not Available Tums two times daily, as needed for heartbur n 02/04 completed 14936; Recorded 03/20/20 1:14PM by Brooke Miles LPN (Authori zed through EVELYN Laws), Office Visit; Refill Quantity : 1; Tablet; Not Available Not Available Not Available Miralax Wed and Sat 02/04 completed 01153; Recorded 03/20/20 1:14PM by Brooke Miles LPN (Authori zed through EVELYN Laws), Office Visit; Refill Quantity : 24; Each; Not Available Not Available Not Available Trazodone at bedtime 02/04 completed farhat; 97854; Recorded 03/20/20 1:14PM by Brooke Miles LPN [...] Not Available Not Available Not Available Vitals None Recorded Social History Question Answer Notes LastModified by Organizat ion Details LastModified Time Tobacco Smoking Status Never Smoker Rachel Wyatt [facility] 11/12/2023 14:05:22 What Type Of Diet Are You Following? REGULAR [email or web address] Information not available 12/07/2023 What Was The Date Of Your Most Recent Tobacco Screening? 02/28/2025 [email or web address] Information not available 02/28/2025 Sex: Unknown Functional Status Question Answer Note LastModified by Organizat ion Details LastModified Time Do you use any illicit or recreational drugs? No [email or web address] Information not available 12/07/2023 Do you or have you ever used any other forms of tobacco or nicotine? No Information not available 02/28/2025 What is your level of alcohol consumption? None Information not available 12/07/2023 Are you currently employed? Yes 2 days a week at [employer] [email or web address] Information not available 12/07/2023 Are you able to walk independently without assistance or assistive devices? YESWOREST [email or web address] Information not available 12/07/2023 Do you have difficulty doing errands alone? Yes [email or web address] Information not available 12/07/2023 Are you able to care for yourself independently? No [facility] Resident Information not available 12/07/2023 Do you or have you ever used any nicotine-free cigarettes, vape, or chewing tobacco? No [email or web address] Information not available 11/12/2023 Mental Status Question Answer Note LastModified by Organization D etails LastModified Time Do you have difficulty concentrating, remembering or making decisions? Yes [email or web address] Information no t available 12/07/2023 Family History Relationship Description Onset Age of this Age Resolved Age Notes LastModified by Organization Details LastModified Time Father No current problems or disability [email or web address] Not available 11/14 19:53:05 Mother No current problems or disability [email or web address] Not available 11/14 19:53:05 Medical History Condition Response Anxiety Disorder Y Reflux/GERD Y Mental Illness Y Depression Y Autism Spectrum Disorder (ASD) Y Developmental or Behavioral Disorders Y Defects or Inherited Disease Y Gynecological HistoryNo gynecological history recorded. Obstetrics History GPAL:G 0 P 0 0 0 0 Immunizations Vaccine Type Date Status Note Provider Nam e and Address Organization Details Recorded Time TST-PPD intradermal 0 completed Not Available [facility] 04/06/2023 13:51:54 Influenza, MDCK, quadrivalent, PF 0 completed Not Available [facility] 04/06/2023 13:51:54 Influenza, split virus, trivalent, preservative 8 completed Not Available [facility] 04/06/2023 13:51:54 Influenza, split virus, trivalent, preservative 6 completed Not Available [facility] 04/06/2023 13:51:54 Influenza, MDCK, quadrivalent, PF 3 completed MUMTAZ BRANTLEY, [facility] [address] [place], [address], [facility] 08/08/2024 10:44:40 Hib, unspecified formulation 2 completed MUMTAZ BRANTLEY [facility] [address] [place], [address], [facility] 12/01/2022 12:56:59 Hib, unspecified formulation 1 completed MUMTAZ BRANTLEY [facility] [address] [place], [address], [facility] 12/01/2022 12:56:59 Hib, unspecified formulation 1 completed MUMTAZ KARON, [address], , [facility] 12/01/2022 12:56:59 IPV 1 completed MUMTAZDayton HESTERKARON, [address], , [facility] 12/01/2022 12:56:59 IPV 6 completed MUMTAZ HESTERTES, [address], , [facility] 12/01/2022 12:56:59 IPV 1 completed MUMTAZ BRANTLEY, [address], , [facility] 12/01/2022 12:56:59 MMR 7 completed MUMTAZ BRANTLEY, [address], , [facility] 12/01/2022 12:56:59 MMR 6 completed MUMTAZ BRANTLEY, [address], , [facility] 12/01/2022 12:56:59 influenza, unspecified formulation 8 completed MUMTAZ BRANTLEY, [address], , [facility] 12/01/2022 12:56:59 influenza, unspecified formulation 5 completed MUMTAZ BRANTLEY, [address], , [facility] 12/01/2022 12:56:59 influenza, unspecified formulation 9 completed MUMTAZ BRANTLEY, [address], [address], [facility] 12/01/2022 12:56:59 influenza, unspecified formulation 9 completed MUMTAZ BRANTLEY, [address], [address], [facility] 12/01/2022 12:56:59 Tdap 5 completed MUMTAZ BRANTLEY, [address], [address], [facility] 12/01/2022 12:56:59 Influenza, split virus, trivalent, 6 completed MUMTAZ BRANTLEY, [address], [address], [facility] 12/01/2022 12:56:59 Td (adult), 2 Lf tetanus toxoid, preservative free, adsorbed 8 completed MUMTAZ BRANTLEY, [address], [address], [facility] 12/01/2022 12:56:59 Hep B, adolescent or pediatric 7 completed MUMTAZ BRANTLEY, [address], [address], [facility] 12/01/2022 12:56:59 Hep B, adolescent or pediatric 7 completed MUMTAZ BRATNLEY, [address], [address], [facility] 12/01/2022 12:56:59 Hep B, adolescent or pediatric 7 completed MUMTAZ BRANTLEY, [facility] [address] [place], [address], [facility] 12/01/2022 12:56:59 DTaP 2 completed MUMTAZ BRANTLEY, [facility] [address] [place], [address], [facility] 12/01/2022 12:56:59 DTaP 3 completed MUMTAZ BRANTLEY, [facility] [address] [place] [address], [address], [facility] 12/01/2022 12:56:59 DTaP 1 completed MUMTAZ BRANTLEY, [facility] [address] [place] [address], [address], [facility] 12/01/2022 12:56:59 DTaP 6 completed MUMTAZ BRANTLEY, [facility] [address] [place] [address], [address], [facility] 12/01/2022 12:56:59 DTaP 1 completed MUMTAZ BRANTLEY, [facility] [address] [place] [address], [address], [facility] 12/01/2022 12:56:59 Influenza, split virus, quadrivalent, PF 1 completed MUMTAZ BRANTLEY, [facility] [address] [place] [address], [address], [facility] 12/01/2022 12:56:59 Influenza, MDCK, trivalent, PF 5 completed MUMTAZ BRANTLEY, [facility] [address] [place], [address], [place] [facility] 12/01/2022 12:56:59 Influenza, split virus, trivalent, preservative 4 completed Not Available [facility] 03/21/2025 13:02:05 Tdap 4 completed Not Available [facility] 03/21/2025 13:02:05 Past Encounters Encounter ID Performer Location Encounter Start Date Encounter Closed Date Diagnosis/Indication Diagnosis SNOMED-CT Code Diagnosis ICD10 Code Diagnosis IMO Codes Diagnosis Note [id number] M[facility]TAZ [facility] ([facility]) [address] [place] [phone] 12/29/2024 11:33:03 01/01/2025 10:00:46 Schizophrenic disorders [id number] F20.[address] Jennings. [id number] MUMTAZ BRANTLEY [facility]) [address] [place] [address] 01/26/2025 11:35:35 01/29/2025 09:22:40 Schizophrenic disorders [id number] F20.[address] Jennings. Health Concerns Section Related Observation LastModified by Organization Detai ls LastModified Time None Recorded Concern Status LastModified by Organization Details LastModified Time None Recorded Payers Encounter Date Sequence Insurance Name Policy Number Policy Blair Covered Member ID Blair Member ID Guarantor Name 01/26/2025 1 [place] Iza Ordonez [id number] [facility] Episode No OBEpisode recorded.
--- OUTSIDE RECORDS SUMMARY | 2025-04-23 21:55 | XMS_ITS | Encounter Summary ---
Author Organization [facility] Address [address] [place] [address] Care Team Providers Care Infectious Disease Technician Name Role Phone Unavailable Primary Care Provider Unavailabl e Encounter Details Date Type Department Care Team (Latest Contact Info) Description 09/21/2004 Inpatient Historical HIS PATIENT IN A BED Genie Don MD NO ADDRESS ON FILE BIPOLAR - MOST RECENTLY MIXED NOS (CMS/HCC) (Primary Dx) Social History Tobacco Use Types Packs/Day Years Used Date Smoking Tobacco: Never Assessed Comments Unknown Sex and Gender Information Value Date Recorded Sex Assigned at Not on file Legal Sex Female 4:37 AM [employer] Gender Identity Not on file Sexual Orientation Not on file documented as of this encounter Plan of Treatment Not on file documented as of this encounter Procedures Procedure Name Priority Date/Time Associated Diagnosis Comments LITHIUM LEVEL Routine 09/24/2004 5:00 AM CDT TSH Routine 09/23/2004 5:00 AM CDT T4 FREE Routine 09/23/2004 5:00 AM CDT URINALYSIS W/REFLEX MICROSCOPIC Routine 09/22/2004 6:39 PM CDT HCG QUALITATIVE, URINE Routine 5 6:39 PM CDT TSH REFLEXIVE Routine 09/22/2004 6:51 AM CDT CBC WITH DIFFERENTIAL Routine 09/22/2004 6:51 AM CDT CBC WITH DIFFERENTIAL Routine 09/22/2004 6:51 AM CDT T4 FREE Routine 09/22/2004 6:51 AM CDT LITHIUM LEVEL Routine 09/22/2004 6:51 AM CDT CARBAMAZEPINE LEVEL Routine 09/22/2004 6 :51 AM CDT COMPREHENSIVE METABOLIC PANEL Routine 09/22/2004 6:51 AM CDT documented in this encounter Results * LITHIUM LEVEL (09/24/2004 5:00 AM CDT) LITHIUM 0.7 0.6 - 1.2 mmol/L INTERFACE SYSTEM 09/24/2004 5:00 AM CDT Genie Don MD CHEMISTRY ORDERABLES Final Resul t Performing Organization Address City/[facility] de Phone Number INTERFACE SYSTEM Refer to clinic/hospital department * TSH (09/23/2004 5:00 AM CDT) TSH 3.18 0.27 - 4.20 uU/mL INTERFACE SYSTEM 09/23/2004 5:00 AM CDT us Abelardo Alva MD CHEMISTRY ORDERABLES Final Result Performing Organization Address City/[facility] Co de Phone Number INTERFACE SYSTEM Refer to clinic/hospital department * (ABNORMAL) T4 FREE (09/23/2004 5:00 AM CDT) T4 FREE 0.8(L) 0.9 - 1.7 ng/dL INTERFACE SYSTEM 09/23/2004 5:00 AM CDT us Abelardo Alva MD CHEMISTRY ORDERABLES Final Result Performing Organization Address City/[facility] Co de Phone Number INTERFACE SYSTEM Refer to clinic/hospital department * HCG QUALITATIVE, URINE (09/22/2004 6:39 PM CDT) HCG QUAL URINE Negative Negative INTER FACE SYSTEM SPECIFIC GRAVITY UA 1.010 1.001 - 1.035 INTERFACE SYSTEM 09/22/2004 6:39 PM CDT us Genie Don MD URINE ORDERABLES Final Result Performing Organization Address [facility] Phone Number INTERFACE SYSTEM Refer to clinic/hospital department * (ABNORMAL) URINALYSIS (09/22/2004 6:39 PM CDT) COLOR UA Yellow INTERFACE SYSTEM CLARITY UA Clear Clear INTERFACE SYSTEM SPECIFIC GRAVITY UA 1.010 1.001 - 1.035 INTERFACE SYSTEM PH UA 7.0 5.0 - 8.0 INTERFACE SYSTEM LEUKOCYTE ESTERASE UA Negative Negative INTERFACE SYSTEM NITRITE UA Negative Negative INTERFACE SYSTEM PROTEIN UA Negative Negative INTERFACE SYSTEM GLUCOSE UA Negative Negative INTERFACE SYSTEM KETONES UA Negative Negative INTERFACE SYSTEM UROBILINOGEN UA <1 <1 EU INTE RFACE SYSTEM BILIRUBIN UA Negative Negative INTERFA CE SYSTEM BLOOD UA 2+(A) Negative INTERFACE SYSTEM WBC UA <1 0 - 5 /HPF INTERFACE SYSTEM RBC UA <1 0 - 4 /HPF INTERFACE SYSTEM Comment:Verified by repeat a nalysis. EPITHELIAL CELLS, URINE 0-2 /HPF INTERFACE SYSTEM 09/22/2004 6:39 PM CDT us Genie Don MD URINE ORDERABLES Final Result Performing Organization Address [facility] Phone Number INTERFACE SYSTEM Refer to clinic/hospital department * (ABNORMAL) T4 FREE (09/22/2004 6:51 AM CDT) T4 FREE 0.8(L) 0.9 - 1.7 ng/dL INTERFACE SYSTEM 09/22/2004 6:51 AM CDT us Genie Don MD CHEMISTRY ORDERABLES Final Resul t Performing Organization Address [facility] Phone Number INTERFACE SYSTEM Refer to clinic/hospital department * CBC WITH DIFFERENTIAL (09/22/2004 6:51 AM CDT) NEUTROPHILS 58 36 - 74 % INTERFAC E SYSTEM LYMPHOCYTES 30 18 - 53 % INTERFAC E SYSTEM MONOCYTES 8 2 - 13 % INTERFACE SYSTEM EOSINOPHILS 4 2 - 12 % INTERFAC E SYSTEM BASOPHILS 1 0 - 3 % INTERFACE SYSTEM NEUTROPHIL ABSOLUTE 3.34 K/uL INTERFACE SYSTEM LYMPHOCYTE ABSOLUTE 1.71 K/uL INTERFACE SYSTEM MONOCYTE ABSOLUTE 0.43 K/uL INTERFACE SYSTEM EOSINOPHIL ABSOLUTE 0.23 K/uL INTERFACE SYSTEM BASOPHILS ABSOLUTE 0.05 K/uL INTERFACE SYSTEM 09/22/2004 6:51 AM CDT Genie Don MD HEMATOLOGY ORDERABLES Final Resu lt Performing Organization Address City/[facility] de Phone Number INTERFACE SYSTEM Refer to clinic/hospital department * (ABNORMAL) CBC WITH DIFFERENTIAL (09/22/2004 6:51 AM CDT) WBC 5.8 4.0 - 9.8 K/uL INTERFACE SYSTEM RBC 4.42 3.90 - 4.90 M/uL INTERFACE SYSTEM HEMOGLOBIN 12.4 11.8 - 14.8 g/dL INTERFACE SYSTEM HEMATOCRIT 38.8 35.5 - 44.0 % INTERFACE SYSTEM MCV 87.8 82.0 - 99.0 fL INTERFACE SYSTEM MCH 28.1 27.2 - 32.6 pg INTERFACE SYSTEM MCHC 32.0 31.5 - 35.5 % INTERFACE SYSTEM RDW 13.5 11.5 - 14.5 % INTERFACE SYSTEM RDW-STDEV 43.5 37.1 - 48.7 fL INTERFACE SYSTEM PLATELETS 256 140 - 350 K/uL INTERFACE SYSTEM MPV 8.9(L) 9.3 - 12.4 fL INTERFACE SYSTEM 09/22/2004 6:51 AM CDT Genie Don MD HEMATOLOGY ORDERABLES Final Resu lt Performing Organization Address City/State/[facility] Co de Phone Number INTERFACE SYSTEM Refer to clinic/hospital department * CARBAMAZEPINE LEVEL (09/22/2004 6:51 AM CDT) CARBAMAZEPINE LEVEL 7.3 4.0 - 12.0 ug/mL INTERFACE SYSTEM Comment:Carbamazepine Toxic Level => 20 ug/mL 09/22/2004 6:51 AM CDT us Genie Don MD CHEMISTRY ORDERABLES Final Resul t Performing Organization Address [facility] Phone Number INTERFACE SYSTEM Refer to clinic/hospital department * (ABNORMAL) LITHIUM LEVEL (09/22/2004 6:51 AM CDT) LITHIUM 1.4(H) 0.6 - 1.2 mmol/L INTERFACE SYSTEM 09/22/2004 6:51 AM CDT Genie Don MD CHEMISTRY ORDERABLES Final Resul t Performing Organization Address [facility] Phone Number INTERFACE SYSTEM Refer to clinic/hospital department * (ABNORMAL) TSH REFLEXIVE (09/22/2004 6:51 AM CDT) TSH 4.44(H) 0.27 - 4.20 uU/mL INTERFACE SYSTEM 09/22/2004 6:51 AM CDT Genie Don MD CHEMISTRY ORDERABLES Final Resul t Performing Organization Address [facility] Phone Number INTERFACE SYSTEM Refer to clinic/hospital department * COMPREHENSIVE METABOLIC PANEL (09/22/2004 6:51 AM CDT) GLUCOSE 89 60 - 110 mg/dL INTERFACE SYSTEM CREATININE 0.7 0.4 - 1.2 mg/dL INTERFACE SYSTEM CALCIUM 10.0 8.4 - 10.2 mg/dL INTERFACE SYSTEM AST 20 12 - 32 U/L INTERFACE SYSTEM ALKALINE PHOSPHATASE 150 35 - 187 U/L INTERFACE SYSTEM BUN 13 6 - 20 mg/dL INTERFACE SYSTEM BILIRUBIN TOTAL 0.8 0.2 - 1.0 mg/dL INTERFACE SYSTEM ALBUMIN 4.9 3.8 - 5.4 g/dL INTERFACE SYSTEM TOTAL PROTEIN 7.9 6.3 - 8.6 g/dL INTERFACE SYSTEM ALT 19 0 - 31 U/L INTERFACE SYSTEM SODIUM 141 135 - 145 mmol/L INTERFACE SYSTEM POTASSIUM 3.9 3.5 - 4.9 mmol/L INTERFACE SYSTEM CHLORIDE 105 96 - 108 mmol/L INTERFACE SYSTEM CO2 24 22 - 30 mmol/L INTERFACE SYSTEM 09/22/2004 6:51 AM CDT us Genie Don MD CHEMISTRY ORDERABLES Final Resul t INTERFACE SYSTEM Refer to clinic/hospital department documented in this encounter Visit Diagnoses Diagnosis Bipolar I disorder, most recent episode (or current) mixed, unspecified (CMS/[facility])- Primary Bipolar I disorder, most recent episode (or current) mixed, unspecified documented in this encounter
--- OUTSIDE RECORDS SUMMARY | 2025-04-23 21:55 | XMS_ITS | Continuity of Care Document ---
Author Organization BRYANT - Maryuri Nunez, [facility] ([facility]) Address [address] [place] [address] Care Team Providers Care Picker Tender Helper Name Role Phone ALLY BRANTLEY Primary Care Provider Unavailabl e Assessment No assessment recorded. Plan of Treatment Reminders Order Date Submit Date Provider Last Modified By Organization Details Last Modified Time Details Appointments None recorded. Lab respiratory pathogens DNA and RNA panel, PCR, nasopharynx 2024 [facility] ([facility]), [address] [place], [address], 16:19:47 Referral None recorded. Procedures None recorded. Surgeries None recorded. Imaging None recorded. Medication Orders ondansetron 4 mg disintegrat ing tablet 2024 [facility], [address], [place], [address], 17:38:09 Patient TargetsNo targets recorded. Patient InstructionsNo instructions recorded. Reason for Referral None Reported. Results Created Date Observation Date Name Description Value Unit Range Abnormal Flag Note LastModifiedBy Organization Detail LastModifiedTime 02/29/2002/28/2025 respi rator y patho gens DNA and RNA panel , PCR, nasop haryn x Covid negati ve Not Available [facility] ([facility]) [address] [place], [address], 02/28/2025 15:48:13 02/29/2002/28/2025 respi rator y patho gens DNA and RNA panel , PCR, nasop haryn x Rhinovirus negati ve Not Available [facility] ([facility]) [address] [place], [address], 02/28/2025 15:48:13 02/29/2002/28/2025 respi rator y patho gens DNA and RNA panel , PCR, nasop haryn x Influenza A negati ve Not Available [facility] ([facility]) [address] [place] [address], [phone], 02/28/2025 15:48:13 02/29/2002/28/2025 respi rator y patho gens DNA and RNA panel , PCR, nasop haryn x Influenza B negati ve Not Available [facility] ([facility]) [address] [place] [address], [phone], 02/28/2025 15:48:13 02/29/2002/28/2025 respi rator y patho gens DNA and RNA panel , PCR, nasop haryn x RSV negati ve Not Available [facility] ([facility]) [address] [place] [address], [phone], 02/28/2025 15:48:13 Result Notes None recorded. Problems Name Problem SNOMED Code Status Onset Date Resolution Date Notes Provider Name and Address Organization Details Recorded Time Allergic rhinitis 87886675 Completed 201908/08/2019 ALLERGIC SINUSITI S - Status is Inactive ; Recorded 08/08/19 10:16AM by Emeli Vega CMT, Mayela on/Adden dum; Promoted ; acuity set as *; Not Available [facility] 3 03:15:22 Family planning surveill ance Completed 201908/08/2019 DEPO-PRO VERA CONTRACE PTION, ENCOUNTE R FOR INJECTIO N - Status is Inactive ; Recorded 08/08/19 10:16AM by Emeli Vega CMT, Mayela on/Adden dum; Promoted ; acuity set as *; DEPO-NH OVERA CONTRACE PTIVE STATUS - Status is Inactive ; Recorded 08/08/19 20 10:16AM by Emeli Vega CMT, Mayela on/Vivien murphy; Promoted ; acuity set as *; Not Available [facility] 3 03:15:25 Depressi ve disorder 42892651 [facility] 12:14:25 Mood disorder 58319917 Active 2023 EMELI shepherd, [facility] 4 12:14:36 Anxiety disorder 375654415 [facility] 20[facility] 12:15:13 Chronic constipa tion 035057370 Active 2023 [facility] 12:15:23 Psychoti c disorder 62846149 Active 2023 [facility] 12:15:41 Schizoph nakia 73185524 Active 2023 [facility] 12:23:45 Lives in [facility] mcfp 685047148 Active 2023 [facility] EMELI shepherd, [facility] 4 12:25:49 Obsessiv e-compul sive disorder 151275765 Active 2024 EMELI shepherd, [facility] 5 21:46:25 Bipolar disorder 76419395 Active 2024 EMELI shepherd, [facility] 5 21:46:57 Attentio n deficit hyperact ivity disorder 694827329 Active 2024 EMELI shepherd, [facility] 21:47:18 Iron deficien cy anemia 41631003 Active 2024 EMELI shepherd [facility] 21:48:23 Gastroes ophageal reflux disease without esophagi tis 317989644 Active 2024 EMELI shepherd [facility] 21:48:53 Schizoph renic disorder s 993577228 Active 2024 EMELI shepherd [facility] 21:49:07 Sarcoido sis 72650009 Active 2024 [facility] 21:50:15 Problem Notes None recorded. Procedures Surgical History Date Name Laterality Status Provider Name and Address Organization Details Recorded Time 08/05/19 25 screening for malignant neoplasm of cervix completed EMELI VEGA [facility] 08/10/2024 11:05:46 cholecystectomy completed EMELIJESSICA VEGA [facility] 08/03/2024 15:22:35 Imaging Results None recorded. Procedure [...] loratadin e daily 02/04 completed DOC LB/km; 70686; Recorded 03/20/20 1:14PM by Brooke Miles LPN (Authori justin through Blanca Rivera MD), Office Visit; Refill Quantity : 0; Not Available Not Available Not Available Flonase each nare daily 02/04 completed DOC CS/smf; 88969; Recorded 07/06/19 12:21PM by Kandi Dow RN (Authori zed through Robert Collins DO), Refill Request; Refill Quantity : 3; Each; Not Available Not Available Not Available calcium two times daily 02/04 completed 37901; Recorded 03/20/20 1:14PM by Brooke Miles LPN (Authori zed through EVELYN Laws), Office Visit; Refill Quantity : 0; Not Available Not Available Not Available benztropi ne three times daily 02/04 completed farhat; 70265; Recorded 03/20/20 1:14PM by Brooke Miles LPN (Authori zed through EVELYN Laws), Office Visit; Refill Quantity : 0; Not Available Not Available Not Available ibuprofen three times daily, as needed 02/04 completed 10291; Recorded 03/20/20 1:14PM by Brooke Miles LPN (Authori zed through EVELYN Laws), Office Visit; Refill Quantity : 300; Tablet; Not Available Not Available Not Available clozapine three times daily 02/[address] Jennings; 60649; Recorded 03/20/20 1:14PM by Brooke Miles LPN (Authori zed through EVELYN Laws), Office Visit; Refill Quantity : 0; Not Available Not Available Not Available risperido ne two times daily 02/04 completed 18176; Recorded 03/20/20 1:14PM by Brooke Miles LPN (Authori zed through EVELYN Laws), Office Visit; Refill Quantity : 0; Not Available Not Available Not Available Tums two times daily, as needed for heartbur n 02/04 completed 37599; Recorded 03/20/20 1:14PM by Brooke Miles LPN (Authori dicksond through EVELYN Laws), Office Visit; Refill Quantity : 1; Tablet; Not Available Not Available Not Available Miralax Wed and Sat 02/04 completed 93362; Recorded 03/20/20 1:14PM by Brooke Miles LPN (Authori zed through EVELYN Laws), Office Visit; Refill Quantity : 24; Each; Not Available Not Available Not Available Trazodone at bedtime 02/04 completed farhat; 17719; Recorded 03/20/20 1:14PM by Brooke Miles LPN [...] height Body mass index (BMI) Body weight Respiratory rate Oxygen saturation Heart rate Body temperature Systolic And Diastolic Provider Name and Address Organization Details Last Updated DateTime 157.48 cm 28.1 kg/m2 38889.7 3 g 20 /min 95 % 95 /min 98.6 [degF] 110/70 mm[Hg] NURY MINER [facility] 15:28:14 Social History Question Answer Notes LastModified by Organizat ion Details LastModified Time Tobacco Smoking Status Never Smoker Rachel Wyatt cora, [facility] 11/12/2023 14:05:22 What Type Of Diet Are You Following? REGULAR Information not available 12/07/2023 What Was The Date Of Your Most Recent Tobacco Screening? 02/28/2025 [email or web address] Information not available 02/28/2025 Sex: Unknown Functional Status Question Answer Note LastModified by Organizat ion Details LastModified Time Do you use any illicit or recreational drugs? No [email or web address] Information not available 12/07/2023 Do you or have you ever used any other forms of tobacco or nicotine? No [email or web address] Information not available 02/28/2025 What is your level of alcohol consumption? None [email or web address] Information not available 12/07/2023 Are you currently employed? Yes 2 days a week at [employer] [email or web address] Information not available 12/07/2023 Are you able to walk independently without assistance or assistive devices? [email or web address] Information not available 12/07/2023 Do you have difficulty doing errands alone? Yes Information not available 12/07/2023 Are you able to care for yourself independently? No [facility] Resident [email or web address] Information not available 12/07/2023 Do you or have you ever used any nicotine-free cigarettes, vape, or chewing tobacco? No [email or web address] Information not available 11/12/2023 Mental Status Question Answer Note LastModified by Organization D etails LastModified Time Do you have difficulty concentrating, remembering or making decisions? Yes [email or web address] Information no t available 12/07/2023 Family History Relationship Description Onset Age of this Age Resolved Age Notes LastModified by Organization Details LastModified Time Father No current problems or disability Not available 11/14 19:53:05 Mother No current problems or disability [email or web address] Not available 11/14 19:53:05 Medical History Condition [...] Time TST-PPD intradermal 0 completed Not Available [facility] 04/06/2023 13:51:54 Influenza, MDCK, quadrivalent, PF 0 completed Not Available [facility] 04/06/2023 13:51:54 Influenza, split virus, trivalent, preservative 8 completed Not Available [facility] 04/06/2023 13:51:54 Influenza, split virus, trivalent, preservative 6 completed Not Available [facility] 04/06/2023 13:51:54 Influenza, MDCK, quadrivalent, PF 3 completed ALLY BRANTLEY, [facility] [address] [place], [address], [facility] 08/08/2024 10:44:40 Hib, unspecified formulation 2 completed ALLY BRANTLEY, [facility] [address] [place] [address], [phone], [facility] 12/01/2022 12:56:59 Hib, unspecified formulation 1 bhupendra BRANTLEY, [facility] [address] [place], [address], [facility] 12/01/2022 12:56:59 Hib, unspecified formulation 1 bhupendra BRANTLEY, [facility] [address] [place], [address], [facility] 12/01/2022 12:56:59 IPV 1 completed ALLY BRANTLEY, [facility] [address] [place], [address], [facility] 12/01/2022 12:56:59 IPV 6 completed ALLY BRANTLEY, [facility] [address] [place], [address], [facility] 12/01/2022 12:56:59 IPV 1 completed ALLY BRANTLEY, [facility] [address] [place], [address], [facility] 12/01/2022 12:56:59 MMR 7 completed ALLY BRANTLEY, [facility] [address] [place] [address], [address], [facility] 12/01/2022 12:56:59 MMR 6 completed ALLY BRANTLEY, [facility] [address] [place] [address], [phone], [facility] 12/01/2022 12:56:59 influenza, unspecified formulation 8 completed ALLY BRANTLEY, [facility] [address] [place] [address], [address], [facility] 12/01/2022 12:56:59 influenza, unspecified formulation 5 completed ALLY BRANTLEY, [facility] [address] [place] [address], [address], [facility] 12/01/2022 12:56:59 influenza, unspecified formulation 9 completed ALLY BRANTLEY, [facility] [address] [place] [address], [address], [facility] 12/01/2022 12:56:59 influenza, unspecified formulation 9 completed ALLY BRANTLEY, [facility] [address] [place] [address], [address], [facility] 12/01/2022 12:56:59 Tdap 5 completed ALLY BRANTLEY, [address], [address], [facility] 12/01/2022 12:56:59 Influenza, split virus, trivalent, 6 completed ALLY BRANTLEY, [address], [address], [facility] 12/01/2022 12:56:59 Td (adult), 2 Lf tetanus toxoid, preservative free, adsorbed 8 completed ALLY BRANTLEY, [address], [address], [facility] 12/01/2022 12:56:59 Hep B, adolescent or pediatric 7 completed ALLY BRANTLEY, [address], [address], [facility] 12/01/2022 12:56:59 Hep B, adolescent or pediatric 7 completed ALLY BRANTLEY, [address], [address], [facility] 12/01/2022 12:56:59 Hep B, adolescent or pediatric 7 bhupendra BRANTLEY, [address], [address], [facility] 12/01/2022 12:56:59 DTaP 2 completed ALLY BRANTLEY, [address], [address], [facility] 12/01/2022 12:56:59 DTaP 3 completed ALLY BRANTLEY, [facility] [address] [place], [address], [facility] 12/01/2022 12:56:59 DTaP 1 completed ALLY BRANTLEY, [facility] [address] [place] [address], [address], [facility] 12/01/2022 12:56:59 DTaP 6 completed ALLY BRANTLEY, [address], [address], [facility] 12/01/2022 12:56:59 DTaP 1 completed ALLY BRANTLEY, [facility] [address] [place] [address], [address], [facility] 12/01/2022 12:56:59 Influenza, split virus, quadrivalent, PF 1 completed ALLY BRANTLEY, [facility] [address] [place] [address], [address], [facility] 12/01/2022 12:56:59 Influenza, MDCK, trivalent, PF 5 completed ALLY BRANTLEY, [address], [address], [facility] 12/01/2022 12:56:59 Influenza, split virus, trivalent, preservative 4 completed Not Available [facility] 03/21/2025 13:02:05 Tdap 4 completed Not Available [facility] 03/21/2025 13:02:05 Past Encounters Encounter ID Performer Location Encounter Start Date Encounter Closed Date Diagnosis/Indication Diagnosis SNOMED-CT Code Diagnosis ICD10 Code Diagnosis IMO Codes Diagnosis Note [id number] EVELYN HYDE [facility] ([facility]) [address] [place] [address] 02/28/2025 15:21:47 02/28/2025 16:34:42 Acute cough [id number] 31949425 R05.0 4298807789 Nausea 616611935 R11.0 91971 Increase po fluids as tolerated. Use Zofran as prescribed . RTC with any new or worsening symptoms. Health Concerns Section Related Observation LastModified by Organization Detai ls LastModified Time None Recorded Concern Status LastModified by Organization Details LastModified Time None Recorded Payers Encounter Date Sequence Insurance Name Policy Number Policy Blair Covered Member ID Blair Member ID Guarantor Name 02/28/2025 1 [place] Iza Dengne [id number] [facility] Notes Date Note Type Note Provider Name and Address Organization Details Recorded Time 02/28/2025 text/html ROS as noted in the HPI walk-in; PCP Ally Noemi Patient c/o that her whole body hurts, but especially in her chest. She states that it is hard to take a deep breath at times a nd that it when her chest hurts. She has been vomiting. She's having trouble sleeping. Symptoms started about Wednesday last week but has been getting worse. Patient has been around an ill contact with similar symptoms. Asking about getting something to eat at time of exam. No distress at time of exam. EVELYN HYDE [address] [place], [address], BRYANT Vini [place] [facility], Maryuri 02/28/2025 16:24:53 OBGyn Episode No OBEpisode recorded.
--- OUTSIDE RECORDS SUMMARY | 2025-04-23 21:55 | XMS_ITS | Clinical Summary ---
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 Active Acetaminophen-C aff-Pyrilamine 500-60-15 mg Tablet Take 1 Tablet by mouth. 4 Active benztropine (COGENTIN) 1 mg tablet Take 1 mg by mouth 3 times daily. 5 Active busPIRone (BUSPAR) 10 mg tablet Take 10 mg by mouth 3 times daily. 5 Active cetirizine (ZyrTEC) 10 mg tablet Take 10 mg by mouth daily. 5 Active cloZAPine (CLOZARIL) 25 mg tablet Take 25 mg by mouth 3 times daily. Active docusate sodium (COLACE) 100 mg capsule Take 100 mg by mouth daily. 5 Active ferrous gluconate 324 mg (38 mg iron) tablet Take 324 mg by mouth 2 times daily. Active fluticasone propionate (FLONASE) 50 mcg/spray [place], Suspension nasal inhaler Administer 1 [place] in each nostril daily. 5 Active guaiFENesin (ROBITUSSIN) 100 mg/5 mL solution Take 10 mL by mouth every 4 hours as needed. 4 Active hydrOXYzine pamoate (VISTARIL) 25 mg capsule Take 25 mg by mouth 3 times daily. 5 Active lithium carbonate (ESKALITH IR) 300 mg Capsule Take 300 mg by mouth 2 times daily with meals. 5 Active loratadine (CLARITIN) 10 mg tablet Take 10 mg by mouth daily. Active naproxen (NAPROSYN) 500 mg tablet Take 500 mg by mouth 2 times daily with meals. 5 Active pantoprazole (PROTONIX) 40 mg Tablet, Delayed Release (E.C.) Take 40 mg by mouth daily. Active polyethylene glycol (MIRALAX) 17 gram Powder in Packet Take 17 Grams by mouth daily. 5 Active propranoloL (INDERAL) 20 mg tablet Take 20 mg by mouth 2 times daily. 5 Active risperiDONE (RisperDAL) 3 mg tablet Take 3 mg by mouth 2 times daily. 5 Active temazepam (RESTORIL) 30 mg capsule Take 30 mg by mouth daily at bedtime. 4 Active Active Problems No known active problems Encounters Date Type Department Care Team Description 04/17/2025 External Device Data [facility] ABSTRACTION Provider, Abstract 01/31/2025 External Device Data [facility]STRACTION Provider, Abstract from Last 3 Months Immunizations Immunization Administration Dates Next Due (M-M-R II/PRIORIX)(12 MO UP) MEASLES, MUMPS AND RUBELLA VIRUS VACCINE, 0.5 ML IM/SUBCUT 12/28/1996 Influenza Vaccine Tri Split 4+ Im 04/23/2009 Social History Tobacco Use Types Packs/Day Years Used Date Smoking Tobacco: Never Smokeless Tobacco: Never Tobacco Cessation:Counseling Given: Not Answered Comments Unknown Sex and Gender Information Value Date Recorded Sex Assigned at Not on file 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 Gender Identity Not on file Sexual Orientation Not on file Last Filed Vital Signs Vital Sign Reading Time Taken Comments Blood Pressure 132/68 12/05/2024 3:37 PM CDT Pulse 92 12/05/2024 3:37 PM CDT Temperature - - Respiratory Rate - - Oxygen Saturation 94% 12/05/2024 3:37 PM CDT Inhaled Oxygen Concentration - - Weight 66.2 kg (146 lb) 12/05/2024 3:37 PM CDT Height 154.9 cm (5' 1 ) 12/05/2024 3:37 PM CDT Body Mass Index 27.59 12/05/2024 3:37 PM CDT Plan of Treatment Health Maintenance Due Date Last Done Comments HPV/Cotest (21-29) 11/30/2011 CERVICAL CANCER SCREENING 2020 HPV/Cotest (30-65) 2020 PAP SMEAR 2020 INFLUENZA VACCINE (#1) 2024 , 04/23/2023, 02/13/2021, Additional history exists DTAP/TDAP/TD VACCINES (8 - T d or Tdap) 04/26/2034 04/26/2024, 06/14/2014, 12/25/2007, Additional history exists HEPATITIS B VACCINES Completed 12/28/1996, 07/21/1996, 06/19/1996 HPV VACCINES (No Doses Required) Completed Insurance [place]
--- OUTSIDE RECORDS SUMMARY | 2025-04-23 21:55 | XMS_ITS | Data Portability ---
Author Organization [facility] Maryuri Bagley [facility] Address [address] [facility] [address] [place] [address] Care Team Providers Care Heel Seat Filler Name Role Phone ALLY BRANTLEY Primary Care Provider Unavailabl e Assessment Encounter Date Assessment Date Assessment LastModified by Organization Details LastModified Time 03/15/2025 03/15/2025 Patient here for a check-up today. Overall she has been doing good. She is now . She is planning on dressing up for Halloween. Not available 03/15/2025 11:47:44 03/21/2025 03/21/2025 Patient here today for a check on her left eye and she needs a copy of the TB test that was done at last visit. Not available 03/21/2025 13:49:51 Plan of Treatment Reminders Order Date Submit Date Provider Last Modified By Organization Details Last Modified Time Details Appointments None recorded. Lab CMP, serum or plasma 2024 [facility], [address], [place], [address], 13:37:40 lipid panel, blood 2024 025 [facility], [address], [place], [address], 13:37:46 CBC 2024 025 [facility], [address], [place], [address], 12:15:10 thyrotropin , QN, serum or plasma 2024 [facility], [address] [facility], [place], [address], 13:31:58 unlisted lab - quantiferon (R)-TB gold plus, 1 tube 2024 [facility] [employer] [facility], [address] [address], [address] [place], [address], 13:26:00 respiratory pathogens DNA and RNA panel, PCR, nasopharynx 2024 [facility] [address] [place], [address], 16:19:47 CBC 2024 [facility], [address] [facility], [place], [address], 13:18:13 CBC 2024 [facility], [address] [facility], [address], [place], [address], 13:04:35 Referral None recorded. Procedures None recorded. Surgeries None recorded. Imaging None recorded. Medication Orders erythromyci n 5 mg/gram (0.5 %) eye ointment 2024 [facility], [address], [place], [address], 16:46:51 ondansetron 4 mg disintegrat ing tablet 2024 [facility], [address], [place], [address], 17:38:09 Patient TargetsNo targets recorded. Patient Instructions Encounter Date Encounter Id Patient Instructions Last Modified By Organization Details Last Modified Time 03/15/2025 [id number] Call or return for questions or concerns. Not available 03/15/2025 11:49:43 03/21/2025 [id number] Call or return for questions or concerns. Not available 03/21/2025 13:49:01 Reason for Referral None Reported. Results Created Date Observation Date Name Description Value Unit Range Abnormal Flag Note LastModifiedBy Organization Detail LastModifiedTime 12/01/1911/30/2024 CBC WBC 5.8 x10 4.0-10 .5 Not Available [facility] [place] [facility] [address], [place], [address], 11/30/2024 11:04:40 12/01/19 25 11/30/2024 CBC RBC 4.81 x10 3.50-5 .50 Not Available [facility] [address], [place], [address], 11/30/2024 11:04:40 12/01/19 25 11/30/2024 CBC HGB 13.2 g/dL 12.0-1 6.0 Not Available [facility] [address], [place], [address], 11/30/2024 11:04:40 12/01/19 25 11/30/2024 CBC HCT 40.4 % 37.0-4 7.0 Not Available [facility] [address], [place], [address], 11/30/2024 11:04:40 12/01/19 25 11/30/2024 CBC MCV 83.9 fL 80.0-9 9.9 Not Available [facility] [address], [place], [address], 11/30/2024 11:04:40 12/01/19 25 11/30/2024 CBC MCH 27.4 pg 27.0-3 2.0 Not Available [facility] [address] [facility], [place], [address], 11/30/2024 11:04:40 12/01/19 25 11/30/2024 CBC MCHC 32.6 g/dL 32.0-3 6.0 Not Available [facility] [address] [facility] [address], [place], [address], 11/30/2024 11:04:40 12/01/19 25 11/30/2024 CBC RDW 14.1 % 11.5-1 4.5 Not Available [facility] [address] [facility] [address], [place], [address], 11/30/2024 11:04:40 12/01/19 25 11/30/2024 CBC plt 172.6 x10 140.0- 451.0 Not Available [facility] [address], [place], [address], 11/30/2024 11:04:40 12/01/19 25 11/30/2024 CBC lymphocytes % 16.0 % 20.0-5 0.0 low Not Available [facility] [place] [facility] [address] [facility], [place], [address], 11/30/2024 11:04:40 12/01/19 25 11/30/2024 CBC granulcytes % 73.0 % 30.0-7 0.0 high Not Available [facility] [address], [place], [address], 11/30/2024 11:04:40 12/01/19 25 11/30/2024 CBC monocytes % 10.1 % 2.0-16 .0 Not Available [facility] [address] [facility] [address], [place], [address], 11/30/2024 11:04:40 12/01/19 25 11/30/2024 CBC granulcytes# 4.2 x10 Not Zaina [facility]able [facility] [address] [facility] [address], [place], [address], 11/30/2024 11:04:40 12/01/19 25 11/30/2024 CBC lymphocytes # 0.9 x10 Not Available [facility] [address] [facility] [address], [place], [address], 11/30/2024 11:04:40 12/01/19 25 11/30/2024 CBC monocytes # 0.6 x10 Not Avai lable [facility] [address] [address], [place], [address], 11/30/2024 11:04:40 12/01/19 25 12/01/2024 LITHI UM lithium 1.1 mmol/ L 0.6-1. 2 normal Not Available [facility] [address] , [place], [address], 12/01/2024 10:16:59 12/30/19 25 12/29/2024 CBC WBC 5.8 x10 4.0-10 .5 Not Available [facility] [address], [place], [address], 12/29/2024 13:04:35 12/30/19 25 12/29/2024 CBC RBC 4.76 x10 3.50-5 .50 Not Available [facility] [address], [place], [address], 12/29/2024 13:04:35 12/30/19 25 12/29/2024 CBC HGB 12.9 g/dL 12.0-1 6.0 Not Available [facility] [address] [facility] [address], [place], [address], 12/29/2024 13:04:35 12/30/19 25 12/29/2024 CBC HCT 40.1 % 37.0-4 7.0 Not Available [facility] [address], [place], [address], 12/29/2024 13:04:35 12/30/19 25 12/29/2024 CBC MCV 84.2 fL 80.0-9 9.9 Not Available [facility] [address], [place], [address], 12/29/2024 13:04:35 12/30/19 25 12/29/2024 CBC MCH 27.1 pg 27.0-3 2.0 Not Available [facility] [address] [facility] [address] [address], [place], [address], 12/29/2024 13:04:35 12/30/19 25 12/29/2024 CBC MCHC 32.1 g/dL 32.0-3 6.0 Not Available [facility] [address] [facility] [address] [address], [place], [address], 12/29/2024 13:04:35 12/30/19 25 12/29/2024 CBC RDW 13.9 % 11.5-1 4.5 Not Available [facility] [address] [facility] [address], [place], [address], 12/29/2024 13:04:35 12/30/19 25 12/29/2024 CBC plt 187.0 x10 140.0- 451.0 Not Available [facility] [address] [facility] [address], [place], [address], 12/29/2024 13:04:35 12/30/19 25 12/29/2024 CBC lymphocytes % 17.9 % 20.0-5 0.0 low Not Available [facility] [address] [facility] [address], [place], [address], 12/29/2024 13:04:35 12/30/19 25 12/29/2024 CBC granulcytes % 71.5 % 30.0-7 0.0 high Not Available [facility] [address], [place], [address], 12/29/2024 13:04:35 12/30/19 25 12/29/2024 CBC monocytes % 10.1 % 2.0-16 .0 Not Available [facility] [address], [place], [address], 12/29/2024 13:04:35 12/30/19 25 12/29/2024 CBC granulcytes# 4.1 x10 Not Zaina ilable [facility] [address], [place], [address], 12/29/2024 13:04:35 12/30/19 25 12/29/2024 CBC lymphocytes # 1.0 x10 Not Available [facility] [address], [place], [address], 12/29/2024 13:04:35 12/30/19 25 12/29/2024 CBC monocytes # 0.6 x10 Not Avai lable [facility] [address], [place], [address], 12/29/2024 13:04:35 01/27/20 25 01/26/2025 CBC WBC 5.6 x10 4.0-10 .5 Not Available [facility] [address] [facility] [address], [place], [address], 01/26/2025 13:18:13 01/27/20 25 01/26/2025 CBC RBC 4.70 x10 3.50-5 .50 Not Available [facility] [place] [facility] [address], [place], [address], 01/26/2025 13:18:13 01/27/2001/26/2025 CBC HGB 12.6 g/dL 12.0-1 6.0 Not Available [facility] [address], [place], [address], 01/26/2025 13:18:13 01/27/2001/26/2025 CBC HCT 39.8 % 37.0-4 7.0 Not Available [facility] [address], [place], [address], 01/26/2025 13:18:13 01/27/2001/26/2025 CBC MCV 84.7 fL 80.0-9 9.9 Not Available [facility] [address], [place], [address], 01/26/2025 13:18:13 01/27/2001/26/2025 CBC MCH 26.7 pg 27.0-3 2.0 low Not Available [facility] [address], [place], [address], 01/26/2025 13:18:13 01/27/2001/26/2025 CBC MCHC 31.6 g/dL 32.0-3 6.0 low Not Available [facility] [address], [place], [address], 01/26/2025 13:18:13 01/27/2001/26/2025 CBC RDW 14.1 % 11.5-1 4.5 Not Available [facility] [address], [place], [address], 01/26/2025 13:18:13 01/27/2001/26/2025 CBC plt 182.5 x10 140.0- 451.0 Not Available [facility] [address] [facility] [address], [place], [address], 01/26/2025 13:18:13 01/27/2001/26/2025 CBC lymphocytes % 16.2 % 20.0-5 0.0 low Not Available [facility] [address] [facility] [address], [place], [address], 01/26/2025 13:18:13 01/27/2001/26/2025 CBC granulcytes % 74.3 % 30.0-7 0.0 high Not Available [facility] [address] [facility] [address], [place], [address], 01/26/2025 13:18:13 01/27/2001/26/2025 CBC monocytes % 8.8 % 2.0-16 .0 Not Available [facility] [address] [facility] [address], [place], [address], 01/26/2025 13:18:13 01/27/2001/26/2025 CBC granulcytes# 4.2 x10 Not Zaina ilable [facility] [address] [facility] [address], [place], [address], 01/26/2025 13:18:13 01/27/2001/26/2025 CBC lymphocytes # 0.9 x10 Not Available [facility] [address], [place], [address], 01/26/2025 13:18:13 01/27/2001/26/2025 CBC monocytes # 0.5 x10 Not Avai lable [facility] [address] [facility] [address], [place], [address], 01/26/2025 13:18:13 02/29/2002/28/2025 respi rator y patho gens DNA and RNA panel , PCR, nasop haryn x Covid negati ve Not Available [facility] [address] [place], [address], 02/28/2025 15:48:13 02/29/2002/28/2025 respi rator y patho gens DNA and RNA panel , PCR, nasop haryn x Rhinovirus negati ve Not Available [facility] [address] [place], [address], 02/28/2025 15:48:13 02/29/2002/28/2025 respi rator y patho gens DNA and RNA panel , PCR, nasop haryn x Influenza A negati ve Not Available [facility] [address] [place], [address], 02/28/2025 15:48:13 02/29/2002/28/2025 respi rator y patho gens DNA and RNA panel , PCR, nasop haryn x Influenza B negati ve Not Available [facility] [address] [place], [address], 02/28/2025 15:48:13 02/29/2002/28/2025 respi rator y patho gens DNA and RNA panel , PCR, nasop haryn x RSV negati ve Not Available [facility] [address] [place], [address], 02/28/2025 15:48:13 03/15/2003/15/2025 CBC WBC 5.1 x10 4.0-10 .5 Not Available [facility] [address], [address], 03/15/2025 12:15:09 03/15/2003/15/2025 CBC RBC 4.83 x10 3.50-5 .50 Not Available [facility] [address], [place], [address], 03/15/2025 12:15:09 03/15/2003/15/2025 CBC HGB 12.9 g/dL 12.0-1 6.0 Not Available [facility] [address], [place], [address], 03/15/2025 12:15:09 03/15/2003/15/2025 CBC HCT 40.5 % 37.0-4 7.0 Not Available [facility] [address], [place], [address], 03/15/2025 12:15:09 03/15/2003/15/2025 CBC MCV 83.8 fL 80.0-9 9.9 Not Available [facility] [address], [place], [address], 03/15/2025 12:15:09 03/15/2003/15/2025 CBC MCH 26.8 pg 27.0-3 2.0 low Not Available [facility] [address] [facility] [address], [place], [address], 03/15/2025 12:15:09 03/15/2003/15/2025 CBC MCHC 32.0 g/dL 32.0-3 6.0 Not Available [facility] [address] [facility] [address], [place], [address], 03/15/2025 12:15:09 03/15/2003/15/2025 CBC RDW 14.2 % 11.5-1 4.5 Not Available [facility] [address] [facility] [address], [place], [address], 03/15/2025 12:15:09 03/15/20 25 03/15/2025 CBC plt 167.3 x10 140.0- 451.0 Not Available [facility] [place] [facility] [address] [facility] [address], [place], [address], 03/15/2025 12:15:09 03/15/20 25 03/15/2025 CBC lymphocytes % 14.3 % 20.0-5 0.0 low Not Available [facility] [address] [facility] [address], [place], [address], 03/15/2025 12:15:09 03/15/2003/15/2025 CBC granulcytes % 76.4 % 30.0-7 0.0 high Not Available [facility] [address] [facility] [address], [place], [address], 03/15/2025 12:15:09 03/15/20 25 03/15/2025 CBC monocytes % 8.6 % 2.0-16 .0 Not Available [facility] [address] [address], [place], [address], 03/15/2025 12:15:09 03/15/20 25 03/15/2025 CBC granulcytes# 3.9 x10 Not Zaina ilable [facility] [address] [facility] [address], [place], [address], 03/15/2025 12:15:09 03/15/20 25 03/15/2025 CBC lymphocytes # 0.7 x10 Not Available [facility] [address] [address], [place], [address], 03/15/2025 12:15:09 03/15/20 25 03/15/2025 CBC monocytes # 0.4 x10 Not Avai lable [facility] [address] [facility] [address], [place], [address], 03/15/2025 12:15:09 03/15/2003/15/2025 TSH TSH 1.09 uIU/m L 0.49-3 .82 Not Available [facility] [address] [facility] [address], [place], [address], 03/15/2025 13:31:58 03/15/2003/15/2025 CMP (FEMA LE) glucose 102.0 mg/dL 60.0-9 9.0 high Not Available [facility] [address] [facility] [address], [place], [address], 03/15/2025 13:37:40 03/15/20 25 03/15/2025 CMP (FEMA LE) BUN (blood urea nitrogen) 14.0 mg/dL 10.0-2 6.0 Not Available [facility] [address] [facility], [place], [address], 03/15/2025 13:37:40 03/15/20 25 03/15/2025 CMP (FEMA LE) creatinine (serum) 0.9 mg/dL 0.4-1. 5 Not Available [facility] [address] [facility], [place], [address], 03/15/2025 13:37:40 03/15/20 25 03/15/2025 CMP (FEMA LE) BUN/creatini ne ratio 15.56 ratio Not Available [facility] [address] [facility], [place], [address], 03/15/2025 13:37:40 03/15/20 25 03/15/2025 CMP (FEMA LE) eGFR calculated 76.2 Not Available [facility] [address] [facility] [address], [place], [address], 03/15/2025 13:37:40 03/15/20 03/15/2025 CMP (FEMA LE) total protein 8.0 g/dL 6.0-8. 5 Not Available [facility] [address] [facility], [place], [address], 03/15/2025 13:37:40 03/15/20 25 03/15/2025 CMP (FEMA LE) total bilirubin 1.0 mg/dL 0.2-1. 3 Not Available [facility] [address] [facility] [address], [place], [address], 03/15/2025 13:37:40 03/15/20 25 03/15/2025 CMP (FEMA LE) albumin 4.5 g/dL 3.5-5. 5 Not Available [facility] [address] [facility] [address], [place], [address], 03/15/2025 13:37:40 03/15/20 25 03/15/2025 CMP (FEMA LE) globulin 3.5 calc Not Available [facility] [address] [facility] [address], [place], [address], 03/15/2025 13:37:40 03/15/20 25 03/15/2025 CMP (FEMA LE) AST (SGOT) 27.0 U/L 0.0-46 .0 Not Available [facility] [address] [facility] [address], [place], [address], 03/15/2025 13:37:40 03/15/20 25 03/15/2025 CMP (FEMA LE) altv (SGPT) 22.0 U/L 13.0-6 9.0 normal Not Available [facility] [address] [facility] [address], [place], [address], 03/15/2025 13:37:40 03/15/20 25 03/15/2025 CMP (FEMA LE) A/G ratio 1.3 ratio Not Available [facility] [address] [facility], [place], [address], 03/15/2025 13:37:40 03/15/20 25 03/15/2025 CMP (FEMA LE) ALP phos 92.0 U/L 30.0-1 40.0 normal Not Available [facility] [address] [facility] [address], [place], [address], 03/15/2025 13:37:40 03/15/20 25 03/15/2025 CMP (FEMA LE) calcium 10.3 mg/dL 8.4-10 .5 Not Available [facility] [address] [facility] [address], [place], [address], 03/15/2025 13:37:40 03/15/20 25 03/15/2025 CMP (FEMA LE) sodium 140.0 mmol/ L 136.0- 145.0 Not Available [facility] [address] [facility] [address], [place], [address], 03/15/2025 13:37:40 03/15/20 25 03/15/2025 CMP (FEMA LE) potassium 3.9 mmol/ L 3.5-5. 1 Not Available [facility] [address] [facility] [address], [place], [address], 03/15/2025 13:37:40 03/15/20 25 03/15/2025 CMP (FEMA LE) chloride 103.0 mmol/ L 98.0-1 10.0 normal Not Available [facility] [address] [facility] [address], [place], [address], 03/15/2025 13:37:40 03/15/20 25 03/15/2025 CMP (FEMA LE) C02 25.0 mmol/ L 22.0-3 1.0 Not Available [facility] [address] [facility] [address], [place], [address], 03/15/2025 13:37:40 03/15/20 25 03/15/2025 CMP (FEMA LE) anion gap 12.0 calc Not Available [facility] [address] [facility], [place], [address], 03/15/2025 13:37:40 03/15/2003/15/2025 CMP (FEMA LE) osmolality 289.8 calc Not Available [facility] [address] [facility] [address], [place], [address], 03/15/2025 13:37:40 03/15/20 25 03/15/2025 LIPID PROFI LE (FEMA LE) cholesterol 168.0 mg/dL 0.0-20 0.0 Not Available [facility] [address] [facility] 1, [place], [address], 03/15/2025 13:37:46 03/15/20 25 03/15/2025 LIPID PROFI LE (FEMA LE) trig 216.0 mg/dL 0.0-15 0.0 high Not Available [facility] [address] [facility] [address], [place], [address], 03/15/2025 13:37:46 03/15/20 25 03/15/2025 LIPID PROFI LE (FEMA LE) HDL - direct 41.0 mg/dL >40.0 Not Available [facility] [address] [facility] [address], [place], [address], 03/15/2025 13:37:46 03/15/20 25 03/15/2025 LIPID PROFI LE (FEMA LE) VLDL - direct 43.2 mg/dL Not Available [facility] [address] [facility] 1, [place], [address], 03/15/2025 13:37:46 03/15/20 25 03/15/2025 LIPID PROFI LE (FEMA LE) LDL - direct 83.8 mg/dL 0.0-13 0.0 Not Available [facility] [address] [facility] [address], [place], [address], 03/15/2025 13:37:46 03/15/20 25 03/19/2025 QUANT IFERO N(R)- TB GOLD PLUS, 1 TUBE quantiferon( R)-TB gold plus, 1 tube NEGATI VE negati ve normal Negat john test resul t. M. tuber culos is compl ex infec tion unlik liv. Not Available [address], [address], 03/19/2025 13:26:00 03/15/20 25 03/19/2025 QUANT IFERO N(R)- TB GOLD PLUS, 1 TUBE nil 0.09 IU/mL normal Not Available [facility] [address], [address], 03/19/2025 13:26:00 03/15/20 25 03/19/2025 QUANT IFERO N(R)- TB GOLD PLUS, 1 TUBE mitogen-nil 8.04 IU/mL normal Not Available [address], [address], 03/19/2025 13:26:00 03/15/20 25 03/19/2025 QUANT IFERO N(R)- TB GOLD PLUS, 1 TUBE TB1-nil 0.01 IU/mL normal Not Available [facility] [address], [address], 03/19/2025 13:26:00 03/15/20 25 03/19/2025 QUANT IFERO [...] tube is coate d with the M. tuber culos is-sp ecifi c antig ens desig luz elena to elici t respo nses from TB antig en prime d CD4+ helpe r T-lym phocy brittnee. The TB2 Antig en tube is coate d with the M. tuber culos is-sp ecifi c antig ens desig luz elena to elici t respo nses from TB antig en prime d CD4+ helpe r and CD8+ cytot oxic T-lym phocy brittnee. For addit ional infor tasneem bolton e refer to https ://ed ucati on.qu estAs It Is/f aq/FA Q204 (This link is being provi ded for infor matthew pennington/ educlatha graf purpo ses only. ) Not Available [facility] [facility] [address] [place], [address], 03/19/2025 13:26:00 Result Notes None recorded. Problems Name Problem SNOMED Code Status Onset Date Resolution Date Notes Provider Name and Address Organization Details Recorded Time Allergic rhinitis 01470904 Completed 201908/08/2019 ALLERGIC SINUSITI S - Status is Inactive ; Recorded 08/08/19 10:16AM by Emeli Vega CMT, Stephanieati on/Adden dum; Promoted ; acuity set as *; Not Available [facility] 3 03:15:22 Family planning surveill ance Completed 201908/08/2019 DEPO-PRO VERA CONTRACE PTION, ENCOUNTE R FOR INJECTIO N - Status is Inactive ; Recorded 08/08/19 10:16AM by Emeli Vega CMT, Stephanieati on/Adden dum; Promoted ; acuity set as *; DEPO-AK OVERA CONTRACE PTIVE STATUS - Status is Inactive ; Recorded 08/08/19 20 10:16AM by Emeli Vega CMT, Mayela on/Adden dum; Promoted ; acuity set as *; Not Available [facility] 3 03:15:25 Depressi ve disorder 80967712 [facility] 2023 [facility] 12:14:25 Mood disorder 56514073 Active 2023 EMELI shepherd, [facility] 4 12:14:36 Anxiety disorder 847387270 [facility] 2023 [facility] 12:15:13 Chronic constipa tion 697768697 Active 2023 [facility] 12:15:23 Psychoti c disorder 71894580 Active 2023 [facility] 4 12:15:41 Schizoph nakia 60732133 Active 2023 [facility] 4 12:23:45 Lives in [facility] correction 090209974 Active 2023 [facility] EMELI shepherd, [facility] 4 12:25:49 Obsessiv e-compul sive disorder 580316739 Active 2024 EMELI shepherd [facility] 5 21:46:25 Bipolar disorder 96324756 Active 2024 EMELI shepherd [facility] 5 21:46:57 Attentio n deficit hyperact ivity disorder [id number] Active 2024 EMELI shepherd [facility] 21:47:18 Iron deficien cy anemia 57061618 Active 2024 EMELI shephred [facility] 21:48:23 Gastroes ophageal reflux disease without esophagi tis [id number] Active 2024 EMELI shepherd [facility] 21:48:53 Schizoph renic disorder s 798005307 Active 2024 EMELI shepherd [facility] 21:49:07 Sarcoido sis 63895019 [facility] 21:50:15 Problem Notes None recorded. Procedures Surgical History Date Name Laterality Status Provider Name and Address Organization Details Recorded Time 08/05/19 25 screening for malignant neoplasm of cervix completed EMELI VEGA [facility] 08/10/2024 11:05:46 cholecystectomy completed EMELI VEGA [facility] 08/03/2024 15:22:35 Imaging Results None recorded. Procedure [...] loratadin e daily 02/04 completed DOC LB/km; 04743; Recorded 03/20/20 1:14PM by Brooke Miles LPN (Authori zed through Blanca Rviera MD), Office Visit; Refill Quantity : 0; Not Available Not Available Not Available Flonase each nare daily 02/04 completed DOC CS/smf; 79031; Recorded 07/06/19 12:21PM by Kandi Dow RN (Authori zed through Robert Collins DO), Refill Request; Refill Quantity : 3; Each; Not Available Not Available Not Available calcium two times daily 02/04 completed 48071; Recorded 03/20/20 1:14PM by Brooke Miles LPN (Authori zed through EVELYN Laws), Office Visit; Refill Quantity : 0; Not Available Not Available Not Available benztropi ne three times daily 02/04 completed farhat; 02488; Recorded 03/20/20 1:14PM by Brooke Miles LPN (Authori zed through EVELYN Laws), Office Visit; Refill Quantity : 0; Not Available Not Available Not Available ibuprofen three times daily, as needed 02/04 completed 44681; Recorded 03/20/20 1:14PM by Brooke Miles LPN (Authori zed through EVELYN Laws), Office Visit; Refill Quantity : 300; Tablet; Not Available Not Available Not Available clozapine three times daily 02/[address] Jennings; 45603; Recorded 03/20/20 22 1:14PM by Brooke Miles LPN (Authori zed through EVELYN Laws), Office Visit; Refill Quantity : 0; Not Available Not Available Not Available risperido ne two times daily 02/04 completed 19323; Recorded 03/20/20 22 1:14PM by Brooke Miles LPN (Authori zed through EVELYN Laws), Office Visit; Refill Quantity : 0; Not Available Not Available Not Available Tums two times daily, as needed for heartbur n 02/04 completed 82533; Recorded 03/20/20 1:14PM by Brooke Miles LPN (Authori zed through EVELYN Laws), Office Visit; Refill Quantity : 1; Tablet; Not Available Not Available Not Available Miralax Wed and Sat 02/04 completed 82923; Recorded 03/20/20 1:14PM by Brooke Miles LPN (Authori zematias through EVELYN Laws), Office Visit; Refill Quantity : 24; Each; Not Available Not Available Not Available Trazodone at bedtime 02/04 completed farhat; 98825; Recorded 03/20/20 1:14PM by Brooke Miles LPN [...] Last Updated DateTime 157.48 cm 28.1 kg/m2 92783.7 3 g 20 /min 95 % 95 /min 98.6 [degF] 110/70 mm[Hg] NURY MINER [facility] 5 15:28:14 Date Recorded Body height Body mass index (BMI) Body weight Oxygen saturation Heart rate Respiratory rate Systolic And Diastolic Provider Name and Address Organization Details Last Updated DateTime 5 157.48 cm 28.2 kg/m2 11776.2 2 g 96 % 90 /min 22 /min 96/66 mm[Hg] EMELI VEGA [facility] 5 11:33:35 Date Recorded Body height Body mass index (BMI) Body weight Oxygen saturation Heart rate Respiratory rate Systolic And Diastolic Provider Name and Address Organization Details Last Updated DateTime 5 157.48 cm 28.3 kg/m2 16329.8 2 g 96 % 86 /min 20 /min 88/60 mm[Hg] EMELI SILVIA [facility] 5 13:13:57 Social History Question Answer Notes LastModified by Electron Databaseizat ion Details LastModified Time Tobacco Smoking Status Never Smoker Rachel shepherd [facility] 11/12/2023 14:05:22 What Type Of Diet Are You Following? REGULAR Information not available 12/07/2023 What Was The Date Of Your Most Recent Tobacco Screening? 02/28/2025 [email or web address] Information not available 02/28/2025 Sex: Unknown Functional Status Question Answer Note LastModified by Organizat ion Details LastModified Time Do you use any illicit or recreational drugs? No [email or web address] Information not available 12/07/2023 Do you or have you ever used any other forms of tobacco or nicotine? No [email or web address] Information not available 02/28/2025 What is your level of alcohol consumption? None [email or web address] Information not available 12/07/2023 Are you currently employed? Yes 2 days a week at the [employer] [email or web address] Information not available 12/07/2023 Are you able to walk independently without assistance or assistive devices? YESWOREST [email or web address] Information not available 12/07/2023 Do you have difficulty doing errands alone? Yes [email or web address] Information not available 12/07/2023 Are you able to care for yourself independently? [facility] [email or web address] Information not available 12/07/2023 Do you or have you ever used any nicotine-free cigarettes, vape, or chewing tobacco? No [email or web address] Information not available 11/12/2023 Mental Status Question Answer Note LastModified by Organization D etails LastModified Time Do you have difficulty concentrating, remembering or making decisions? Yes [email or web address] Information no t available 12/07/2023 Family History Relationship Description Onset Age of this Age Resolved Age Notes LastModified by Organization Details LastModified Time Father No current problems or disability Not available 11/14 19:53:05 Mother No current problems or disability [email or web address] Not available 11/14 19:53:05 Medical History Condition [...] Time TST-PPD intradermal 0 completed Not Available [facility] 04/06/2023 13:51:54 Influenza, MDCK, quadrivalent, PF 0 completed Not Available [facility] 04/06/2023 13:51:54 Influenza, split virus, trivalent, preservative 8 completed Not Available [facility] 04/06/2023 13:51:54 Influenza, split virus, trivalent, preservative 6 completed Not Available [facility] 04/06/2023 13:51:54 Influenza, MDCK, quadrivalent, PF 3 completed ALLY BRANTLEY, [address], [address], [facility] [place] 08/08/2024 10:44:40 Hib, unspecified formulation 2 completed ALLY KARON, [facility] [address] [place], [address], [facility] 12/01/2022 12:56:59 Hib, unspecified formulation 1 completed ALLY BRANTLEY, [facility] [address] [place] [address], [address], [facility] 12/01/2022 12:56:59 Hib, unspecified formulation 1 completed ALLY BRANLTEY, [facility] [address] [place] [address], [address], [facility] 12/01/2022 12:56:59 IPV 1 completed ALLY BRANTLEY, [address], [address], [facility] 12/01/2022 12:56:59 IPV 6 completed ALLY BRANTLEY, [address], [address], [facility] 12/01/2022 12:56:59 IPV 1 completed ALLY BRANTLEY, [address], [address], [facility] 12/01/2022 12:56:59 MMR 7 completed ALLY BRANTLEY, [facility] [address] [place] [address], [address], [facility] 12/01/2022 12:56:59 MMR 6 completed ALLY BRANTLEY, [address], [address], [facility] 12/01/2022 12:56:59 influenza, unspecified formulation 8 completed ALLY BRANTLEY, [address], [address], [facility] 12/01/2022 12:56:59 influenza, unspecified formulation 5 completed ALLY BRANTLEY, [address], [address], [facility] 12/01/2022 12:56:59 influenza, unspecified formulation 9 completed ALLY BRANTLEY, [address], [address], [facility] 12/01/2022 12:56:59 influenza, unspecified formulation 9 completed ALLY BRANTLEY, [address], [address], [facility] 12/01/2022 12:56:59 Tdap 5 completed ALLY BRANTLEY, [address], [address], [facility] 12/01/2022 12:56:59 Influenza, split virus, trivalent, 6 completed ALLY BRANTLEY, [address], [address], [facility] 12/01/2022 12:56:59 Td (adult), 2 Lf tetanus toxoid, preservative free, adsorbed 8 completed ALLY BRANTLEY, [address], [address], [facility] 12/01/2022 12:56:59 Hep B, adolescent or pediatric 7 completed ALLY BRANTLEY, [facility] [address] [place] [address], [address], [facility] 12/01/2022 12:56:59 Hep B, adolescent or pediatric 7 completed ALLY KARON, [facility] [address] [place], [address], [facility] 12/01/2022 12:56:59 Hep B, adolescent or pediatric 7 completed ALLY HESTERTES, [facility] [address] [place] [address], [address], [facility] 12/01/2022 12:56:59 DTaP 2 completed ALLY BRANTLEY, [address], [address], [facility] 12/01/2022 12:56:59 DTaP 3 completed ALLY BRANTLEY, [address], [address], [facility] 12/01/2022 12:56:59 DTaP 1 completed ALLY BRANTLEY, [facility] [address] [place] [address], [address], [facility] 12/01/2022 12:56:59 DTaP 6 completed ALLY BRANTLEY, [facility] [address] [place] [address], [address], [facility] 12/01/2022 12:56:59 DTaP 1 completed ALLYDayton HESTERKARON, [facility] [address] [place] [address], [address], [facility] 12/01/2022 12:56:59 Influenza, split virus, quadrivalent, PF 1 completed RADHIKA DRAKEP [address] [place], [address], [facility] 12/01/2022 12:56:59 Influenza, MDCK, trivalent, PF 5 completed RADHIKA DRAKEP [address] [place], [address], [facility] 12/01/2022 12:56:59 Influenza, split virus, trivalent, preservative 4 completed Not Available [facility] 03/21/2025 13:02:05 Tdap 4 completed Not Available [facility] 03/21/2025 13:02:05 Past Encounters Encounter ID Performer Location Encounter Start Date Encounter Closed Date Diagnosis/Indication Diagnosis SNOMED-CT Code Diagnosis ICD10 Code Diagnosis IMO Codes Diagnosis Note [id number] EVELYN DRAKE [facility] ([facility]) [address] [place] [address] 09/08/2022 09:52:15 09/08/2022 11:45:28 Lives in independent correction 131677442 Z59.3 Form signed for [employer]. Pain of right breast 048 8745578 N64.4 Decrease caffeine intake. No concerning lumps or redness on skin. Headache 21527762 R51.9 Trying to wean off caffeine, tylenol OTC as needed. Tremor 13296390 R25.[address] having her decrease her caffeine intake to see if this improves. [id number] EVELYN DRAKE [facility] ([facility]) [address] [place] [address] 09/29/2022 12:07:11 09/29/2022 18:16:19 Pulmonary sarcoidosis 32332989 D86.0 Syncope and collapse 309 950388 R55 Recently seen in the ER following episode. Complaints of numbness and tingling on right side. Difficulty swallowing 28 8085266 R13.10 More frequent choking. [id number] EVELYN COURTNEY [facility] ([facility]) [address] [place] [address] 11/03/2022 12:45:51 11/03/2022 19:28:57 Dysuria 20534387 R30.0 Acute cystitis 28539750 N30.00 Incoordination 566226302 R27.9 acute onset since urinary sx started. [id number] ALLY BRANTLEY [facility] ([facility]) [address] [place] [address] 12/01/2022 11:44:53 12/01/2022 13:15:57 Recurrent falls 362299568 R29.6 Shower bars and shower chair. On lithium 740818762 Z79 .899 Appt with tamika simms tomorrow, advised caregiver level was elevated on recent labs. They have been trying to limit her caffeine intake recently. Excessive cerumen in ear canal 126264005 H61.21 Right ear flushed to clear. [id number] ALLY BRANTLEY [facility] ([facility]) [address] [place] [address] 02/04/2023 13:37:28 02/04/2023 14:59:32 Adult health examination 536919485 Z00.00 She is working 2 days a week. Lives in [facility] home 118859328 Z59.3 Not participat ing in [employer], it was too overwhelmi ng. Pulmonary sarcoidosis 24 80[address]86[address] Daniel. Psychotic disorder 96253 [address] Jennings. [id number] ALLY BRANTLEY [facility] ([facility]) [address] [place] [address] 03/23/2023 12:32:51 03/24/2023 12:13:29 Pulmonary sarcoidosis 24357808 D86.0 [id number] ALLY BRANTLEY [facility] ([facility]) [address] [place] [id number] 04/06/2023 13:51:45 04/06/2023 14:52:50 Skin lesion 12489307 L98.9 Left foot with lesion on second toe. Dysuria 05951816 R30.0 pain comes and goes [id number] ALLY BRANTLEY [facility] ([facility]) [address] [place] [address] 5 05/24/2023 16:14:00 05/25/2023 09:30:46 Psychotic disorder 14461035 F20.[address] Jennings. [id number] ALLY BRANTLEY [facility]) [address] [place] [address] 5 06/24/2023 12:44:22 06/25/2023 09:56:50 Pulmonary sarcoidosis 48424327 D86.0 [id number] [facility] [address] [place] [address] 5 07/27/2023 12:42:29 07/28/2023 10:58:55 Pulmonary sarcoidosis 53326341 D86.0 [id number] ALLY BRANTLEY [facility]) [address] [place] [address] 5 08/19/2023 12:50:07 08/20/2023 11:17:16 Pulmonary sarcoidosis 51008649 D86.0 Psychotic disorder 12786 [address] F20[address] Jennings. [id number] [facility] [address] [place] [address] 5 08/24/2023 10:53:27 08/24/2023 12:02:38 Pulmonary sarcoidosis 37424002 D86.[address] Daniel, he ordered antibiotic s and set up lung function tests. Headache 94187200 R51.9 Trying to wean off caffeine, tylenol OTC as needed. D/C Ibuprofen. Schizophrenia 59333543 F 20.[address] Jennings. [id number] ALLY BRANTLEY [facility]) [address] [place], [place] [address] 09/23/2023 12:11:35 09/24/2023 09:21:53 Pulmonary sarcoidosis 53734078 D86.[address] Daniel, he ordered antibiotic s and set up lung function tests. [id number] MAURA CASTILLO PA-C [facility] ([facility]) [address] [place], [place] [address] 11/12/2023 14:02:37 11/12/2023 14:29:07 Acute upper respiratory infection 89014908 J06.9 [id number] ALLY BRANTLEY [facility]) [address] [place] [address] 5 11/25/2023 13:55:59 11/26/2023 09:40:41 Psychotic disorder 38223469 F20.[address] Jennings. [id number] ALLY BRANTLEY [facility]) [address] [place] [address] 5 12/07/2023 11:09:08 12/07/2023 12:04:01 Adult health examination 412802940 Z00.00 She is working 2 days a week. White bloo d cell count outside reference range 349369795 R79.89 Pulmonary sarcoidosis 24 942543 D86.0 Lives in [facility] home 564144058 Z59.3 Heartburn 22290233 R12 [id number] ALLY BRANTLEY [facility]) [address] [place] [address] 5 01/06/2024 13:48:58 01/06/2024 15:14:40 Unintentional weight loss 308007735 R63.4 Up to 147 from 144 at previous visit. [id number] ALLY BRANTLEY [facility]) [address] [place], [place] [address] 01/27/2024 10:34:48 01/28/2024 12:22:19 Schizophrenia 17927020 F20.[address] Jennings. [id number] ALLY BRANTLEY [facility]) [address] [place], [place] [address] 02/15/2024 10:49:30 02/15/2024 13:57:24 Schizophrenia 30084996 F20.[address] Jennings. [id number] ALLY BRANTLEY [facility]) [address] [place], [place] [address] 03/07/2024 14:19:02 03/07/2024 15:41:16 Cramping pain 817887689 R52 Lives in [facility] correction 267821584 Z59.3 Weight loss 77981527 R63 .4 Stabilizin g. [id number] ALLY BRANTLEY [facility]) [address] [place], [place] [address] 03/23/2024 12:42:52 03/24/2024 10:46:17 Schizophrenia 14055443 F20.[address] Jennings. [id number] ALLY BRANTLEY [facility]) [address] [place], [place] [address] 04/11/2024 11:40:57 04/11/2024 13:29:49 Annual physical examination for people with mental illness completed 1448552845 Z00.8 Tuberculos is screening 998166503 Z11.1 Cough 59941619 R05.9 [id number] ALLY BRANTLEY [facility]) [address] [place], [place] [address] 04/18/2024 13:35:12 04/19/2024 13:27:39 Schizophrenia 21411020 F20.[address] Jennings. [id number] ALLY BRANTLEY [facility]) [address] [place], [place] [address] 05/24/2024 11:23:04 05/26/2024 09:25:25 Psychotic disorder 95653290 F20.[address] Jennings. [id number] ALLY BRANTLEY [facility]) [address] [place], [place] [address] 06/29/2024 11:15:15 06/30/2024 12:03:04 Psychotic disorder 68460538 F20.[address] Jennings. [id number] ALLY BRANTLEY [facility] [address] [place], [place] [address] 07/19/2024 11:40:59 07/20/2024 10:28:42 Long-term drug therapy 350603215 Z79.046 [id number] ALLY BRANTLEY [facility] [address] [place] [address] 5 08/03/2024 13:45:47 08/03/2024 15:40:36 Gynecologic examination 43967114 Z01.419 Unintentio nal weight loss 268907718 R63.4 Continued monitoring . Previous work-up has been negative. Schizophrenia 73377731 F 20.[address] Jennings. [id number] ALLY BRANTLEY [facility]) [address] [place] [address] 5 08/23/2024 13:34:36 08/24/2024 08:12:53 Schizophrenia 45723999 F20.[address] Jennings. [id number] ALLY BRANTLEY [facility]) [address] [place] [address] 5 09/21/2024 14:36:40 09/22/2024 12:43:39 Psychotic disorder 56482448 F20.[address] Jennings. [id number] ALLY BRANTLEY [facility]) [address] [place] [address] 5 10/19/2024 13:43:52 10/20/2024 09:53:29 Schizophrenia 33548085 F20.[address] Jennings. [id number] ALLY BRANT[facility]) [address] [place] [address] 5 11/30/2024 10:24:33 12/01/2024 11:18:11 Schizophrenic disorders 945820733 F20.[id number] Jennings. [id number] ALLY BRANTLEY [facility] [address] [place] [address] 5 12/29/2024 11:33:03 01/01/2025 10:00:46 Schizophrenic disorders 463742786 F20.[id number] Jennings. [id number] ALLY BRANTLEY [facility] ([facility]) [address] [place] [address] 01/26/2025 11:35:35 01/29/2025 09:22:40 Schizophrenic disorders 671769559 F20.[id number] Jennings. [id number] FAWAD CISNEROS [facility] ([facility]) [address] [place], [place] [address] 02/28/2025 15:21:47 02/28/2025 16:34:42 Acute cough 5049338818 99002623 R05.8 4458265787 Nausea 628000172 R11.0 38208 Increase po fluids as tolerated. Use Zofran as prescribed . RTC with any new or worsening symptoms. [id number] ALLY BRANTLEY [facility]) [address] [place], [place] [address] 03/15/2025 11:10:45 03/15/2025 11:58:16 Annual physical examination for people with mental illness completed 0305165433 Z00.00 F99 5571081352 Tuberculos is screening status 858877795 Z11.1 092808 Sore throat 891741308 J0 2.9 25759 Tylenol as needed. Return if not improving. [id number] ALLY BRANTLEY [facility] ([facility]) [address] [place] [address] 03/21/2025 13:01:52 03/21/2025 14:15:01 Hordeolum externum of upper eyelid of left eye 1865656236 60487 H00.628 2358321 History of hypotension 796996601 Z86.79 5680636 Not symptomati c at this time. Health Concerns Section Related Observation LastModified by Organization Detai ls LastModified Time None Recorded Concern Status LastModified by Organization Details LastModified Time None Recorded Advance Directives Directive None Recorded Payers Insurance Date Sequence Insurance Name Policy Number Policy Blair Covered Member ID Blair Member ID Guarantor Name 03/20/2025 [place]ICA[place] [facility] (SHIKHA Ordonez [id number] [facility] 03/20/2025 1 [place] Iza Ordonez [id number] [facility] Notes Date Note Type Note Provider Name and Address Organization Details Recorded Time 02/28/2025 text/html ROS as noted in the HPI walk-in; PCP Ally Brantley Patient c/o that her whole body hurts, [...] exam. No distress at time of exam. FAWAD CISNEROS HEDDLER [address] [place] [address], [phone], [facility] 02/28/2025 16:24:53 03/15/2025 text/html Annual WellnessReported by PatientSocial/Behavior al HistoryFor diet and nutrition, patient reportshealthy diet. For fracture risk, patient reportsno history of fractures,no recent explained fracture, andno sudden unexplained fractures. For physical activity, patient reportsexercises on a regular basis. For additional lifestyle factors, patient reportsno tobacco useandno alcohol intake.Mental Status:For depression risk, patient reportshistory of mood disorders.Functional AbilityFor hearing, patient reportsno loss of hearing. For vision, patient reportsno vision problems. EVELYN DRAKE [address] [place] [address], [phone], [facility] 03/15/2025 11:54:18 03/21/2025 text/html General Rash/Ski n LesionReported by PatientHPIFor quality, patient reportsitchy,red, andswollen. For location, patient reportsface(left eye). For severity, patient reportsmild. For duration, patient reportshas noted for <1 week. For onset/timing, patient reportsabrupt onset. For context, patient reportsno new detergents or skin products. For associated symptoms, patient reportsno feverandno cold symptoms. ALLY BRANTLEY [facility] [address] [place], [address], [facility], [place] 03/21/2025 13:52:30 OBGyn Episode No OBEpisode recorded.
--- OUTSIDE RECORDS SUMMARY | 2025-04-23 21:55 | XMS_ITS | Encounter Summary ---
Author Organization [facility] Address 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
--- OUTSIDE RECORDS SUMMARY | 2025-04-23 21:55 | XMS_ITS | Continuity of Care Document ---
Author Organization BRYANT Ramirez [facility] Maryuri Bagley, [facility] ([facility]) Address [address] [place] [address] Care Team Providers Care Research Director Name Role Phone MUMTAZ BRANTLEY Primary Care Provider Unavailabl e Assessment Encounter Date Assessment Date Assessment LastModified by Organization Details LastModified Time 03/15/2025 03/15/2025 Patient here for a check-up today. Overall she has been doing good. She is now . She is planning on dressing up for Halloween. Not available 03/15/2025 11:47:44 Plan of Treatment Reminders Order Date Submit Date Provider Last Modified By Organization Details Last Modified Time Details Appointments None recorded. Lab CMP, serum or plasma 2024 [facility], [address], [facility] [address], [place], [address], 13:37:40 lipid panel, blood 2024 025 [facility], [address], [facility] 1, [place], [address], 13:37:46 CBC 2024 025 [facility], [address], [address], [place], [address], 12:15:10 thyrotropi n, QN, serum or plasma 2024 025 [facility], [address], [address], [place], [address], 13:31:58 unlisted lab - quantifero n(R)-TB gold plus, 1 tube 2024 025 [facility], [address], [address] [place], [address], 13:26:00 Referral None recorded. Procedures None recorded. Surgeries None recorded. Imaging None recorded. Medication Orders None recorded. Patient TargetsNo targets recorded. Patient Instructions Encounter Date Encounter Id Patient Instructions Last Modified By Organization Details Last Modified Time 03/15/2025 [id number] Call or return for questions or concerns. Not available 03/15/2025 11:49:43 Reason for Referral None Reported. Results Created Date Observation Date Name Description Value Unit Range Abnormal Flag Note LastModifiedBy Organization Detail LastModifiedTime 02/29/2002/28/2025 respi rator y patho gens DNA and RNA panel , PCR, nasop haryn x Covid negati ve Not Available [facility] ([facility]) [address] [place], [address], 02/28/2025 15:48:13 02/29/2002/28/2025 respi rator y patho gens DNA and RNA panel , PCR, nasop haryn x Rhinovirus negati ve Not Available [facility] ([facility]) [address] [place], [address], 02/28/2025 15:48:13 02/29/2002/28/2025 respi rator y patho gens DNA and RNA panel , PCR, nasop haryn x Influenza A negati ve Not Available [facility] ([facility]) [address] [place], [address], 02/28/2025 15:48:13 02/29/2002/28/2025 respi rator y patho gens DNA and RNA panel , PCR, nasop haryn x Influenza B negati ve Not Available [facility] ([facility]) [address] [place], [address], 02/28/2025 15:48:13 02/29/2002/28/2025 respi rator y patho gens DNA and RNA panel , PCR, nasop haryn x RSV negati ve Not Available [facility] ([facility]) [address] [place], [address], 02/28/2025 15:48:13 03/15/2003/15/2025 CBC WBC 5.1 x10 4.0-10 .5 Not Available [facility] [address] [facility], [place], [address], 03/15/2025 12:15:09 03/15/2003/15/2025 CBC RBC 4.83 x10 3.50-5 .50 Not Available [facility] [address] [facility] 1, [place], [address], 03/15/2025 12:15:09 03/15/2003/15/2025 CBC HGB 12.9 g/dL 12.0-1 6.0 Not Available [facility] [address] [facility], [place], [address], 03/15/2025 12:15:09 03/15/2003/15/2025 CBC HCT 40.5 % 37.0-4 7.0 Not Available [facility] [address] [facility] [address] [facility] 1, [place], [address], 03/15/2025 12:15:09 03/15/2003/15/2025 CBC MCV 83.8 fL 80.0-9 9.9 Not Available [facility] [address] [facility] [facility] 1, [place], [address], 03/15/2025 12:15:09 03/15/20 25 03/15/2025 CBC MCH 26.8 pg 27.0-3 2.0 low Not Available [facility] [address] [facility] 1, [place], [address], 03/15/2025 12:15:09 03/15/2003/15/2025 CBC MCHC 32.0 g/dL 32.0-3 6.0 Not Available [facility] [address] [facility] 1, [place], [address], 03/15/2025 12:15:09 03/15/2003/15/2025 CBC RDW 14.2 % 11.5-1 4.5 Not Available [facility] [address] [facility] 1, [place], [address], 03/15/2025 12:15:09 03/15/2003/15/2025 CBC plt 167.3 x10 140.0- 451.0 Not Available [facility] [address] [facility] [address], [place], [address], 03/15/2025 12:15:09 03/15/20 25 03/15/2025 CBC lymphocytes % 14.3 % 20.0-5 0.0 low Not Available [facility] [address] [facility] [address], [place], [address], 03/15/2025 12:15:09 03/15/20 25 03/15/2025 CBC granulcytes % 76.4 % 30.0-7 0.0 high Not Available [facility] [address] [facility] 1, [place], [address], 03/15/2025 12:15:09 03/15/20 25 03/15/2025 CBC monocytes % 8.6 % 2.0-16 .0 Not Available [facility] [address] [facility] 1, [place], [address], 03/15/2025 12:15:09 03/15/20 25 03/15/2025 CBC granulcytes# 3.9 x10 Not Zaina ilable [facility] [address] [facility] 1, [place], [address], 03/15/2025 12:15:09 03/15/20 25 03/15/2025 CBC lymphocytes # 0.7 x10 Not Available [facility] [address] [facility] 1, [place], [address], 03/15/2025 12:15:09 03/15/20 25 03/15/2025 CBC monocytes # 0.4 x10 Not Avai lable [facility] [address] [facility] 1, [place], [address], 03/15/2025 12:15:09 03/15/20 25 03/15/2025 TSH TSH 1.09 uIU/m L 0.49-3 .82 Not Available [facility] [address] [facility] 1, [place], [address], 03/15/2025 13:31:58 03/15/20 25 03/15/2025 CMP (FEMA LE) glucose 102.0 mg/dL 60.0-9 9.0 high Not Available [facility] [address] [facility] [facility] 1, [place], [address], 03/15/2025 13:37:40 03/15/20 25 03/15/2025 CMP (FEMA LE) BUN (blood urea nitrogen) 14.0 mg/dL 10.0-2 6.0 Not Available [facility] [address] [facility] 1, [place], [address], 03/15/2025 13:37:40 03/15/20 25 03/15/2025 CMP (FEMA LE) creatinine (serum) 0.9 mg/dL 0.4-1. 5 Not Available [facility] [address] [facility] 1, [place], [address], 03/15/2025 13:37:40 03/15/20 25 03/15/2025 CMP (FEMA LE) BUN/creatini ne ratio 15.56 ratio Not Available [facility] [address] [facility] 1, [place], [address], 03/15/2025 13:37:40 03/15/20 25 03/15/2025 CMP (FEMA LE) eGFR calculated 76.2 Not Available [facility] [address] [facility] 1, [place], [address], 03/15/2025 13:37:40 03/15/20 25 03/15/2025 CMP (FEMA LE) total protein 8.0 g/dL 6.0-8. 5 Not Available [facility] [address] [facility] 1, [place], [address], 03/15/2025 13:37:40 03/15/20 25 03/15/2025 CMP (FEMA LE) total bilirubin 1.0 mg/dL 0.2-1. 3 Not Available [facility] [address] [facility] 1, [place], [address], 03/15/2025 13:37:40 03/15/20 25 03/15/2025 CMP (FEMA LE) albumin 4.5 g/dL 3.5-5. 5 Not Available [facility] [address] [facility] 1, [place], [address], 03/15/2025 13:37:40 03/15/20 25 03/15/2025 CMP (FEMA LE) globulin 3.[address] [facility] [address] [facility] 1, [place], [address], 03/15/2025 13:37:40 03/15/20 25 03/15/2025 CMP (FEMA LE) AST (SGOT) 27.0 U/L 0.0-46 .0 Not Available [facility] [address] [facility] [place], [address], 03/15/2025 13:37:40 03/15/20 25 03/15/2025 CMP (FEMA LE) altv (SGPT) 22.0 U/L 13.0-6 9.0 normal Not Available [facility] [address] [facility] 1, [place], [address], 03/15/2025 13:37:40 03/15/20 25 03/15/2025 CMP (FEMA LE) A/G ratio 1.3 ratio Not Available [facility] [address] [facility] 1, [place], [address], 03/15/2025 13:37:40 03/15/20 25 03/15/2025 CMP (FEMA LE) ALP phos 92.0 U/L 30.0-1 40.0 normal Not Available [facility] [address] [facility] 1, [place], [address], 03/15/2025 13:37:40 03/15/20 25 03/15/2025 CMP (FEMA LE) calcium 10.3 mg/dL 8.4-10 .5 Not Available [facility] [address] [facility] 1, [place], [address], 03/15/2025 13:37:40 03/15/20 25 03/15/2025 CMP (FEMA LE) sodium 140.0 mmol/ L 136.0- 145.0 Not Available [facility] [address] [facility] 1, [place], [address], 03/15/2025 13:37:40 03/15/20 25 03/15/2025 CMP (FEMA LE) potassium 3.9 mmol/ L 3.5-5. 1 Not Available [facility] [address] [facility], [place], [address], 03/15/2025 13:37:40 03/15/20 25 03/15/2025 CMP (FEMA LE) chloride 103.0 mmol/ L 98.0-1 10.0 normal Not Available [facility] [address] [facility] 1, [place], [address], 03/15/2025 13:37:40 03/15/20 25 03/15/2025 CMP (FEMA LE) C02 25.0 mmol/ L 22.0-3 1.0 Not Available [facility] [address] [facility] 1, [place], [address], 03/15/2025 13:37:40 03/15/20 25 03/15/2025 CMP (FEMA LE) anion gap 12.0 calc Not Available [facility] [address] [facility] 1, [place], [address], 03/15/2025 13:37:40 03/15/20 25 03/15/2025 CMP (FEMA LE) osmolality 289.8 calc Not Available [facility] [address] [facility] 1, [place], [address], 03/15/2025 13:37:40 03/15/20 25 03/15/2025 LIPID PROFI LE (FEMA LE) cholesterol 168.0 mg/dL 0.0-20 0.0 Not Available [facility] [address] [facility] 1, [place], [address], 03/15/2025 13:37:46 03/15/20 25 03/15/2025 LIPID PROFI LE (FEMA LE) trig 216.0 mg/dL 0.0-15 0.0 high Not Available [facility] [address] [address], [place], [address], 03/15/2025 13:37:46 03/15/20 25 03/15/2025 LIPID PROFI LE (FEMA LE) HDL - direct 41.0 mg/dL >40.0 Not Available [facility] [address] [facility] 1, [place], [address], 03/15/2025 13:37:46 03/15/2003/15/2025 LIPID PROFI LE (FEMA LE) VLDL - direct 43.2 mg/dL Not Available [facility] [address] [facility] 1, [place], [address], 03/15/2025 13:37:46 03/15/20 25 03/15/2025 LIPID PROFI LE (FEMA LE) LDL - direct 83.8 mg/dL 0.0-13 0.0 Not Available [address] [address], [place], [address], 03/15/2025 13:37:46 03/15/20 25 03/19/2025 QUANT IFERO N(R)- TB GOLD PLUS, 1 TUBE quantiferon( R)-TB gold plus, 1 tube NEGATI VE negati ve normal Negat john test resul t. M. tuber culos is compl ex infec tion unlik liv. Not Available [facility] [address] [place], [address], 03/19/2025 13:26:00 03/15/20 25 03/19/2025 QUANT IFERO N(R)- TB GOLD PLUS, 1 TUBE nil 0.09 IU/mL normal Not Available [facility] [address] [place], [address], 03/19/2025 13:26:00 03/15/20 25 03/19/2025 QUANT IFERO N(R)- TB GOLD PLUS, 1 TUBE mitogen-nil 8.04 IU/mL normal Not Available [address], [address], 03/19/2025 13:26:00 03/15/20 25 03/19/2025 QUANT IFERO N(R)- TB GOLD PLUS, 1 TUBE TB1-nil 0.01 IU/mL normal Not Available [facility] [address] [place], [address], 03/19/2025 13:26:00 03/15/20 25 03/19/2025 QUANT IFERO [...] e refer to https ://ed ucati on.qu estdi [employer]. com/f aq/FA Q204 (This link is being provi ded for infor matio nal/ educa lillian l purpo ses only. ) Not Available [facility] [address] [place], [address], 03/19/2025 13:26:00 Result Notes None recorded. Problems Name Problem SNOMED Code Status Onset Date Resolution Date Notes Provider Name and Address Organization Details Recorded Time Allergic rhinitis 64508931 Completed 201908/08/2019 ALLERGIC SINUSITI S - Status is Inactive ; Recorded 08/08/19 10:16AM by Emeli Vega CMT, Annotati on/Adden dum; Promoted ; acuity set as *; Not Available [facility] 3 03:15:22 Family planning surveill ance Completed 201908/08/2019 DEPO-PRO VERA CONTRACE PTION, ENCOUNTE R FOR INJECTIO N - Status is Inactive ; Recorded 08/08/19 10:16AM by Emeli Vega CMT, Annotati on/Adden dum; Promoted ; acuity set as *; DEPO-CA OVERA CONTRACE PTIVE STATUS - Status is Inactive ; Recorded 08/08/19 10:16AM by Emeli Vega CMT, Annotati on/Adden dum; Promoted ; acuity set as *; Not Available [facility] 3 03:15:25 Depressi ve disorder 29752609 Active 2023 EMELI shepherd [facility] 4 12:14:25 Mood disorder 66202755 Active 2023 EMELI shepherd [facility] 4 12:14:36 Anxiety disorder 592758273 Active 2023 EMELI shepherd [facility] 4 12:15:13 Chronic constipa tion 826768128 Active 2023 EMELI shepherd [facility] 4 12:15:23 Psychoti c disorder 61756745 Active 2023 EMELI shepherd [facility] 4 12:15:41 Schizoph nakia 87572963 Active 2023 EMELI shepherd [facility] Jeff.L.CJimmy 4 12:23:45 [facility] 532214232 Active 2023 [facility] EMELI shepherd [facility] Jeff.L.CJimmy 4 12:25:49 Obsessiv e-compul sive disorder 442740655 Active 2024 EMELI shepherd [facility] 5 21:46:25 Bipolar disorder 70955683 Active 2024 EMELI shepherd [facility] 21:46:57 Attentio n deficit hyperact ivity disorder 795739918 Active 2024 EMELI shepherd [facility] 5 21:47:18 Iron deficien cy anemia 40020341 Active 2024 EMELI shepherd [facility] 5 21:48:23 Gastroes ophageal reflux disease without esophagi tis 235690269 Active 2024 EMELI shepherd [facility]my 21:48:53 Schizoph renic disorder s 897035760 Active 2024 EMELI shepherd [facility] 5 21:49:07 Sarcoido sis 57878212 Active 2024 EMELI shepherd [facility] 21:50:15 Problem Notes None recorded. Procedures Surgical History Date Name Laterality Status Provider Name and Address Organization Details Recorded Time 08/05/19 screening for malignant neoplasm of cervix [facility]2024 11:05:46 cholecystectomy [facility]/03/2024 15:22:35 Imaging Results None recorded. Procedure [...] Available Not Available No t Available azithromy amnada 250 mg tablet TAKE 1 TABLET BY [...] loratadin e daily 02/04 completed DOC LB/km; 95480; Recorded 03/20/20 1:14PM by Brooke Miles LPN (Authori zed through Blanca Rivera MD), Office Visit; Refill Quantity : 0; Not Available Not Available Not Available Flonase each nare daily 02/04 completed DOC CS/smf; 85797; Recorded 07/06/19 23 12:21PM by Kandi Dow RN (Authori zed through Robert Collins DO), Refill Request; Refill Quantity : 3; Each; Not Available Not Available Not Available calcium two times daily 02/04 completed 82985; Recorded 03/20/20 22 1:14PM by Brooke Miles LPN (Authori zed through EVELYN Laws), Office Visit; Refill Quantity : 0; Not Available Not Available Not Available benztropi ne three times daily 02/04 completed farhat; 01033; Recorded 03/20/20 22 1:14PM by Brooke Miles LPN (Authori zed through EVELYN Laws), Office Visit; Refill Quantity : 0; Not Available Not Available Not Available ibuprofen three times daily, as needed 02/04 completed 17886; Recorded 03/20/20 1:14PM by Brooke Miles LPN (Authori zed through EVELYN Laws), Office Visit; Refill Quantity : 300; Tablet; Not Available Not Available Not Available clozapine three times daily 02/[address] Jennings; 81350; Recorded 03/20/20 1:14PM by Brooke Miles LPN (Authori zed through EVELYN Laws), Office Visit; Refill Quantity : 0; Not Available Not Available Not Available risperido ne two times daily 02/04 completed 11363; Recorded 03/20/20 1:14PM by Brooke Miles LPN (Authori zed through EVELYN Laws), Office Visit; Refill Quantity : 0; Not Available Not Available Not Available Tums two times daily, as needed for heartbur n 02/04 completed 01082; Recorded 03/20/20 1:14PM by Brooke Miles LPN (Authori zematias through EVELYN Laws), Office Visit; Refill Quantity : 1; Tablet; Not Available Not Available Not Available Miralax Wed and Sat 02/04 completed 63993; Recorded 03/20/20 1:14PM by Brooke Miles LPN (Authori zed through EVELYN Laws), Office Visit; Refill Quantity : 24; Each; Not Available Not Available Not Available Trazodone at bedtime 02/04 completed farhat; 22614; Recorded 03/20/20 1:14PM by Brooke Miles LPN [...] Organization Details Last Updated DateTime 157.48 cm 28.2 kg/m2 63283.2 2 g 96 % 90 /min 22 /min 96/66 mm[Hg] EMELI VEGA [facility] 11:33:35 Social History Question Answer Notes LastModified by [employer] ion Details LastModified Time Tobacco Smoking Status Never Smoker [facility] 11/12/2023 14:05:22 What Type Of Diet Are You Following? REGULAR [email or web address] Information not available 12/07/2023 What Was The Date Of Your Most Recent Tobacco Screening? 02/28/2025 [email or web address] Information not available 02/28/2025 Sex: Unknown Functional Status Question Answer Note LastModified by Organizat ion Details LastModified Time Do you use any illicit or recreational drugs? No Information not available 12/07/2023 Do you or have you ever used any other forms of tobacco or nicotine? No [email or web address] Information not available 02/28/2025 What is your level of alcohol consumption? None [email or web address] Information not available 12/07/2023 Are you currently employed? Yes 2 days a week at [employer] [email or web address] Information not available 12/07/2023 Are you able to walk independently without assistance or assistive devices? YESWOREST [email or web address] Information not available 12/07/2023 Do you have difficulty doing errands alone? Yes [email or web address] Information not available 12/07/2023 Are you able to care for yourself independently? No [facility] Resident [email or web address] Information not available 12/07/2023 Do you or have you ever used any nicotine-free cigarettes, vape, or chewing tobacco? No [email or web address] Information not available 11/12/2023 Mental Status Question Answer Note LastModified by Organization D etails LastModified Time Do you have difficulty concentrating, remembering or making decisions? Yes Information no t available 12/07/2023 Family History Relationship Description Onset Age of this Age Resolved Age Notes LastModified by Organization Details LastModified Time Father No current problems or disability [email or web address] Not available 11/14 19:53:05 Mother No current problems or disability [email or web address] Not available 11/14 19:53:05 Medical History Condition [...] Time TST-PPD intradermal 0 completed Not Available [facility] 04/06/2023 13:51:54 Influenza, MDCK, quadrivalent, PF 0 completed Not Available [facility] 04/06/2023 13:51:54 Influenza, split virus, trivalent, preservative 8 completed Not Available [facility] 04/06/2023 13:51:54 Influenza, split virus, trivalent, preservative 6 completed Not Available [facility] 04/06/2023 13:51:54 Influenza, MDCK, quadrivalent, PF 3 completed MUMTAZ BRANTLEY, [facility] [address] [place] [address], [phone], [facility] 08/08/2024 10:44:40 Hib, unspecified formulation 2 completed MUMTAZ BRANTLEY, [address], , [facility] 12/01/2022 12:56:59 Hib, unspecified formulation 1 completed MUMTAZ BRANTLEY, [address], , [facility] 12/01/2022 12:56:59 Hib, unspecified formulation 1 completed MUMTAZ BRANTLEY, [address], , [facility] 12/01/2022 12:56:59 IPV 1 completed MUMTAZ BRANTLEY, [address], , [facility] 12/01/2022 12:56:59 IPV 6 completed MUMTAZ BRANTLEY, [address], , [facility] 12/01/2022 12:56:59 IPV 1 completed MUMTAZ BRANTLEY, [address], , [facility] 12/01/2022 12:56:59 MMR 7 completed MUMTAZ BRANTLEY, [address], , [facility] 12/01/2022 12:56:59 MMR 6 completed MUMTAZ BRANTLEY, [address], , [facility] 12/01/2022 12:56:59 influenza, unspecified formulation 8 completed MUMTAZ BRANTLEY, [address], [address], [facility] 12/01/2022 12:56:59 influenza, unspecified formulation 5 completed MUMTAZ BRANTLEY, [address], [address], [facility] 12/01/2022 12:56:59 influenza, unspecified formulation 9 completed MUMTAZ BRANTLEY, [address], [address], [facility] 12/01/2022 12:56:59 influenza, unspecified formulation 9 completed MUMTAZ BRANTLEY, [address], [address], [facility] 12/01/2022 12:56:59 Tdap 5 completed MUMTAZ BRANTLEY, [address], [address], [facility] 12/01/2022 12:56:59 Influenza, split virus, trivalent, 6 completed MUMTAZ BRANTLEY, [address], [address], [facility] 12/01/2022 12:56:59 Td (adult), 2 Lf tetanus toxoid, preservative free, adsorbed 8 completed MUMTAZ BRANTLEY, [address], [address], [facility] 12/01/2022 12:56:59 Hep B, adolescent or pediatric 7 completed MUMTAZ HESTERTES, [facility] [address] [place], [address], [facility] 12/01/2022 12:56:59 Hep B, adolescent or pediatric 7 completed MUMTAZ BRANTLEY, [facility] [address] [place], [address], [facility] 12/01/2022 12:56:59 Hep B, adolescent or pediatric 7 completed MUMTAZ BRANTLEY, [facility] [address] [place], [address], [facility] 12/01/2022 12:56:59 DTaP 2 completed MUMTAZ BRANTLEY, [facility] [address] [place] [address], [address], [facility] 12/01/2022 12:56:59 DTaP 3 completed MUMTAZ BRANTLEY, [facility] [address] [place], [address], [facility] 12/01/2022 12:56:59 DTaP 1 completed MUMTAZ BRANTLEY, [facility] [address] [place], [address], [facility] 12/01/2022 12:56:59 DTaP 6 completed MUMTAZ BRANTLEY, [facility] [address] [place], [address], [facility] 12/01/2022 12:56:59 DTaP 1 completed MUMTAZ BRANTLEY, [facility] [address] [place] [address], [id number], [facility] 12/01/2022 12:56:59 Influenza, split virus, quadrivalent, PF 1 completed EVELYN DRAKE [address] [place], [address], [facility] 12/01/2022 12:56:59 Influenza, MDCK, trivalent, PF 5 completed EVELYN DRAKE [address] [place], [address], [facility] 12/01/2022 12:56:59 Influenza, split virus, trivalent, preservative 4 completed Not Available [facility] 03/21/2025 13:02:05 Tdap 4 completed Not Available [facility] 03/21/2025 13:02:05 Past Encounters Encounter ID Performer Location Encounter Start Date Encounter Closed Date Diagnosis/Indication Diagnosis SNOMED-CT Code Diagnosis ICD10 Code Diagnosis IMO Codes Diagnosis Note [id number] EVELYN HYDE [facility] ([facility]) [address] [place] [address] 02/28/2025 15:21:47 02/28/2025 16:34:42 Acute cough [id number] 79755970 R05.4 [id number] Nausea 538069089 R11.0 79968 Increase po fluids as tolerated. Use Zofran as prescribed . RTC with any new or worsening symptoms. [id number] EVELYN DRAKE [facility] ([facility]) [address] [place] [address] 03/15/2025 11:10:45 03/15/2025 11:58:16 Annual physical examination for people with mental illness completed 3487101061 Z00.00 F99 3546501127 Tuberculos is screening status 269125813 Z11.1 948190 Sore throat 702683220 J0 2.9 03636 Tylenol as needed. Return if not improving. Health Concerns Section Related Observation LastModified by Organization Detai ls LastModified Time None Recorded Concern Status LastModified by Organization Details LastModified Time None Recorded Payers Encounter Date Sequence Insurance Name Policy Number Policy Blair Covered Member ID Blair Member ID Guarantor Name 03/15/2025 1 [place] Iza Ordonez [id number] [facility] Notes Date Note Type Note Provider Name and Address Organization Details Recorded Time 03/15/2025 text/html Annual WellnessReported by PatientSocial/Behavior al [...] hearing. For vision, patient reportsno vision problems. MUMTAZ BRANTLEY, [address], [address], [facility] 03/15/2025 11:54:18 OBGyn Episode No OBEpisode recorded.
[2025-04-23 22:33] VITALS: BP 100/62; PULSE 83; O2SAT 96
[2025-04-23 22:47] VITALS: BP 100/62; PULSE 81; O2SAT 96
== END 2025-04-23 22:58 | disposition home or self-care (01) ==
PROVIDERS: Emergency Provider Emergency Medicine; PCP Nurse Practitioner Family
DX: S09.90XA Unspecified injury of head, initial encounter (principal); W18.2XXA Fall in (into) shower or empty bathtub, initial encounter
CPT/HCPCS: 70450; 70486; 99284; J9999

== ENCOUNTER → 2025-05-01 10:19 | Outpatient (BNVA) | payer MEDICAID, SELFPAY | PROVIDERS: PCP Nurse Practitioner Family; Visit Provider Internal Medicine | DX: D86.0 Sarcoidosis of lung (principal); R91.8 Other nonspecific abnormal finding of lung field; R59.0 Localized enlarged lymph nodes | CPT/HCPCS: 99214 ==